=== PATIENT | female | born 1950 | race Caucasian/White ===

== ENCOUNTER → 2017-09-10 | Outpatient (CLI) | payer MEDICARE, BC, SELFPAY | PROVIDERS: Visit Provider Family Medicine | DX: Z12.31 Encounter for screening mammogram for malignant neoplasm of breast (principal) | CPT/HCPCS: 77067; G0202 ==

== ENCOUNTER → 2018-01-29 15:52 | Outpatient (CLI) | payer MEDICARE, BC, SELFPAY ==
--- NOTE | 2018-01-29 15:59 | XR_ITS ---
XR chest 2V HISTORY: ITS.REASON: COUGH ORDERING PHYSICIAN: Williams Falcon MD PATIENT AGE: 67 years COMPARISON: 10/03/2015 FINDINGS: Unremarkable cardiovascular structures. There are chronic changes in the right middle lobe with chronic increased density along the right heart border. This is somewhat more prominent on today's exam. The patient has a right pericardial fat pad as seen on the previous CT scan. No lobar consolidation or collapse. No acute bony anomalies IMPRESSION: 1. Chronic changes with prominent right pericardial fat pad 2. No acute finding
== END ==
PROVIDERS: PCP Family Medicine; Visit Provider Family Medicine
DX: R05 Cough (principal)
CPT/HCPCS: 71046

== ENCOUNTER → 2018-09-14 12:35 | Outpatient (CLI) | payer MEDICARE, BC, SELFPAY ==
--- NOTE | 2018-09-14 12:48 | MM_ITS ---
MM Dig screening mamm BI w/CAD ORDERING PHYSICIAN : Williams Falcon MD PATIENT AGE: 68 years GENDER: Female COMPARISON: Prior mammogram study August 2017, 2015, 2014. INDICATION: ITS.REASON: SCREENING no hormones no new complaints. Family history. Maternal cousins with breast cancer. (Previous mammogram noted mother with breast cancer but this is not included on today's history) TECHNIQUE: Standard CC and MLO images were obtained. R2 CAD reviewed. FINDINGS: Low-density breast bilaterally. Generalized fatty replacement. No significant new findings. No dominant mass nor suspicious calcifications either breast. Bilateral follow-up one year recommended. IMPRESSION: Negative, Stable bilateral mammogram. No areas of concern. BI-RADS Category: 1 Negative RECOMMENDED FOLLOW-UP: 1YR 1 YEAR FOLLOW-UP (A letter has been sent to the patient regarding results of the study.)
== END ==
PROVIDERS: PCP Family Medicine; Visit Provider Family Medicine
DX: Z12.31 Encounter for screening mammogram for malignant neoplasm of breast (principal)
CPT/HCPCS: 77067

== ENCOUNTER 2018-11-01 11:10 | Emergency (ER) | payer MEDICARE, BC, SELFPAY ==
[2018-11-01 11:25] VITALS: BP 136/67; PULSE 90; RESP 20; TEMP 38; O2SAT 96; BMI 33.9
--- NOTE | 2018-11-01 11:29 | PC.NURSE ---
PT SWABBED FOR FLU AND STREP
[2018-11-01 11:39] LABS: UTC Influenza A Antigen Negative (Negative); UTC Influenza B Antigen Negative (Negative); UTC Strep Screen (Rapid) Negative (Negative)
--- NOTE | 2018-11-01 11:40 | HMH.EDUTC ---
[facility] [place] Disposition Clinical Impression: Sinusitis Qualifiers: Sinusitis location: frontal Chronicity: acute Recurrence: recurrent Qualified Code(s): J01.11 - Acute recurrent frontal sinusitis Disposition: Home, Self-Care Condition on Discharge: Good Instructions: Sinusitis, Cough Additional Instructions: Drink plenty of fluids. Take tylenol or ibuprofen for pain. Take all the medications as prescribed. Go to your regular doctor if you are not getting better in 48 hours or so. GO TO THE ER FOR ANY WORSENING OR LIFE THREATENING SYMPTOMS Prescriptions: Ondansetron [Zofran 4mg ODT] 4 mg PO Q8HP PRN #30 tab.rapdis PRN Reason: Nausea Cefdinir [Omnicef 300mg Capsule] 300 mg PO BID #20 cap methylPREDNISolone [Medrol] 4 mg PO DIRECTED 6 Days #21 tab.ds.pk Referrals: Williams Falcon MD [Primary Care Provider] - Time of Disposition: 12:00 Medical Decision Making - Medical Records Medical records reviewed: No: I reviewed the patient's medical records. - Ambrose Inquiry Pt receiving controlled substance: No Ambrose was queried for this patient: No Vital Signs: 11/01/18 11:25 11/01/18 12:10 Temperature 100.4 F H 100.2 F H Temperature Source Oral Oral Pulse Rate 86 Pulse Rate [Left Brachial] 90 Respiratory Rate 20 20 Blood Pressure 130/62 Blood Pressure [Left Arm] 136/67 Blood Pressure Mean [Left Arm] 90 Blood Pressure Source [Left Arm] Automatic Cuff Blood Pressure Position [Left Arm] Sitting 02 Sat by Pulse Oximetry 96 Oxygen Delivery Method Room Air Room Air - Lab Data Lab results reviewed: Yes: I reviewed the patient's lab results. Lab Results 11/01/18 11:29: Influenza Type A Ag Negative, Influenza Type B Ag Negative, Strep Scn Rapid Clinic Negative Orders (Tests/Meds): ORDERS Category Date Time Status Strep Screen Confirmation Stat Micro 11/01/18 11:[address] [facility] [place] HPI - General Stated complaint: sore throat, soa, fever, cough Time Seen by Provider: 11/01/18 11:40 Mode of Arrival: Family Vehicle Source of Information: Patient Limitations: No Limitations Description of Symptoms (Recalled from Triage Doc. by RN): PT C/O HEADACHE, SORE THROAT, FEVER, BODY ACHES, CHILLS, CHEST CONGESTION, NAUSEA, COUGH WITH YELLOW PHLEM X 3 DAYS. HEENT Symptoms (Recalled from RN notes): Yes (FEVER, SORE THROAT, HEADACHE) Resp Symptoms (Recalled from RN notes): Yes (COUGH, CHEST CONGESTION) Skin Symptoms (Recalled from RN notes): No MS Symptoms (Recalled from RN notes): No Functional Status (Recalled from RN notes): N/A - History of Present Illness Provider Complaint: She c/o 3 days of low grade fever (up to 100.5), cough with yellowish sputum, sinus pressure, sinus pain, and poor appetite. She was treated approx 3 weeks with azithromycin for similar symptoms. She states she got better then, but it has returned now. - Related Data Home Medications Medication Instructions Recorded Confirmed Calcium Crb,Cit/D3/Min34/Andrés 1 each PO DAILY 10/15/18 11/01/18 [Citracal + Bone Density Tablet] Levothyroxine Sodium 175 mcg PO DAILY 10/15/18 11/01/18 [Levothyroxine 175mcg (0.175mg) Tab] Naproxen 500 mg PO DAILY 10/15/18 11/01/18 Omeprazole [Omeprazole 40mg 40 mg PO DAILY 10/15/18 11/01/18 Capsule] Previous Rx's Medication Instructions Recorded Promethazine/Dextromethorphan 5 ml PO Q6HP PRN #240 syrup 10/15/18 [Promethazine-Dm Syrup] Cefdinir [Omnicef 300mg Capsule] 300 mg PO BID #20 cap 11/01/18 Ondansetron [Zofran 4mg ODT] 4 mg PO Q8HP PRN #30 tab.rapdis 11/01/18 methylPREDNISolone [Medrol] 4 mg PO DIRECTED 6 Days #21 11/01/18 tab.ds.pk Allergies Allergy/AdvReac Type Severity Reaction Status Date / Time codeine [CODEINE] Allergy Mild NA-NAUSEA/V Verified 11/01/18 11:36 OMITING - Worker's Comp Is this a Worker's Comp case?: No [facility] History - Hepatitis A Screen Drug use history?: No High risk sexual behaviors?: No History
--- NOTE | 2018-11-01 11:44 | PC.NURSE ---
BOLIVAR BARCENAS AT BEDSIDE
--- NOTE | 2018-11-01 11:49 | ED_ITS ---
[facility] [place] Impression: Sinusitis Qualifiers: Sinusitis location: frontal Chronicity: acute Recurrence: recurrent Qualified Code(s): J01.11 - Acute recurrent frontal sinusitis Disposition: Home, Self-Care Condition on Discharge: Good Instructions: Sinusitis, Cough Additional Instructions: Drink plenty of fluids. Take tylenol or ibuprofen for pain. Take all the medications as prescribed. Go to your regular doctor if you are not getting better in 48 hours or so. GO TO THE ER FOR ANY WORSENING OR LIFE THREATENING SYMPTOMS Prescriptions: Ondansetron [Zofran 4mg ODT] 4 mg PO Q8HP PRN #30 tab.rapdis PRN Reason: Nausea Cefdinir [Omnicef 300mg Capsule] 300 mg PO BID #20 cap methylPREDNISolone [Medrol] 4 mg PO DIRECTED 6 Days #21 tab.ds.pk Referrals: Williams Falcon MD [Primary Care Provider] - Time of Disposition: 12:00 Medical Decision Making - Medical Records Medical records reviewed: No: I reviewed the patient's medical records. - Ambrose Inquiry Pt receiving controlled substance: No Ambrose was queried for this patient: No Vital Signs: 11/01/18 11:25 11/01/18 12:10 Temperature 100.4 F H 100.2 F H Temperature Source Oral Oral Pulse Rate 86 Pulse Rate [Left Brachial] 90 Respiratory Rate 20 20 Blood Pressure 130/62 Blood Pressure [Left Arm] 136/67 Blood Pressure Mean [Left Arm] 90 Blood Pressure Source [Left Arm] Automatic Cuff Blood Pressure Position [Left Arm] Sitting 02 Sat by Pulse Oximetry 96 Oxygen Delivery Method Room Air Room Air - Lab Data Lab results reviewed: Yes: I reviewed the patient's lab results. Lab Results 11/01/18 11:29: Influenza Type A Ag Negative, Influenza Type B Ag Negative, Strep Scn Rapid Clinic Negative Orders (Tests/Meds): ORDERS Category Date Time Status Strep Screen Confirmation Stat Micro 11/01/18 11:29 [place] [facility] [place] - General Stated complaint: sore throat, soa, fever, cough Time Seen by Provider: 11/01/18 11:40 Mode of Arrival: Family Vehicle Source of Information: Patient Limitations: No Limitations Description of Symptoms (Recalled from Triage Doc. by RN): PT C/O HEADACHE, SORE THROAT, FEVER, BODY ACHES, CHILLS, CHEST CONGESTION, NAUSEA, COUGH WITH YELLOW PHLEM X 3 DAYS. HEENT Symptoms (Recalled from RN notes): Yes (FEVER, SORE THROAT, HEADACHE) Resp Symptoms (Recalled from RN notes): Yes (COUGH, CHEST CONGESTION) Skin Symptoms (Recalled from RN notes): No MS Symptoms (Recalled from RN notes): No Functional Status (Recalled from RN notes): N/A - History of Present Illness Provider Complaint: She c/o 3 days of low grade fever (up to 100.5), cough with yellowish sputum, sinus pressure, sinus pain, and poor appetite. She was treated approx 3 weeks with azithromycin for similar symptoms. She states she got better then, but it has returned now. - Related Data Home Medications Medication Instructions Recorded Confirmed Calcium Crb,Cit/D3/Min34/Andrés 1 each PO DAILY 10/15/18 11/01/18 [Citracal + Bone Density Tablet] Levothyroxine Sodium 175 mcg PO DAILY 10/15/18 11/01/18 [Levothyroxine 175mcg (0.175mg) Tab] Naproxen 500 mg PO DAILY 10/15/18 11/01/18 Omeprazole
[2018-11-01 12:10] VITALS: BP 130/62; PULSE 86; RESP 20; TEMP 37.9; O2SAT 100
== END 2018-11-01 12:10 | disposition home or self-care (01) ==
PROVIDERS: Emergency Provider Nurse Practitioner Family; PCP Family Medicine
DX: J01.11 Acute recurrent frontal sinusitis (principal); Z88.5 Allergy status to narcotic agent
CPT/HCPCS: G0463; 87804; 87880; 99202

== ENCOUNTER → 2018-12-03 14:58 | Outpatient (CLI) | payer MEDICARE, BC, SELFPAY ==
--- NOTE | 2018-12-03 15:05 | XR_ITS ---
XR shoulder RT min 2V HISTORY: Posttraumatic pain ITS.REASON: S/P FALL RT ANTERIOR SHOULDER PAIN ORDERING PHYSICIAN: SUZANNE Russo PATIENT AGE: 68 years Comparison: None FINDINGS: No fracture or dislocation. No lytic or blastic change. There is normal mineralization. The joint spaces are well-preserved. No significant degenerative/arthritic changes. No erosive changes evident. There is an old fracture of the right second rib laterally IMPRESSION: Negative, no acute finding
== END ==
PROVIDERS: PCP Family Medicine; Visit Provider Physician Assistant
DX: M25.511 Pain in right shoulder (principal)
CPT/HCPCS: 73030

== ENCOUNTER → 2019-07-09 08:34 | Outpatient (CLI) | payer MEDICARE, BC, SELFPAY ==
[2019-07-09 10:14] LABS: Alanine Aminotransferase 12 U/L (12-78); Albumin Level 3.8 gm/dL (3.4-5.0); Albumin/Globulin Ratio 1.3 (1.1-1.8); Alkaline Phosphatase 75 U/L (46-116); Anion Gap 12.2 mEq/L (5-15); Aspartate Amino Transferase 9 U/L (15-37); Bilirubin,Total 0.4 mg/dL (0.2-1.0); Blood Urea Nitrogen 23 mg/dL (7-18); Calcium 8.9 mg/dL (8.5-10.1); Carbon Dioxide 27 mmol/L (21.0-32.0); Chloride 107 mmol/L (98-107); Cholesterol 246 mg/dL (140-200); Creatinine,Serum 0.79 mg/dL (0.55-1.02); Estimated Glomerular Filt Rate 73 ml/min (>60); Free T4 (Free Thyroxine) 1.27 ng/dl (0.76-1.46); GFR (African American) 88 ML/MIN (>60); Globulin 2.9 gm/dl (1.3-3.2); Glucose 92 mg/dL (74-106); HDL Cholesterol 83 mg/dL (29-89); LDL Cholesterol 150 mg/dL (0-130); Potassium 4.2 mmoL/L (3.5-5.1); Sodium 142 mmol/L (136-145); Thyroid Stimulating Hormone 2.84 uIU/ml (0.358-3.740); Total Protein,Serum 6.7 gm/dL (6.4-8.2); Triglycerides 67 mg/dL (30-200); VLDL Cholesterol 13 mg/dL (0-40)
[2019-07-10 18:53] LABS: Vitamin B12 524 pg/mL (232-1245)
== END ==
PROVIDERS: Visit Provider Physician Assistant
DX: I10 Essential (primary) hypertension (principal); E03.9 Hypothyroidism, unspecified; R20.2 Paresthesia of skin; Z13.220 Encounter for screening for lipoid disorders
CPT/HCPCS: 36415; 80053; 80061; 82607; 84439; 84443

== ENCOUNTER → 2019-09-16 09:59 | Outpatient (CLI) | payer MEDICARE, BC, SELFPAY ==
--- NOTE | 2019-09-16 10:07 | MM_ITS ---
PROCEDURE: MM DIG SCREENING MAMM BI W/CAD Patient Age:69Y CLINICAL INDICATION: SCREENING no hormones but no new complaints.. Family history: Mother and cousin with breast cancer COMPARISON: [facility] DIG MAMM-SCREEN YESY from 07/09/2013 [facility] DIG MAMM-SCREEN YESY from 09/05/2014 [facility] DIG MAMM-SCREEN YESY from 09/06/2015 [facility] DIG MAMM-SCREEN YESY from 09/10/2016 [facility] DIG MAMM-SCREEN YESY W/CAD from 09/10/2017 [facility] MM Dig screening mamm BI w/CAD from 09/14/2018 TECHNIQUE: Standard CC and MLO images were obtained. R2 CAD reviewed. FINDINGS: Only minimal residual fibroglandular elements retroareolar region low-density breast with generalized fatty replacement. No new dominant or suspicious mass, no suspicious calcifications. A no change since multiple prior studies. Subtle scattered small areas of nodularity bilaterally unimpressive and stable not of concern . Right breast mildly prominent ductal retroareolar region unchanged since multiple previous studies . Left breast: Unremarkable and stable No significant new findings on CAD computer review either.. Bilateral follow-up 1 year recommended. IMPRESSION: Stable bilateral mammogram. Low-density breast with generalized fatty replacement Bilateral mammogram 1 year recommend BI-RAD Category: 1 Negative FOLLOW-UP: 1YR 1 Year Follow-up (A letter has been sent to the patient regarding results of the study.) Dictated by: Karlos Paula MD 09/16/2019 23:56 Electronically signed by Karlos Paula MD in [place] 09/16/2019 23:56
== END ==
PROVIDERS: PCP Family Medicine; Visit Provider Family Medicine
DX: Z12.31 Encounter for screening mammogram for malignant neoplasm of breast (principal)
CPT/HCPCS: 77067

== ENCOUNTER → 2020-09-20 09:28 | Outpatient (CLI) | payer MEDICARE, BC, SELFPAY ==
--- NOTE | 2020-09-20 09:38 | MM_ITS ---
PROCEDURE: MM DIG SCREENING MAMM BI W/CAD Digital Breast Tomosynthesis Included CLINICAL INDICATION: SCREENING There is a history of breast cancer in the patient's mother and maternal cousin. COMPARISON: MG [facility] DIG MAMM-SCREEN YESY W/CAD from 09/10/2017 MG [facility] MM Dig screening mamm BI w/CAD from 09/14/2018 MG MM DIG SCREENING MAMM BI W/CAD from 09/16/2019 TECHNIQUE: Standard CC and MLO images and 3D Tomosynthesis was obtained. R2 CAD reviewed. FINDINGS: The breasts are composed primarily of fat with minimal scattered fibroglandular densities in each breast. There is a stable tiny benign-appearing nodular density near the axillary tail right breast. There is stable benign-appearing nodularity subareolar region right breast. There is no suspicious lesion and no suspicious microcalcifications. IMPRESSION: Fatty type breast parenchyma with no suspicious lesions seen BI-RAD Category: 2 Benign Finding(s) FOLLOW-UP: 1YR 1 Year Follow-up (A letter has been sent to the patient regarding results of the study.) Dictated by: Dr. Donald Peña MD 09/23/2020 10:12 Dr. Donald Peña MD in [place] 09/23/2020 10:12
== END ==
PROVIDERS: PCP Family Medicine; Visit Provider Family Medicine
DX: Z12.31 Encounter for screening mammogram for malignant neoplasm of breast (principal)
CPT/HCPCS: 77063; 77067

== ENCOUNTER 2021-01-24 09:07 | Emergency (ER) | payer MEDICARE, BC, SELFPAY ==
[2021-01-24 09:39] VITALS: BP 133/79; PULSE 86; RESP 19; TEMP 37; O2SAT 98; BMI 33.9
[2021-01-24 09:45] VITALS: BP 133/79; PULSE 86; RESP 19; TEMP 37; O2SAT 98
[2021-01-24 10:05] LABS: UTC Influenza A Antigen Negative (Negative); UTC Strep Screen (Rapid) Negative (Negative)
[2021-01-24 10:06] LABS: UTC Influenza B Antigen Negative (Negative)
--- NOTE | 2021-01-24 10:13 | HMH.EDUTC ---
[facility] [place] Clinical Impression: Viral syndrome Pharyngitis Qualifiers: Pharyngitis/tonsillitis etiology: unspecified etiology Qualified Code(s): J02.9 - Acute pharyngitis, unspecified Disposition: Home, Self-Care Condition on Discharge: Good Instructions: DI for Pharyngitis/Tonsillopharyngitis -- Adult, DI for Viral Syndrome, Preventing the Spread of Coronavirus Discharge Instructions Additional Instructions: Drink plenty of fluids. Take tylenol for pain or fever. Return if you begin to have difficulty breathing. Follow up with your regular doctor. GO TO THE ER FOR ANY WORSENING SYMPTOMS Prescriptions: Ondansetron [Zofran 4mg ODT] 4 mg PO Q8HP PRN #12 tab.rapdis PRN Reason: Nausea Transmission Status[id number] Azithromycin [Z-Ehsan 250mg Tab*] 250 mg PO UD DOSE PK #6 tab Transmission Status: [id number] Referrals: Williams Falcon MD [Primary Care Provider] - Time of Disposition: 10:26 Medical Decision Making - Medical Records Medical records reviewed: No: I reviewed the patient's medical records. - Ambrose Inquiry Pt receiving controlled substance: No Vital Signs: 01/24/21 09:39 01/24/21 09:45 Temperature 98.6 F 98.6 F Temperature Source Oral Pulse Rate 86 Pulse Rate [Left] 86 Respiratory Rate 19 19 Blood Pressure 133/79 Blood Pressure [Right Arm] 133/79 Blood Pressure Mean [Right Arm] 97 02 Sat by Pulse Oximetry 98 - Lab Data Lab results reviewed: Yes: I reviewed the patient's lab results. Lab Results 01/24/21 09:33: Influenza Type A Ag Negative, Influenza Type B Ag Negative 01/24/21 09:33: Strep Scn Rapid Clinic Negative Orders (Tests/Meds): ORDERS Category Date Time Status Strep Screen Confirmation Stat Micro 01/24/21 09:33 Received [facility] [place]PI - General Stated complaint: sore throat, cough Time Seen by Provider: 01/24/21 09:30 Mode of Arrival: Ambulatory Source of Information: Patient Limitations: No Limitations Description of Symptoms (Recalled from Triage Doc. by RN): Sore throat, cough and achy x 3 days HEENT Symptoms (Recalled from RN notes): Yes Resp Symptoms (Recalled from RN notes): Yes Skin Symptoms (Recalled from RN notes): No MS Symptoms (Recalled from RN notes): No Functional Status (Recalled from RN notes): wnl - History of Present Illness Provider Complaint: She states that she has had sore throat and cough for the past 3 days. She also has had gi upset at times. She denies documented fever, but she has had chilling and body aches. She was exposed to covid-19 about 2 weeks ago. - Related Data Home Medications Medication Instructions Recorded Confirmed Calcium Crb,Cit/D3/Min34/Andrés 1 each PO DAILY 10/15/18 11/01/18 [Citracal + Bone Density Tablet] Levothyroxine Sodium 175 mcg PO DAILY 10/15/18 11/01/18 [Levothyroxine 175mcg (0.175mg) Tab] Naproxen 500 mg PO DAILY 10/15/18 11/01/18 Omeprazole [Omeprazole 40mg 40 mg PO DAILY 10/15/18 11/01/18 Capsule] Previous Rx's Medication Instructions Recorded Sulfamethoxazole/Trimethoprim 1 each PO BID 10 Days #20 tab 03/26/19 [Bactrim DS tablet] Azithromycin [Z-Ehsan 250mg Tab*] 250 mg PO UD DOSE PK #6 tab 08/14/19 methylPREDNISolone [Medrol 4mg 4 mg PO DIRECTED #21 tab 08/14/19 tab] Azithromycin [Z-Ehsan 250mg Tab*] 250 mg PO UD DOSE PK #6 tab 01/24/21 Ondansetron [Zofran 4mg ODT] 4 mg PO Q8HP PRN #12 tab.rapdis 01/24/21 Allergies Allergy/AdvReac Type Severity Reaction Status Date / Time codeine [CODEINE] Allergy Mild NA-NAUSEA/V Verified 01/24/21 09:44 OMITING - Worker's Comp Is this a Worker's Comp case?: No [facility] History - Hepatitis A Screen Drug use history?: No High risk sexual behaviors?: No History of sexually transmitted infection?: No Currently employed?: No Childcare worker?: No Do you have indoor plumbing?: Yes Do you have electricity?: Yes Attestation statement
== END 2021-01-24 10:29 | disposition home or self-care (01) ==
PROVIDERS: Emergency Provider Nurse Practitioner Family; PCP Family Medicine
DX: B34.9 Viral infection, unspecified (principal); J02.9 Acute pharyngitis, unspecified; Z20.822 Contact with and (suspected) exposure to COVID-19
CPT/HCPCS: G0463; 87804; 87880; 99202; U0003

== ENCOUNTER → 2021-03-06 08:55 | Outpatient (CLI) | payer MEDICARE, BC, SELFPAY ==
--- NOTE | 2021-03-06 08:58 | XR_ITS ---
PROCEDURE: XR DEXA AXIAL SKELETON CLINICAL HISTORY: AGE RELATED OSTEOPOROSIS W/O CURRENT FRACTURE COMPARISON: CR,DX BONE3 BONE DENSITOMETRY(HIP:LT SPINE from 12/28/2014 FINDINGS: The right hip BMD is 0.770 with a T-score of -1.4. The left hip BMD is 0.665 with a T-score of -2.3. The lumbar spine BMD is 0.897 with a T-score of -1.4. Previously the lowest density was in the spine with a T-score -3.4 IMPRESSION: This patient is considered osteopenic according to the World Health Organization criteria. Bone density is between 10 and 25 percent below young normal. Fracture risk is moderate. Treatment is advised. Based on these results a follow-up exam is recommended in 2 year. Dictated by: Daryl Noble MD 03/08/2021 09:21 Daryl Noble MD in [place] 03/08/2021 09:21
== END ==
PROVIDERS: PCP Family Medicine; Visit Provider Physician Assistant
DX: M81.0 Age-related osteoporosis without current pathological fracture (principal)
CPT/HCPCS: 77080

== ENCOUNTER 2021-05-20 16:33 | Emergency (ER) | payer MEDICARE, BC, SELFPAY ==
[2021-05-20 16:34] VITALS: BP 173/72; PULSE 59; RESP 22; TEMP 37; O2SAT 98; BMI 33.0
--- NOTE | 2021-05-20 16:49 | CT_ITS ---
PROCEDURE INFORMATION: Exam: CT Abdomen And Pelvis Without Contrast Exam date and time: 05/20/2021 4:49 PM Age: 70 years old Clinical indication: Abdominal pain; Patient HX: Right flank pain, R/O kidney stone. ; Additional info: R/O stone TECHNIQUE: Imaging protocol: Computed tomography of the abdomen and pelvis without contrast. Radiation optimization: All CT scans at this facility use at least one of these dose optimization techniques: automated exposure control; mA and/or kV adjustment per patient size (includes targeted exams where dose is matched to clinical indication); or iterative reconstruction. COMPARISON: ABDPELW/O CT ABD PELVIS W/O CONTRAST 03/15/2017 4:11 AM FINDINGS: Lungs: Scarring/atelectasis at the lung bases without acute findings. Mediastinal space: A small hiatal hernia is present. Liver: There is enlargement of the liver, measuring 20 cm. There is a diffuse decrease in hepatic parenchymal density, consistent with fatty infiltration. The liver is otherwise unremarkable. Gallbladder and bile ducts: Normal. No calcified stones. No ductal dilation. Pancreas: Normal. No ductal dilation. Spleen: 9 mm hypodense lesion in the spleen is nonspecific, however stable since the reference examination and most probably benign. Consider ultrasound correlation if clinically warranted. Stable punctate calcification in the upper pole of the spleen which is of no clinical concern. The spleen is otherwise unremarkable. Adrenal glands: Normal. No mass. Kidneys and ureters: 4 mm x 4 mm stone impacted in the left mid ureter. There is mild left hydronephrosis. There is left hydroureter. There is inflammatory left perinephric stranding. Bilateral parapelvic renal cysts. 8 mm hypodense lesion in the right kidney is too small to characterize. Consider correlation with nonemergent ultrasound. The kidneys are otherwise unremarkable. Stomach and bowel: No bowel obstruction or significant bowel wall thickening. There is mildly excessive colonic stool content. Appendix: A normal appendix is identified. Intraperitoneal space: Unremarkable. No free air. No significant fluid collection. Vasculature: Unremarkable. No abdominal aortic aneurysm. Lymph nodes: Unremarkable. No enlarged lymph nodes. Urinary bladder: The bladder is decompressed. Reproductive: Unremarkable as visualized. Bones/joints: No acute skeletal pathology. Moderate multilevel degenerative changes of the spine, as manifested by multilevel anterior osteophytes and multilevel decrease in intervertebral disc space. Soft tissues: Unremarkable. IMPRESSION: Mild left obstructive uropathy caused by a 4 mm stone impacted in the mid left ureter. COMMENTS: Consistent with the [employer]'s Incidental Findings Committee white paper (J Am [place] Radiol 2018): Any incidental renal lesion less than 1 cm or classified as too small to characterize, or any incidental cystic renal lesion characterized as simple-appearing, is likely benign. No follow-up imaging is recommended for these lesions per consensus recommendations based on imaging criteria.
[2021-05-20 17:05] LABS: Microscopic, Urine URINE MICROSCOPIC (MICROSCOPIC)
[2021-05-20 17:08] LABS: Appearance,Urine CLOUDY (Clear); Basophils % 0.6 % (0.1-2.0); Bilirubin,Urine Negative (Negative); Blood, Urine 3+ (Negative); Color,Urine YELLOW (Yellow); Eosinophils % 0.5 % (0.1-12.0); Glucose,Urine (UA) Negative (Negative); Hematocrit 39.3 % (37.0-47.0); Hemoglobin 12.8 g/dL (12.2-16.2); Ketones,Urine Negative (Negative); Leukocyte Esterase,Urine Negative (Negative); Lymphocytes # 2.1 K/mm3 (0.7-4.5); Lymphocytes % 30.3 % (10-50); Mean Corpuscular HGB Conc 32.7 g/dL (31.8-35.4); Mean Corpuscular Hemoglobin 31.4 pg (27.0-31.2); Mean Corpuscular Volume 96.1 fl (81-99); Mean Platelet Volume 9.1 fl (7.4-10.4); Monocytes # 0.3 K/mm3 (0.1-1.0); Neutrophils # 4.5 K/mm3 (1.8-7.8); Neutrophils % 64.6 % (37.0-80.0); Nitrate,Urine Negative (Negative); PH,Urine 5.5 (5.0-8.5); Platelet Count 230 K/mm3 (142-424); Protein,Urine 1+ (Negative); Red Blood Count 4.09 M/mm3 (4.20-5.40); Red Cell Distribution Width 14.7 % (11.5-17.5); Specific Gravity, Urine >= 1.030 (1.005-1.030); White Blood Count 6.9 K/mm3 (4.8-10.8)
[2021-05-20 17:17] LABS: Alanine Aminotransferase 11 U/L (12-78); Albumin Level 4.2 g/dl (3.5-5.0); Albumin/Globulin Ratio 1.5 (1.1-1.8); Alkaline Phosphatase 87 U/L (38-126); Anion Gap 11.3 mEq/L (5-15); Aspartate Amino Transferase 20 U/L (14-36); Bilirubin,Total 0.4 mg/dl (0.2-1.3); Blood Urea Nitrogen 15 mg/dl (7-17); Calcium 8.9 mg/dl (8.4-10.2); Carbon Dioxide 24 mmol/L (22.0-30.0); Chloride 109 mmol/L (98-107); Creatinine Clearance Estimated 79 mL/min (50-200); Estimated Glomerular Filt Rate 71 ml/min (>60); GFR (African American) 86 ML/MIN (>60); Globulin 2.8 g/dL (1.3-3.2); Glucose 138 mg/dl (74-100); Potassium 3.3 mmoL/L (3.5-5.1); Sodium 141 mmol/L (136-145)
[2021-05-20 17:18] LABS: WBC,Urine Occasional #/hpf (0-3)
[2021-05-20 17:19] LABS: Bacteria,Urine 3+ /lpf; Calcium Oxalate Crystals,Urine 2+ /lpf; Mucus,Urine 1+ /lpf; RBC,Urine TNTC #/hpf (0-3)
--- NOTE | 2021-05-20 17:50 | HMH.EDGENADL ---
ED Disposition Clinical Impression: Nephrolithiasis Disposition: Home, Self-Care Condition on Discharge: Good Additional Instructions: If you are unable to bear the pain at home, taking Zofran prior to taking your pain medications he can keep them down. It is very common for people to have intense pain causing the nausea. Drink plenty of fluids as this can help you pass the stone. You have any signs of a urinary tract infection, burning when you pee, pain when you pee frequent bowel movements, feeling the urge to urinate without being able to. If you see any air in your urine or if you have any other new or concerning symptoms please return to the emergency department. Prescriptions: Ketorolac Tromethamine [Toradol 10mg tablet] 10 mg PO Q4HP PRN #20 tab MDD 40mg/day PRN Reason: Moderate To Severe Pain Transmission Status[facility] Ondansetron [Zofran 4mg ODT] 4 mg PO BIDP PRN #10 tab PRN Reason: Nausea Transmission Status: [facility] Referrals: Williams Falcon MD [Primary Care Provider] - - Critical Care Critical Care Time: No Attestation: On 05/20/21, the high probability of a clinically significant, sudden or life threatening deterioration of the following system(s) required my full and direct attention, intervention and personal management. The time I documented below is in addition to time spent performing reported procedures but includes the following listed in this critical care notation. Medical Decision Making - Ambrose Inquiry Pt receiving controlled substance: No Vital Signs: 05/20/21 16:34 Temperature 98.6 F Temperature Source Oral Pulse Rate [Radial] 59 L Respiratory Rate 22 Blood Pressure [Right Arm] 173/72 H Blood Pressure Mean [Right Arm] 105 Blood Pressure Position [Right Arm] Sitting 02 Sat by Pulse Oximetry 98 Oxygen Delivery Method Room Air - Lab Data Lab Results 05/20/21 16:55: Urine Color Yellow, Urine Appearance Cloudy, Urine pH 5.5, Ur Specific [place] >= 1.030, Urine Protein 1+, Urine Glucose (UA) Negative, Urine Ketones Negative, Urine Blood 3+, Urine Nitrate Negative, Urine Bilirubin Negative, Urine Urobilinogen 1.0, Ur Leukocyte Esterase Negative, Urine RBC Tntc, Urine WBC Occasional, Ur Squamous Epith Cells 5-10, Calcium Oxalate Crystal 2+, Urine Bacteria 3+, Urine Mucus 1+ 05/20/21 16:55: WBC 6.9, RBC 4.09 L, Hgb 12.8, Hct 39.3, MCV 96.1, MCH 31.4 H, MCHC 32.7, RDW 14.7, Plt Count 230, MPV 9.1, Neut % (Auto) 64.6, Lymph % (Auto) 30.3, [place] % (Auto) 4.0, Eos % (Auto) 0.5, Baso % (Auto) 0.6, Neut # (Auto) 4.5, Lymph # (Auto) 2.1, [place] # (Auto) 0.3, Eos # (Auto) 0.0, Baso # (Auto) 0.0 05/20/21 16:55: Sodium 141, Potassium 3.3 L, Chloride 109 H, Carbon Dioxide 24, Anion Gap 11.3, BUN 15, Creatinine 0.80, Estimated Creat Clear 79, Estimated GFR 71, Est GFR ( Amer) 86, Glucose 138 H, Calcium 8.9, Total Bilirubin 0.4, AST 20, ALT 11 L, Alkaline Phosphatase 87, Total Protein 7.0, Albumin 4.2, Globulin 2.8, Albumin/Globulin Ratio 1.5 Result diagrams: 05/20/21 16:55 05/20/21 16:55 Orders (Tests/Meds): ED MEDICATIONS Generic Name Dose Route Start Last Admin Trade Name Freq PRN Reason Stop Dose Admin Sodium Chloride 1,000 mls @ 999 mls/hr 05/20/21 17:00 05/20/21 17:01 Sod Chlor 0.9% 1000ml Bag IV 05/20/21 18:00 999 mls/hr .Q1H1M SAYRA Administration Discontinued Medications Generic Name Dose Route Start Last Admin Trade Name Freq PRN Reason Stop Dose Admin Hydromorphone HCl 0.5 mg 05/20/21 18:02 05/20/21 18:03 Hydromorphone 2mg/Ml Syringe IV 05/20/21 18:03 0.5 mg ONCE ONE Administration Ketorolac Tromethamine 15 mg 05/20/21 16:50 05/20/21 17:01 Ketorolac 30mg/Ml Vial IV 09/05/21 16:51 15 mg ONCE ONE Administration Ondansetron HCl 4 mg 05/20/21 16:50 05/20/21 17:01 Ondansetron 4mg/2ml Vial IV 05/20/21 16:51 4 mg ONCE ONE Administration Ondansetron HCl 4 mg 05/20
[2021-05-20 19:25] VITALS: BP 167/75; PULSE 64; RESP 20; TEMP 37; O2SAT 98
== END 2021-05-20 19:27 | disposition home or self-care (01) ==
PROVIDERS: Emergency Provider Emergency Medicine; PCP Family Medicine
DX: N20.0 Calculus of kidney (principal); N13.39 Other hydronephrosis; Z88.5 Allergy status to narcotic agent
CPT/HCPCS: 74176; 80053; 81001; 85025; 87086; 96365; 96375; 96376; 99283; J2405

== ENCOUNTER 2021-05-24 22:51 | Emergency (ER) | payer MEDICARE, BC, SELFPAY ==
[2021-05-24 22:52] VITALS: BP 152/91; PULSE 87; RESP 18; TEMP 37.1; O2SAT 96; BMI 32.5
[2021-05-24 23:30] VITALS: BP 143/89; PULSE 78; O2SAT 96
--- NOTE | 2021-05-24 23:34 | CT_ITS ---
PROCEDURE INFORMATION: Exam: CT Abdomen And Pelvis Without Contrast Exam date and time: 05/24/2021 11:34 PM Age: 70 years old Clinical indication: Abdominal pain; Left; Patient HX: Lt flank pain started back again today, known stone; Additional info: Left flank pain, known 4mm ureteral stone TECHNIQUE: Imaging protocol: Computed tomography of the abdomen and pelvis without contrast. Radiation optimization: All CT scans at this facility use at least one of these dose optimization techniques: automated exposure control; mA and/or kV adjustment per patient size (includes targeted exams where dose is matched to clinical indication); or iterative reconstruction. COMPARISON: CT ABDOMEN PELVIS WO CON 05/20/2021 5:15 PM FINDINGS: Lungs: Mild scarring and atelectasis in the lower lungs. Liver: Normal. No mass. Gallbladder and bile ducts: Normal. No calcified stones. No ductal dilation. Pancreas: Normal. No ductal dilation. Spleen: Normal. No splenomegaly. Adrenal glands: Normal. No mass. Kidneys and ureters: Left hydronephrosis secondary to a 2 mm calculus in the distal ureter approximately 4 cm proximal to the urinary bladder. Stomach and bowel: Unremarkable. No obstruction. No mucosal thickening. Appendix: Unremarkable appendix. Intraperitoneal space: Unremarkable. No free air. No significant fluid collection. Vasculature: Unremarkable. No abdominal aortic aneurysm. Lymph nodes: Unremarkable. No enlarged lymph nodes. Urinary bladder: Unremarkable as visualized. Reproductive: Unremarkable as visualized. Bones/joints: The lumbar spine demonstrates mild degenerative changes at multiple levels. Soft tissues: There is a healed anterior abdominal wall incision. Other findings: Stigmata of old granulomatous disease. IMPRESSION: Left hydronephrosis secondary to a 2 mm calculus in the distal ureter approximately 4 cm proximal to the urinary bladder. This is progressed compared to prior study.
[2021-05-24 23:43] LABS: Microscopic, Urine URINE MICROSCOPIC (MICROSCOPIC)
[2021-05-24 23:45] VITALS: BP 152/83; PULSE 75; O2SAT 96
[2021-05-24 23:50] LABS: Appearance,Urine CLEAR (Clear); Bilirubin,Urine 1+ (Negative); Blood, Urine 3+ (Negative); Color,Urine YELLOW (Yellow); Glucose,Urine (UA) Negative (Negative); Ketones,Urine TRACE (Negative); Leukocyte Esterase,Urine Negative (Negative); Nitrate,Urine Negative (Negative); Protein,Urine TRACE (Negative); Specific Gravity, Urine >= 1.030 (1.005-1.030)
[2021-05-24 23:54] LABS: Bacteria,Urine Trace /lpf
[2021-05-25 00:03] LABS: Basophils # 0.1 K/mm3 (0-0.2); Basophils % 0.9 % (0.1-2.0); Eosinophils % 0.4 % (0.1-12.0); Hematocrit 39.4 % (37.0-47.0); Hemoglobin 12.9 g/dL (12.2-16.2); Lymphocytes # 1.8 K/mm3 (0.7-4.5); Lymphocytes % 21.8 % (10-50); Mean Corpuscular HGB Conc 32.8 g/dL (31.8-35.4); Mean Corpuscular Hemoglobin 31.8 pg (27.0-31.2); Mean Corpuscular Volume 97.1 fl (81-99); Mean Platelet Volume 8.7 fl (7.4-10.4); Monocytes # 0.6 K/mm3 (0.1-1.0); Monocytes % 6.7 % (1.7-9.3); Neutrophils # 5.9 K/mm3 (1.8-7.8); Neutrophils % 70.2 % (37.0-80.0); Platelet Count 243 K/mm3 (142-424); Red Blood Count 4.06 M/mm3 (4.20-5.40); Red Cell Distribution Width 14.7 % (11.5-17.5); White Blood Count 8.4 K/mm3 (4.8-10.8)
[2021-05-25 00:05] LABS: Chloride 106 mmol/L (98-107)
[2021-05-25 00:06] LABS: Potassium 3.4 mmoL/L (3.5-5.1); Sodium 141 mmol/L (136-145)
[2021-05-25 00:08] LABS: Amylase 47 U/L (30-110); Blood Urea Nitrogen 18 mg/dl (7-17)
[2021-05-25 00:09] LABS: Alanine Aminotransferase 11 U/L (12-78); Albumin Level 4.1 g/dl (3.5-5.0); Albumin/Globulin Ratio 1.4 (1.1-1.8); Alkaline Phosphatase 91 U/L (38-126); Anion Gap 14.4 mEq/L (5-15); Aspartate Amino Transferase 24 U/L (14-36); Bilirubin,Total 0.7 mg/dl (0.2-1.3); Calcium 9.1 mg/dl (8.4-10.2); Carbon Dioxide 24 mmol/L (22.0-30.0); Creatinine Clearance Estimated 71 mL/min (50-200); Estimated Glomerular Filt Rate 49 ml/min (>60); GFR (African American) 60 ML/MIN (>60); Globulin 2.9 g/dL (1.3-3.2); Glucose 108 mg/dl (74-100); Lipase 51 U/L (23-300)
[2021-05-25 00:15] LABS: C-Reactive Protein 13.8 mg/L (0-4)
--- NOTE | 2021-05-25 00:16 | HMH.EDGENADL ---
ED Disposition Clinical Impression: Renal colic on left side Disposition: Home, Self-Care Condition on Discharge: Good Instructions: DI for Kidney Stones Additional Instructions: see pcp and dr song for follow up Referrals: Williams Falcon MD [Primary Care Provider] - Rodrick Song MD [Staff Physician] - - Critical Care Critical Care Time: No Attestation: On 05/24/21, the high probability of a clinically significant, sudden or life threatening deterioration of the following system(s) required my full and direct attention, intervention and personal management. The time I documented below is in addition to time spent performing reported procedures but includes the following listed in this critical care notation. Medical Decision Making - Medical Records Medical records reviewed: Yes: I reviewed the patient's medical records. - Ambrose Inquiry Pt receiving controlled substance: No Vital Signs: 05/24/21 22:52 05/24/21 23:30 05/24/21 23:45 Temperature 98.8 F Temperature Source Oral Pulse Rate 78 75 Pulse Rate [Right] 87 Respiratory Rate 18 Blood Pressure 143/89 H 152/83 H Blood Pressure [Right Arm] 152/91 H Blood Pressure Mean [Right Arm] 111 02 Sat by Pulse Oximetry 96 96 96 Oxygen Delivery Method Room Air - Lab Data Lab results reviewed: Yes: I reviewed the patient's lab results. Lab Results 05/24/21 23:38: Urine Color Yellow, Urine Appearance Clear, Urine pH 6.0, Ur Specific [place] >= 1.030, Urine Protein Trace, Urine Glucose (UA) Negative, Urine Ketones Trace, Urine Blood 3+, Urine Nitrate Negative, Urine Bilirubin 1+ A, Urine Urobilinogen 1.0, Ur Leukocyte Esterase Negative, Urine RBC 10-20, Urine WBC 5-10, Ur Squamous Epith Cells 3-5, Urine Bacteria Trace 05/24/21 23:50: WBC 8.4, RBC 4.06 L, Hgb 12.9, Hct 39.4, MCV 97.1, MCH 31.8 H, MCHC 32.8, RDW 14.7, Plt Count 243, MPV 8.7, Neut % (Auto) 70.2, Lymph % (Auto) 21.8, Dixon % (Auto) 6.7, Eos % (Auto) 0.4, Baso % (Auto) 0.9, Neut # (Auto) 5.9, Lymph # (Auto) 1.8, Dixon # (Auto) 0.6, Eos # (Auto) 0.0, Baso # (Auto) 0.1 05/24/21 23:50: Sodium 141, Potassium 3.4 L, Chloride 106, Carbon Dioxide 24, Anion Gap 14.4, BUN 18 H, Creatinine 1.10 H, Estimated Creat Clear 71, Estimated GFR 49 L, Est GFR ( Amer) 60, Glucose 108 H, Calcium 9.1, Total Bilirubin 0.7, AST 24, ALT 11 L, Alkaline Phosphatase 91, C-Reactive Protein 13.8 H, Total Protein 7.0, Albumin 4.1, Globulin 2.9, Albumin/Globulin Ratio 1.4, Amylase 47, Lipase 51 05/24/21 23:50: ESR 20 05/24/21 23:50: Procalcitonin 0.064 Result diagrams: 05/24/21 23:50 05/24/21 23:50 Orders (Tests/Meds): ED MEDICATIONS Generic Name Dose Route Start Last Admin Trade Name Freq PRN Reason Stop Dose Admin Sodium Chloride 1,000 mls @ 999 mls/hr 05/24/21 23:30 05/24/21 23:38 Sod Chlor 0.9% 1000ml Bag IV 05/25/21 00:30 999 mls/hr .Q1H1M SAYRA Administration Tamsulosin HCl 0.4 mg 05/25/21 23:31 Tamsulosin 0.4mg Capsule PO 05/25/21 23:32 ONCE ONE Discontinued Medications Generic Name Dose Route Start Last Admin Trade Name Freq PRN Reason Stop Dose Admin Ketorolac Tromethamine 30 mg 05/24/21 23:54 05/25/21 00:00 Ketorolac 30mg/Ml Vial IV 05/24/21 23:55 30 mg ONCE ONE Administration Ondansetron HCl 4 mg 05/24/21 23:20 05/25/21 00:00 Ondansetron 4mg/2ml Vial IV 05/24/21 23:21 4 mg ONCE ONE Administration - CT Data CT Scan: Abdomen, Pelvis Time Received: 01:[address] Reviewed: Yes: I have viewed the radiologist's interpretation Preliminary Findings: Abnormal Medical Decision Narrative: has lt renal colic with stable exam and labs General Adult HPI - General Chief complaint: PAIN Stated complaint: kidney stones Time Seen by Provider: 05/25/21 00:16 Mode of Arrival: Family Vehicle Source of Information: Patient, Medical Record Limitations: No Limitations Description of Symptoms (Recalled from ER Triage Doc. by RN): Pt c/o left f
[2021-05-25 00:25] LABS: Procalcitonin 0.064 ng/mL (0.0-2.0)
[2021-05-25 00:40] LABS: Erythrocyte Sedimentation Rate 20 mm/hr (0-30)
[2021-05-25 01:18] VITALS: BP 148/85; PULSE 78; RESP 16; TEMP 36.7; O2SAT 97
== END 2021-05-25 01:21 | disposition home or self-care (01) ==
PROVIDERS: Emergency Provider Emergency Medicine; PCP Family Medicine
DX: N20.0 Calculus of kidney (principal); Z88.5 Allergy status to narcotic agent
CPT/HCPCS: 74176; 80053; 81001; 82150; 83690; 84145; 85025; 85651; 86140; 96365; 96375; 99283; J2405

== ENCOUNTER → 2021-05-25 13:54 | Outpatient (CLI) | payer MEDICARE, BC, SELFPAY | PROVIDERS: Visit Provider Urology | DX: N20.1 Calculus of ureter (principal); Z01.812 Encounter for preprocedural laboratory examination; Z11.52 Encounter for screening for COVID-19 | CPT/HCPCS: C9803; U0003; U0005 ==

== ENCOUNTER 2021-05-28 08:22 | Day surgery (SDC) | payer MEDICARE, BC, SELFPAY ==
[2021-05-28] VITALS (12 sets, daily range): BP systolic 119–164; BP diastolic 66–95; PULSE 60–80; RESP 12–18; TEMP 36.2–43; O2SAT 92–97; BMI 32.4
--- NOTE | 2021-05-28 11:18 | P.PN_ITS ---
[facility] Anesthesia Checklist - Structural Data Admitted From: Home Planned Operative Procedure/s: ureteroscopy Consent for Planned Operative Procedure(s) Verified: Yes - Additional verifications Anesthesia Reactions: Yes (nausea/ vomiting) Hx Blood Transfusions: No Blood Transfusion Reaction: No - Airway Assessment C-Spine Mobility Assessed: Yes TMJ Mobility Assessed: Yes Dentition: Good Dentition - Neurological Assessment Level of Consciousness: Awake, Alert, Appropriate - Anesthesia Plan Anesthesia Risk discussed: Yes Anesthesia Plan: Verified ASA Class: II Anesthesia Type: General [facility] History I have reviewed the patient's past medical history: Yes 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: Reports:: Hyperlipidemia, Hypertension, Kidney Stones Denies:: Cancer, Diabetes Mellitus Type 1, Diabetes Mellitus Type 2, Internal Pacemaker, MRSA, Seizures *Have you ever received a pneumonia vaccine?: Yes *Have you received a flu vaccine this season?: No Other 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: Reports: Arthritis, Cataracts, Thyroid Disease. Denies: Blood Transfusion Reaction Anesthesia experience/problems:: none Laterality Cases: Left: ACL Repair Other Surgeries: Yes: No Previous Surgery, Tubal Ligation. No: Pacemaker Amputation: No Fractures: No - *Social History Last grade of school completed: Some college Smoking Status: Current every day smoker Tobacco Type: cigarettes # Packs/Day (cigarettes): 1 Alcohol Intake: current Alcohol Intake Frequency:: holidays/special occasions only Substance Use Type: denies use *Occupational Status:: retired Housing: house Household Members: spouse *Travel in the last 8 weeks: None Family Hx:: No significant family history
--- NOTE | 2021-05-28 11:59 | XR_ITS ---
PROCEDURE: XR KUB CLINICAL INDICATION: CYSTO IN OR WITH STENT PLACEMENT LEFT KIDNEY COMPARISON: CT CT ABDOMEN PELVIS WO CON from 05/25/2021 FINDINGS: Fluoroscopy time: 1 minutes 32 seconds. Single view submitted with the C-arm shows a left ureteral stent in place. The proximal aspect appears curled in the region of the urinary bladder. IMPRESSION: Status post left ureteral stent placement with fluoroscopic assistance Dictated by: Daryl Noble MD 05/28/2021 14:12 Daryl Noble MD in OV 05/28/2021 14:12
--- NOTE | 2021-05-28 12:01 | HMH.ANESI ---
[facility] Anesthesia Record Part I Intake, IV Amount: 1,200 Estimated blood loss (mL): 0 Urine output (mL): 0 Blood Pressure: 140/90 SaO2: 94 Pulse Rate: 80 Respiratory Rate: 12 Temperature: 97.5 F Patient is:: Awake, Stable Stable to PACU at:: 12:00
--- NOTE | 2021-05-28 13:10 | HMH.OPNOTE ---
Date of procedure: 05/28/21 Pre-op Diagnosis:: Left ureteral stone Post-op Diagnosis:: Impacted left ureteral stone with ureteral stenosis Procedure performed:: Left ureteroscopy with dilation of ureteral stricture, laser lithotripsy and stone extraction with left stent placement Surgeon:: Rodrick Juarez MD PHARMACY GENERAL MANAGER:: Cristiano Chris Anesthesia: LMA Estimated blood loss (mL): 0 Clinical Note:: 70-year-old white female with history of a left ureteral stone. She presents today for urologic management. She denies any pain over the weekend but would like to proceed with the procedure to make sure that the stone is gone. Operative findings:: There was a 4 mm stone at the upper part of the distal ureter. There was a ureteral stricture below the stone and stone did appear to be impacted at the sidewall. Stone was removed without complication and the stent was placed for dilation of the ureteral stricture and edema. Operative note:: Patient was taken to the operating room after informed consent was obtained. She was placed on the operating table in the supine position and general anesthesia administered. Preoperative antibiotics administered and patient placed into the dorsal lithotomy position. She was prepped and draped in the standard surgical fashion. A 22 Slovenian cystoscope passed into the urethra and into the bladder without difficulty. The bladder was examined in a systematic fashion and there is no evidence of bladder abnormalities. The ureteral orifices in their normal anatomic position. A 0.035 sensor guidewire was passed into the left ureteral orifice and there was resistance met couple of centimeters in. We were able to manipulate the wire by the obstruction into the left renal pelvis. We then removed the cystoscope and our semirigid ureteroscope was passed into the bladder and into the distal left ureter but there was a stricture noted couple of centimeters higher and the scope removed and our 4 x 15 mm UroMax balloon dilator was passed over the guidewire and the ureter dilated to 12 tracy for 3 minutes. The balloon then deflated and removed and the ureteroscope was replaced but there was still a narrow area higher than previously noted so the ureteroscope was removed and our balloon dilator was replaced and the ureter dilated once again. The balloon then deflated after 2 minutes and the ureteroscope was replaced and now the stone was noted embedded against the lateral wall. A 200 nm laser fiber was passed through the scope and the stone broke up very easily in the very small pieces. R1.9 Slovenian stone basket then passed through the scope and all the stone fragments were removed into the bladder. Fragments were too small to catch in the basket. The ureteroscope was removed and our 22 Slovenian cystoscope was replaced and the guidewire backloaded over the scope and a 4.8 x 24 Slovenian stent passed over the guidewire. Under fluoroscopy the guidewire was removed and a good curl was noted proximally and distally. The string was left on for later removal. Patient tolerated the procedure well no complications. She was transported to the recovery in stable condition. Condition: stable Disposition: PACU Specimens:: Stone fragments were not retrieved from the bladder as they were very tiny Complications:: None
--- NOTE | 2021-05-28 14:08 | HMH.ANESII ---
[facility] Anesthesia Record Part II Discharge Time: 12:30 Destination: Surgical Day Care (OP Surgery) PACU nurse assessment reviewed?: Yes Patient Condition:: Good Anesthesia Complications:: None Swallowing reflex intact?: Yes Cyanosis?: No Blood Pressure: 158/77 Pulse Rate: 71 Temperature: 97.8 F Mental Status: Alert & Oriented Pain level:: 0 Nausea and/or vomitting:: None Intake, IV Amount: 0
== END 2021-05-28 13:19 | disposition home or self-care (01) ==
LOC: OR 08:24
PROVIDERS: PCP Family Medicine; Visit Provider Urology
PROC: (CPT 52352; principal; 2021-05-28 10:00)
DX: N20.1 Calculus of ureter (principal); N35.92 Unspecified urethral stricture, female
CPT/HCPCS: 50961; 52281; 74018; 76000; 96374; C2617; J2405

== ENCOUNTER 2021-08-02 17:32 | Emergency (ER) | payer MEDICARE, BC, SELFPAY ==
[2021-08-02 18:20] VITALS: BP 126/86; PULSE 89; RESP 18; TEMP 36.9; O2SAT 98; BMI 30.8
--- NOTE | 2021-08-02 19:05 | HMH.EDUTC ---
[facility] [place] Clinical Impression: URI (upper respiratory infection) Qualifiers: URI type: unspecified URI Qualified Code(s): J06.9 - Acute upper respiratory infection, unspecified Disposition: Home, Self-Care Condition on Discharge: Good Instructions: Sore Throat, DI for Sinusitis, DI for Cough -- Adult Additional Instructions: *Monitor Temp, Over the counter Motrin or Tylenol as directed/as needed Tylenol every 4 hours and Motrin every 6 hours (as long as your family doctor has told you that you can take it) for fever or pain. and straight to ER if unable to lower temp less than 101.0 after medication given *Warm salt water gargles may help to soothe the throat *Throat Lozenges *Warm fluids like tea with honey may help to soothe the throat *Sleep elevated *Humidifier/Vaporizer Follow up IMMEDIATELY for new or worsening symptoms or no Noticeable improvement over the next 48-72 hours. 911 for difficulty breathing or swallowing You were tested for today for COVID19 your test result should be back in the next 24-48 hours, you check your results on line at the [facility] You was given a handout with instructions for Self Quarantine and Self isolation for while you wait on test results and what to do if they are positive If you are positive the Health Dept will be contacting you also Make sure to take your Vitamins Vit. C Vit D and Zinc if you can take them Prescriptions: methylPREDNISolone [Medrol 4mg tab] 4 mg PO DIRECTED #21 tab [id number] Azithromycin [Z-Ehsan 250mg Tab] 250 mg PO DIRECTED #6 tab Transmission Status: [id number] Referrals: Williams Falcon MD [Primary Care Provider] - As needed Forms: Work/School Release Time of Disposition: 19:21 Medical Decision Making - Ambrose Inquiry Pt receiving controlled substance: No Ambrose was queried for this patient: No Vital Signs: 08/02/21 18:20 Temperature 98.4 F Temperature Source Oral Pulse Rate [Right Brachial] 89 Respiratory Rate 18 Blood Pressure [Right Arm] 126/86 Blood Pressure Mean [Right Arm] 99 Blood Pressure Source [Right Arm] Automatic Cuff Blood Pressure Position [Right Arm] Sitting 02 Sat by Pulse Oximetry 98 Oxygen Delivery Method Room Air Orders (Tests/Meds): ORDERS Category Date Time Status Covid-19 Nasal PCR ([facility]) Routine Lab 08/02/21 18:26 Received [facility] [place] - General Stated complaint: PERLA,Weakness,congestion Time Seen by Provider: 08/02/21 19:05 Mode of Arrival: Ambulatory Source of Information: Patient Limitations: No Limitations Description of Symptoms (Recalled from Triage Doc. by RN): PATIENT C/O HEADACHE, DECREASED APPETITE, NAUSEA, NASAL CONGESTION, AND LOSS OF TASTE/SMELL SINCE FRIDAY HEENT Symptoms (Recalled from RN notes): Yes Resp Symptoms (Recalled from RN notes): No Skin Symptoms (Recalled from RN notes): No MS Symptoms (Recalled from RN notes): No Functional Status (Recalled from RN notes): WNL - History of Present Illness Provider Complaint: Patient state that she has been having sinus congestion, cough, scratchy throat pressure behind her eyes, and just lost her taste and smell on Friday States that she feels like she does when she has a sinus infection so she came in to get checked - Related Data Home Medications Medication Instructions Recorded Confirmed Naproxen 500 mg PO BID 10/15/18 08/02/21 Levothyroxine Sodium 175 mcg PO DAILY 05/28/21 08/02/21 [Levothyroxine 175mcg (0.175mg) Tab] Previous Rx's Medication Instructions Recorded Azithromycin [Z-Ehsan 250mg Tab] 250 mg PO DIRECTED #6 tab 08/02/21 methylPREDNISolone [Medrol 4mg 4 mg PO DIRECTED #21 tab 08/02/21 tab] Allergies Allergy/AdvReac Type Severity Reaction Status Date / Time codeine [CODEINE] Allergy Mild NA-NAUSEA/V Verified 06/04/21 13:15 OMITING - Worker's Comp Is this a Worker's Comp case?: No [facility] Hist
[2021-08-02 19:26] VITALS: BP 126/86; PULSE 89; RESP 18; TEMP 36.9; O2SAT 98
--- NOTE | 2021-08-03 08:52 | PC.NURSE ---
informed patient that she was positive
== END 2021-08-02 19:34 | disposition home or self-care (01) ==
PROVIDERS: Emergency Provider Nurse Practitioner; PCP Family Medicine
DX: J06.9 Acute upper respiratory infection, unspecified (principal); U07.1 COVID-19; I10 Essential (primary) hypertension; E78.5 Hyperlipidemia, unspecified; Z79.899 Other long term (current) drug therapy
CPT/HCPCS: G0463; 99202; C9803; U0003; U0005

== ENCOUNTER → 2021-08-29 11:40 | Outpatient (CLI) | payer MEDICARE, BC, SELFPAY ==
[2021-08-29 12:22] LABS: Adenovirus,PCR Not Detected (NotDetected); Bordetella Pertussis Not Detected (NotDetected); Chlamydophila Pneumoniae, PCR Not Detected (NotDetected); Coronavirus 19, PCR Not Detected (NotDetected); Coronavirus 229E Not Detected (NotDetected); Coronavirus NL63 Not Detected (NotDetected); Coronavirus OC43 Not Detected (NotDetected); Coronovirus HKU1,PCR Not Detected (NotDetected); Human Metapneumovirus Not Detected (NotDetected); Influenza A, PCR Not Detected (NotDetected); Influenza AH1, 2009 Not Detected (NotDetected); Influenza AH1, PCR Not Detected (NotDetected); Influenza AH3,PCR Not Detected (NotDetected); Influenza B, PCR Not Detected (NotDetected); Mycoplasma Pneumoniae, PCR Not Detected (NotDetected); Parainfluenza 1, PCR Not Detected (NotDetected); Parainfluenza 2, PCR Not Detected (NotDetected); Parainfluenza 3, PCR Not Detected (NotDetected); Parainfluenza 4, PCR Not Detected (NotDetected); Respiratory Syncytial Virus Not Detected (NotDetected); Rhinovirus/Enterovirus Not Detected (NotDetected)
[2021-08-29 12:34] LABS: Basophils % 0.4 % (0.1-2.0); Eosinophils % 0.7 % (0.1-12.0); Hematocrit 37.5 % (37.0-47.0); Hemoglobin 12.8 g/dL (12.2-16.2); Lymphocytes # 1.2 K/mm3 (0.7-4.5); Lymphocytes % 40.4 % (10-50); Mean Corpuscular HGB Conc 34.1 g/dL (31.8-35.4); Mean Corpuscular Hemoglobin 31.7 pg (27.0-31.2); Mean Corpuscular Volume 92.9 fl (81-99); Mean Platelet Volume 8.9 fl (7.4-10.4); Monocytes # 0.2 K/mm3 (0.1-1.0); Monocytes % 7.5 % (1.7-9.3); Neutrophils # 1.5 K/mm3 (1.8-7.8); Neutrophils % 50.9 % (37.0-80.0); Platelet Count 219 K/mm3 (142-424); Red Blood Count 4.03 M/mm3 (4.20-5.40); Red Cell Distribution Width 15.2 % (11.5-17.5)
[2021-08-29 19:38] LABS: Strep Scrn Group A (Rapid) Negative (Negative)
== END ==
PROVIDERS: PCP Family Medicine; Visit Provider Nurse Practitioner Family
DX: Z20.822 Contact with and (suspected) exposure to COVID-19 (principal); J02.9 Acute pharyngitis, unspecified
CPT/HCPCS: 36415; 85025; 87430; 87581; 87632; 87798; C9803; U0003; U0005

== ENCOUNTER → 2021-09-19 13:23 | Outpatient (CLI) | payer MEDICARE, BC, SELFPAY | PROVIDERS: PCP Family Medicine; Visit Provider Nurse Practitioner | DX: Z20.822 Contact with and (suspected) exposure to COVID-19 (principal) | CPT/HCPCS: C9803; U0003; U0005 ==

== ENCOUNTER → 2021-11-13 10:02 | Outpatient (CLI) | payer MEDICARE, BC, SELFPAY ==
--- NOTE | 2021-11-13 10:09 | MM_ITS ---
PROCEDURE INFORMATION: Exam: MG Bilateral Screening 3D Mammography Exam date and time: 11/13/2021 10:09 AM Age: 71 years old Clinical indication: Screening mammogram TECHNIQUE: Imaging protocol: Bilateral Screening tomosynthesis and 2D mammography including computer-aided detection (CAD) when performed. COMPARISON: MG MM DIG SCREENING MAMM BI W/CAD 09/20/2020 9:39 AM FINDINGS: MAMMOGRAPHY: Breast composition: There are scattered areas of fibroglandular density. Mass: None. Architectural distortion: No new or suspicious architectural distortion. Calcifications: No new or suspicious calcifications are present Asymmetric density: No new or suspicious asymmetric density is present Skin thickening: None. Axillary adenopathy: None. IMPRESSION: No mammographic evidence of malignancy. Recommend annual screening mammography unless otherwise clinically indicated. ASSESSMENT: BI-RADS category 1: Negative
== END ==
PROVIDERS: PCP Family Medicine; Visit Provider Family Medicine
DX: Z12.31 Encounter for screening mammogram for malignant neoplasm of breast (principal)
CPT/HCPCS: 77063; 77067

== ENCOUNTER → 2022-03-14 11:34 | Outpatient (CLI) | payer MEDICARE, BC, SELFPAY | PROVIDERS: PCP Family Medicine; Visit Provider Physician Assistant | DX: U07.1 COVID-19 (principal) | CPT/HCPCS: C9803; U0003; U0005 ==

== ENCOUNTER 2022-06-05 19:02 | Emergency (ER) | payer MEDICARE, BC, SELFPAY ==
[2022-06-05 19:20] VITALS: BP 115/72; PULSE 84; RESP 20; TEMP 37.1; O2SAT 98; BMI 30.7
[2022-06-05 19:33] LABS: Adenovirus,PCR Not Detected (NotDetected); Bordetella Pertussis Not Detected (NotDetected); Chlamydophila Pneumoniae, PCR Not Detected (NotDetected); Coronavirus 19, PCR Not Detected (NotDetected); Coronavirus 229E Not Detected (NotDetected); Coronavirus NL63 Not Detected (NotDetected); Coronavirus OC43 Not Detected (NotDetected); Coronovirus HKU1,PCR Not Detected (NotDetected); Human Metapneumovirus Not Detected (NotDetected); Influenza A, PCR Not Detected (NotDetected); Influenza AH1, 2009 Not Detected (NotDetected); Influenza AH1, PCR Not Detected (NotDetected); Influenza AH3,PCR Not Detected (NotDetected); Influenza B, PCR Not Detected (NotDetected); Mycoplasma Pneumoniae, PCR Not Detected (NotDetected); Parainfluenza 1, PCR Not Detected (NotDetected); Parainfluenza 2, PCR Not Detected (NotDetected); Parainfluenza 3, PCR Not Detected (NotDetected); Respiratory Syncytial Virus Not Detected (NotDetected); Rhinovirus/Enterovirus Not Detected (NotDetected)
--- NOTE | 2022-06-05 19:41 | EXP.UTC ---
Discharge Plan Disposition Patient Disposition: Home, Self-Care Condition: Good Prescriptions Prescriptions: No Action naproxen 500 MG tablet 500 mg PO BID azithromycin 250 MG tablet 250 mg PO DIRECTED Qty: 6 0RF Rx Instructions: Take two (2) tablets on day #1, then one (1) tablet day #2 thru #5 methylprednisolone 4 MG tablet 4 mg PO DIRECTED Qty: 21 0RF Rx Instructions: Take as directed on package instructions levothyroxine 175 MCG tablet 175 mcg PO DAILY Referrals Follow up/Referrals: Williams Falcon MD [Primary Care Provider] - See instructions Activity Restrictions/Add. Instructions Additional Instructions/Restrictions: *Monitor Temp, Over the counter Motrin or Tylenol as directed/as needed Tylenol every 4 hours and Motrin every 6 hours (as long as your family doctor has told you that you can take it) for fever or pain. and straight to ER if unable to lower temp less than 101.0 after medication given *Warm salt water gargles may help to soothe the throat *Throat Lozenges? *Warm fluids like tea with honey may help to soothe the throat? *Sleep elevated *Humidifier/Vaporizer Follow up IMMEDIATELY for new or worsening symptoms or no Noticeable improvement over the next 48-72 hours. 911 for difficulty breathing or swallowing You were tested for today for COVID19 your test result should be back in the next 24-48 hours, you may check your results on the [facility] My Health Portal Make sure to take your Vitamins Vit. C Vit D and Zinc if you can take them Clinical Impressions Clinical Impression: Viral syndrome Instructions Patient Instructions: DI for Viral Upper Respiratory Infection -- Adult, DI for Nasal Congestion Discharge ED Provider: Lauren Ruiz [facility] [place] HPI General Stated complaint: coughing,sore throat Mode of Arrival: Ambulatory Source of Information: Patient Limitations: No Limitations Time Seen by Provider: 06/05/22 19:46 Description of Symptoms (Recalled from Triage Doc. by RN): PATIENT C/O COUGH, HEADACHE, MALAISE, WEAKNESS, AND FEELING FLUSHED X 2 DAYS HEENT Symptoms (Recalled from RN notes): Yes Resp Symptoms (Recalled from RN notes): Yes Skin Symptoms (Recalled from RN notes): No MS Symptoms (Recalled from RN notes): No Functional Status (Recalled from RN notes): WNL History of Present Illness Provider Complaint: Patient states that she hasnt felt well for the last couple of days States that she has been feeling tired, achy, headache, nasal congestion and a little cough States that she thinks it may be her allergies but she wanted to get an upper respiratory panel because she was around her grandchild that was sick and she started having symptoms after she kept her Related Data Home Medications Medication Instructions Recorded Confirmed naproxen 500 mg tablet 500 mg PO BID Arthritis 10/15/18 08/02/21 levothyroxine 175 mcg tablet 175 mcg PO DAILY thyroid 05/28/21 08/02/21 Previous Rx's Medication Instructions Recorded azithromycin 250 mg tablet 250 mg PO DIRECTED #6 tabs 08/02/21 methylprednisolone 4 mg tablet 4 mg PO DIRECTED #21 tabs 08/02/21 Allergies Allergy/AdvReac Type Severity Reaction Status Date / Time codeine [CODEINE] Allergy Mild NA-NAUSEA/V Verified 06/04/21 13:15 OMITING Worker's Comp Is this a Worker's Comp case?: No PFSH PFSH 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 (Updated 06/05/22 @ 19:51 by Lauren Ruiz APRN) History of anemia History of gastroesophageal reflux (GERD) Kidney stone Thyroid disease Urinary tract infection Surgical History (Updated 06/05/22 @ 19:33 by Millie Heard RN) History of repair of ACL History of tubal ligation Social History (Updated 06/05/22 @ 19:33 by Millie Heard RN) Smoking Status: Current some day smoker tobacco type: cigarettes packs per day: 1 second hand exposure: No alcohol intake: current substance use type: denies use current occupational
[2022-06-05 19:52] VITALS: BP 115/72; PULSE 84; RESP 20; TEMP 37.1; O2SAT 98
[2022-06-06 01:52] LABS: Parainfluenza 4, PCR Detected (NotDetected)
== END 2022-06-05 19:55 | disposition home or self-care (01) ==
PROVIDERS: Emergency Provider Nurse Practitioner; PCP Family Medicine
DX: J10.1 Influenza due to other identified influenza virus with other respiratory manifestations (principal); Z20.822 Contact with and (suspected) exposure to COVID-19
CPT/HCPCS: 87581; 87632; 87798; 99212; C9803; G0463; U0003; U0005

== ENCOUNTER 2022-10-14 11:54 | Emergency (ER) | payer MEDICARE, BC, SELFPAY ==
[2022-10-14 12:20] VITALS: BP 146/89; PULSE 91; RESP 17; TEMP 36.6; O2SAT 99; BMI 28.7
--- NOTE | 2022-10-14 12:34 | EXP.UTC ---
Discharge Plan Disposition Patient Disposition: Home, Self-Care Condition: Good Prescriptions Prescriptions: New sulfamethoxazole-trimethoprim [Bactrim DS] 800-160 mg tablet 1 tab PO BID Qty: 20 0RF mupirocin 2 % ointment 1 applic topical TID 10 Days Qty: 22 0RF No Action levothyroxine 175 MCG tablet 175 mcg PO DAILY Referrals Follow up/Referrals: Williams Falcon MD [Primary Care Provider] - See instructions Activity Restrictions/Add. Instructions Additional Instructions/Restrictions: *Start antibiotic(s) immediately and be sure to take as ordered for the FULL length of time although you may be feeling better or start to see improvement in the next 24-48 hours *Monitor closely. Outlined redness so that you can monitor easier. Follow up immediately for new or worsening symptoms including but not limited to redness, swelling, streaking from site fever or chills. *Warm compress 15 minutes 3-4 times day *Never squeeze or pop these on your own. Seek immediate medical attention next time this occurs *Monitor Temp. Tylenol every 4 hours as needed and ibuprofen every 6 hours as needed (as long as your primary care doctor has told you that it is ok to take both. For fever, aches, pain. ER if no less that 101 despite Tylenol and ibuprofen ?Follow up with your family doctor/primary care physician in the next 48-72 hours if no improvement Apply topical antibiotic directly on lesion Clinical Impressions Clinical Impression: Abscess of groin, left Instructions Patient Instructions: Boil, DI for Skin Abscess, Trimethoprim/Sulfamethoxazole (Alternative Therapy) Discharge ED Provider: Lauren Ruiz [facility] General Stated complaint: sore in groin area Mode of Arrival: Ambulatory Source of Information: Patient Limitations: No Limitations Time Seen by Provider: 10/14/22 12:34 Description of Symptoms (Recalled from Triage Doc. by RN): PATIENT C/O BOIL TO PANTYLINE/GROIN AREA X 1 WEEK HEENT Symptoms (Recalled from RN notes): No Resp Symptoms (Recalled from RN notes): No Skin Symptoms (Recalled from RN notes): Yes MS Symptoms (Recalled from RN notes): No Functional Status (Recalled from RN notes): WNL History of Present Illness Provider Complaint: Patient states that she had a small boil like area on her pantyline that was red and sore and she busted it last night and she got some blood and pus out of it States that it feels a little better today but still sore so she came in to get it checked States that she had one like this before and had to get antibiotics Related Data Home Medications Medication Instructions Recorded Confirmed levothyroxine 175 mcg tablet 175 mcg PO DAILY thyroid 05/28/21 10/14/22 Previous Rx's Medication Instructions Recorded mupirocin 2 % topical ointment 1 applic topical TID 10 days #22 10/14/22 grams sulfamethoxazole 800 1 tab PO BID #20 tabs 10/14/22 mg-trimethoprim 160 mg tablet (Bactrim DS) Allergies Allergy/AdvReac Type Severity Reaction Status Date / Time codeine [CODEINE] Allergy Mild NA-NAUSEA/V Verified 06/04/21 13:15 OMITING Worker's Comp Is this a Worker's Comp case?: No [facility] Disclaimer: The information contained in this section may have been updated after the patient was seen, as this information can be updated by other users. 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 (Updated 10/14/22 @ 12:47 by Lauren Ruiz APRN) History of anemia History of gastroesophageal reflux (GERD) Kidney stone Thyroid disease Urinary tract infection Surgical History History of repair of ACL History of tubal ligation Social History (Updated 10/14/22 @ 12:31 by Millie Heard RN) Smoking Status: Current some day smoker tobacco type: cigarettes packs per day: 1 second hand exposure: No alcohol intake: current substance use type: denies use current occupational status: retired Travel in the last 8 weeks: Non
[2022-10-14 12:44] VITALS: BP 146/89; PULSE 91; RESP 17; TEMP 36.6; O2SAT 99
== END 2022-10-14 12:52 | disposition home or self-care (01) ==
PROVIDERS: Emergency Provider Nurse Practitioner; PCP Family Medicine
DX: L02.214 Cutaneous abscess of groin
CPT/HCPCS: 99212; 99213; G0463

== ENCOUNTER 2022-10-19 08:42 | Emergency (ER) | payer MEDICARE, BC, SELFPAY ==
[2022-10-19 08:43] VITALS: BP 132/79; PULSE 84; RESP 18; TEMP 37; O2SAT 96; BMI 28.8
--- NOTE | 2022-10-19 08:50 | ECG_ITS ---
APPROVED REPORT Exam: Resting ECG HR:76 bpm ECG Measurements Heart Rate 76 AXES ME 183 P 56 QRSd 104 QRS -75 QT 393 T 39 QTc 424 Conclusion SINUS RHYTHM LEFT ANTERIOR FASCICULAR BLOCK [QRS AXIS <= -45, QR IN I, RS IN II] POSSIBLE ANTERIOR MYOCARDIAL INFARCTION , PROBABLY OLD [30 ms Q WAVE IN V3/V4, OR R < 0.2 mV IN V4] ABNORMAL ECG UNCONFIRMED REPORT Electronically signed by : Alfredo Fairchild MD 10/19/2022 20:43:35
--- NOTE | 2022-10-19 08:55 | PC.NURSE ---
pt ambulatory to ED room 5 from [facility]; hooked to monitor, EKG obtained and pt triaged. December, RN at BS to start IV with student. Call light within reach
[2022-10-19 09:00] VITALS: BP 120/84; PULSE 81; O2SAT 98
--- NOTE | 2022-10-19 09:10 | XR_ITS ---
PROCEDURE INFORMATION: Exam: XR Chest Exam date and time: 10/19/2022 9:18 AM Age: 72 years old Clinical indication: Shortness of breath; Additional info: SOA TECHNIQUE: Imaging protocol: Radiologic exam of the chest. Views: 2 views. COMPARISON: DX CXR2V XR chest 2V 01/29/2018 4:02 PM FINDINGS: Lungs: Interstitial prominence. Pleural spaces: No pleural effusion. Heart/Mediastinum: Prominent epicardial fat. No cardiomegaly. Vasculature: Calcification and ectasia of the thoracic aorta. Bones/joints: Osteopenia, compression deformities in the thoracic spine, and degenerative change. When correlating with the previous study, no significant interval changes are present. IMPRESSION: Stable appearance of the chest, not significantly changed from 01/29/18.
--- NOTE | 2022-10-19 09:20 | CT_ITS ---
PROCEDURE INFORMATION: Exam: CTA Chest With Contrast Exam date and time: 10/19/2022 9:57 AM Age: 72 years old Clinical indication: Shortness of breath; Additional info: SOA, pleuritic pain left post chest, L calf pain TECHNIQUE: Imaging protocol: Computed tomographic angiography of the chest with contrast. 3D rendering (Not supervised by radiologist): MIP and/or 3D reconstructed images were created by the technologist. Radiation optimization: All CT scans at this facility use at least one of these dose optimization techniques: automated exposure control; mA and/or kV adjustment per patient size (includes targeted exams where dose is matched to clinical indication); or iterative reconstruction. Contrast material: ISOVUE; Contrast volume: 70 ml; Contrast route: INTRAVENOUS (IV); Other protocol: This patient has received 0 known CTs and 0 known cardiac nuclear medicine studies in the 12 months prior to the current study. COMPARISON: CR XR CHEST 2V 10/19/2022 9:18 AM FINDINGS: Pulmonary arteries: No pulmonary embolus in the opacified pulmonary arteries. Aorta: Calcification and ectasia of the thoracic aorta. Veins: Azygos vein dilatation, measuring 15 mm in diameter. Lungs: Interstitial prominence and mild airspace disease. Pleural spaces: No pleural effusion. Heart: Subtle coronary artery calcification. Lymph nodes: Subcentimeter lymph nodes. Upper abdomen: Fatty infiltration of the liver. 9 mm nodular hypodensity in the spleen which does not fulfill CT criteria for a simple cyst. Bilateral adrenal nodularity. 7 mm right renal cyst. Bones/joints: Chronic thoracic spine compression fractures and degenerative change. Soft tissues: Unremarkable. IMPRESSION: 1. No pulmonary embolus in the opacified pulmonary arteries. 2. Interstitial prominence and mild airspace disease. 3. Additional findings as described above. COMMENTS: Consistent with the [employer]'s Incidental Findings Committee white paper ([employer] Am [place] [employer]iol 2018): Any incidental renal lesion less than 1 cm or classified as too small to characterize, or any incidental cystic renal lesion characterized as simple-appearing, is likely benign. No follow-up imaging is recommended for these lesions per consensus recommendations based on imaging criteria.
--- NOTE | 2022-10-19 09:20 | CA_ITS ---
FINAL REPORT TECHNIQUE: Ultrasound images of the deep venous system were obtained from the left groin to the calf veins. CLINICAL HISTORY: L calf pain, swelling, swollen veins FINDINGS: The deep venous system is normally compressible. Normal flow is identified. IMPRESSION: No evidence of left lower extremity DVT. Reviewed, Interpreted and Dictated by Ravi Mcelroy MD Transcribed by Amrik Friedman Authenticated and [facility]
--- NOTE | 2022-10-19 09:20 | PC.NURSE ---
Resp. therapist has been called; calling in food and nutrition professor personnel for Doppler
--- NOTE | 2022-10-19 09:21 | HMH.EDGENADL ---
Discharge Plan Disposition Patient Disposition: Home, Self-Care Condition: Good Chief Complaint: Shortness of Breath/Dyspnea Prescriptions Prescriptions: No Action sulfamethoxazole-trimethoprim [Bactrim DS] 800-160 mg tablet 1 tab PO BID Qty: 20 0RF mupirocin 2 % ointment 1 applic topical TID 10 Days Qty: 22 0RF levothyroxine 175 MCG tablet 175 mcg PO DAILY Referrals Follow up/Referrals: iWlliams Falcon MD [Primary Care Provider] - See instructions Activity Restrictions/Add. Instructions Additional Instructions/Restrictions: [id number] ibuprofen 600 mg every 6 hours. Elevate your leg. Apply warm compress 30 minutes 4 times a day. Follow-up with primary care provider, call Friday to make appointment. Return emergency department if worsening symptoms, severe pain, fever. Clinical Impressions Clinical Impression: Superficial thrombophlebitis Instructions Patient Instructions: DI for Superficial Thrombophlebitis Discharge ED Provider: Ez Han General Adult HPI General Chief complaint: Shortness of Breath/Dyspnea Stated complaint: LT Sore leg w/tightness SOA lung pain Time Seen by Provider: 10/19/22 09:16 Mode of Arrival: Ambulatory Source of Information: Patient Limitations: No Limitations Description of Symptoms (Recalled from ER Triage Doc. by RN): c/o swelling, warm and redness in left leg with protruding veins with soa. PT states her soa is more when she takes a deep breath. STates she strained her muscles the other day and feels this could be more of the cause and when she takes a deep breath it hurts in her back. History of Present Illness HPI narrative: Patient states that she has had baseline prominent for varicose veins in her leg. The patient states for the past few days she has had some swelling, pain, tenderness, redness, distended veins in her left posterior calf. Concerned about a blood clot. Also notes for the past few days that when she takes a deep breath she has a pain or a shortness of breath in her left periscapular area. No hemoptysis. No cough or fever. No prior history of thromboembolic disease. No recent hospitalizations, surgery, travel. She is not on any anticoagulants. Related Data Home Medications Medication Instructions Recorded Confirmed levothyroxine 175 mcg tablet 175 mcg PO DAILY thyroid 05/28/21 10/14/22 Previous Rx's Medication Instructions Recorded mupirocin 2 % topical ointment 1 applic topical TID 10 days #22 10/14/22 grams sulfamethoxazole 800 1 tab PO BID #20 tabs 10/14/22 mg-trimethoprim 160 mg tablet (Bactrim DS) Allergies Allergy/AdvReac Type Severity Reaction Status Date / Time codeine [CODEINE] Allergy Mild NA-NAUSEA/V Verified 06/04/21 13:15 OMITING PFSH PFSH Disclaimer: The information contained in this section may have been updated after the patient was seen, as this information can be updated by other users. 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 (Updated 10/19/22 @ 12:14 by Ez Han MD) History of anemia History of gastroesophageal reflux (GERD) Kidney stone Thyroid disease Urinary tract infection Surgical History History of repair of ACL History of tubal ligation Social History (Updated 10/14/22 @ 12:31 by Millie Heard RN) Smoking Status: Current every day smoker tobacco type: cigarettes packs per day: 1 second hand exposure: No alcohol intake: current substance use type: denies use current occupational status: retired Travel in the last 8 weeks: None household members: spouse housing: house current occupational exposures/hazards: No caffeine: Yes ROS Obtained: Yes Systems reviewed as appropriate & no additional complaints except as documented Constitutional Constitutional: Denies fever(s), Denies headache(s) and Denies weakness ENT Ears, Nose, Mouth, and Throat: Denies headache(s), Denies nasal disch
--- NOTE | 2022-10-19 09:23 | PC.NURSE ---
Patient going to X-ray via wheelchair
--- NOTE | 2022-10-19 09:24 | PC.NURSE ---
Resp called back and said personnel for Doppler stated she will not be here until noon.
[2022-10-19 09:28] LABS: Basophils % 1.3 % (0.1-2.0); Chloride 112 mmol/L (98-107); Eosinophils # 0.1 K/mm3 (0.0-0.4); Eosinophils % 3.1 % (0.1-12.0); Hematocrit 38.6 % (37.0-47.0); Hemoglobin 12.6 g/dL (12.2-16.2); Lymphocytes # 1.4 K/mm3 (0.7-4.5); Mean Corpuscular HGB Conc 32.7 g/dL (31.8-35.4); Mean Corpuscular Hemoglobin 31.1 pg (27.0-31.2); Mean Corpuscular Volume 95.2 fl (81-99); Mean Platelet Volume 9.1 fl (7.4-10.4); Monocytes # 0.2 K/mm3 (0.1-1.0); Neutrophils # 1.2 K/mm3 (1.8-7.8); Neutrophils % 40.6 % (37.0-80.0); Platelet Count 215 K/mm3 (142-424); Red Blood Count 4.05 M/mm3 (4.20-5.40); Red Cell Distribution Width 17.2 % (11.5-17.5); Sodium 141 mmol/L (136-145); White Blood Count 2.9 K/mm3 (4.8-10.8)
[2022-10-19 09:30] LABS: Blood Urea Nitrogen 15 mg/dl (7-17); Creatinine Clearance Estimated 67 mL/min (50-200); Estimated Glomerular Filt Rate 55 ml/min (>60); GFR (African American) 66 ML/MIN (>60)
[2022-10-19 09:31] LABS: Alanine Aminotransferase 13 U/L (12-78); Albumin Level 4.4 g/dl (3.5-5.0); Albumin/Globulin Ratio 1.7 (1.1-1.8); Alkaline Phosphatase 85 U/L (38-126); Aspartate Amino Transferase 23 U/L (14-36); Bilirubin,Total 0.6 mg/dl (0.2-1.3); Calcium 9.1 mg/dl (8.4-10.2); Carbon Dioxide 25 mmol/L (22.0-30.0); Globulin 2.6 g/dL (1.3-3.2); Glucose 104 mg/dl (74-100)
[2022-10-19 09:34] VITALS: BP 117/72; PULSE 74; RESP 16; O2SAT 97
--- NOTE | 2022-10-19 09:51 | PC.NURSE ---
pt to radiology
[2022-10-19 10:00] LABS: Troponin I < 0.01 ng/ml (0.00-0.034)
[2022-10-19 10:30] VITALS: BP 114/63; PULSE 67; O2SAT 94
--- NOTE | 2022-10-19 10:53 | PC.NURSE ---
Rounded on patient and notified her of when they would be here to do her doppler. Call light within reach patient does not need anything at this time.
--- NOTE | 2022-10-19 11:12 | PC.NURSE ---
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
[2022-10-19 11:30] VITALS: BP 101/64; PULSE 68; RESP 16; O2SAT 95
[2022-10-19 12:25] VITALS: BP 101/64; PULSE 68; RESP 16; TEMP 37; O2SAT 95
== END 2022-10-19 12:28 | disposition home or self-care (01) ==
PROVIDERS: Emergency Provider Emergency Medicine; PCP Family Medicine
DX: I80.02 Phlebitis and thrombophlebitis of superficial vessels of left lower extremity (principal); D64.9 Anemia, unspecified; K21.9 Gastro-esophageal reflux disease without esophagitis; Z87.440 Personal history of urinary (tract) infections; Z87.442 Personal history of urinary calculi; E07.9 Disorder of thyroid, unspecified; F17.210 Nicotine dependence, cigarettes, uncomplicated; Z98.51 Tubal ligation status
CPT/HCPCS: 71046; 71275; 80053; 84484; 85025; 93005; 93971; 99285; Q9967

== ENCOUNTER → 2022-11-06 13:08 | Outpatient (CLI) | payer MEDICARE, BC, SELFPAY ==
--- NOTE | 2022-11-06 13:15 | XR_ITS ---
FINAL REPORT CLINICAL HISTORY: COMPRESSION FRACTURE FINDINGS: THORACIC SPINE 2 views were obtained. There is a moderate upper thoracic compression fracture of uncertain age. There is no malalignment. There are mild and moderate degenerative changes. There is no soft tissue abnormality. IMPRESSION: Moderate upper thoracic spine compression fracture of uncertain age. If indicated, CT or MRI could further evaluate. Reviewed, Interpreted and Dictated by Juan Rawls III, MD Transcribed by Litzy Freeman Authenticated and [facility]
== END ==
PROVIDERS: PCP Physician Assistant; Visit Provider Physician Assistant
DX: S22.000A Wedge compression fracture of unspecified thoracic vertebra, initial encounter for closed fracture (principal)
CPT/HCPCS: 72072

== ENCOUNTER → 2022-11-29 08:20 | Outpatient (CLI) | payer MEDICARE, BC, SELFPAY ==
--- NOTE | 2022-11-29 08:25 | MM_ITS ---
PROCEDURE INFORMATION: Exam: MG Bilateral Screening 3D Mammography Exam date and time: 11/29/2022 8:42 AM Age: 72 years old Clinical indication: Screening mammogram TECHNIQUE: Imaging protocol: Bilateral Screening tomosynthesis and 2D mammography including computer-aided detection (CAD) when performed. COMPARISON: 1. MG MM DIG SCREENING MAMM BI W/CAD 11/13/2021 10:16 AM 2. MG MM DIG SCREENING MAMM BI W/CAD 09/20/2020 9:39 AM 3. MG MM DIG SCREENING MAMM BI W/CAD 09/16/2019 10:15 AM 4. MG SCBI MM Dig screening mamm BI w/CAD 09/14/2018 12:52 PM FINDINGS: MAMMOGRAPHY: Breast composition: There are scattered areas of fibroglandular density. Mass: None. Architectural distortion: No new or suspicious architectural distortion. Calcifications: No new or suspicious calcifications are present Asymmetric density: No new or suspicious asymmetric density is present Skin thickening: None. Axillary adenopathy: None. IMPRESSION: No mammographic evidence of malignancy. Recommend annual screening mammography unless otherwise clinically indicated. ASSESSMENT: BI-RADS category 1: Negative
== END ==
PROVIDERS: PCP Physician Assistant; Visit Provider Physician Assistant
DX: Z12.31 Encounter for screening mammogram for malignant neoplasm of breast (principal)
CPT/HCPCS: 77063; 77067

== ENCOUNTER 2023-01-17 11:17 | Emergency (ER) | payer MEDICARE, BC, SELFPAY ==
[2023-01-17 11:30] VITALS: BP 106/70; PULSE 84; RESP 18; TEMP 37.1; O2SAT 96; BMI 27.7
--- NOTE | 2023-01-17 11:42 | EXP.UTC ---
Discharge Plan Disposition Patient Disposition: Home, Self-Care Condition: Good Prescriptions Prescriptions: New prednisone 10 mg tablet 10 mg PO BID 3 Days Qty: 6 0RF amoxicillin [amoxicillin] 500 mg tablet 500 mg PO TID 10 Days Qty: 30 0RF No Action levothyroxine 200 mcg tablet 200 mcg PO DAILY Label Comments: TAKE 1 TABLET BY MOUTH ONCE DAILY Eliquis 5 mg tablet 5 mg PO DAILY Label Comments: TAKE 1 TABLET BY MOUTH TWICE DAILY Referrals Follow up/Referrals: Williams Falcon MD [Primary Care Provider] - See instructions Activity Restrictions/Add. Instructions Additional Instructions/Restrictions: Drink plenty of fluids. Take tylenol or ibuprofen for pain or fever. Take the medications as directed. Follow up with your regular doctor. GO TO THE ER FOR ANY WORSENING SYMPTOMS Clinical Impressions Clinical Impression: Pharyngitis Instructions Patient Instructions: Sore Throat, DI for Pharyngitis/Tonsillopharyngitis -- Adult Discharge ED Provider: Donn Reza [facility] [place] HPI General Stated complaint: Sore throat Time Seen by Provider: 01/17/23 11:40 History of Present Illness Provider Complaint: She states that for the past 2 days she has had sore throat, chills, body aches and low grade fever. Related Data Home Medications Medication Instructions Recorded Confirmed apixaban 5 mg tablet (Eliquis) 5 mg PO DAILY SUPERFICIAL VEIN 01/17/23 01/17/23 THROMBOSIS levothyroxine 200 mcg tablet 200 mcg PO DAILY HYPOTHYROID 01/17/23 01/17/23 Previous Rx's Medication Instructions Recorded amoxicillin 500 mg tablet 500 mg PO TID 10 days #30 tabs 01/17/23 prednisone 10 mg tablet 10 mg PO BID 3 days #6 tabs 01/17/23 Allergies Allergy/AdvReac Type Severity Reaction Status Date / Time codeine [CODEINE] Allergy Mild NA-NAUSEA/V Verified 06/04/21 13:15 OMITING [facility] Disclaimer: The information contained in this section may have been updated after the patient was seen, as this information can be updated by other users. 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 History of anemia History of gastroesophageal reflux (GERD) Kidney stone Thyroid disease Urinary tract infection Surgical History History of repair of ACL History of tubal ligation Social History Smoking Status: Current every day smoker tobacco type: cigarettes packs per day: 1 second hand exposure: No alcohol intake: current substance use type: denies use current occupational status: retired Travel in the last 8 weeks: None household members: spouse housing: house current occupational exposures/hazards: No caffeine: Yes ROS Obtained: Yes All systems reviewed & no additional complaints except as documented Constitutional Constitutional: Reports chills and Reports fever(s) Eyes Eyes: Denies eye discharge ENT Ears, Nose, Mouth, and Throat: Reports as per HPI Cardiovascular Cardiovascular: Denies chest pain Respiratory Respiratory: Denies chest congestion and Reports cough Gastrointestinal Gastrointestingal: Reports nausea; Denies abdominal pain, constipation, cramping, diarrhea or vomiting Musculoskeletal Musculoskeletal: Denies arthralgias Integumentary/Breasts Skin/Breast: Denies rash Neurologic Neurologic: Denies paresthesias Physical Exam General General appearance: alert and in no apparent distress Head Head exam: atraumatic, normocephalic and normal inspection Eye Eye exam: Present normal appearance, PERRL and EOMI ENT ENT exam: Present mucous membranes moist and normal external ear exam Expanded ENT Exam TM/Canal exam: Bilateral TM: erythema and bulging Nose exam: Absent sinus tenderness Mouth exam: Present normal external inspection; Absent drooling Teeth exam: Present normal inspection Throat exam: Present tonsi
[2023-01-17 11:45] VITALS: BP 106/70; PULSE 84; RESP 18; TEMP 37.1; O2SAT 96
[2023-01-17 11:45] LABS: UTC Strep Screen (Rapid) Negative (Negative)
== END 2023-01-17 12:32 | disposition home or self-care (01) ==
PROVIDERS: Emergency Provider Nurse Practitioner Family; PCP Family Medicine
DX: J02.9 Acute pharyngitis, unspecified (principal); R50.9 Fever, unspecified; F17.210 Nicotine dependence, cigarettes, uncomplicated; E03.9 Hypothyroidism, unspecified
CPT/HCPCS: 87880; 99212; 99214; G0463

== ENCOUNTER 2023-01-19 14:48 | Emergency (ER) | payer MEDICARE, BC, SELFPAY ==
[2023-01-19 15:05] VITALS: BP 129/73; PULSE 87; RESP 16; TEMP 36.8; O2SAT 97; BMI 27.7
--- NOTE | 2023-01-19 16:15 | EXP.UTC ---
Discharge Plan Disposition Patient Disposition: Home, Self-Care Condition: Good Prescriptions Prescriptions: New erythromycin 5 mg/gram (0.5 %) ointment 0.5 inch ophthalmic (eye) BID 5 Days Qty: 3.5 0RF No Action levothyroxine 200 mcg tablet 200 mcg PO DAILY Label Comments: TAKE 1 TABLET BY MOUTH ONCE DAILY Eliquis 5 mg tablet 5 mg PO DAILY Label Comments: TAKE 1 TABLET BY MOUTH TWICE DAILY prednisone 10 mg tablet 10 mg PO BID 3 Days Qty: 6 0RF amoxicillin [amoxicillin] 500 mg tablet 500 mg PO TID 10 Days Qty: 30 0RF Referrals Follow up/Referrals: Williams Falcon MD [Primary Care Provider] - See instructions Clinical Impressions Clinical Impression: Acute bacterial conjunctivitis of both eyes Instructions Patient Instructions: DI for Conjunctivitis Discharge ED Provider: Matti ([facility] [place] HPI General Stated complaint: red swollen eyes, congestion,sore throat,weakness Mode of Arrival: Ambulatory Source of Information: Patient Limitations: No Limitations Time Seen by Provider: 01/19/23 16:16 Description of Symptoms (Recalled from Triage Doc. by RN): pt is c/o green drainage from her L eye since this am. HEENT Symptoms (Recalled from RN notes): Yes Resp Symptoms (Recalled from RN notes): No Skin Symptoms (Recalled from RN notes): No MS Symptoms (Recalled from RN notes): No Functional Status (Recalled from RN notes): wnl History of Present Illness Provider Complaint: 72 yr old female presents for redness and drainage to both eyes Related Data Home Medications Medication Instructions Recorded Confirmed apixaban 5 mg tablet (Eliquis) 5 mg PO DAILY SUPERFICIAL VEIN 01/17/23 01/17/23 THROMBOSIS levothyroxine 200 mcg tablet 200 mcg PO DAILY HYPOTHYROID 01/17/23 01/17/23 Previous Rx's Medication Instructions Recorded amoxicillin 500 mg tablet 500 mg PO TID 10 days #30 tabs 01/17/23 prednisone 10 mg tablet 10 mg PO BID 3 days #6 tabs 01/17/23 erythromycin 5 mg/gram (0.5 %) eye 0.5 inch ophthalmic (eye) BID 5 01/19/23 ointment days #3.5 grams Allergies Allergy/AdvReac Type Severity Reaction Status Date / Time codeine [CODEINE] Allergy Mild NA-NAUSEA/V Verified 01/19/23 15:12 OMITING Worker's Comp Is this a Worker's Comp case?: No [facility] Disclaimer: The information contained in this section may have been updated after the patient was seen, as this information can be updated by other users. 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 , PRESSER FIRST) History of anemia History of gastroesophageal reflux (GERD) Kidney stone Thyroid disease Urinary tract infection Surgical History , PRESSER FIRST) History of repair of ACL History of tubal ligation Social History , PRESSER FIRST) Smoking Status: Current every day smoker tobacco type: cigarettes packs per day: 1 second hand exposure: No alcohol intake: current substance use type: denies use current occupational status: retired Travel in the last 8 weeks: None household members: spouse housing: house current occupational exposures/hazards: No caffeine: Yes ROS Obtained: Yes All systems reviewed & no additional complaints except as documented Constitutional Constitutional: Reports system reviewed and no additional complaints, except as documented Eyes Eyes: Reports system reviewed and no additional complaints, except as documented, Reports as per HPI, Reports eye discharge and Reports irritation ENT Ears, Nose, Mouth, and Throat: Reports system reviewed and no additional complaints, except as documented Cardiovascular Cardiovascular: Reports system reviewed and no additional complaints, except as documented Respiratory Respiratory: Reports system reviewed and no additional complaints, except as documented Gastrointestinal Gastrointestingal: Reports sys
[2023-01-19 16:28] VITALS: BP 129/73; PULSE 87; RESP 16; TEMP 36.8
[2023-01-19 16:38] LABS: Adenovirus,PCR Not Detected (NotDetected); Bordetella Pertussis Not Detected (NotDetected); Chlamydophila Pneumoniae, PCR Not Detected (NotDetected); Coronavirus 19, PCR Not Detected (NotDetected); Coronavirus 229E Not Detected (NotDetected); Coronavirus NL63 Not Detected (NotDetected); Coronavirus OC43 Not Detected (NotDetected); Coronovirus HKU1,PCR Not Detected (NotDetected); Human Metapneumovirus Not Detected (NotDetected); Influenza A, PCR Not Detected (NotDetected); Influenza AH1, 2009 Not Detected (NotDetected); Influenza AH1, PCR Not Detected (NotDetected); Influenza AH3,PCR Not Detected (NotDetected); Influenza B, PCR Not Detected (NotDetected); Mycoplasma Pneumoniae, PCR Not Detected (NotDetected); Parainfluenza 1, PCR Not Detected (NotDetected); Parainfluenza 2, PCR Not Detected (NotDetected); Parainfluenza 3, PCR Not Detected (NotDetected); Parainfluenza 4, PCR Not Detected (NotDetected); Respiratory Syncytial Virus Not Detected (NotDetected); Rhinovirus/Enterovirus Not Detected (NotDetected)
== END 2023-01-19 16:34 | disposition home or self-care (01) ==
PROVIDERS: Emergency Provider Nurse Practitioner Family; PCP Family Medicine
DX: H10.33 Unspecified acute conjunctivitis, bilateral (principal); R53.1 Weakness; F17.210 Nicotine dependence, cigarettes, uncomplicated; E03.9 Hypothyroidism, unspecified
CPT/HCPCS: 87581; 87632; 87798; 99212; 99214; C9803; G0463; U0003; U0005

== ENCOUNTER → 2023-01-23 14:50 | Outpatient (CLI) | payer MEDICARE, BC, SELFPAY ==
[2023-01-23 15:14] LABS: Coronavirus 19, PCR Not Detected (NotDetected); Influenza A, PCR Not Detected (NotDetected); Influenza B, PCR Not Detected (NotDetected)
== END ==
PROVIDERS: PCP Family Medicine; Visit Provider Physician Assistant
DX: Z20.822 Contact with and (suspected) exposure to COVID-19 (principal)
CPT/HCPCS: C9803; U0003; U0005

== ENCOUNTER → 2023-01-24 14:49 | Outpatient (CLI) | payer MEDICARE, BC, SELFPAY ==
--- NOTE | 2023-01-24 15:00 | XR_ITS ---
FINAL REPORT CLINICAL HISTORY: BRONCHITIS - cough and fever - r/o pneumonia COMPARISON: 10/19/2022 FINDINGS: TWO-VIEW CHEST The heart size is normal. There is right basilar scarring. Note is made of emphysema. The thoracic aorta is tortuous causing mediastinal widening. There is no pneumothorax. IMPRESSION: No acute cardiopulmonary process. Reviewed, Interpreted and Dictated by Fernando Nettles MD Transcribed by Luisa Foss Authenticated and [facility]
== END ==
PROVIDERS: PCP Physician Assistant; Visit Provider Physician Assistant
DX: J40 Bronchitis, not specified as acute or chronic (principal)
CPT/HCPCS: 71046

== ENCOUNTER → 2023-02-13 14:03 | Outpatient (CLI) | payer MEDICARE, BC, SELFPAY | PROVIDERS: PCP Physician Assistant; Visit Provider Physician Assistant | DX: Q25.46 Tortuous aortic arch (principal) | CPT/HCPCS: 93306 ==

== ENCOUNTER 2023-06-30 16:39 | Emergency (ER) | payer MEDICARE, BC, SELFPAY ==
[2023-06-30 16:55] VITALS: BP 157/80; PULSE 78; RESP 20; TEMP 36.9; O2SAT 98; BMI 27.4
--- NOTE | 2023-06-30 16:57 | EXP.UTC ---
Discharge Plan Disposition Patient Disposition: Home, Self-Care Condition: Good Prescriptions Prescriptions: New prednisone 10 mg tablet 10 mg PO BID 5 Days Qty: 10 0RF amoxicillin [amoxicillin] 500 mg tablet 500 mg PO TID 10 Days Qty: 30 0RF benzonatate [benzonatate] 100 mg capsule 100 mg PO TIDP PRN (Reason: Cough) Qty: 30 0RF No Action levothyroxine 200 mcg tablet 200 mcg PO DAILY Patient Comments: TAKE 1 TABLET BY MOUTH ONCE DAILY Referrals Follow up/Referrals: Mallorie Kruse PA [Primary Care Provider] - See instructions Activity Restrictions/Add. Instructions Additional Instructions/Restrictions: Drink plenty of fluids. Take tylenol or ibuprofen for pain or fever. Take the medications as directed. Follow up with your regular doctor. GO TO THE ER FOR ANY WORSENING SYMPTOMS Clinical Impressions Clinical Impression: Pharyngitis Instructions Patient Instructions: Sore Throat, DI for Pharyngitis/Tonsillopharyngitis -- Adult Discharge ED Provider: Donn Reza [facility] [place] General Stated complaint: sore throat Time Seen by Provider: 06/30/23 16:57 History of Present Illness Provider Complaint: She states that for the past 3 days she has had worsening sinus congestion and sore throat. Related Data Home Medications Medication Instructions Recorded Confirmed levothyroxine 200 mcg tablet 200 mcg PO DAILY HYPOTHYROID 01/17/23 06/30/23 Previous Rx's Medication Instructions Recorded amoxicillin 500 mg tablet 500 mg PO TID 10 days #30 tabs 06/30/23 benzonatate 100 mg capsule 100 mg PO TIDP PRN Cough #30 caps 06/30/23 prednisone 10 mg tablet 10 mg PO BID 5 days #10 tabs 06/30/23 Allergies Allergy/AdvReac Type Severity Reaction Status Date / Time codeine [CODEINE] Allergy Mild NA-NAUSEA/V Verified 01/19/23 15:12 OM[facility]ING [facility] Disclaimer: The information contained in this section may have been updated after the patient was seen, as this information can be updated by other users. 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) Smoking Status: Current every day smoker tobacco type: cigarettes packs per day: 1 second hand exposure: No alcohol intake: current substance use type: denies use current occupational status: retired Travel in the last 8 weeks: None household members: spouse housing: house current occupational exposures/hazards: No caffeine: Yes ROS Obtained: Yes All systems reviewed & no additional complaints except as documented Constitutional Constitutional: Reports chills and Reports fever(s) Eyes Eyes: Denies eye discharge ENT Ears, Nose, Mouth, and Throat: Reports as per HPI Cardiovascular Cardiovascular: Denies chest pain Respiratory Respiratory: Denies chest congestion and Reports cough Gastrointestinal Gastrointestingal: Reports nausea; Denies abdominal pain, constipation, cramping, diarrhea or vomiting Musculoskeletal Musculoskeletal: Denies arthralgias Integumentary/Breasts Skin/Breast: Denies rash Neurologic Neurologic: Denies paresthesias Physical Exam General General appearance: alert and in no apparent distress Head Head exam: atraumatic, normocephalic and normal inspection Eye Eye exam: Present normal appearance, PERRL and EOMI ENT ENT exam: Present mucous membranes moist and normal external ear exam Expanded ENT Exam TM/Canal exam: Bilateral TM: erythema and bulging Nose exam: Absent sinus tenderness Mouth exam: Present normal external inspection; Absent drooling Teeth exam: Present normal inspection Throat exam: Present tonsillar eryt
[2023-06-30 17:17] LABS: UTC Strep Screen (Rapid) Negative (Negative)
[2023-06-30 17:30] VITALS: BP 157/80; PULSE 78; RESP 20; TEMP 36.9; O2SAT 98
== END 2023-06-30 17:36 | disposition home or self-care (01) ==
PROVIDERS: Emergency Provider Nurse Practitioner Family; PCP Physician Assistant
DX: J02.9 Acute pharyngitis, unspecified (principal); F17.210 Nicotine dependence, cigarettes, uncomplicated; E03.9 Hypothyroidism, unspecified
CPT/HCPCS: 87880; 99212; 99214; G0463

== ENCOUNTER → 2023-07-04 10:51 | Outpatient (CLI) | payer MEDICARE, BC, SELFPAY ==
[2023-07-04 10:58] LABS: Coronavirus 19, PCR Not Detected (NotDetected); Influenza A, PCR Not Detected (NotDetected); Influenza B, PCR Not Detected (NotDetected)
== END ==
PROVIDERS: PCP Physician Assistant; Visit Provider Physician Assistant
DX: Z20.822 Contact with and (suspected) exposure to COVID-19 (principal)
CPT/HCPCS: 87636

== ENCOUNTER → 2023-07-18 10:13 | Outpatient (CLI) | payer MEDICARE, BC, SELFPAY ==
[2023-07-18 10:23] LABS: Adenovirus,PCR Not Detected (NotDetected); Coronavirus 19, PCR Not Detected (NotDetected); Coronavirus 229E Not Detected (NotDetected); Coronavirus NL63 Not Detected (NotDetected); Coronavirus OC43 Not Detected (NotDetected); Coronovirus HKU1,PCR Not Detected (NotDetected); Human Metapneumovirus Not Detected (NotDetected); Influenza A, PCR Not Detected (NotDetected); Influenza AH1, 2009 Not Detected (NotDetected); Influenza AH1, PCR Not Detected (NotDetected); Influenza AH3,PCR Not Detected (NotDetected); Influenza B, PCR Not Detected (NotDetected); Parainfluenza 1, PCR Not Detected (NotDetected); Parainfluenza 2, PCR Not Detected (NotDetected); Parainfluenza 3, PCR Not Detected (NotDetected); Parainfluenza 4, PCR Not Detected (NotDetected); Respiratory Syncytial Virus Not Detected (NotDetected); Rhinovirus/Enterovirus Not Detected (NotDetected)
== END ==
PROVIDERS: PCP Family Medicine; Visit Provider Physician Assistant
DX: Z20.822 Contact with and (suspected) exposure to COVID-19; R06.02 Shortness of breath; J02.9 Acute pharyngitis, unspecified
CPT/HCPCS: 87632; 87635

== ENCOUNTER 2023-10-23 09:16 | Outpatient (CLI) | payer MEDICARE, BC, SELFPAY ==
[2023-10-23 10:10] LABS: Potassium 3.7 mmoL/L (3.5-5.1)
[2023-10-23 10:30] LABS: Free T4 (Free Thyroxine) 1.99 ng/dl (0.78-2.19)
[2023-10-23 10:45] LABS: Thyroid Stimulating Hormone < 0.02 uIU/mL (0.465-4.68)
== END 2023-10-23 23:59 ==
LOC: LAB 09:18
PROVIDERS: PCP Family Medicine; Visit Provider Family Medicine
DX: E03.9 Hypothyroidism, unspecified (principal); E87.6 Hypokalemia
CPT/HCPCS: 36415; 84132; 84439; 84443

== ENCOUNTER 2023-12-01 09:50 | Outpatient (CLI) | payer MEDICARE, BC, SELFPAY ==
--- NOTE | 2023-12-01 09:53 | MM_ITS ---
PROCEDURE INFORMATION: Exam: MG Bilateral Screening 3D Mammography Exam date and time: 12/01/2023 9:43 AM Age: 73 years old Clinical indication: Screening examination TECHNIQUE: Imaging protocol: Bilateral Screening tomosynthesis and 2D mammography including computer-aided detection (CAD) when performed. COMPARISON: 1. MG MM DIG SCREENING MAMM BI W/CAD 11/29/2022 8:42 AM 2. MG MM DIG SCREENING MAMM BI W/CAD 11/13/2021 10:16 AM FINDINGS: MAMMOGRAPHY: Breast composition: There are scattered areas of fibroglandular density. Mass: None. Architectural distortion: None. Calcifications: No suspicious calcifications. Asymmetric density: None. Skin thickening: None. Axillary adenopathy: None. IMPRESSION: No mammographic evidence of malignancy. Annual screening is recommended unless otherwise clinically indicated. ASSESSMENT: BI-RADS Category 1: Negative
== END 2023-12-01 23:59 ==
PROVIDERS: PCP Family Medicine; Visit Provider Family Medicine
DX: Z12.31 Encounter for screening mammogram for malignant neoplasm of breast (principal)
CPT/HCPCS: 77063; 77067

== ENCOUNTER 2024-02-24 10:59 | Outpatient (CLI) | payer MEDICARE, BC, SELFPAY ==
[2024-02-24 11:24] LABS: Basophils % 0.7 % (0.1-2.0); Eosinophils % 0.3 % (0.1-12.0); Hematocrit 37.2 % (37.0-47.0); Hemoglobin 12.3 g/dL (12.2-16.2); Lymphocytes # 1.3 K/mm3 (0.7-4.5); Lymphocytes % 45.3 % (10-50); Mean Corpuscular Hemoglobin 30.9 pg (27.0-31.2); Mean Corpuscular Volume 93.8 fl (81-99); Mean Platelet Volume 8.5 fl (7.4-10.4); Monocytes # 0.2 K/mm3 (0.1-1.0); Monocytes % 6.3 % (1.7-9.3); Neutrophils # 1.3 K/mm3 (1.8-7.8); Neutrophils % 47.4 % (37.0-80.0); Platelet Count 212 K/mm3 (142-424); Red Blood Count 3.97 M/mm3 (4.20-5.40); Red Cell Distribution Width 19.7 % (11.5-17.5); White Blood Count 2.8 K/mm3 (4.8-10.8)
[2024-02-24 11:59] LABS: Alanine Aminotransferase 12 U/L (12-78); Albumin Level 4.5 g/dl (3.5-5.0); Albumin/Globulin Ratio 1.7 (1.1-1.8); Alkaline Phosphatase 85 U/L (38-126); Anion Gap 12.8 mEq/L (5-15); Aspartate Amino Transferase 23 U/L (14-36); Bilirubin,Total 0.9 mg/dl (0.2-1.3); Blood Urea Nitrogen 18 mg/dl (7-17); Calcium 9.6 mg/dl (8.4-10.2); Carbon Dioxide 24 mmol/L (22.0-30.0); Chloride 107 mmol/L (98-107); Estimated Glomerular Filt Rate 71 ml/min (>60); GFR (African American) 86 ML/MIN (>60); Globulin 2.7 g/dL (1.3-3.2); Glucose 103 mg/dl (74-100); Potassium 3.8 mmoL/L (3.5-5.1); Sodium 140 mmol/L (136-145); Total Protein,Serum 7.2 g/dl (6.3-8.2)
[2024-02-24 13:03] LABS: Vitamin B12 653 pg/mL (239-931)
[2024-02-25 10:06] LABS: HIV (1&2) Antibody Rapid NON REACTIVE
[2024-02-28 11:16] LABS: Hepatitis C Antibody NON REACTIVE
== END 2024-02-24 23:59 | disposition home or self-care (01) ==
LOC: LAB 11:01
PROVIDERS: PCP Family Medicine; Visit Provider Internal Medicine Medical Oncology
DX: D72.819 Decreased white blood cell count, unspecified (principal)
CPT/HCPCS: 36415; 80053; 82607; 82746; 85025; 87380

== ENCOUNTER 2024-04-28 11:37 | Emergency (ER) | payer MEDICARE, BC, SELFPAY ==
[2024-04-28 11:37] VITALS: BP 123/70; PULSE 90; RESP 16; TEMP 36.8; O2SAT 97; BMI 27.7
[2024-04-28 12:00] VITALS: BP 115/85; PULSE 91; RESP 18; O2SAT 95
--- NOTE | 2024-04-28 12:03 | PC.NURSE ---
DR CARPENTER AT BEDSIDE
--- NOTE | 2024-04-28 12:10 | CA_ITS ---
FINAL REPORT TECHNIQUE: Color Doppler, duplex Doppler and compression sonography of the left lower extremity deep venous systems was performed. CLINICAL HISTORY: REDNESS DISTAL LLE X 2-3 WKS,NKI,EDEMA,PAIN DISTAL LLE,HX SUPERFICIAL THROMBUS FINDINGS: There is no evidence of deep venous thrombosis from the level of the groin to the calf. The veins are patent and compressible. IMPRESSION: No evidence of deep venous thrombosis left lower extremity. Reviewed, Interpreted and Dictated by Juan Rawls III, MD Transcribed by Luisa Foss Authenticated and [facility]
--- NOTE | 2024-04-28 12:10 | PC.NURSE ---
VASCULAR NOTIFIED OF DOPPLER
--- NOTE | 2024-04-28 12:11 | ED_ITS ---
Discharge Plan Disposition Patient Disposition: Home, Self-Care Condition: Good Prescriptions Prescriptions: New linezolid 600 mg tablet 600 mg PO BID 7 Days Qty: 14 0RF No Action levothyroxine 175 mcg tablet 175 mcg PO DAILY Patient Comments: TAKE 1 TABLET BY MOUTH ONCE DAILY IN THE MORNING ON AN EMPTY STOMACH FOR 30 DAYS Referrals Follow up/Referrals: Williams Falcon MD [Primary Care Provider] - See instructions Activity Restrictions/Add. Instructions Additional Instructions/Restrictions: You were evaluated in the ER and are appropriate for discharge at this time. Please make an appointment with your primary care physician for reevaluation in 3 days. Take the prescribed antibiotics as directed, do not skip doses, do not stop taking it early. Drink plenty of water. Return to the ER with new, worsening, or otherwise concerning symptoms. Clinical Impressions Clinical Impression: Cellulitis Instructions Patient Instructions: DI for Skin Abscess Print Language Print Language: Divehi Discharge ED Provider: Mark Bender General Adult HPI General Chief complaint: Skin/Abscess/Foreign Body Stated complaint: infection on L leg Time Seen by Provider: 04/28/24 12:01 Mode of Arrival: Ambulatory Source of Information: Patient Limitations: No Limitations Description of Symptoms (Recalled from ER Triage Doc. by RN): Patient reports poss cellulitis to left lower leg. States it has been red for 2-3 weeks and has done 2 rounds of antibiotics and it hasn't gotten any better. History of Present Illness HPI narrative: 73-year-old female presents to the ER for concerns of distal left lower extremity redness and pain. Patient states she has had this area of redness for multiple weeks and has tried previous antibiotics with worsening. Patient states that started off as a small red bumpy area and has progressively worsened. She states she had a stress test at [facility] 48 hours ago and walking on the treadmill caused increasing pain and progressive redness. She states that his gotten worse, she feels like she has had fever but has never had a documented one at home. Patient reports she has known superficial vein thrombus and wears compressive stockings for them. She is followed with vascular surgery for these previously and they only recommend compression. Patient states these do not bother her. Her left leg is more swollen than her right, she does not take anything for fluid overload, no previous diagnosis of diabetes. No known injury to the left lower extremity. Related Data Home Medications ?Medication ?Instructions ?Recorded ?Confirmed levothyroxine 175 mcg tablet 175 mcg PO DAILY 02/24/24 02/24/24 Previous Rx's ?Medication ?Instructions ?Recorded linezolid 600 mg tablet 600 mg PO BID 7 days #14 tabs 04/28/24 Allergies Allergy/AdvReac Type Severity Reaction Status Date / Time codeine [CODEINE] Allergy Mild NA-NAUSEA/V Verified 02/24/24 10:08 OMITING PFSH PFSH Disclaimer: The information contained in this section may have been updated after the patient was seen, as this information can be updated by other users. 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 Thyroid disease History of anemia Urinary tract infection Kidney stone History of gastroesophageal reflux (GERD) Surgical History History of repair of ACL History of tubal ligation Social History Smoking Status: Unknown if ever smoked second hand exposure: No alcohol intake: current alcohol intake frequency: holidays/special occasions only substance use type: denies use current occupational status: retired Travel in the last 8 weeks: None household members: spouse housing: house current occupational exposures/hazards: No caffeine: Yes ROS Obtained: Yes All systems reviewed & no additional complaints except as documented Positive ROS per HPI Physical Exam General General appearance: alert and in no apparent distress Head Head exam: atraumatic and normocephalic Eye Eye exam: Present PERRL and EOMI ENT ENT exam: Present mucous membranes moist Neck Neck exam: Present normal inspection and full ROM Chest Chest inspection: Present symmetric chest wall rise Respiratory Respiratory exam: Absent respiratory distress or stridor Cardiovascular Cardiovascular exam: Present regular rate and normal rhythm Extremities Exam Extremities exam: Present full ROM, tenderness (Medial aspect of distal left lower extremity superior to the medial malleolus), edema (1+ pitting edema, left greater than right) and other (multiple varicose veins in the bilateral lower extremities, left worse than right, patient has obvious superficial venous thrombus in the left calf, she states the events have been present for years); Absent joint swelling or calf tenderness Neurological Exam Neurological exam: Present alert and oriented X3; Absent motor sensory deficit Psychiatric Psychiatric exam: Present normal affect and normal mood Skin Skin exam: Present warm, dry and erythema (Tender, indurated, erythematous patch on the distal left lower extremity medial aspect slightly proximal to the medial malleolus, approximately 8 cm diameter) Medical Decision Making Ambrose Inquiry Pt receiving controlled substance: No Vital Signs: 04/28/24 11:37 04/28/24 12:00 Temperature 98.2 F Temperature Source Oral Pulse Rate 91 H Pulse Rate [Radial] 90 Respiratory Rate 16 18 Blood Pressure 115/85 Blood Pressure [Right Arm] 123/70 Blood Pressure Mean 95 Blood Pressure Mean [Right Arm] 87 Blood Pressure Source [Right Arm] Automatic Cuff Blood Pressure Position [Right Arm] Sitting 02 Sat by Pulse Oximetry 97 95 Oxygen Delivery Method Room Air Orders (Tests/Meds): ORDERS Category Date Time Status POCUS Point of Care (ER Only) Stat Exams 04/28/24 12:10 Ordered CA venous doppler LE LT Stat Y 04/28/24 12:10 Completed Medical Decision Narrative: In summary, this 73-year-old female presents to the emergency department today with area of erythema, heat, pain in the distal left lower extremity. On initial evaluation patient is hemodynamically stable, afebrile, patient has approximately 8 cm diameter area of erythema, heat, induration on the distal left lower extremity as documented in physical exam with 1+ pitting edema on the left only, neurovascularly intact, no findings of injury, no open wound. Differential diagnosis includes but is not limited to cellulitis, abscess, DVT, venous stasis changes. Based on these concerns, I ordered Doppler ultrasound and performed [id number] ultrasound of the erythematous area myself. Doppler ultrasound was negative for DVT. Pknco-an-nsbe ultrasound personally interpreted demonstrates findings consistent with cellulitis, no abscess. See procedure note for details. Patient has failed cephalexin 5-day course and Bactrim 5-day course with persistent findings consistent with cellulitis. I discussed this case with pharmacy since patient does not have any systemic signs of illness and is otherwise well-appearing I believe she is appropriate for outpatient management. After discussing this at length with the pharmacist, the recommendation is for linezolid 600 mg twice daily for 7 days. This was prescribed to the patient. Patient was given instructions on symptomatic management, follow up instructions, and return precautions for the emergency department. Patient indicated understanding and was discharged in stable condition. Procedures Miscellaneous Procedure Procedure Performed: Indication: Soft tissue redness, pain Identified structures: Distal left lower extremity Location: Distal left lower extremity Findings: Cobblestoning consistent with cellulitis, no abscess Impression: Cellulitis Images were saved to the permanent archive. The study was technically adequate. Soft tissue CPT codes Lower extremity: 67506-31 This study was performed by me, and I personally interpreted all images/videos. Based on my clinical judgment, these images were adequate and did not necessitate further imaging. Critical Care Critical Care Time Critical Care Time: No
--- NOTE | 2024-04-28 12:16 | PC.NURSE ---
PT REMOVED PANTS AND GIVEN WARM BLANKET FOR DOPPLER TO BE COMPLETED
[2024-04-28 13:50] VITALS: BP 115/85; PULSE 91; RESP 18; TEMP 36.8; O2SAT 95
== END 2024-04-28 13:51 | disposition home or self-care (01) ==
PROVIDERS: Emergency Provider Emergency Medicine; PCP Family Medicine
DX: L03.116 Cellulitis of left lower limb (principal)
CPT/HCPCS: 93971; 99284

== ENCOUNTER 2024-11-26 09:51 | Outpatient (CLI) | payer MEDICARE, BC, SELFPAY ==
[2024-11-26 11:08] LABS: Alanine Aminotransferase 13 U/L (12-78); Albumin Level 4.5 g/dl (3.5-5.0); Albumin/Globulin Ratio 1.7 (1.1-1.8); Alkaline Phosphatase 81 U/L (38-126); Anion Gap 9.3 mEq/L (5-15); Aspartate Amino Transferase 25 U/L (14-36); Bilirubin,Total 0.8 mg/dl (0.2-1.3); Blood Urea Nitrogen 19 mg/dl (7-17); Calcium 9.4 mg/dl (8.4-10.2); Carbon Dioxide 26 mmol/L (22.0-30.0); Chloride 109 mmol/L (98-107); Chol/HDL Ratio 2.5 (1-3.5); Cholesterol 228 mg/dl (140-200); Estimated Glomerular Filt Rate 98 ml/min (>60); GFR (African American) 119 ML/MIN (>60); Globulin 2.6 g/dL (1.3-3.2); Glucose 95 mg/dl (74-100); HDL Cholesterol 92 mg/dl (40-60); Potassium 4.3 mmoL/L (3.5-5.1); Sodium 140 mmol/L (136-145); Total Protein,Serum 7.1 g/dl (6.3-8.2); Triglycerides 62 mg/dl (30-150); VLDL Cholesterol 12 mg/dL (0-40)
[2024-11-26 11:38] LABS: Thyroid Stimulating Hormone 1.14 uIU/mL (0.465-4.68)
== END 2024-11-26 23:59 | disposition home or self-care (01) ==
LOC: LAB 09:53
PROVIDERS: PCP Family Medicine; Visit Provider Family Medicine
DX: E78.5 Hyperlipidemia, unspecified (principal); E05.90 Thyrotoxicosis, unspecified without thyrotoxic crisis or storm
CPT/HCPCS: 36415; 80053; 80061; 84439; 84443

== ENCOUNTER 2024-12-01 12:56 | Outpatient (CLI) | payer MEDICARE, BC, SELFPAY ==
--- NOTE | 2024-12-01 13:00 | MM_ITS ---
PROCEDURE INFORMATION: Exam: MG Bilateral Screening 3D Mammography Exam date and time: 12/01/2024 1:02 PM Age: 74 years old Clinical indication: Screening examination TECHNIQUE: Imaging protocol: Bilateral Screening tomosynthesis and 2D mammography including computer-aided detection (CAD) when performed. COMPARISON: 1. MG MM DIG SCREENING MAMM BI W/CAD 12/01/2023 9:43 AM 2. MG MM DIG SCREENING MAMM BI W/CAD 11/29/2022 8:42 AM FINDINGS: MAMMOGRAPHY: Breast composition: There are scattered areas of fibroglandular density. Mass: No suspicious masses. Architectural distortion: None. Calcifications: No suspicious calcifications. Asymmetric density: None. Skin thickening: None. Axillary adenopathy: None. IMPRESSION: No mammographic evidence of malignancy. Annual screening is recommended unless otherwise clinically indicated. ASSESSMENT: BI-RADS Category 1: Negative.
== END 2024-12-01 23:59 | disposition home or self-care (01) ==
LOC: RAD 12:57
PROVIDERS: PCP Family Medicine; Visit Provider Family Medicine
DX: Z12.31 Encounter for screening mammogram for malignant neoplasm of breast (principal)
CPT/HCPCS: 77063; 77067

== ENCOUNTER 2025-03-30 17:06 | Emergency (ER) | payer MEDICARE, BC, SELFPAY ==
--- OUTSIDE RECORDS SUMMARY | 2024-04-02 11:45 | XMS_ITS ---
Author Organization [facility] Address [address] [facility] [address] [place] [phone] Care Team Providers Care Ditch Digger Name Role Phone Williams Falcon Primary Care Provider Allergies Allergen (clinical drug ingredient) Drug/Non Drug [...] Duration: 90 days 07/22/2023 Active Vital Signs Blood pressure systolic 108 mm Hg 04/02/20 24 Blood pressure diastolic 70 mm Hg 024 Heart Rate 70 /min 04/02/2024 Height 65.50 in 04/02/2024 Weight 170 lbs 04/02/2024 BMI 27.86 kg/m2 04/02/2024 Encounters Encounter Location Date Provider Diagnosis [facility] [address] [facility] [address] [place] [id number] 04/02/2024 Williams Falcon Pain in left lower [...] via phone to repo rt progress, Reason: Progress Notes * Sierra BROWNOB:1950 ( 74 yo F)Acc No.[id number]:04/02/2024 Progress Notes Patient: Marcia GERARD Provider: Odin Falcon M.D. :1950 A ge:73 Y S ex:Female Date:04/02/2024 Address:[address] [place] [address] , [place], [id number] Subjective: * Chief Complaints: * 1 . Left lower leg sore and warm. * HPI: D ermatology: 73 year old female presents with c/o redness P t complains of Lt lower leg swelling and redness that is warm to the touch. States she has seen Dr. 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 * Surgical History: T ubal Ligation 1979, Rectal Hernia Repair 2005, Transvaginal Taping 2005, RT Eye Cataract 11/26/2011, LT Knee Surgery 08/2012, Mole Removal - Dr. Warren x2 03/2016. * Hospitalization/Major Diagno stic Procedure: L ymph removed from groin , Knee Pain- [facility] 06/26/2012, Pneumonia- [facility] 03/26-, Bronchitis- [facility] 09/08/2015, Bronchitis, Dehydration- [facility] 09/10/2015, URI- [facility] [place] 01/25/2018. * Family History: F ather: [...] * Images: Billing Information: * Visit Code: 01042 Office Visit, Est Pt., Level 3. * Procedure Codes: G2211 Complex e/m visit add on. * Electronic signature of Maria A Falcon MD on 03/30/2025 at 05:24 PM EDT Sign off status: Pending * Provider: Odin Falcon M.D. Date: 04/02/2024 Generated for Beatriz espinosa/Shola/Sunniitting on: 03/30/2025 05:24 PM EDT History and Physical Notes * HPI (History of Present Illness) Category Sub-Category Detail Notes Category Not es Dermatology redness Pt complains of Lt lower leg swelling and redness that is warm to the touch. States she has seen Dr. Venu Carlson in [place] at [facility]ascular center several times over the [...]
--- OUTSIDE RECORDS SUMMARY | 2024-10-15 07:30 | XMS_ITS ---
Author Organization [facility] Address [address] [facility] [address] [place] [phone] Care Team Providers Care Cr[employer]er Maker Machine Name Role Phone Williams Falcon Primary Care [address] [place] [id number] 10/15/2024 Williams Falcon Acquired hypothyroid ism E03.9 [...] * Sierra BROWNOB:1950 ( 74 yo F)Acc No.[id number]:10/15/2024 Progress Notes Patient: Marcia GERARD Provider: Odin Falcon M.D. :1950 A ge:74 Y S ex:Female Date:10/15/2024 Address:[address] [place] [address] , [place], [id number] Subjective: * Chief Complaints: * 1 . 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 * Surgical History: T ubal Ligation 1979, Rectal Hernia Repair 2005, Transvaginal Taping 2005, RT Eye Cataract 11/26/2011, LT Knee Surgery 08/2012, Mole Removal - Dr. Warren x2 03/2016. * Hospitalization/Major Diagno stic Procedure: L ymph removed from groin , Knee Pain- [facility] ER 06/26/2012, Pneumonia- [facility] ER 03/26-, Bronchitis- [facility] 09/08/2015, Bronchitis, Dehydration- [facility] 09/10/2015, [facility]. * Family History: F ather: [...] * Images: Billing Information: * Visit Code: 07879 Office Visit, Est Pt., Level 3. * Procedure Codes: G2211 Complex e/m visit add on. 3074F SYST BP LT 130 MM HG. 3078F DIAST BP < 80 MM HG. * Electronic signature of Maria A Falcon MD on 03/30/2025 at 05:24 PM EDT Sign off status: Pending * Provider: Odin Falcon M.D. Date: 0 10/15/2024 Generated for Beatriz espinosa/Shola/Jorgesmitting on: 0 03/30/2025 05:24 PM EDT History and Physical [...]
[2025-03-30] VITALS (7 sets, daily range): BP systolic 127–185; BP diastolic 68–108; PULSE 64–85; RESP 14–15; TEMP 37–37.1; O2SAT 96–100; BMI 32.5
--- OUTSIDE RECORDS SUMMARY | 2025-03-30 17:25 | XMS_ITS | Clinical Summary ---
Author Organization [facility] Address [address] [place] [address] Care Team Providers Care Membership Sales Representative Name Role Phone Unavailable Primary Care Provider Unavailabl e Social History Tobacco Use Types Packs/Day Years Used Date Smoking Tobacco: Never Assessed Comments Unknown Sex and Gender Information Value Date Recorded Sex Assigned at Not on file Legal Sex Female 3:19 PM EDT Gender Identity Not on file Sexual Orientation Not on file Last Filed Vital Signs Vital Sign Reading Time Taken Comments Blood Pressure 117/75 02/13/2023 3:39 PM EDT Pulse 96 02/13/2023 3:39 PM EDT Temperature - - Respiratory Rate - - Oxygen Saturation - - Inhaled Oxygen Concentration - - Weight 89.8 kg (198 lb) 02/13/2023 3:39 PM EDT Height 167.6 cm (5' 6 ) 02/13/2023 3:39 PM EDT Body Mass Index 31.96 02/13/2023 3:39 PM EDT Plan of Treatment Health Maintenance Due Date Last Done Comments [facility]-Bone Density Scan 1950 [facility]-Depression Screening 1950 [facility]-/Child/Adol SDOH Screenings 1950 [facility]- SDOH Screenings 1970 [facility]-Adult SDOH Screenings 1970 [facility]-DTaP,Tdap,and Td Vaccine s (1 - Tdap) 11/20/1996 11/19/1996 CT Colonography 1997 Colonoscopy 1997 FIT-DNA 1997 FIT 1997 FOBT 1997 Sigmoidoscopy 1997 [facility]-Colorectal Cancer Screening 1997 [facility]-Zoster Vaccines (1 of 2) 2002 [id number] Vaccine ( - season) 2024 [facility]-Influenza Vaccine (#1) 2025 [facility]-RSV Vaccine: 60+ Years o r (1 - 1-dose 75+ series) 2027 [facility]-Pneumococcal Vaccine: 50 + Years Completed 03/01/2021, 07/17/2018 HPV Vaccines Aged Out No longer eligi ble based on patient's age to complete this topic [facility]-HIB Vaccines Aged Out No longer e ligible based on patient's age to complete this topic [facility]-Hepatitis A Vaccines Aged Out No longer eligible based on patient's age to complete this topic [facility]-IPV Vaccines Aged Out No longer e ligible based on patient's age to complete this topic [facility]-Rotavirus Vaccines Aged Out No lo nger eligible based on patient's age to complete this topic
--- OUTSIDE RECORDS SUMMARY | 2025-03-30 17:25 | XMS_ITS | Patient Health Record ---
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 Y TRIG 62 30-150 mg/dl CHOL 228 140-200 mg/dl DLDL 98.30 100-129 mg/dL VLDL 12 0-40 mg/dL HDL 92 40-60 mg/dl CHLHDL 2.5 1-3.5 H-CMP Reviewed date:11/30/2024 10:12:40 AM Interpretation:cl 109, bun 19 Performing Lab: Notes/Report: NA 140 136-145 mmol/L K 4.3 3.5-5.1 mmoL/L CL 109 98-107 mmol/L CO2 26 22.0-30.0 mmol/L GAP 9.3 5-15 mEq/L BUN 19 7-17 mg/dl CREATT 0.60 0.52-1.04 mg/dl GFRAA 119 >60 ML/MIN EGFR 98 >60 ml/min GLU 95 74-100 mg/dl CA 9.4 8.4-10.2 mg/dl BILIT 0.8 0.2-1.3 mg/dl AST 25 14-36 U/L ALT 13 12-78 U/L TP 7.1 6.3-8.2 g/dl ALB 4.5 3.5-5.0 g/dl GLOB 2.6 1.3-3.2 g/dL AGRATIO 1.7 1.1-1.8 ALP 81 38-126 U/L H-T4 free Reviewed date:11/30/2024 10:12:40 AM Interpretation:Normal Performing Lab: Notes/Report: T4F 1.30 0.78-2.19 ng/dl Reason For Referral No Information Medications Medication SIG (Take, Route, Frequency, Duration) Notes Start Date End Date Status Levothyroxine Sodium 175 MCG TAKE 1 TABL ET BY MOUTH ONCE DAILY ON AN EMPTY STOMACH FOR 90 DAYS Active Calcium Citrate 250 MG 1 tab(s) orally 2 times a day 07/22/2011 Active Centrum Silver - 1 tab(s) orally once a day Active Immunizations Vaccine Route Administration Date Status Comme nts Tetanus Tdap-Adacel (over 7yrs) IM Intramuscular 11/25/2015 Administered Prevnar (PCV13) IM Intramuscular 07/17/2018 Administered PNEUMOVAX 23 VACCINE IM Intramuscular 07/01/2016 Administe red PNEUMOVAX 23 VACCINE IM Intramuscular 03/01/2021 Administe red Fluzone Intradermal Quad private(18-64yrs) ID Intradermal 05/31/2016 Administered Fluzone High Dose (65yr and older) IM Intramuscular 09/25/2017 Administered Fluzone High Dose (65yr and older) IM Intramuscular 07/17/2018 Administered Fluzone High Dose (65yr and older) IM Intramuscular 07/08/2019 Administered DT, 7 YEARS OR OLDER Unknown 11/19/1996 Administered Problems Problem Type SNOMED Code ICD Code Onset Dates Problem Status W/U Status Risk Notes Problem Gastro-esophageal reflux disease without esophagitis (566647518) Gastro-esophageal reflux disease without esophagitis (K21.9) Active confirmed Problem Essential hypertension (36664707) Essential hypertension (I10) Active confirmed Problem Pancytopenia (753457164) Pancytopenia (D61.818) Active confirmed Problem Decrease in appetite (finding) (69429447) Decreased appetite (R63.0) Active confirmed Problem Paresthesia (14668516) Paresthesia (R20.2) Active confirmed Problem Mixed hyperlipidemia (170311818) Mixed hyperlipidemia (E78.2) Active confirmed Problem Age-related osteoporosis (515932713) Age-related osteoporosis without current pathological fracture (M81.0) Active confirmed Problem Acquired hypothyroidism (185718841) Acquired hypothyroidism (E03.9) Active confirmed Problem Osteoarthritis of knee (500432115) Primary osteoarthritis of both knees (M17.0) Active confirmed Problem Body mass index 30.00 to 34.99 (994310160327754) BMI 34.0-34.9,adult (Z68.34) Active confirmed Problem Leukopenia (00871203) Leukopenia, unspecified type (D72.819) Active confirmed Problem 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 Problem Carpal tunnel syndrome (80103869) Carpal tunnel syndrome on both sides (G56.03) Active confirmed Problem Obesity (468529724) Non morbid obesity (E66.9) Active confirmed Vital Signs Heart Rate 78 /min 10/15/2024 Blood pressure diastolic 70 mm Hg 10/15/2024 Height 65.50 in 10/15/2024 Blood pressure systolic 110 mm Hg 10/15/2024 Weight 180.2 lbs 10/15/2024 BMI 29.53 kg/m2 10/15/2024 Encounters Encounter Location Date Provider Diagnosis [facility] [address] [place] [id number] 04/02/2024 [place] Pain in left lower l eg M79.662 [facility] [address] [place] [id number] 10/15/2024 Williams [place] Acquired hypothyroid ism E03.9 and Mixed hyperlipidemia E78.2 [facility] [address] [place] [id number] 11/30/2024 Williamstoya Falcon Assessments Encounter Date Diagnosis (ICD Code) Assessment Notes Treatment Notes Treatment Clinical Notes Section Notes 04/02/2024 Pain in left lower leg (ICD-10 - M79.662) Patient seems to have a superficial thrombophlebiti s. Plan symptomatic treatment 10/15/2024 Mixed hyperlipidemia (ICD-10 - E78.2) 10/15/2024 Acquired hypothyroidism (ICD-10 - E03.9) Plan Of Treatment No Information Insurance Providers Payer Name Payer Address Payer Phone Subscriber Number Group Number Insured Name Patient Relationship to Insured Coverage Start Date Coverage End Date MEDICARE PART B [address] [address] [place] [id number] Marcia Carl Self - patient is the insured [facility] [address] [place] [address] [id number] Marcia Carl Self - patient is the insured Medications Administered Medication Instructions Date of Administration Dosage Notes Depo- Medrol 40 mg/ml 08/03/2014 1 mL Depo- Medrol 40 mg/ml 08/30/2014 1.5 mL Dexamethasone 09/14/2016 1 mL Medical (General) History 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 History ICD Code Graves Disease Allergic Rhinitis 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 Warren x2 03/2016 Hospitalization History Reason Date(Month/Year) Lymph removed from groin Knee Pain- [facility] 06/26/2012 Pneumonia- [facility] 03/26- Bronchitis- [facility] 09/08/2015 Bronchitis, Dehydration- [facility] 09/10/20 15 URI- [facility] [place] 01/25/2018
--- NOTE | 2025-03-30 17:46 | CT_ITS ---
PROCEDURE INFORMATION: Exam: CT Abdomen And Pelvis With Contrast Exam date and time: 03/30/2025 7:40 PM Age: 74 years old Clinical indication: Nausea and vomiting and other: Urgency; Abdominal pain; Flank; Left; Additional info: Left flank pain, urgency, n/v TECHNIQUE: Imaging protocol: Computed tomography of the abdomen and pelvis with contrast. Radiation optimization: All CT scans at this facility use at least one of these dose optimization techniques: automated exposure control; mA and/or kV adjustment per patient size (includes targeted exams where dose is matched to clinical indication); or iterative reconstruction. Contrast material: ISOVUE; Contrast volume: 75 ml; Contrast route: IV; COMPARISON: CT ABDOMEN PELVIS WO CON 05/25/2021 12:13 AM FINDINGS: Liver: Unremarkable. No mass. Gallbladder and biliary ducts: Unremarkable. No calcified stones. No ductal dilation. Pancreas: Unremarkable. No ductal dilation. Spleen: 1.1 cm splenic cyst. No mass. Adrenal glands: Normal. No mass. Kidneys and ureters: 0.4 cm left distal ureterovesicular junction calculus with proximal hydroureter. No right nephroureterolithiasis or hydroureter. Stomach and bowel: Nonobstructive pattern. Appendix: No evidence of appendicitis. Intraperitoneal space: Unremarkable. No free air. No significant fluid collection. Vasculature: Unremarkable. No abdominal aortic aneurysm. Lymph nodes: Unremarkable. No enlarged lymph nodes. Urinary bladder: Unremarkable as visualized. Reproductive: Unremarkable as visualized. Bones/joints: Unremarkable. No acute fracture. Soft tissues: Unremarkable. IMPRESSION: Left ureterovesicular junction calculus with proximal hydroureter.
--- NOTE | 2025-03-30 17:56 | ED_ITS ---
Discharge Plan Disposition Patient Disposition: Home, Self-Care Condition: Good Prescriptions Prescriptions: New hydrocodone-acetaminophen 5-325 mg tablet 1 tab PO Q8H PRN (Reason: pain) Qty: 12 0RF ondansetron 4 mg tablet,disintegrating 4 mg PO Q8H PRN (Reason: nausea and vomiting) 4 Days Qty: 12 0RF tamsulosin [Flomax] 0.4 mg capsule 0.4 mg PO HS Qty: 14 0RF No Action levothyroxine 175 mcg tablet 175 mcg PO DAILY Patient Comments: TAKE 1 TABLET BY MOUTH ONCE DAILY IN THE MORNING ON AN EMPTY STOMACH FOR 30 DAYS Referrals Follow up/Referrals: Williams Falcon MD [Primary Care Provider, Medical] - See instructions Activity Restrictions/Add. Instructions Additional Instructions/Restrictions: You were evaluated in the emergency department today. You were diagnosed with a kidney stone. Follow-up closely with urology. We do not have an interventional urologist at our healthcare facility, but one close option is Dr. Rodrick Juarez with [facility] who has office hours in [place] ([address] [place] [address] [address], [place] [address] - [phone]). You will need to call a urologist to schedule an appointment. Please make sure you drink plenty of fluids and stay orally hydrated. Try getting by with Ibuprofen and Tylenol, but you may choose to take the narcotic pain medication provided to you in the event of severe pain not controlled by these medications. Do not drive or operate heavy machinery while taking narcotic pain medication, as it can be sedating. Narcotic pain medication can be addicting and can cause constipation. Follow-up closely with your primary care provider as well. Return to the emergency department for new or worsening symptoms such as significant worsening in pain, fever greater than 100.4 ?F, intractable nausea and vomiting. Clinical Impressions Clinical Impression: Ureterolithiasis Instructions Patient Instructions: Kidney Stones -- Adult, Hydronephrosis -- Adult Print Language Print Language: Malagasy Discharge ED Provider: Valerie Barraza General Adult HPI <SUZANNE Martines - Last Filed: 03/30/25 19:06> General Chief complaint: Urogenital-Female Stated complaint: lower back and lt side pain Time Seen by Provider: 03/30/25 17:20 Mode of Arrival: Ambulatory Source of Information: Patient Description of Symptoms (Recalled from ER Triage Doc. by RN): patient states she has had frequent urination 3-4days and feels like her bladder is spasming does have history of kidney stones also have left flank pain 3/10 History of Present Illness HPI narrative: 74-year-old female presents to the emergency department with 3 to 4-day history of urinary urgency, left-sided flank pain that she rates a 3 out of 10, that comes in spasms , as well as bladder spasms . Patient denies any fever chills chest pain shortness of breath, does medicine lower abdominal pain at times, as well as nausea no vomiting no diarrhea no constipation, no dysuria, no vaginal bleeding vaginal discharge no hematuria melena hematochezia hematemesis, no hemoptysis, patient is a non-smoker, denies any alcohol or drug use, other past medical history is consistent with previous nephrolithiasis, hypothyroidism. Initial triage vitals are unremarkable. Onset (ago): day(s) Related Data Home Medications ?Medication ?Instructions ?Recorded ?Confirmed levothyroxine 175 mcg tablet 175 mcg PO DAILY 02/24/24 11/26/24 Previous Rx's ?Medication ?Instructions ?Recorded hydrocodone 5 mg-acetaminophen 325 1 tab PO Q8H PRN pa in #12 tabs 03/30/25 mg tablet ondansetron 4 mg disintegrating 4 mg PO Q8H PRN nausea and 03/30/25 tablet vomiting 4 days #12 tabs tamsulosin 0.4 mg capsule (Flomax) 0.4 mg PO HS #14 ca ps 03/30/25 Allergies Allergy/AdvReac Type Severity Reaction Status Date / Time codeine (CODEINE) Allergy Mild NA-NAUSEA/V Verified 11/26/24 10:35 OMITING PFSH <SUZANNE Martines - Last Filed: 03/30/25 19:06> PFSH Disclaimer: The information contained in this section may have been updated after the patient was seen, as this information can be updated by other users. 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 Thyroid disease History of anemia Urinary tract infection Kidney stone History of gastroesophageal reflux (GERD) Surgical History History of repair of ACL History of tubal ligation Social History Smoking Status: Former smoker tobacco type: cigarettes packs per day: 1 second hand exposure: No alcohol intake: current alcohol intake frequency: holidays/special occasions only substance use type: denies use current occupational status: retired Travel in the last 8 weeks?: None household members: spouse housing: house current occupational exposures/hazards: No caffeine: Yes Have you lived/traveled outside [place] in past 30 days?: No Contact w/someone who lives/traveled outside US past 30 days?: No Exposure to someone with infectious disease in past 14 days?: No Do you have a fever (greater than 100.4 F or 38 C)?: No Have you tested positive for COVID-19?: No Exposed to someone with COVID-19 in past 14 days?: No Do you have a sore throat?: No Do you have a cough?: No Do you have any weakness?: No Do you have any diarrhea?: No Are you experiencing any unusual bleeding?: No Do you have any muscle aches/pain?: Yes Do you have any abdominal pain?: Yes Are you experiencing loss of taste or smell?: No Other 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 Have you received the Flu Vaccine for this season: No Have you received the Pneumonia Vaccine: No <SUZANNE Martines - Last Filed: 03/30/25 19:06> ROS Obtained: Yes All systems reviewed & no additional complaints except as documented Physical Exam <SUZANNE Martines - Last Filed: 03/30/25 19:06> General General appearance: alert and in no apparent distress Head Head exam: atraumatic and normocephalic Eye Eye exam: Present PERRL and EOMI ENT ENT exam: Present mucous membranes moist Neck Neck exam: Present normal inspection Chest Chest inspection: Present normal inspection and symmetric chest wall rise Respiratory Respiratory exam: Present normal lung sounds bilaterally; Absent respiratory distress Cardiovascular Cardiovascular exam: Present regular rate and normal rhythm Abdominal Exam Abdominal exam: Present soft and tenderness; Absent guarding, rebound or rigidity Abdominal tenderness: Present suprapubic and mild Extremities Exam Extremities exam: Present normal inspection Back Exam Back exam: Present CVA tenderness (L); Absent CVA tenderness (R) Neurological Exam Neurological exam: Present alert and oriented X3 Psychiatric Psychiatric exam: Present normal affect Skin Skin exam: Present warm and dry Medical Decision Making <SUZANNE Martines - Last Filed: 03/30/25 19:06> Medical Records Medical records reviewed: Yes I reviewed the patient's medical records. Screening: Per USPSTF and CDC recommendations, given the prevalence of disease in our region, it is our hospital?s policy to screen for HIV and viral Hepatitis for all patients aged 18 and over and those with ongoing risk factors. Ambrose Inquiry Pt receiving controlled substance: No Ambrose was queried for this patient: No Vital Signs: 03/30/25 17:18 03/30/25 19:01 03/30/25 20:00 Temperature 98.6 F Temperature Source Oral Pulse Rate 69 85 Pulse Rate [Right Radial] 84 Respiratory Rate 15 Blood Pressure 130/79 158/86 H Blood Pressure [Right Arm] 185/108 H Blood Pressure Mean [Right Arm] 133 Blood Pressure Source [Right Arm] Automatic Cuff Blood Pressure Position [Right Arm] Supine 02 Sat by Pulse Oximetry 97 97 97 Oxygen Delivery Method Room Air 03/30/25 20:30 Temperature Temperature Source Pulse Rate 80 Pulse Rate [Right Radial] Respiratory Rate Blood Pressure 149/99 H Blood Pressure [Right Arm] Blood Pressure Mean [Right Arm] Blood Pressure Source [Right Arm] Blood Pressure Position [Right Arm] 02 Sat by Pulse Oximetry 99 Oxygen Delivery Method Lab Data Lab results reviewed: Yes I reviewed the patient's lab results. Lab Results 03/30/25 17:12: Urine Color Yellow, Urine Appearance Clear, Urine pH 7.0, Ur Specific [place] <= 1.005, Urine Protein Negative, Urine Glucose (UA) Negative, Urine Ketones Negative, Urine Blood 2+ A, Urine Nitrate Negative, Urine Bilirubin Negative, Urine Urobilinogen 0.2, Ur Leukocyte Esterase Negative, Urine RBC 5-10, Urine WBC Occasional, Ur Squamous Epith Cells 5-10, Urine Bacteria Trace, Urine Mucus 1+ 03/30/25 18:00: WBC 2.7 L, RBC 4.06 L, Hgb 11.7 L, Hct 36.4 L, MCV 89.7, MCH 28.8, MCHC 32.1, RDW 18.9 H, Plt Count 166, MPV 9.7, Neut % (Auto) 36.9 L, Lymph % (Auto) 48.7, [place] % (Auto) 12.2 H, Eos % (Auto) 0.0 L, Baso % (Auto) 0.4, Neut # (Auto) 1.0 L, Lymph # (Auto) 1.3, [place] # (Auto) 0.3, Eos # (Auto) 0.0, Baso # (Auto) 0.0, Sodium 138, Potassium 3.6, Chloride 106, Carbon Dioxide 23, Anion Gap 12.6, BUN 14, Creatinine 0.60, Estimated Creat Clear 69, Estimated GFR 98, Est GFR ( Amer) 119, Glucose 110 H, Lactate 0.9, Calcium 9.5, Total Bilirubin 0.5, AST 21, ALT 10 L, Alkaline Phosphatase 77, Total Protein 6.9, Albumin 4.3, Globulin 2.6, Albumin/Globulin Ratio 1.7, Lipase 109, HCV Ab AROLDO w/Rflx PCR Qn Negative, HIV Ag/Ab Combo Qual Negative 03/30/25 18:00 03/30/25 18:00 Orders (Tests/Meds): ED MEDICATIONS Generic Name Dose Route Start Last Admin Trade Name Freq PRN Reason Stop Dose Admin Sodium Chloride 10 ml 03/30/25 19:58 03/30/25 19:59 Sodium Chloride 0.9% 10ml Syr (Rad Only) IV 04/29/25 19:57 10 ml NEEDED PRN Administration Maintain IV Site Discontinued Medications Generic Name Dose Route Start Last Admin Trade Name Freq PRN Reason Stop Dose Admin Acetaminophen 1,000 mg 03/30/25 20:29 03/30/25 20:38 Acetaminophen 500mg Tab PO 03/30/25 20:30 1,000 mg ONCE ONE Administration Lactated Ringer's 1,000 mls @ 999 mls/hr 03/30/25 20:29 03/30/25 20:38 Lactated Ringer's 1000 Ml Bag IV 03/30/25 21:29 999 mls/hr .Q1H1M ONE Administration Iopamidol 75 ml 03/30/25 19:58 03/30/25 19:59 Iopamidol-370 (76%);100ml Bottle IV 03/30/25 19:59 75 ml ONCE ONE Administration Ketorolac Tromethamine 15 mg 03/30/25 20:29 03/30/25 20:38 Ketorolac 30mg/Ml Vial IV 03/30/25 20:30 15 mg ONCE ONE Administration Ondansetron HCl 4 mg 03/30/25 17:55 03/30/25 18:24 Ondansetron 4mg/2ml Vial IV 03/30/25 17:56 4 mg ONCE ONE Administration Tamsulosin HCl 0.4 mg 03/30/25 20:29 03/30/25 20:38 Tamsulosin 0.4mg Capsule PO 03/30/25 20:30 0.4 mg ONCE ONE Administration ORDERS Category Date Time Status CT abdomen pelvis w con Stat Cat Scan 03/30/25 17:46 Completed Complete Blood Count Auto Diff Stat Lab 03/30/25 18:00 Completed Comprehensive Metabolic Panel Stat Lab 03/30/25 18:00 Completed HIV Combo Stat Lab 03/30/25 18:00 Completed Hepatitis C Ab Qual. W/ RFX Stat Lab 03/30/25 18:00 Completed Lactic Acid Stat Lab 03/30/25 18:00 Completed Lipase Stat Lab 03/30/25 18:00 Completed Urinalysis and Microscopic Stat Lab 03/30/25 17:12 Completed Urine Culture Stat Micro 03/30/25 17:12 Received Medical Decision Narrative: 74-year-old female presents to the emergency department with left-sided flank pain, urinary urgency, differential diagnosis include but not limited to nephrolithiasis, ureterolithiasis, acute UTI/acute cystitis, acute pyelonephritis, uterine prolapse, diverticulitis, colitis, ileitis, pancreatitis among others. Will obtain basic laboratory studies, lactic acid level, lipase level, UA, will give IV Zofran 4 mg, for nausea, will give CT ab pelvis with contrast. UA is notable for hematuria 2+, negative nitrites, negative leukocyte esterase. CBC is notable for mild leukopenia 2.7, globin hematocrit are 11.7/36.4 I discussed this patient's case with the attending physician at shift change, she will be assuming the patient's care/workup, disposition is pending chemistry and CT abdomen pelvis. <Valerie Barraza, DO - Last Filed: 03/30/25 21:34> Vital Signs: 03/30/25 17:18 03/30/25 19:01 03/30/25 20:00 Temperature 98.6 F Temperature Source Oral Pulse Rate 69 85 Pulse Rate [Right Radial] 84 Respiratory Rate 15 Blood Pressure 130/79 158/86 H Blood Pressure [Right Arm] 185/108 H Blood Pressure Mean [Right Arm] 133 Blood Pressure Source [Right Arm] Automatic Cuff Blood Pressure Position [Right Arm] Supine 02 Sat by Pulse Oximetry 97 97 97 Oxygen Delivery Method Room Air 03/30/25 20:30 Temperature Temperature Source Pulse Rate 80 Pulse Rate [Right Radial] Respiratory Rate Blood Pressure 149/99 H Blood Pressure [Right Arm] Blood Pressure Mean [Right Arm] Blood Pressure Source [Right Arm] Blood Pressure Position [Right Arm] 02 Sat by Pulse Oximetry 99 Oxygen Delivery Method Lab Data Lab Results 03/30/25 17:12: Urine Color Yellow, Urine Appearance Clear, Urine pH 7.0, Ur Specific [place] <= 1.005, Urine Protein Negative, Urine Glucose (UA) Negative, Urine Ketones Negative, Urine Blood 2+ A, Urine Nitrate Negative, Urine Bilirubin Negative, Urine Urobilinogen 0.2, Ur Leukocyte Esterase Negative, Urine RBC 5-10, Urine WBC Occasional, Ur Squamous Epith Cells 5-10, Urine Bacteria Trace, Urine Mucus 1+ 03/30/25 18:00: WBC 2.7 L, RBC 4.06 L, Hgb 11.7 L, Hct 36.4 L, MCV 89.7, MCH 28.8, MCHC 32.1, RDW 18.9 H, Plt Count 166, MPV 9.7, Neut % (Auto) 36.9 L, Lymph % (Auto) 48.7, [place] % (Auto) 12.2 H, Eos % (Auto) 0.0 L, Baso % (Auto) 0.4, Neut # (Auto) 1.0 L, Lymph # (Auto) 1.3, [place] # (Auto) 0.3, Eos # (Auto) 0.0, Baso # (Auto) 0.0, Sodium 138, Potassium 3.6, Chloride 106, Carbon Dioxide 23, Anion Gap 12.6, BUN 14, Creatinine 0.60, Estimated Creat Clear 69, Estimated GFR 98, Est GFR ( Amer) 119, Glucose 110 H, Lactate 0.9, Calcium 9.5, Total Bilirubin 0.5, AST 21, ALT 10 L, Alkaline Phosphatase 77, Total Protein 6.9, Albumin 4.3, Globulin 2.6, Albumin/Globulin Ratio 1.7, Lipase 109, HCV Ab AROLDO w/Rflx PCR Qn Negative, HIV Ag/Ab Combo Qual Negative Orders (Tests/Meds): ED MEDICATIONS Generic Name Dose Route Start Last Admin Trade Name Enmanuel PRN Reason Stop Dose Admin Sodium Chloride 10 ml 03/30/25 19:58 03/30/25 19:59 Sodium Chloride 0.9% 10ml Syr (Rad Only) IV 04/29/25 19:57 10 ml NEEDED PRN Administration Maintain IV Site Discontinued Medications Generic Name Dose Route Start Last Admin Trade Name Enmanuel PRN Reason Stop Dose Admin Acetaminophen 1,000 mg 03/30/25 20:29 03/30/25 20:38 Acetaminophen 500mg Tab PO 03/30/25 20:30 1,000 mg ONCE ONE Administration Lactated Ringer's 1,000 mls @ 999 mls/hr 03/30/25 20:29 03/30/25 20:38 Lactated Ringer's 1000 Ml Bag IV 03/30/25 21:29 999 mls/hr .Q1H1M ONE Administration Iopamidol 75 ml 03/30/25 19:58 03/30/25 19:59 Iopamidol-370 (76%);100ml Bottle IV 03/30/25 19:59 75 ml ONCE ONE Administration Ketorolac Tromethamine 15 mg 03/30/25 20:29 03/30/25 20:38 Ketorolac 30mg/Ml Vial IV 03/30/25 20:30 15 mg ONCE ONE Administration Ondansetron HCl 4 mg 03/30/25 17:55 03/30/25 18:24 Ondansetron 4mg/2ml Vial IV 03/30/25 17:56 4 mg ONCE ONE Administration Tamsulosin HCl 0.4 mg 03/30/25 20:29 03/30/25 20:38 Tamsulosin 0.4mg Capsule PO 03/30/25 20:30 0.4 mg ONCE ONE Administration ORDERS Category Date Time Status CT abdomen pelvis w con Stat Cat Scan 03/30/25 17:46 Completed Complete Blood Count Auto Diff Stat Lab 03/30/25 18:00 Completed Comprehensive Metabolic Panel Stat Lab 03/30/25 18:00 Completed HIV Combo Stat Lab 03/30/25 18:00 Completed Hepatitis C Ab Qual. W/ RFX Stat Lab 03/30/25 18:00 Completed Lactic Acid Stat Lab 03/30/25 18:00 Completed Lipase Stat Lab 03/30/25 18:00 Completed Urinalysis and Microscopic Stat Lab 03/30/25 17:12 Completed Urine Culture Stat Micro 03/30/25 17:12 Received Medical Decision Narrative: 74-year-old female presents to the emergency department with left-sided flank pain, urinary urgency, differential diagnosis include but not limited to nephrolithiasis, ureterolithiasis, acute UTI/acute cystitis, acute pyelonephritis, uterine prolapse, diverticulitis, colitis, ileitis, pancreatitis among others. Will obtain basic laboratory studies, lactic acid level, lipase level, UA, will give IV Zofran 4 mg, for nausea, will give CT ab pelvis with contrast. UA is notable for hematuria 2+, negative nitrites, negative leukocyte esterase. CBC is notable for mild leukopenia 2.7, globin hematocrit are 11.7/36.4 I discussed this patient's case with the attending physician at shift change, she will be assuming the patient's care/workup, disposition is pending chemistry and CT abdomen pelvis. Madi DO: I was consulted by the CAROLE, and we discussed the complexity of the problems being addressed. I approved the treatment and management plan for this patient's care in the emergency department, thus performing a substantive portion of the medical decision making. On my assessment of the patient, she is resting comfortably in bed in no acute distress. On lab evaluation, she has chronic leukopenia that is unchanged as well as mild chronic anemia. No indication for transfusion. Chemistry is reassuring with normal kidney function. Her urinalysis demonstrates 2+ blood with negative nitrates, negative leukocyte esterase, only occasional white blood cells with contamination with skin cells. I am not concerned for urinary tract infection based off of this. Patient denies any fevers or infectious symptoms. I independently interpreted CT prior to radiology read and noted obstructive ureterolithiasis with mild hydronephrosis, stone is 4 mm. Please see radiology read for final interpretation. Ultimately, pain is controlled, kidney function is normal, she is afebrile with no concerns for infection. I feel she is appropriate for discharge home with close follow-up with urology. She states she is already established with Dr. Juarez. I did prescribe her Ovando and give instructions for safe use as well as Zofran and Flomax. She was given doses of Toradol, Flomax, and a bolus of IV fluids here prior to discharge. She was discharged with very strict return precautions and plan for close urology follow-up Valerie Barraza, DO Critical Care <SUZANNE Martines - Last Filed: 03/30/25 19:06> Critical Care Time Critical Care Time: No
[2025-03-30] MEDS: ONDANSETRON 4MG/2ML VIAL 4 MG IV (18:24)
[2025-03-30 18:26] LABS: Microscopic, Urine URINE MICROSCOPIC (MICROSCOPIC)
[2025-03-30 18:30] LABS: Bilirubin,Urine Negative (Negative); Color,Urine YELLOW (Yellow); Glucose,Urine (UA) Negative (Negative); Ketones,Urine Negative (Negative); Leukocyte Esterase,Urine Negative (Negative); PH,Urine 7.0 (5.0-8.5); Protein,Urine Negative (Negative); Specific Gravity, Urine <= 1.005 (1.005-1.030); Urobilinogen,Urine 0.2 EU/dl (0.2)
[2025-03-30 18:48] LABS: Hematocrit 36.4 % (37.0-47.0); Hemoglobin 11.7 g/dL (12.2-16.2); Immature Granulocytes % 1.8 %; Mean Corpuscular HGB Conc 32.1 g/dL (31.8-35.4); Mean Corpuscular Hemoglobin 28.8 pg (27.0-31.2); Mean Corpuscular Volume 89.7 fl (81-99); Nucleated Red Blood Cells % 0 %; Platelet Count 166 K/mm3 (142-424); Red Blood Count 4.06 M/mm3 (4.20-5.40); Red Cell Distribution Width-SD 62.1 fL; White Blood Count 2.7 K/mm3 (4.8-10.8)
[2025-03-30 19:05] LABS: Bacteria,Urine Trace /lpf; Mucus,Urine 1+ /lpf; WBC,Urine Occasional #/hpf (0-3)
[2025-03-30 19:26] LABS: Chloride 106 mmol/L (98-107)
[2025-03-30 19:27] LABS: Albumin Level 4.3 g/dl (3.5-5.0); Potassium 3.6 mmoL/L (3.5-5.1); Sodium 138 mmol/L (136-145)
[2025-03-30 19:29] LABS: Blood Urea Nitrogen 14 mg/dl (7-17); Creatinine Clearance Estimated 69 mL/min (50-200); Creatinine,Serum 0.60 mg/dl (0.52-1.04); Estimated Glomerular Filt Rate 98 ml/min (>60); GFR (African American) 119 ML/MIN (>60)
[2025-03-30 19:30] LABS: Alanine Aminotransferase 10 U/L (12-78); Albumin/Globulin Ratio 1.7 (1.1-1.8); Alkaline Phosphatase 77 U/L (38-126); Anion Gap 12.6 mEq/L (5-15); Aspartate Amino Transferase 21 U/L (14-36); Bilirubin,Total 0.5 mg/dl (0.2-1.3); Calcium 9.5 mg/dl (8.4-10.2); Carbon Dioxide 23 mmol/L (22.0-30.0); Globulin 2.6 g/dL (1.3-3.2); Glucose 110 mg/dl (74-100); Total Protein,Serum 6.9 g/dl (6.3-8.2)
[2025-03-30 19:31] LABS: Hepatitis C Ab Qual. W/ RFX NEGATIVE (Negative); Lipase 109 U/L (23-300)
[2025-03-30] MEDS: IOPAMIDOL-370 (76%);100ML BOTTLE 75 ML IV (19:59)
[2025-03-30] MEDS: SODIUM CHLORIDE 0.9% 10ML SYR (RAD ONLY) 10 ML IV (19:59)
[2025-03-30] MEDS: KETOROLAC 30MG/ML VIAL 15 MG IV (20:38)
[2025-03-30] MEDS: TAMSULOSIN 0.4MG CAPSULE 0.4 MG PO (20:38)
[2025-03-30] MEDS: ACETAMINOPHEN 500MG TAB 1000 MG PO (20:38)
[2025-03-30] MEDS: LACTATED RINGERS 1000ML 1,000 ML 999 ML IV (20:38)
== END 2025-03-30 22:58 | disposition home or self-care (01) ==
PROVIDERS: Physician Assistant; Emergency Provider Emergency Medicine; PCP Family Medicine
DX: N13.0 Hydronephrosis with ureteropelvic junction obstruction (principal); N13.4 Hydroureter; R10.32 Left lower quadrant pain
CPT/HCPCS: 74177; 80053; 81001; 83605; 83690; 85025; 86803; 87086; 87389; 96361; 96374; 96375; 99285; J1885; J2405; J7120; Q9967

== ENCOUNTER 2025-04-07 13:08 | Observation (INO) | payer MEDICARE, BC, SELFPAY ==
[2025-04-07] VITALS (17 sets, daily range): BP systolic 98–151; BP diastolic 61–86; PULSE 61–78; RESP 14–18; TEMP 37.1–37.2; O2SAT 94–100; BMI 28.2
--- NOTE | 2025-04-07 13:05 | ECG_ITS ---
APPROVED REPORT Exam: Resting ECG HR:61 bpm ECG Measurements Heart Rate 61 AXES VA 215 P 41 QRSd 90 QRS -56 QT 422 T 55 QTc 426 Conclusion SINUS RHYTHM WITH FIRST DEGREE AV BLOCK LEFT ANTERIOR FASCICULAR BLOCK [QRS AXIS <= -45, QR IN I, RS IN II] ABNORMAL ECG UNCONFIRMED REPORT Electronically signed by : Rodrick Fatima, 04/07/2025 15:50:12
--- NOTE | 2025-04-07 13:06 | XR_ITS ---
FINAL REPORT CLINICAL HISTORY: Mechanical fall back pain COMPARISON: 01/24/2023 FINDINGS: A single frontal view of the chest was obtained. There is mild right basilar atelectasis. The left lung is clear. There is no evidence of effusion or pneumothorax. Mediastinum is unremarkable. No obvious rib fracture identified. Heart size is normal. IMPRESSION: Mild atelectasis. Reviewed, Interpreted and Dictated by Fernando Nettles MD Transcribed by Dolores Pemberton Authenticated and [facility]
--- NOTE | 2025-04-07 13:06 | ED_ITS ---
<Statement entered by Rodrick Fatima MD - 04/07/25 15:44> Independently interpreted by myself demonstrate normal sinus rhythm with no acute ischemic ST changes, borderline LVH, not acutely actionable. I was consulted by the CAROLE, and we discussed the complexity of problems being addressed. I approved the treatment and management plan for this patient's care in the emergency department, thus performing a substantial portion of the medical decision making. Rodrick Fatima MD Discharge Plan Disposition Patient Disposition: Home, Self-Care Condition: Fair Prescriptions Prescriptions: No Action levothyroxine 175 mcg tablet 175 mcg PO DAILY Patient Comments: TAKE 1 TABLET BY MOUTH ONCE DAILY IN THE MORNING ON AN EMPTY STOMACH FOR 30 DAYS hydrocodone-acetaminophen 5-325 mg tablet 1 tab PO Q8H PRN (Reason: pain) Qty: 12 0RF ondansetron 4 mg tablet,disintegrating 4 mg PO Q8H PRN (Reason: nausea and vomiting) 4 Days Qty: 12 0RF tamsulosin [Flomax] 0.4 mg capsule 0.4 mg PO HS Qty: 14 0RF Referrals Follow up/Referrals: Provider,Referral, [Primary Care Provider, Medical] - See instructions Clinical Impressions Clinical Impression: Closed compression fracture of L1 vertebra Qualifiers: Encounter type: initial encounter Qualified Code(s): S32.010A - Wedge compression fracture of first lumbar vertebra, initial encounter for closed fracture Closed compression fracture of L5 vertebra Qualifiers: Encounter type: initial encounter Qualified Code(s): S32.050A - Wedge compression fracture of fifth lumbar vertebra, initial encounter for closed fracture Compression fracture of T4 vertebra Qualifiers: Encounter type: initial encounter Qualified Code(s): S22.040A - Wedge compression fracture of fourth thoracic vertebra, initial encounter for closed fracture Print Language Print Language: Kiswahili Discharge ED Provider: Rodrick Fatima General Adult HPI General Chief complaint: Fall Stated complaint: Fall Time Seen by Provider: 04/07/25 13:11 History of Present Illness HPI narrative: Patient presents for evaluation of mechanical fall. Patient was in her yard and slipped on the grass stumbling and ultimately falling onto concrete on her back. Patient felt acute back pain but was able to get herself back into the house with great difficulty. Her went and got EMS and she was ultimately transferred here. She does not report loss of consciousness neck pain loss of motor or sensory but reports that her pain is in her midline low back. Related Data Home Medications ?Medication ?Instructions ?Recorded ?Confirmed levothyroxine 175 mcg tablet 175 mcg PO DAILY 02/24/24 11/26/24 Previous Rx's ?Medication ?Instructions ?Recorded hydrocodone 5 mg-acetaminophen 325 1 tab PO Q8H PRN pa in #12 tabs 03/30/25 mg tablet ondansetron 4 mg disintegrating 4 mg PO Q8H PRN nausea and 03/30/25 tablet vomiting 4 days #12 tabs tamsulosin 0.4 mg capsule (Flomax) 0.4 mg PO HS #14 ca ps 03/30/25 Allergies Allergy/AdvReac Type Severity Reaction Status Date / Time codeine (CODEINE) Allergy Mild NA-NAUSEA/V Verified 11/26/24 10:35 OMITING PFSH PFSH Disclaimer: The information contained in this section may have been updated after the patient was seen, as this information can be updated by other users. 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 Thyroid disease History of anemia Urinary tract infection Kidney stone History of gastroesophageal reflux (GERD) Surgical History History of repair of ACL History of tubal ligation Family History (Updated 04/07/25 @ 13:14 by Juanita Grewal RN) Other No significant family history Social History Smoking Status: Never smoker second hand exposure: No alcohol intake: current alcohol intake frequency: holidays/special occasions only substance use type: denies use current occupational status: retired Travel in the last 8 weeks?: None household members: spouse housing: house current occupational exposures/hazards: No caffeine: Yes Have you lived/traveled outside US in past 30 days?: No Contact w/someone who lives/traveled outside US past 30 days?: No Exposure to someone with infectious disease in past 14 days?: No Do you have a fever (greater than 100.4 F or 38 C)?: No Have you tested positive for COVID-19?: No Exposed to someone with COVID-19 in past 14 days?: No Do you have a sore throat?: No Do you have a cough?: No Do you have any weakness?: No Do you have any diarrhea?: No Are you experiencing any unusual bleeding?: No Do you have any muscle aches/pain?: No Do you have any abdominal pain?: No Are you experiencing loss of taste or smell?: No Other 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 Have you received the Flu Vaccine for this season: No Have you received the Pneumonia Vaccine: No ROS Obtained: Yes Systems reviewed as appropriate & no additional complaints except as documented Physical Exam General General appearance: alert and in no apparent distress Respiratory Respiratory exam: Present normal lung sounds bilaterally Cardiovascular Cardiovascular exam: Present regular rate Neurological Exam Neurological exam: Present alert and oriented X3 Medical Decision Making Medical Records Medical records reviewed: Yes I reviewed the patient's medical records. Screening: Per USPSTF and CDC recommendations, given the prevalence of disease in our region, it is our hospital?s policy to screen for HIV and viral Hepatitis for all patients aged 18 and over and those with ongoing risk factors. Ambrose Inquiry Pt receiving controlled substance: No Vital Signs: 04/07/25 13:12 04/07/25 13:12 04/07/25 13:15 Temperature 98.7 F 98.7 F Temperature Source Oral Pulse Rate 62 64 Pulse Rate [Right] 62 Respiratory Rate 18 18 Blood Pressure 106/64 L 104/63 L Blood Pressure [Right Arm] 106/64 L Blood Pressure Mean [Right Arm] 78 02 Sat by Pulse Oximetry 96 96 94 L Oxygen Delivery Method Room Air 04/07/25 13:20 04/07/25 13:45 04/07/25 14:00 Temperature Temperature Source Pulse Rate 61 68 Pulse Rate [Right] Respiratory Rate Blood Pressure 118/62 115/65 Blood Pressure [Right Arm] Blood Pressure Mean [Right Arm] 02 Sat by Pulse Oximetry 96 98 97 Oxygen Delivery Method Room Air 04/07/25 14:15 04/07/25 14:30 04/07/25 14:46 Temperature Temperature Source Pulse Rate 64 72 71 Pulse Rate [Right] Respiratory Rate Blood Pressure 107/61 L 120/80 140/73 Blood Pressure [Right Arm] Blood Pressure Mean [Right Arm] 02 Sat by Pulse Oximetry 99 99 98 Oxygen Delivery Method 04/07/25 15:00 Temperature Temperature Source Pulse Rate 67 Pulse Rate [Right] Respiratory Rate Blood Pressure 144/71 H Blood Pressure [Right Arm] Blood Pressure Mean [Right Arm] 02 Sat by Pulse Oximetry 99 Oxygen Delivery Method Lab Data Lab results reviewed: Yes I reviewed the patient's lab results. Lab Results 04/07/25 13:12: WBC 3.3 L, RBC 4.08 L, Hgb 11.5 L, Hct 36.7 L, MCV 90.0, MCH 28.2, MCHC 31.3 L, RDW 18.6 H, Plt Count 164, MPV 9.4, Neut % (Auto) 48.2, Lymph % (Auto) 42.4, [place] % (Auto) 6.4, Eos % (Auto) 0.3, Baso % (Auto) 0.3, Neut # (Auto) 1.6 L, Lymph # (Auto) 1.4, [place] # (Auto) 0.2, Eos # (Auto) 0.0, Baso # (Auto) 0.0, Sodium 136, Potassium 3.9, Chloride 108 H, Carbon Dioxide 21 L, Anion Gap 10.9, BUN 17, Creatinine 0.90, Estimated Creat Clear 64, Estimated GFR 62, Est GFR ( Amer) 74, Glucose 132 H, Calcium 9.4, Total Bilirubin 0.8, AST 35, ALT 13, Alkaline Phosphatase 78, Total Protein 7.0, Albumin 4.2, Globulin 2.8, Albumin/Globulin Ratio 1.5 04/07/25 13:12 04/07/25 13:12 Orders (Tests/Meds): ED MEDICATIONS Discontinued Medications Generic Name Dose Route Start Last Admin Trade Name Freq PRN Reason Stop Dose Admin Acetaminophen 1,000 mg 04/07/25 13:06 04/07/25 13:55 Acetaminophen 500mg Tab PO 04/07/25 13:07 1,000 mg ONCE ONE Administration Sodium Chloride 1,000 mls @ 999 mls/hr 04/07/25 13:06 04/07/25 14:07 Sod Chlor 0.9% 1000ml Bag IV 04/07/25 14:06 999 mls/hr .Q1H1M ONE Administration Ondansetron HCl 4 mg 04/07/25 13:06 04/07/25 13:57 Ondansetron 4mg/2ml Vial IV 04/07/25 13:07 4 mg ONCE ONE Administration ORDERS Category Date Time Status CT bony pelvis Stat Cat Scan 04/07/25 13:[address] cervical spine wo con Stat Cat Scan 04/07/25 13:[address] head/brain wo con Stat Cat Scan 04/07/25 13:[address] lumbar spine wo con Stat Cat Scan 04/07/25 13:[address] thoracic spine wo con Stat Cat Scan 04/07/25 13:07 Completed XR chest portable Stat Exams 04/07/25 13:06 Completed CBC w/Auto Diff [Complete Blood Count Auto Diff] Stat Lab 04/07/25 13:12 Completed CMP [Comprehensive Metabolic Panel] Stat Lab 04/07/25 13:12 Completed Medical Decision Narrative: In summary patient is a 74-year-old female who presents to the emergency department for evaluation of mechanical fall and back pain. Patient is hemodynamically stable upon arrival, afebrile. Physical exam is remarkable for midline lumbar spine tenderness however there is no evidence of contusions abrasions palpable bony deformity. She moves all 4 extremities and is neurovascularly intact in all 4 extremities.. Differential diagnosis includes muscle strain versus fracture. Initial workup will be conducted with hematologic labs and noncontrast trauma scans of the spine pelvis and head. Initial interventions include crystalloid bolus and Tylenol for now. Initial workup reviewed by me and my informal interpretation of her imaging shows an acute L1 fracture prior to radiology read. Radiology also sees chronic appearing T4 and L5 compression fractures. Please see final read for formal interpretation. Her hematologic labs are nonactionable. Given her acute and chronic lumbar fractures I had interactive discussion with hospital medicine regarding patient presentation KAUR and management and that the patient likely needs a TLSO brace patient will be admitted for further evaluation and care pain control and TLSO brace fitting. Critical Care Critical Care Time Critical Care Time: No
--- NOTE | 2025-04-07 13:07 | CT_ITS ---
FINAL REPORT CLINICAL HISTORY: Mechanical fall, back pain COMPARISON: None FINDINGS: CT LUMBAR SPINE TECHNIQUE: Thin section axial CT with sagittal and coronal reconstructions This study was performed with techniques to keep radiation doses as low as reasonably achievable, (ALARA). Individualized dose reduction techniques using automated exposure control or adjustment of mA and/or kV according to the patient''s size were employed. FINDINGS: Moderate compression fracture of L1 superior endplate favored to be acute. Mild superior endplate compression fracture of L3 is favored to be chronic. Minimal superior endplate compression fracture of L5 is also favored to be chronic. There is osteopenia. Normal alignment. Moderate diffuse degenerative disc changes are noted. IMPRESSION: 3 levels of compression fracture with the L1 level favored to be acute. This study was performed using automated techniques to achieve radiation exposure as low as reasonably achievable Reviewed, Interpreted and Dictated by Fernando Nettles MD Transcribed by Dolores Pemberton Authenticated and [facility]
--- NOTE | 2025-04-07 13:07 | CT_ITS ---
FINAL REPORT TECHNIQUE: Noncontrast exam This study was performed with techniques to keep radiation doses as low as reasonably achievable, (ALARA). Individualized dose reduction techniques using automated exposure control or adjustment of mA and/or kV according to the patient''s size were employed. CLINICAL HISTORY: Mechanical fall, back pain COMPARISON: None FINDINGS: Mild atrophy and chronic microvascular changes are noted. There is no hemorrhage. No mass effect is seen. Bone windows show no evidence of fracture. IMPRESSION: No acute findings Reviewed, Interpreted and Dictated by Fernando Nettles MD Transcribed by Dolores Pemberton Authenticated and [facility]
--- NOTE | 2025-04-07 13:07 | CT_ITS ---
FINAL REPORT TECHNIQUE: Thin section axial CT with sagittal reconstruction without contrast This study was performed with techniques to keep radiation doses as low as reasonably achievable, (ALARA). Individualized dose reduction techniques using automated exposure control or adjustment of mA and/or kV according to the patient''s size were employed. CLINICAL HISTORY: Mechanical fall, back pain COMPARISON: None FINDINGS: No fracture is seen. There is mild degenerative subluxation of C4 on C5 and C7 on T1. Moderate diffuse degenerative disc changes noted. There is multilevel bony neural foraminal narrowing. IMPRESSION: No fracture or posttraumatic malalignment. Reviewed, Interpreted and Dictated by Fernando Nettles MD Transcribed by Dolores Pemberton Authenticated and [facility]
--- NOTE | 2025-04-07 13:07 | CT_ITS ---
FINAL REPORT CLINICAL HISTORY: Mechanical fall, back pain COMPARISON: None FINDINGS: CT THORACIC SPINE TECHNIQUE: Thin section axial CT with sagittal and coronal reconstructions This study was performed with techniques to keep radiation doses as low as reasonably achievable, (ALARA). Individualized dose reduction techniques using automated exposure control or adjustment of mA and/or kV according to the patient''s size were employed. FINDINGS: Moderate compression fracture of T4 is favored to be chronic. Remaining vertebral heights are normal. The alignment is normal. No bony canal stenosis. IMPRESSION: Chronic appearing T4 compression fracture. Reviewed, Interpreted and Dictated by Fernando Nettles MD Transcribed by Dolores Pemberton Authenticated and [facility]
--- NOTE | 2025-04-07 13:07 | CT_ITS ---
FINAL REPORT TECHNIQUE: Axial images through the pelvis were performed by computed tomography. Sagittal and coronal reconstruction images were performed. This study was performed with techniques to keep radiation doses as low as reasonably achievable (ALARA). Individualized dose reduction techniques using automated exposure control or adjustment of mA and/or kV according to the patient's size were employed. CLINICAL HISTORY: Mechanical fall, back pain COMPARISON: 03/30/2025 CT abdomen and pelvis FINDINGS: Mild degenerative changes of the bilateral hip joints and pubic symphysis. There is no acute fracture identified. No evidence of subluxation or dislocation. IMPRESSION: No acute bony abnormality. Reviewed, Interpreted and Dictated by Fernando Nettles MD Transcribed by Dolores Pemberton Authenticated and [facility]
[2025-04-07 13:21] LABS: Hematocrit 36.7 % (37.0-47.0); Hemoglobin 11.5 g/dL (12.2-16.2); Immature Granulocytes % 2.4 %; Mean Corpuscular HGB Conc 31.3 g/dL (31.8-35.4); Mean Corpuscular Hemoglobin 28.2 pg (27.0-31.2); Mean Corpuscular Volume 90.0 fl (81-99); Nucleated Red Blood Cells % 0 %; Platelet Count 164 K/mm3 (142-424); Red Blood Count 4.08 M/mm3 (4.20-5.40); Red Cell Distribution Width-SD 61.1 fL; White Blood Count 3.3 K/mm3 (4.8-10.8)
--- OUTSIDE RECORDS SUMMARY | 2025-04-07 13:34 | XMS_ITS | Continuity of Care Document ---
Author Organization [facility] [place] Address [address] [place] [address] Assessment No assessment recorded. Plan of Treatment Reminders Order Date Submit Date Provider Last Modified By Organization Details Last Modified Time Details Appointments OV EST 15 025 02:00PM Rodrick Juarez Jr, MD Not available Not available Not available Lab None record ed. Referral None record ed. Procedures None record ed. Surgeries None record ed. Imaging XR, abdome n, 1 view 025 04/06/20 25 [email or web address] [facility] (Central Scheduling), [address] [place] [address] [place], [address], 04/06/2025 12:02:36 Medication Orders None record ed. Patient TargetsNo targets recorded. Patient InstructionsNo instructions recorded. Reason for Referral None Reported. Procedures Surgical History Date Name Laterality Status Provider Name and Address Organization Details Recorded Time ligation of fallopian tube completed [facility] & [place] 04/06/2025 10:36:51 repair of anterior cruciate ligament of knee joint completed [facility] & [place] 04/06/2025 10:36:58 extraction of cataract completed [facility] & [place] 04/06/2025 10:37:09 Imaging Results None recorded. Procedure Notes None recorded. Medical Equipment None Reported. Allergies No known drug allergies Medications Name Sig Start Date Stop Date Status Note LastModified by Organization Details LastModified Time levothyroxi ne 175 mcg tablet TAKE 1 TABLET BY MOUTH ONCE DAILY ON AN EMPTY STOMACH active Not Available Not Available No t Available sulfamethox azole 800 mg-trimetho prim 160 mg tablet TAKE 1 TABLET BY MOUTH TWICE DAILY 04/06 completed Not Available Not Available Not Available linezolid 600 mg tablet TAKE 1 TABLET BY MOUTH TWICE DAILY FOR 7 DAYS 04/06 completed Not Available Not Available Not Available cephalexin 500 mg capsule TAKE 1 CAPSULE BY MOUTH TWICE DAILY 04/06 completed Not Available Not Available Not Available furosemide 20 mg tablet TAKE 1 TABLET BY MOUTH ONCE DAILY active Not Available Not Available No t Available ondansetron 4 mg disintegrat ing tablet Place 2 tablets twice a day by transling ual route. active Not Available Not Available No t Available hydrocodone 5 mg-acetamin ophen 300 mg tablet Take 1 tablet every 4 hours by oral route. active Not Available Not Available No t Available Vitals Date Recorded Body height Body mass index (BMI) Body weight Provider Name and Address Organization Details Last Updated DateTime 04/06/2025 167.64 cm 28.6 kg/m2 [address] [facility] 04/06/2025 10:35:20 Social History None recorded. Functional Status Question Answer Note LastModified by Organization D etails LastModified Time What is your level of alcohol consumption? None [email or web address] Information not available 04/06/2025 Mental Status None recorded. Family History Relationship Description Onset Age of this Age Resolved Age Notes LastModified by Organization Details LastModified Time Mother Alzheimer's disease Deceas ed Not available 04/06/2025 10:36:15 Father Heart disease Deceas ed [email or web address] Not available 04/06/2025 10:36:30 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 Condition Response Kidney Stones Y Gynecological HistoryNo gynecological history recorded. Obstetrics History GPAL:G 0 P 0 0 0 0 Past Encounters Encounter ID Performer Location Encounter Start Date Encounter Closed Date Diagnosis/Indication Diagnosis SNOMED-CT Code Diagnosis ICD10 Code Diagnosis Note [id number] Rodrick Juarez Jr, MD [facility] [address] [address] 04/06/2025 10:10:32 04/06/2025 10:39:16 Ureteric stone 56201127 N20.1 74-year-ol d white female with recent left-sided flank pain. CT scan revealed a 4 mm stone at the distal portion of the ureter. She is doing well since her emergency room visit some mild discomfort at times. We discussed options of stone extraction versus trial of passage. We will observe a trial of passage and a urine strainer was given today. She is to push fluids and continue the Flomax. We will see her back in 1 week with a KUB. Health Concerns Section Related Observation LastModified by Organization Detai ls LastModified Time None Recorded Concern Status LastModified by Organization Details LastModified Time None Recorded Payers Encounter Date Sequence Insurance Name Policy Number Policy Vargas Covered Member ID Vargas Member ID Guarantor Name 04/06/2025 1 [place] Marcia Sotoin [id number] Marcia Siddhartha 04/06/2025 2 [place] [id number] Marcia Sotoin [id number] Marcia Carl Notes Date Note Type Note Provider Name and Address Organization Details Recorded Time 04/06/2025 text/html ROS as noted in the HPI Patient is a 74-year-old white female with history of nephrolithiasis. She was having some recent left-sided flank pain and bladder pain and lower urinary tract symptoms and presented to her local emergency room on 03/30/2025. CT scan showed a 4 mm left distal ureteral stone with proximal hydro ureter. White count was 2.7 in her creatinine was 0.6. Urinalysis showed 2+ blood. She was discharged home with Flomax. Her emergency room visit was reviewed from 03/30/2025. Her CT scan was report was reviewed today. States she has been doing fine with some occasional colicky symptoms and lower urinary tract symptoms. She has not passed a stone to her knowledge but he has not been straining her urine. Rodrick Juarez Jr, MD [address] [place] [address], [address], [place], [address], [facility] - [place] & [place] 04/06/2025 11:43:51 OBGyn Episode No OBEpisode recorded.
--- OUTSIDE RECORDS SUMMARY | 2025-04-07 13:34 | XMS_ITS | Data Portability ---
Author Organization [facility] & [place], [facility] [place] Address [address] [place] [address] Assessment No assessment recorded. Plan of Treatment [...] n, 1 view 025 04/06/20 25 [email or web address] [facility] (Central Scheduling), [address] [place] [address] [place], [address], 04/06/2025 12:02:36 Medication Orders None record ed. Patient TargetsNo targets recorded. Patient InstructionsNo instructions recorded. Reason for Referral None Reported. Procedures Surgical History Date Name Laterality Status Provider Name and Address Organization Details Recorded Time ligation of fallopian tube completed [facility] & [place] 04/06/2025 10:36:51 repair of anterior cruciate ligament of knee joint completed [facility] & [place] 04/06/2025 10:36:58 extraction of cataract completed [facility] & [place] 04/06/2025 10:37:09 Imaging Results None recorded. Procedure [...] Updated DateTime 04/06/2025 167.64 cm 28.6 kg/m2 11023.85 g [facility] 04/06/2025 10:35:20 Social History None recorded. Functional Status Question Answer Note LastModified by Organization D etails LastModified Time What is your level of alcohol consumption? None [email or web address] Information not available 04/06/2025 Mental Status None recorded. Family History Relationship Description Onset Age of this Age Resolved Age Notes LastModified by Organization Details LastModified Time Mother Alzheimer's disease Deceas ed [email or web address] Not available 04/06/2025 10:36:15 Father Heart disease Deceas ed [email or web address] Not available 04/06/2025 10:36:30 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 Condition Response Kidney Stones Y Gynecological HistoryNo gynecological history recorded. Obstetrics History GPAL:G 0 P 0 0 0 0 Past Encounters Encounter ID Performer Location Encounter Start Date Encounter Closed Date Diagnosis/Indication Diagnosis SNOMED-CT Code Diagnosis ICD10 Code Diagnosis Note [id number] Rodrick Juarez Jr, MD [facility] [address] [address] 04/06/2025 10:10:32 04/06/2025 10:39:16 Ureteric stone 30733190 N20.1 74-year-ol d white female with recent [...] by Organization Details LastModified Time None Recorded Advance Directives Directive None Recorded Payers Insurance Date Sequence Insurance Name Policy Number Policy Vargas Covered Member ID Vargas Member ID Guarantor Name 04/06/2025 2 [place] [id number] Marcia Carl [id number] Marcia Carl 04/06/2025 1 [place] Marcia Carl [id number] Marcia Carl Notes Date Note Type Note [...] straining her urine. Rodrick Juarez Jr, MD [address] [place] [address], [address], [place], [address], [facility] [place] & [place] 04/06/2025 11:43:51 OBGyn Episode No OBEpisode recorded.
--- OUTSIDE RECORDS SUMMARY | 2025-04-07 13:34 | XMS_ITS | Clinical Summary ---
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
--- OUTSIDE RECORDS SUMMARY | 2025-04-07 13:34 | XMS_ITS | Patient Health Record ---
[facility] [address] [facility] [address] [place] [id number] Care Team Providers Care Butter Printer Name Role Phone Williams Falcon Primary Care Provider [phone] Allergies Allergen (clinical drug ingredient) Drug/Non Drug Allergy documented on EMR Reaction Allergy Type Onset Date Status codeine Codeine vomiting Drug Allergy Active Results Component Value Reference Range Notes Mammogram Reviewed date:12/07/2024 12:21:18 PM Interpretation:Negative Performing Lab: Notes/Report: Negative result Negative H-TSH Reviewed date:11/26/2024 01:32:39 PM Interpretation: Performing Lab: Notes/Report: H-Lipid Panel Reviewed date:11/26/2024 01:33:29 PM Interpretation: Performing Lab: Notes/Report: H-CMP Reviewed date:11/26/2024 01:33:44 PM Interpretation: Performing Lab: Notes/Report: H-T4 free Reviewed date:11/29/2024 02:21:39 PM Interpretation:see 11/26/24 Performing Lab: Notes/Report: see 11/26/24 H-TSH Reviewed date:11/30/2024 10:12:40 AM Interpretation:Normal Performing [...] Vaccine Route Administration Date Status Comme nts DT, 7 YEARS OR OLDER Unknown 11/19/1996 Administered Fluzone High Dose (65yr and older) IM Intramuscular 09/25/2017 Administered Fluzone High Dose (65yr and older) IM Intramuscular 07/17/2018 Administered Fluzone High Dose (65yr and older) IM Intramuscular 07/08/2019 Administered Fluzone Intradermal Quad private(18-64yrs) ID Intradermal 05/31/2016 Administered PNEUMOVAX 23 VACCINE IM Intramuscular 07/01/2016 Administe red PNEUMOVAX 23 VACCINE IM Intramuscular 03/01/2021 Administe red Prevnar (PCV13) IM Intramuscular 07/17/2018 Administered Tetanus Tdap-Adacel (over 7yrs) IM Intramuscular 11/25/2015 Administered Problems Problem Type SNOMED Code ICD Code Onset Dates Problem Status W/U Status Risk Notes Problem Gastro-esophageal reflux disease without esophagitis (907792276) Gastro-esophageal reflux disease without esophagitis (K21.9) Active confirmed Problem Essential hypertension (43710861) Essential hypertension (I10) Active confirmed Problem Pancytopenia (346554237) Pancytopenia (D61.818) Active confirmed Problem Decrease in appetite (finding) (38807160) Decreased appetite (R63.0) Active confirmed Problem Paresthesia (91208776) Paresthesia (R20.2) Active confirmed Problem Mixed hyperlipidemia (810430479) Mixed hyperlipidemia (E78.2) Active confirmed Problem Age-related osteoporosis (701248358) Age-related osteoporosis without current pathological fracture (M81.0) Active confirmed Problem Acquired hypothyroidism (063745022) Acquired hypothyroidism (E03.9) Active confirmed Problem Osteoarthritis of knee (529238240) Primary osteoarthritis of both knees (M17.0) Active confirmed Problem Body mass index 30.00 to 34.99 (732152432691931) BMI 34.0-34.9,adult (Z68.34) Active confirmed Problem Leukopenia (15894099) Leukopenia, unspecified type (D72.819) Active confirmed Problem 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 Problem Carpal tunnel syndrome (45883050) Carpal tunnel syndrome on both sides (G56.03) Active confirmed Problem Obesity (208504086) Non morbid obesity (E66.9) Active confirmed Vital Signs Heart Rate 78 /min 10/15/2024 Blood pressure diastolic 70 mm Hg 10/15/2024 Height 65.50 in 10/15/2024 Blood pressure systolic 110 mm Hg 10/15/2024 Weight 180.2 lbs 10/15/2024 BMI 29.53 kg/m2 10/15/2024 Encounters Encounter Location Date Provider Diagnosis [facility] [address] [place] [id number] 10/15/2024 Williams Falcon Acquired hypothyroid ism E03.9 and Mixed hyperlipidemia E78.2 [facility] [address] [place] [id number] 11/30/2024 [place] Assessments Encounter Date Diagnosis (ICD Code) Assessment Notes Treatment Notes Treatment Clinical Notes Section Notes 10/15/2024 Mixed hyperlipidemia (ICD-10 - E78.2) 10/15/2024 Acquired hypothyroidism (ICD-10 - E03.9) Plan Of Treatment No Information Insurance Providers Payer Name Payer Address Payer Phone Subscriber Number Group Number Insured Name Patient Relationship to Insured Coverage Start Date Coverage End Date MEDICARE PART B [address] [address] [place] [id number] Marcia Carl Self - patient is the insured [employer] [address] [place] [address] [id number] Marcia Carl Self - patient is the insured Medications Administered Medication Instructions Date of Administration Dosage Notes Depo- Medrol 40 mg/ml 08/03/2014 1 mL Depo- Medrol 40 mg/ml 08/30/2014 1.5 mL Dexamethasone 09/14/2016 1 mL Medical (General) History 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 History ICD Code Graves Disease Allergic Rhinitis 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 Warren x2 03/2016 Hospitalization History Reason Date(Month/Year) Lymph removed from groin Knee Pain- [facility] ER 06/26/2012 Pneumonia- [facility] ER 03/26- Bronchitis- [facility] ER 09/08/2015 Bronchitis, Dehydration- [facility] ER 09/10/20 15 URI- [facility] 01/25/2018
--- OUTSIDE RECORDS SUMMARY | 2025-04-07 13:34 | XMS_ITS | Clinical Summary ---
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 02/21/2024 Active Active Problems Problem Noted Date Diagnosed Date Swelling of lower extremity 07/06/2024 Assessment & Plan (01/04/2025 10:33 AM EDT): Related to venous insufficiency, currently stable. Assessment & Plan (07/06/2024 10:46 AM EDT): She continues to experience left lower extremity pain and swelling. She was recently treated for left lower extremity cellulitis. She completed a bilateral lower extremity duplex on 04/23/24 that was negative for DVTs. She has been evaluated by vascular in the past and would like a referral for a consult to discuss further treatment options. Venous insufficiency 07/06/2024 Assessment & Plan (01/04/2025 10:33 AM EDT): History of of varicose veins, superficial thrombophlebitis and DVT. She is currently following with vascular (Dr. Araujo) and is planning a vascular procedure in the near future. - Continue follow-up with vascular surgery. Assessment & Plan (07/06/2024 10:46 AM EDT): History of of varicose veins, superficial thrombophlebitis and DVT Cellulitis of left lower extremity 04/23/2024 Assessment & Plan (07/06/2024 10:45 AM EDT): Resolved with Keflex Assessment & Plan (04/23/2024 2:30 PM EDT): She was recently prescribed cephalexin for cellulitis and scheduled for lower extremity duplex to rule out DVT. She feels like the redness and pain is worsening. She has 1 dose left of current antibiotic. Preliminary lower extremity duplex report shows no evidence of DVT. - Bactrim DS twice daily -Keep follow-up visit with Dr. Silva next week Family History 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 Relation Name Comments Edema Brother 1 Breast cancer Mother Relation Name Status Comments Brother 1 Alive Brother 2 Father (Age 79) Mother (Age 74) Sister 1 Alive Sister 2 Alive Social History Tobacco Use Types Packs/Day Years Used Date Smoking Tobacco: Former Cigarettes Passive Smoke Exposure: Past Smokeless Tobacco: Never Tobacco Cessation:Counseling Given: Not Answered Alcohol Use Standard Drinks/Week Comments Not Currently 0 (1 standard drink = 0.6 oz pur e alcohol) Comments Unknown Sex and Gender Information Value Date Recorded Sex Assigned at Not on file Legal Sex Female 11:08 AM EDT Gender Identity Not on file Sexual Orientation Not on file Last Filed Vital Signs Vital Sign Reading Time Taken Comments Blood Pressure 116/68 01/04/2025 9:32 AM EDT Pulse 81 01/04/2025 9:32 AM EDT Temperature - - Respiratory Rate - - Oxygen Saturation 98% 01/04/2025 9:32 AM EDT Inhaled Oxygen Concentration - - Weight 83.5 kg (184 lb) 01/04/2025 9:32 AM EDT Height 167.6 cm (5' 6 ) 01/04/2025 9:32 AM EDT Body Mass Index 29.7 01/04/2025 9:32 AM EDT Plan of Treatment Upcoming Encounters Date Type Department Care Team (Late st Contact Info) Description 07/04/2025 10:00 AM EDT Office Visit [facility] [address] [place] [phone] yGpsy Silva MD [address] [place] [place] [address] Health Maintenance Due Date Last Done Comments DXA SCAN 1952 MAMMOGRAM 1992 COLOGUARD 1997 COLON CANCER SCREENING 5 YEA R SIGMOIDOSCOPY 1997 COLONOSCOPY 1997 COL[address]AL CANCER SCREENING 1997 CT COLONOGRAPHY 1997 FECAL OCCULT BLOOD TEST 1997 FIT Testing (1 year) 1997 ZOSTER VACCINE (1 of 2) 2002 TDAP/TD VACCINES (2 - Tdap) 11/19/2006 11/19/1996 ANNUAL WELLNESS VISIT 04/09/2024 HEPATITIS C SCREENING 04/09/2024 COVID-19 Vaccine ( season) 2024 INFLUENZA VACCINE 06/15/2025 07/08/2019, , 09/25/2017 Pneumococcal Vaccine 50+ Completed 03/01/2021, 10/[address] [place] [address] MEDICARE A & B [facility] Care Teams Grain Oilseed Or Pasture Farm Manager Relationship Specialty Start Date End Date Williams Falcon [facility] [address] [facility] [address] [facility] [address] [place] [address] PCP - General Family Medicine 03/26/24
[2025-04-07 13:39] LABS: Albumin Level 4.2 g/dl (3.5-5.0); Chloride 108 mmol/L (98-107); Sodium 136 mmol/L (136-145)
[2025-04-07 13:40] LABS: Potassium 3.9 mmoL/L (3.5-5.1)
[2025-04-07 13:42] LABS: Alanine Aminotransferase 13 U/L (12-78); Anion Gap 10.9 mEq/L (5-15); Aspartate Amino Transferase 35 U/L (14-36); Blood Urea Nitrogen 17 mg/dl (7-17); Carbon Dioxide 21 mmol/L (22.0-30.0); Creatinine Clearance Estimated 64 mL/min (50-200); Creatinine,Serum 0.90 mg/dl (0.52-1.04); Estimated Glomerular Filt Rate 62 ml/min (>60); GFR (African American) 74 ML/MIN (>60)
[2025-04-07 13:43] LABS: Albumin/Globulin Ratio 1.5 (1.1-1.8); Alkaline Phosphatase 78 U/L (38-126); Bilirubin,Total 0.8 mg/dl (0.2-1.3); Calcium 9.4 mg/dl (8.4-10.2); Globulin 2.8 g/dL (1.3-3.2); Glucose 132 mg/dl (74-100); Total Protein,Serum 7.0 g/dl (6.3-8.2)
[2025-04-07] MEDS: ACETAMINOPHEN 500MG TAB 1000 MG PO (13:55)
[2025-04-07] MEDS: ONDANSETRON 4MG/2ML VIAL 4 MG IV (13:57)
[2025-04-07] MEDS: 0.9 % SODIUM CHLORIDE 1000ML 1,000 ML 999 ML IV (14:07)
--- NOTE | 2025-04-07 14:26 | PC.NURSE ---
I spoke with Nithya in radiology and requested she power share the pts images to [facility]
--- NOTE | 2025-04-07 14:58 | PC.NURSE ---
I paged for Carmen PALACIOS
--- NOTE | 2025-04-07 15:11 | PC.NURSE ---
Carmen PALACIOS spoke to PT and they state he pt can be fitted for the brace she needs here.
--- NOTE | 2025-04-07 16:05 | PC.NURSE ---
I NOTIFIED HS OF THE NEED FOR A BED TO ADMIT THE PT TO THE HOSPITALIST
--- NOTE | 2025-04-07 16:37 | P.HP_ITS ---
History of Present Illness *Admission Date: 04/07/25 *Reason for visit:: fall *History of present illness: Patient is a 74-year-old female with past medical history of hypothyroidism, GERD who presented to hospital after a fall On the concrete block. Patient has been having back pain since then. She denied any episode of loss of consciousness during or after the event, denies any new weakness in arms or legs or numbness tingling. Patient denied chest pain nausea vomiting diarrhea co nstipation dysuria fevers and chills. On further evaluation patient was found to have compression fracture at the level of T4, L1. [facility] Disclaimer: The information contained in this section may have been updated after the patient was seen, as this information can be updated by other users. 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 Thyroid disease History of anemia Urinary tract infection Kidney stone History of gastroesophageal reflux (GERD) Surgical History History of repair of ACL History of tubal ligation Family History Other No significant family history Social History Smoking Status: Never smoker second hand exposure: No alcohol intake: current alcohol intake frequency: holidays/special occasions only substance use type: denies use current occupational status: retired Travel in the last 8 weeks?: None household members: spouse housing: house current occupational exposures/hazards: No caffeine: Yes Have you lived/traveled outside US in past 30 days?: No Contact w/someone who lives/traveled outside US past 30 days?: No Exposure to someone with infectious disease in past 14 days?: No Do you have a fever (greater than 100.4 F or 38 C)?: No Have you tested positive for COVID-19?: No Exposed to someone with COVID-19 in past 14 days?: No Do you have a sore throat?: No Do you have a cough?: No Do you have any weakness?: No Do you have any diarrhea?: No Are you experiencing any unusual bleeding?: No Do you have any muscle aches/pain?: No Do you have any abdominal pain?: No Are you experiencing loss of taste or smell?: No Other 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 Have you received the Flu Vaccine for this season: No Have you received the Pneumonia Vaccine: No Review of Systems Review of Systems Review of systems:: pertinent systems reviewed and negative unless documented below Meds Home Medications and Allergies Home Medications ?Medication ?Instructions ?Recorded ?Confirmed ?Type levothyroxine 175 mcg tablet 175 mcg PO DAILY 02/24/24 04/07/25 History hydrocodone 5 mg-acetaminophen 325 1 tab PO Q8H PRN pa in #12 tabs 03/30/25 04/07/25 Rx mg tablet ondansetron 4 mg disintegrating 4 mg PO Q8H PRN nausea and 03/30/25 04/07/25 Rx tablet vomiting 4 days #12 tabs tamsulosin 0.4 mg capsule (Flomax) 0.4 mg PO HS #14 ca ps 03/30/25 04/07/25 Rx New Prescriptions to Start Prescriptions: Allergies Allergy/AdvReac Type Severity Reaction Status Date / Time codeine (CODEINE) Allergy Mild NA-NAUSEA/V Verified 11/26/24 10:35 OMITING Exam Data for Last 24 hours Vital signs and Labs for Last 24 Hours: Temp Pulse Resp BP Pulse Ox O2 Del Method 98.7 F 69 18 151/86 H 99 Room Air 04/07/25 13:12 04/07/25 16:30 04/07/25 13:12 04/07/25 16:30 04/07/25 16:30 04/07/25 13:20 Laboratory Results - last 24 hr 04/07/25 13:12: WBC 3.3 L, RBC 4.08 L, Hgb 11.5 L, Hct 36.7 L, MCV 90.0, MCH 28.2, MCHC 31.3 L, RDW 18.6 H, Plt Count 164, MPV 9.4, Neut % (Auto) 48.2, Lymph % (Auto) 42.4, [place] % (Auto) 6.4, Eos % (Auto) 0.3, Baso % (Auto) 0.3, Neut # (Auto) 1.6 L, Lymph # (Auto) 1.4, Lim[place] # (Auto) 0.2, Eos # (Auto) 0.0, Baso # (Auto) 0.0, Sodium 136, Potassium 3.9, Chloride 108 H, Carbon Dioxide 21 L, Anion Gap 10.9, BUN 17, Creatinine 0.90, Estimated Creat Clear 64, Estimated GFR 62, Est GFR ( Amer) 74, Glucose 132 H, Calcium 9.4, Total Bilirubin 0.8, AST 35, ALT 13, Alkaline Phosphatase 78, Total Protein 7.0, Albumin 4.2, Globulin 2.8, Albumin/Globulin Ratio 1.5 I & O for Last 24 hours: Intake & Output 04/04/25 04/05/25 04/06/25 04/07/25 23:59 23:59 23:59 23:59 Weight 79.379 kg Constitutional Constitutional: no acute distress *Routine HEENT Exam Head: Present normocephalic Eye: Present EOMI and PERRL ENT: Present mucous membranes moist *Routine Neck Exam Neck: Present supple; Absent lymphadenopathy *Routine Respiratory Exam Respiratory: Present CTA bilaterally *Routine Cardiovascular Exam Cardiovascular: Present RRR *Routine Abdominal Exam Abdominal: Present soft and normoactive bowel sounds; Absent tenderness *Routine Rectal Exam Rectal:: deferred *Routine Genitalia Exam Genitalia:: deferred *Routine Extremities Exam Extremities: Absent cyanosis, clubbing or edema *Routine Skin Exam Skin: Present warm; Absent rash *Routine Neurological Exam Neurological: Present alert and oriented X3 Assessment and Plan *Assessment and plan (1) Compression fracture of T4 vertebra: Status: Acute Qualifiers: Encounter type: initial encounter Qualified Code(s): S22.040A - Wedge compression fracture of fourth thoracic vertebra, initial encounter for closed fracture Category: Medical Code(s): S22.040A - Wedge compression fracture of fourth thoracic vertebra, initial encounter for closed fracture (2) Closed compression fracture of L5 vertebra: Status: Acute Qualifiers: Encounter type: initial encounter Qualified Code(s): S32.050A - Wedge compression fracture of fifth lumbar vertebra, initial encounter for closed fracture Category: Medical Code(s): S32.050A - Wedge compression fracture of fifth lumbar vertebra, initial encounter for closed fracture (3) Closed compression fracture of L1 vertebra: Status: Acute Qualifiers: Encounter type: initial encounter Qualified Code(s): S32.010A - Wedge compression fracture of first lumbar vertebra, initial encounter for closed fracture Category: Medical Code(s): S32.010A - Wedge compression fracture of first lumbar vertebra, initial encounter for closed fracture Plan Patient is a 74-year-old female with past medical history of hypothyroidism, GERD who presented to hospital after a fall On the concrete block. Patient has been having back pain since then. She denied any episode of loss of consciousness during or after the event, denies any new weakness in arms or legs or numbness tingling. Patient denied chest pain nausea vomiting diarrhea constipation dysuria fevers and chills. On further evaluation patient was found to have compression fracture at the level of T4, L1. Assessment and plan Mechanical fall Thoracic compression fractures acute L1 compression fracture Pain control Consult PT/OT Fall precautions Patient may need back brace Chronic medical conditions Hypothyroidism - Resume home levothyroxine DVT prophylaxis-subcutaneous heparin
--- NOTE | 2025-04-07 16:41 | PC.NURSE ---
REPORT CALLED TO IGLMA MERRITT
--- NOTE | 2025-04-07 17:38 | PC.NURSE ---
new admit. L1 fracture. per ER, brace to be placed by PT tomorrow. pain control overnight. no complaints of pain at this time. purewick in place. no needs at this time. call light within reach
[2025-04-07] MEDS: MORPHINE 2MG/ML SYRINGE 2 MG IV ×2 (20:30→22:59)
[2025-04-07] MEDS: HEPARIN SODIUM 5,000 UNIT/ML VIAL 5000 UNIT SUBCUT (20:30)
[2025-04-08 04:00] VITALS: BP 144/70; PULSE 68; RESP 13; TEMP 36.8; O2SAT 97; BMI 30.1
--- NOTE | 2025-04-08 04:15 | PC.NURSE ---
Pt is A&Ox4. Pt is on RA. Pt has been medicated twice so far this shift for back pain rt fracture. Pt othewise has not had any acute changes. Pt's plan is to see PT this morning and receive a TLSO brace. Pt not voicing any concerns. Pt resting w/ call light in reach. POC ongoing.
--- NOTE | 2025-04-08 04:18 | PC.NURSE ---
Blue linen bags were taken out, ice was filled, and bedside table was reorganized and wiped at this time. [id number]
[2025-04-08 06:29] LABS: Hematocrit 32.2 % (37.0-47.0); Nucleated Red Blood Cells % 0 %
--- NOTE | 2025-04-08 06:36 | PC.NURSE ---
Trash taken out at [id number]
[2025-04-08 06:42] LABS: Anion Gap 7.7 mEq/L (5-15); Blood Urea Nitrogen 13 mg/dl (7-17); Calcium 8.7 mg/dl (8.4-10.2); Carbon Dioxide 25 mmol/L (22.0-30.0); Chloride 110 mmol/L (98-107); Creatinine Clearance Estimated 68 mL/min (50-200); Creatinine,Serum 0.80 mg/dl (0.52-1.04); Estimated Glomerular Filt Rate 71 ml/min (>60); GFR (African American) 85 ML/MIN (>60); Glucose 106 mg/dl (74-100); Potassium 3.7 mmoL/L (3.5-5.1); Sodium 139 mmol/L (136-145)
[2025-04-08 07:14] LABS: Immature Granulocytes % 2.2 %; Mean Corpuscular HGB Conc 31.1 g/dL (31.8-35.4); Mean Corpuscular Hemoglobin 28.5 pg (27.0-31.2); Mean Corpuscular Volume 91.7 fl (81-99); Platelet Count 139 K/mm3 (142-424); Red Blood Count 3.51 M/mm3 (4.20-5.40); Red Cell Distribution Width-SD 63.3 fL; White Blood Count 2.3 K/mm3 (4.8-10.8)
[2025-04-08 07:19] LABS: Hemoglobin 10.0 g/dL (12.2-16.2)
[2025-04-08 08:00] VITALS: BP 147/74; PULSE 72; RESP 18; TEMP 36.8; O2SAT 95
[2025-04-08 08:19] LABS: Total Cells Counted 100
[2025-04-08 08:20] LABS: RBC Morphology Normal
--- NOTE | 2025-04-08 09:23 | HMH.OTEV ---
OT Inpatient Evaluation Rehab OT IP Evaluation Start: 04/07/25 19:05 Freq: ONCE Status: Active Protocol: Document 04/08/25 09:19 [facility] (Rec: 04/08/25 09:23 [facility] [id number]) Rehab OT IP Assessment Subjective History Pt oriented x 3 on arrival. Pt agreeable to engage in therapy evaluation. Pt admitted on 04/07/25 due to fall at home with L1 and T4 fx. History and physical: Patient is a 74-year-old female with past medical history of hypothyroidism, GERD who presented to hospital after a fall On the concrete block. Patient has been having back pain since then. She denied any episode of loss of consciousness during or after the event, denies any new weakness in arms or legs or numbness tingling. Patient denied chest pain nausea vomiting diarrhea constipation dysuria fevers and chills. On further evaluation patient was found to have compression fracture at the level of T4, L1. Subjective Prior to being in the hospital, pt lived at home with her . Pt claims she is normally independent with all ADLs and IADLs. She did not require any type of AE during functional transfers. Pt still drove. Objective Patient Orientation Person,Place,Birthday Right Upper WFL Extremity Gross ROM Left Upper Extremity WFL Gross ROM Bed Mobility bed mobility-scooting,bed mobility - supine/sit Assist Level Contact Guard/Hand Hold Transfer Training Sit/Stand Transfer Assist Level Contact Guard/Hand Hold Chair Transfer Contact Guard/Hand Hold Ability Chair Transfer Sit to/from Ambulatory Technique Chair Transfer Rolling Walker Assistive Devices Rehab OT IP prob,goals,plan Problems Date of Evaluation: 04/08/25 OT IP Problems Bed Mobility,Transfers,Balance,Self care,Safety Rehab Potential Rehab Potential Good Equipment Needs Assistive Devices Rolling / Wheeled Walker Plan OT intervention Plan Bed Mobility,Transfers,Balance,Self care,Safety, Therapeutic Exercise OT Plan Frequency Daily Duration LOS Discharge Goals Bed Mobility Ability Standby Assistance Sit to Stand Chair Supervision/Stand by Transfer Ability Chair Transfer Sit to/from Ambulatory Technique Chair Transfer Rolling Walker Assistive Devices Lower Body Dressing Minimal Assistance Ability Upper Body Dressing Standby Assistance Ability Performing Toilet Standby Assistance Hygiene Ability Overall Commode/ Standby Assistance Toilet Transfer Ability Discharge Plan OT Discharge Plan Pt will continue to be seen for OT services while at [facility]. Pt can return home with husbands assistance once she is medically stable per physician. Upon returning home, therapist recommends HH OT evaluation for continued skilled therapy services. Therapist also recommends a rolling walker and bedside commode to take home with her in order to increase her independence with toileting and functional transfers. Continued skilled therapy is important in order for patient to improve strength, safety, endurance, ADL independence, and functional transfer to reach PLOF. Eval Complexity Eval Charge Codes 66208 - Moderate Complexity PHYSICIAN CERTIFICATION: I certify the specified therapy services for Marcia Carl are required, authorized, and reviewed every 30 days.
--- NOTE | 2025-04-08 10:45 | HMH.PTEV ---
Physical Therapy Evaluation Rehab PT IP Evaluation Start: 04/07/25 19:05 Freq: ONCE Status: Active Protocol: Document 04/08/25 10:37 [facility] (Rec: 04/08/25 10:45 [facility] [id number]) Subjective/History History History 74-year-old female with past medical history of hypothyroidism, GERD who presented to hospital after a fall On the concrete block. Patient has been having back pain since then. She denied any episode of loss of consciousness during or after the event, denies any new weakness in arms or legs or numbness tingling. Patient denied chest pain nausea vomiting diarrhea constipation dysuria fevers and chills. On further evaluation patient was found to have compression fracture at the level of T4, L1. Pt reports she lives with , 1 small CARINA the home, and she is generally independent with all mobility, but has a RW at home if necessary. Subjective Subjective Pt reports pain in her low back with any activity, but agrees to get OOB this am. Pt instructed in log roll technique for SUP/SIT transfer to reduce pain. [facility] How much help from another person do you currently need... Turning from your None back to your side while in a flat bed without using bedrails? Moving from lying on None back to sitting on the side of a flat bed without using bedrails? Moving to and from a None bed to a chair ( including a wheelchair)? Standing up from a None chair using your arms? (e.g., wheelchair, bedside chair) Walking in hospital None room? Climbing 3-5 steps A little with a railing? Mobility Score 23 Mobility Level [facility] Mobility 7 Walk 25 feet or more Mobility Calculator Rehab PT IP Eval Objective Appearance Patient Behavior Appropriate Patient Orientation Person,Place,Time Difficulty following none instructions Speech Pattern Clear Ambulation Patient Able to Yes Ambulate Ambulation Observation IP General Gait Decrease Stride Lngth (R),Decrease Stride Lngth (L) Pattern Observation Ambulation Distance 30 (feet) Ambulation Assistive Rolling Walker Device Ambulation Ability Supervision/Stand by Balance Ability to Arise Able, uses arms to help Sitting Balance Steady, safe Standing Balance Steady, wide stance Dynamic Sitting Good Balance Ability Dynamic Standing Good Balance Ability Transfers Bed Transfer Ability Supervision/Stand by Chair Transfer Supervision/Stand by Ability Sit to Stand Bed Supervision/Stand by Transfer Ability Sit to Stand Chair Supervision/Stand by Transfer Ability ROM All Extremities PT ROM Status WFL MMT All Extremities PT MMT WFL Rehab PT IP prob,goals,plan Problems Date of Evaluation: 04/08/25 Discharge Plan PT Discharge Plan Pt is appropriate to return home once medically stable for d/c. No current skilled acute therapy needs at this time. Eval Complexity Eval Charge Codes 38485 - High Complexity PHYSICIAN CERTIFICATION: I certify the specified therapy services for Marcia Carl are required, authorized, and reviewed every 30 days.
--- NOTE | 2025-04-08 11:58 | SW/DCPLANNER ---
Patient requests BSC and walker at discharge and requests they come from [place].
[2025-04-08] MEDS: MORPHINE 2MG/ML SYRINGE 2 MG IV (12:14)
--- NOTE | 2025-04-08 12:20 | CARE MANAGER ---
Addendum entered by Destiny Welsh RN 04/08/25 12:21: Patient also requires a walker for ambulation due to a mobility impairment that cannot be corrected with a cane. Original Note: Patient will require a bedside commode due to the fractures in her back she is unable to make it to the bathroom.
--- NOTE | 2025-04-08 19:32 | P.DS_ITS ---
General Admission date:: 04/07/25 Discharge date: 04/08/25 HPI HPI HPI: Patient is a 74-year-old female with past medical history of hypothyroidism, GERD who presented to hospital after a fall On the concrete block. Patient has been having back pain since then. She denied any episode of loss of consciousness during or after the event, denies any new weakness in arms or legs or numbness tingling. Patient denied chest pain nausea vomiting diarrhea constipation dysuria fevers and chills. On further evaluation patient was found to have compression fracture at the level of T4, L1. Hospital Course Hospital Course Hospital Course: Patient is a 74-year-old female with past medical history of hypothyroidism, GERD who presented to hospital after a fall On the concrete block. Patient has been having back pain since then. She denied any episode of loss of consciousness during or after the event, denies any new weakness in arms or legs or numbness tingling. Patient denied chest pain nausea vomiting diarrhea constipation dysuria fevers and chills. On further evaluation patient was found to have compression fracture at the level of T4, L1. Assessment and plan Mechanical fall Thoracic compression fractures acute L1 compression fracture Pain control Consult PT/OT Fall precautions Patient given back brace, patient to follow up with PCP as OP Exam Data for Last 24 hours Vital signs and Labs for Last 24 Hours: Temp Pulse Resp BP Pulse Ox O2 Del Method 98.2 F 72 18 147/74 H 95 Room Air 04/08/25 08:00 04/08/25 08:00 04/08/25 08:00 04/08/25 08:00 04/08/25 08:00 04/08/25 13:00 Laboratory Results - last 24 hr 04/08/25 05:21: WBC 2.3 L D, RBC 3.51 L, Hgb 10.0 L D, Hct 32.2 L, MCV 91.7, MCH 28.5, MCHC 31.1 L, RDW 19.2 H, Plt Count 139 L, MPV 10.1, Neut % (Auto) 38.8, Lymph % (Auto) 38.8, Boundary % (Auto) 19.4 H, Eos % (Auto) 0.4, Baso % (Auto) 0.4, Neut # (Auto) 0.9 L*, Lymph # (Auto) 0.9, Boundary # (Auto) 0.5, Eos # (Auto) 0.0, Baso # (Auto) 0.0, Total Counted 100, Neutrophils % (Manual) 49, Lymphocytes % (Manual) 44, Monocytes % (Manual) 7, Platelet Estimate Normal, RBC Morphology Normal, Sodium 139, Potassium 3.7, Chloride 110 H, Carbon Dioxide 25, Anion Gap 7.7, BUN 13, Creatinine 0.80, Estimated Creat Clear 68, Estimated GFR 71, Est GFR ( Amer) 85, Glucose 106 H, Calcium 8.7 I & O for Last 24 hours: Intake & Output 04/05/25 04/06/25 04/07/25 04/08/25 23:59 23:59 23:59 23:59 Intake Total 222 / 222 540 / 540 Output Total 250 / 500 500 / 500 Balance -28 / -278 40 / 40 Weight 79.379 kg 85.094 kg Results Data Completed and Pending Labs on day of discharge: Labs from last 24 hours 04/08/25 05:21 WBC 2.3 L D RBC 3.51 L Hgb 10.0 L D Hct 32.2 L MCV 91.7 MCH 28.5 MCHC 31.1 L RDW 19.2 H Plt Count 139 L MPV 10.1 Neut % (Auto) 38.8 Lymph % (Auto) 38.8 Boundary % (Auto) 19.4 H Eos % (Auto) 0.4 Baso % (Auto) 0.4 Neut # (Auto) 0.9 L* Lymph # (Auto) 0.9 Boundary # (Auto) 0.5 Eos # (Auto) 0.0 Baso # (Auto) 0.0 Total Counted 100 Neutrophils % (Manual) 49 Lymphocytes % (Manual) 44 Monocytes % (Manual) 7 Platelet Estimate Normal RBC Morphology Normal Sodium 139 Potassium 3.7 Chloride 110 H Carbon Dioxide 25 Anion Gap 7.7 BUN 13 Creatinine 0.80 Estimated Creat Clear 68 Estimated GFR 71 Est GFR ( Amer) 85 Glucose 106 H Calcium 8.7 DS: Diagnosis Discharge Diagnosis (1) Compression fracture of T4 vertebra: Status: Acute Code(s): S22.040A - Wedge compression fracture of fourth thoracic vertebra, initial encounter for closed fracture Qualifiers: Encounter type: initial encounter Qualified Code(s): S22.040A - Wedge compression fracture of fourth thoracic vertebra, initial encounter for closed fracture (2) Closed compression fracture of L5 vertebra: Status: Acute Code(s): S32.050A - Wedge compression fracture of fifth lumbar vertebra, initial encounter for closed fracture Qualifiers: Encounter type: initial encounter Qualified Code(s): S32.050A - Wedge c ompression fracture of fifth lumbar vertebra, initial encounter for closed fracture (3) Closed compression fracture of L1 vertebra: Status: Acute Code(s): S32.010A - Wedge compression fracture of first lumbar vertebra, initial encounter for closed fracture Qualifiers: Encounter type: initial encounter Qualified Code(s): S32.010A - Wedge compression fracture of first lumbar vertebra, initial encounter for closed fracture Meds Home Medications and Allergies Home Medications ?Medication ?Instructions ?Recorded ?Confirmed ?Type levothyroxine 175 mcg tablet 175 mcg PO DAILY 02/24/24 04/07/25 History hydrocodone 5 mg-acetaminophen 325 1 tab PO Q8H PRN pa in #12 tabs 03/30/25 04/07/25 Rx mg tablet ondansetron 4 mg disintegrating 4 mg PO Q8H PRN nausea and 03/30/25 04/07/25 Rx tablet vomiting 4 days #12 tabs tamsulosin 0.4 mg capsule (Flomax) 0.4 mg PO HS #14 ca ps 03/30/25 04/07/25 Rx New Prescriptions to Start Prescriptions: Allergies Allergy/AdvReac Type Severity Reaction Status Date / Time codeine (CODEINE) Allergy Mild NA-NAUSEA/V Verified 11/26/24 10:35 OMITING Discharge Plan Disposition Patient Disposition: Home, Self-Care Condition: Fair Follow up Plan Follow up with: Williams Falcon MD [Staff Physician, Medical] - 04/15/25 10:00 am Prescriptions/Medication Reconciliation: Continued levothyroxine 175 mcg tablet 175 mcg PO DAILY Patient Comments: TAKE 1 TABLET BY MOUTH ONCE DAILY IN THE MORNING ON AN EMPTY STOMACH FOR 30 D AYS hydrocodone-acetaminophen 5-325 mg tablet 1 tab PO Q8H PRN (Reason: pain) Qty: 12 0RF ondansetron 4 mg tablet,disintegrating 4 mg PO Q8H PRN (Reason: nausea and vomiting) 4 Days Qty: 12 0RF tamsulosin [Flomax] 0.4 mg capsule 0.4 mg PO HS Qty: 14 0RF Other Ambulatory Orders: Home Medical Equipment (Routine) Location: None Selected Ordered By: Ana Owen Home Medical Equipment (Routine) Location: None Selected Ordered By: Ana Owen Problem Reconciliation Problems Reviewed?: Yes Patient Discharge Instructions ACTIVITY: Continue current activity DIET: continue same diet Patient Instructions: Exercises to Help Prevent Falls, How to Prevent Falls Print Language: Hungarian Providers Primary Care Provider: Provider,Referral Admit Provider: Ana Owen Attending Provider: Ana Owen
--- NOTE | 2025-04-11 14:42 | SW/DCPLANNER ---
Spoke with patient on the phone. Patient stated that she is still in alot of pain. Patient stated that she is aware of her upcoming appointment. Patient stated that she was not prescribed any new medicine. Patient stated that she is running low on her pain pills and has called her PCP to get more. Patient stated that she has no concerns or questions at this time. Raya Wilson
== END 2025-04-08 13:08 | disposition home or self-care (01) ==
LOC: ER 15:10 → 2ND 16:35
PROVIDERS: Physician Assistant; Admitting Provider Internal Medicine; Emergency Provider Emergency Medicine; Visit Provider Internal Medicine
DX: S22.040A Wedge compression fracture of fourth thoracic vertebra, initial encounter for closed fracture (principal); S32.050A Wedge compression fracture of fifth lumbar vertebra, initial encounter for closed fracture; S32.010A Wedge compression fracture of first lumbar vertebra, initial encounter for closed fracture; E03.9 Hypothyroidism, unspecified; K21.9 Gastro-esophageal reflux disease without esophagitis; Z79.890 Hormone replacement therapy; Z88.5 Allergy status to narcotic agent; W01.0XXA Fall on same level from slipping, tripping and stumbling without subsequent striking against object, initial encounter; Y92.007 Garden or yard of unspecified non-institutional (private) residence as the place of occurrence of the external cause
CPT/HCPCS: 36415; 70450; 71045; 72125; 72128; 72131; 72192; 80048; 80053; 85007; 85025; 85027; 93005; 96374; 96375; 96376; 97163; 97166; 97763; 99285; G0378; J1644; J2270; J2405; J7030

== ENCOUNTER 2025-05-11 08:30 | Outpatient (CLI) | payer MEDICARE, BC, SELFPAY ==
--- OUTSIDE RECORDS SUMMARY | 2024-10-15 07:30 | XMS_ITS ---
Author Organization [facility] Address [address] [facility] [address] [place] [phone] Care Team Providers Care Biomass Power Plant Superintendent Name Role Phone Williams Falcon Primary Care [address] [place] [id number] 10/15/2024 Williams Falcon Acquired hypothyroid ism E03.9 [...] * Sierra BROWNOB:1950 ( 74 yo F)Acc No.[id number]:10/15/2024 Progress Notes Patient: Marcia GERARD Provider: Odin Falcon M.D. :1950 A ge:74 Y S ex:Female Date:10/15/2024 Address:[address] [place] [address] , [place], [id number] Subjective: * Chief Complaints: * 1 . 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 * Surgical History: T ubal Ligation 1979, Rectal Hernia Repair 2005, Transvaginal Taping 2005, RT Eye Cataract 11/26/2011, LT Knee Surgery 08/2012, Mole Removal - Dr. Warren x2 03/2016. * Hospitalization/Major Diagno stic Procedure: L ymph removed from groin , Knee Pain- [facility] ER 06/26/2012, Pneumonia- [facility] ER 03/26-, Bronchitis- [facility] 09/08/2015, Bronchitis, Dehydration- [facility] 09/10/2015, [facility]. * Family History: F ather: [...] * Images: Billing Information: * Visit Code: 34062 Office Visit, Est Pt., Level 3. * Procedure Codes: G2211 Complex e/m visit add on. 3074F SYST BP LT 130 MM HG. 3078F DIAST BP < 80 MM HG. * Electronic signature of Maria A Falcon MD on 05/11/2025 at 08:34 AM EDT Sign off status: Pending * Provider: Odin Falcon M.D. Date: 0 10/15/2024 Generated for Beatriz espinosa/Shola/Jorgesmitting on: 0 05/11/2025 08:34 AM EDT History and Physical Notes * HPI [...]
--- OUTSIDE RECORDS SUMMARY | 2025-04-20 07:15 | XMS_ITS ---
Author Organization [facility] Address [address] [facility] [address] [place] [phone] Care Team Providers Care Career Agent Name Role Phone Williams Falcon Primary Care Provider [phone] Allergies Allergen (clinical drug ingredient) Drug/Non Drug [...] Interpretation:Normal Performing Lab: Notes/Report: Test performed by [employer], [facility] [address] [place] [address] , [address], [place] [address] Yadiel Elliott MD, Senior Ios Software Engineer CLIA: [id number] Sodium 139 135-145 mmol/L Potassium 3.8 3.5-5.3 [...] Problem Status W/U Status Risk Notes Problem Anemia, unspecified type (D64.9) Active confirmed Vital Signs Blood pressure systolic 114 mm Hg 04/20/20 25 Blood pressure diastolic 70 mm Hg 025 Heart Rate 83 /min 04/20/2025 Height 65.50 in 04/20/2025 Encounters Encounter Location Date [facility] [address] [phone] 04/20/2025 Williams Falcon Closed fracture of f [...] * Sierra BROWNOB:1950 ( 74 yo F)Acc No.[id number]:04/20/2025 Patient: Marcia GERARD Provider: Odin Falcon M.D. :1950 A ge:74 Y S ex:Female Date:04/20/2025 Address:[facility] [address], [place], [id number] Subjective: * Chief Complaints: * 1 . f/u for L1 fracture. * HPI: H PI: 74 year old female presents with c/o Here for follow up on:?04/07/2025 [facility] hospitalization. 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 ER 06/26/2012, Pneumonia- [facility] ER 03/26-, Bronchitis- [facility] ER 09/08/2015, Bronchitis, Dehydration- [facility] ER 09/10/2015, URI- [facility] UTC 01/25/2018. * Family History: F ather: [...] >Lab results are satisfactory, sent to to inform.Devika Janis 05/02/2025 01:44:29 PM EDT > pt informed. [...] G 2211 Complex e/[place] [address] CBC WITH AUTO DIFF, 00488 Urinalysis, no micro, 1036F TOBACCO NON-USER, G8783 [...] report test results * Images: Drawing:[address] [facility] 2024 Billing Information: * Visit Code: 01713 Office Visit, Est Pt., Level 4. * Procedure Codes: G2211 Complex e/[place]. [address] CBC WITH AUTO DIFF. 80163 Urinalysis, no micro. 1036F TOBACCO NON-USER. G8783 [...] 0 04/20/2025 Generated for Beatriz espinosa/Shola/eTransmitting on: 0 05/11/2025 08:34 AM EDT History and Physical Notes * HPI (History of Present Illness) Category Sub-Category Detail Notes Category Not es HPI Here for follow up on: 5 [facility] hospitalization. Pt was taken to er [...]
--- OUTSIDE RECORDS SUMMARY | 2025-04-22 07:00 | XMS_ITS ---
Author [facility] [address] [place] [phone] Care Team Providers Care Property Assessment Monitor Name Role Phone Williams Falcon Primary Care Provider REASON FOR VISIT f/u for L1 fracture Encounters Encounter Location Date Provider Diagnosis [facility] [address] [place] [phone] 04/22/2025 Williams Falcon Plan Of Treatment No Information Progress Notes * Sierra BROWNOB:1950 ( 74 yo F)Acc No.[id number]:04/22/2025 Progress Notes Patient: Marcia GERARD Provider: Odin Falcon M.D. :1950 A ge:74 Y S ex:Female Date:04/22/2025 Address:[facility] [id number] Subjective: * Chief Complaints: * 1 . f/u for L1 fracture. * 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: Objective: * Vitals: Assessment: Plan: * Treatment: * Images: Billing Information: * Visit Code: * Procedure Codes: * Electronic signature of Maria A Falcon MD on 05/11/2025 at 08:34 AM EDT Sign off status: Pending * Provider: Odin Falcon M.D. Date: 04/22/2025 Generated for Printi ng/Faxing/eTransmitting on: 05/11/2025 08:34 AM EDT
--- NOTE | 2025-05-11 08:34 | XR_ITS ---
FINAL REPORT TECHNIQUE: Bone densitometry calculations of the lumbar spine and left hip were obtained. CLINICAL HISTORY: SCREENING FINDINGS: Using L1-4, the bone mineral density of the spine is 0.931 g/cm2, corresponding to T-score of -1.1 and a Z score of 1.2. This is within the range of osteopenia. Using the left hip, the bone mineral density of the total hip is 0.654 g/cm2, corresponding to a T-score of -2.4 and a Z-score of -0.7 point. This is within the range of borderline osteoporosis. FRAX 10 year fracture risk is 2.5% for a hip fracture and present for a major osteoporotic fracture. NOTE: T-score: Standard deviation compared with peak bone mass of young adult mean. *Following the recommendations of the International Society of Bone densitometry, classification of hip BMD is based on the lower of two T-scores; total hip or femoral neck. IMPRESSION: 1. Bone mineral density of the lumbar spine within the range of osteopenia. 2. Bone mineral density of the left femoral neck within the range of borderline osteoporosis. Reviewed, Interpreted and Dictated by Marva Mancuso MD Transcribed by Dolores Pemberton Authenticated and . [facility]
--- OUTSIDE RECORDS SUMMARY | 2025-05-11 08:35 | XMS_ITS | Encounter Summary ---
Author Organization Healthcare Address [address] [place] [address] Care Team Providers Care Roofing Layer Name Role Phone Unavailable Primary Care Provider Unavailabl e Encounter Details Date Type Department Care Team (Late st Contact Info) Description 04/07/2025 Orders Only External Location [address] [phone] Provider, External Social History Tobacco Use Types Packs/Day Years Used Date Smoking Tobacco: Never Assessed Comments Unknown Sex and Gender Information Value Date Recorded Sex Assigned at Not on file Legal Sex Female 3:19 PM EDT Gender Identity Not on file Sexual Orientation Not on file documented as of this encounter Plan of Treatment Not on file documented as of this encounter Procedures Procedure Name Priority Date/Time Associated Diagnosis Comments CT NEURO OUTSIDE IMAGES 04/07/2025 1:27 PM EDT documented in this encounter Results * CT NEURO OUTSIDE IMAGES (04/07/2025 1:27 PM EDT) Anatomical Region Laterality Modality Computed Tomogra phy 04/07/2025 1:27 PM EDT us External Provider IMG CT PROCEDURES Final Result documented in this encounter Visit Diagnoses Not on filedocumented in this encounter
--- OUTSIDE RECORDS SUMMARY | 2025-05-11 08:35 | XMS_ITS | Encounter Summary ---
Author Organization [facility] Address [address] [place] [address] Care Team Providers Care Button Reclaimer Name Role Phone Unavailable Primary Care Provider Unavailabl e Encounter Details Date Type Department Care Team (Late st Contact Info) Description 04/07/2025 Orders Only External Location [address] [phone] Provider, External Social History Tobacco Use Types [...] Procedure Name Priority Date/Time Associated Diagnosis Comments XR OUTSIDE IMAGES 04/07/2025 1:34 PM EDT documented in this encounter Results * XR OUTSIDE IMAGES (04/07/2025 1:34 PM EDT) Anatomical Region Laterality Modality Radiographic Mari ging 04/07/2025 1:34 PM EDT us External Provider IMG XR PROCEDURES Final Result documented in this encounter Visit Diagnoses Not on filedocumented in this encounter
--- OUTSIDE RECORDS SUMMARY | 2025-05-11 08:35 | XMS_ITS | Encounter Summary ---
Author Organization Healthcare Address [address] [place] [address] Care Team Providers Care Supervisor Mill Name Role Phone Unavailable Primary Care Provider Unavailabl e Encounter Details Date Type Department Care Team (Late st Contact Info) Description 04/07/2025 Orders Only External Location [address] [phone] Provider, External Social History Tobacco Use Types [...] Diagnosis Comments CT NEURO OUTSIDE IMAGES 04/07/2025 1:25 PM EDT documented in this encounter Results * CT NEURO OUTSIDE IMAGES (04/07/2025 1:25 PM EDT) Anatomical Region Laterality Modality Computed Tomogra phy 04/07/2025 1:25 PM EDT us External Provider IMG CT PROCEDURES Final Result documented in this encounter Visit Diagnoses Not on filedocumented in this encounter
--- OUTSIDE RECORDS SUMMARY | 2025-05-11 08:35 | XMS_ITS | Clinical Summary ---
Author Organization [facility] Address [address] [place] [address] Care Team Providers Care Rotary Operator Name Role Phone Williams Falcon MD Primary Care Provider + [phone] Allergies No known active allergies Medications levothyroxine [...] Description 07/04/2025 10:00 AM EDT Office Visit [facility] [address] [phone] Gypsy Silva MD [address] [place] [address] Health Maintenance Due Date Last Done Comments [...] Completed 03/01/2021, 10/[address] [place] [address] MEDICARE A & B [facility] [place] Care Teams Rotary Operator Relationship Specialty Start Date End Date Williams Falcon MD [address] [facility] [address] [facility] [address] [place] [address] PCP - General Family Medicine 03/26/24
--- OUTSIDE RECORDS SUMMARY | 2025-05-11 08:35 | XMS_ITS | Encounter Summary ---
Author Organization Healthcare Address [address] [place] [address] Care Team Providers Care Electrician Constructor Supervisor Name Role Phone Unavailable Primary Care Provider Unavailabl e Encounter Details Date Type Department Care Team (Late st Contact Info) Description 04/07/2025 Orders Only External Location [address] [phone] Provider, External Social History Tobacco Use Types [...] Diagnosis Comments CT NEURO OUTSIDE IMAGES 04/07/2025 1:21 PM EDT documented in this encounter Results * CT NEURO OUTSIDE IMAGES (04/07/2025 1:21 PM EDT) Anatomical Region Laterality Modality Computed Tomogra phy 04/07/2025 1:21 PM EDT us External Provider IMG CT PROCEDURES Final Result documented in this encounter Visit Diagnoses Not on filedocumented in this encounter
--- OUTSIDE RECORDS SUMMARY | 2025-05-11 08:35 | XMS_ITS | Patient Health Record ---
[facility] Address [address] [facility] [address] [place] [id number] Care Team Providers Care Bundling Machine Operator Name Role Phone TerrieSerinaWilliams Primary Care Provider Richard Concepcion [phone] Allergies Allergen (clinical drug ingredient) Drug/Non Drug [...] Interpretation:see 11/26/24 Performing Lab: Notes/Report: see 11/26/24 Urinalysis - Inhouse Reviewed date:04/20/2025 12:08:36 PM [...] Interpretation:Normal Performing Lab: Notes/Report: Test performed by [employer] [facility] , [address], [place] [address] Yadiel Elliott MD, [employer] CLIA: [id number] Sodium 139 135-145 mmol/L Potassium 3.8 3.5-5.3 mmol/L Chloride 102 97-108 mmol/L CO2 22 20-32 mmol/L Glucose 103 65-99 mg/dL BUN 16 8-23 mg/dL Creatinine 0.56 0.50-1.00 mg/dL Calcium 9.3 8.6-10.4 mg/dL eGFR by Creatinine 96 >59 mL/min/1.73m2 Mammogram Reviewed date:12/07/2024 12:21:18 PM Interpretation:Negative Performing [...] AN EMPTY STOMACH FOR 90 DAYS Active Immunizations Vaccine Route Administration Date Status [...] Notes Problem Gastro-esophageal reflux disease without esophagitis (512687289) Gastro-esophageal reflux disease without esophagitis (K21.9) Active confirmed Problem Essential hypertension (41522181) Essential hypertension (I10) Active confirmed Problem Pancytopenia (512219895) Pancytopenia (D61.818) Active confirmed Problem Decrease in appetite (finding) (19996514) Decreased appetite (R63.0) Active confirmed Problem Paresthesia (33857322) Paresthesia (R20.2) Active confirmed Problem Mixed hyperlipidemia (610549797) Mixed hyperlipidemia (E78.2) Active confirmed Problem Age-related osteoporosis (106744743) Age-related osteoporosis without current pathological fracture (M81.0) Active confirmed Problem Acquired hypothyroidism (940702487) Acquired hypothyroidism (E03.9) Active confirmed Problem Anemia (181336671) Anemia, unspecified type (D64.9) Active confirmed Problem Osteoarthritis of knee (008584845) Primary osteoarthritis of both knees (M17.0) Active confirmed Problem Body mass index 30.00 to 34.99 (834247887065455) BMI 34.0-34.9,adult (Z68.34) Active confirmed Problem Leukopenia (53575244) Leukopenia, unspecified type (D72.819) Active confirmed Problem 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 Problem Carpal tunnel syndrome (34266162) Carpal tunnel syndrome on both sides (G56.03) Active confirmed Problem Obesity (744512098) Non morbid obesity (E66.9) Active confirmed Vital Signs Heart Rate 83 /min 04/20/2025 Blood pressure diastolic 70 mm Hg 04/20/2025 Height 65.50 in 04/20/2025 Blood pressure systolic 114 mm Hg 04/20/2025 Weight 180.2 lbs 10/15/2024 BMI 29.53 kg/m2 10/15/2024 Encounters Encounter Location Date Provider Diagnosis [facility] [address] [facility] [address] [place], [place] [id number] 10/15/2024 [place] Acquired hypothyroid ism E03.9 and Mixed hyperlipidemia E78.2 [facility] [address] [facility] [address] [place], [place] [id number] 04/20/2025 [facility] [place] Closed fracture of f irst lumbar vertebra, unspecified fracture morphology, initial encounter S32.019A ; Osteoporosis screening Z13.820 ; Dark urine R82.998 ; Anemia, unspecified type D64.9 and Pancytopenia D61.818 [facility] [address] [place], [place] [id number] 04/25/2025 [place] [facility] [address] [place], [place] [id number] 11/30/2024 [place] [facility] [address] [place], [place] [id number] 04/11/2025 [place] [facility] [address] [place], [place] [id number] 04/12/2025 Richard Concepcion Assessments Encounter Date Diagnosis (ICD Code) Assessment Notes Treatment Notes Treatment Clinical Notes Section Notes 10/15/2024 Mixed hyperlipidemia (ICD-10 - E78.2) 10/15/2024 Acquired hypothyroidism (ICD-10 - E03.9) 04/20/2025 Osteoporosis screening (ICD-10 - Z13.820) 04/20/2025 Closed fracture of first lumbar vertebra, unspecified fracture morphology, initial encounter (ICD-10 - S32.019A) 04/20/2025 Dark urine (ICD-10 - R82.998) 04/20/2025 Anemia, unspecified type (ICD-10 - D64.9) 04/20/2025 Pancytopenia (ICD-10 - D61.818) Plan Of Treatment Pending Test Test Name Order Date DEXA Hip and Spine 04/20/2025 Hemoccult- IFOBT (in house) 04/20/2025 Insurance Providers Payer Name Payer Address Payer Phone Subscriber Number Group Number Insured Name Patient Relationship to Insured Coverage Start Date Coverage End Date MEDICARE PART B [address] [address] [place] [id number] Marcia Carl Self - patient is the insured [facility] [address] [place] [address] [id number] Marcia Carl Self - patient is the insured Medications Administered Medication Instructions Date of Administration Dosage Notes Depo- Medrol 40 mg/ml 08/03/2014 1 mL Depo- Medrol 40 mg/ml 08/30/2014 1.5 mL Dexamethasone 09/14/2016 1 mL Medical (General) History 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 History ICD Code Graves Disease Allergic Rhinitis 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 Warren x2 03/2016 Hospitalization History Reason Date(Month/Year) [facility] Bronchitis, De[facility]- [facility] 09/10/20 15 Bronchitis- [facility] 09/08/2015 Pneumonia- [facility] 03/26- Knee Pain- [facility] 06/26/2012 Lymph removed from groin
--- OUTSIDE RECORDS SUMMARY | 2025-05-11 08:35 | XMS_ITS | Encounter Summary ---
Author Organization Healthcare Address [address] [place] [address] Care Team Providers Care Manager Food Name Role Phone Unavailable Primary Care Provider Unavailabl e Encounter Details Date Type Department Care Team (Late st Contact Info) Description 04/07/2025 Orders Only External Location [address] [phone] Provider, External Social History Tobacco Use Types [...] Name Priority Date/Time Associated Diagnosis Comments CT MSK OUTSIDE IMAGES 04/07/2025 1:32 PM EDT documented in this encounter Results * CT MSK OUTSIDE IMAGES (04/07/2025 1:32 PM EDT) Anatomical Region Laterality Modality Computed Tomogra phy 04/07/2025 1:32 PM EDT us External Provider IMG CT PROCEDURES Final Result documented in this encounter Visit Diagnoses Not on filedocumented in this encounter
--- OUTSIDE RECORDS SUMMARY | 2025-05-11 08:35 | XMS_ITS | Clinical Summary ---
Author Organization [facility] Address [address] [place] [address] Care Team Providers Care Technical Associate Name Role Phone Unavailable Primary Care Provider Unavailabl e Encounters Date Type Department Care Team Description 04/07/2025 Orders Only External Location [address] [place] [phone] Provider, External 04/07/2025 Orders Only External Location [address] [place] [phone] Provider, External 04/07/2025 Orders Only External Location [address] [place] [address] Provider, External 04/07/2025 Orders Only External Location [address] [place] [address] Provider, External 04/07/2025 Orders Only External Location [address] [phone] Provider, External 04/07/2025 Orders Only External Location [address] [place] [address] Provider, External from Last 3 Months Social History Tobacco Use Types Packs/Day Years [...] [facility]-Bone Density Scan 1950 [facility]-Depression Screening 1950 [facility]-Infant/Child/Adol SDOH Screenings 1950 [facility]- SDOH Screenings 1970 [facility]-Adult SDOH Screenings 1970 [facility]-DTaP,Tdap,and Td Vaccine s (1 - Tdap) 11/20/1996 11/19/1996 CT Colonography 1997 Colonoscopy 1997 FIT-DNA 1997 FIT 1997 FOBT 1997 Sigmoidoscopy 1997 [facility]-Colorectal Cancer Screening 1997 [facility]-Zoster Vaccines (1 of 2) 2002 [id number] Vaccine (1 - 2023- season) 2024 [facility]-Influenza Vaccine (#1) 2025 [facility]-RSV [...] on patient's age to complete this topic Procedures Procedure Name Priority Date/Time Associated Diagnosis Comments XR OUTSIDE IMAGES 04/07/2025 1:[address] MSK OUTSIDE IMAGES 04/07/2025 1:[address] NEURO OUTSIDE IMAGES 04/07/2025 1:[address] NEURO OUTSIDE IMAGES 04/07/2025 1:[address] NEURO OUTSIDE IMAGES 04/07/2025 1:[address] NEURO OUTSIDE IMAGES 04/07/2025 1:21 PM EDT from Last 3 Months Results * XR OUTSIDE IMAGES (04/07/2025 1:34 PM EDT) Anatomical Region Laterality Modality Radiographic Mari ging 04/07/2025 1:34 PM EDT us External Provider IMG XR PROCEDURES Final Result * CT MSK OUTSIDE IMAGES (04/07/2025 1:32 PM EDT) Anatomical Region Laterality Modality Computed Tomogra phy 04/07/2025 1:32 PM EDT us External Provider IMG CT PROCEDURES Final Result * CT NEURO OUTSIDE IMAGES (04/07/2025 1:30 PM EDT) Only the most recent of4 resultswithin the time period is included. Anatomical Region Laterality Modality Computed Tomogra phy 04/07/2025 1:30 PM EDT us External Provider IMG CT PROCEDURES Final Result from Last 3 Months
--- OUTSIDE RECORDS SUMMARY | 2025-05-11 08:36 | XMS_ITS | Encounter Summary ---
Author Organization Healthcare Address [address] [place] [address] Care Team Providers Care Sampler First Name Role Phone Unavailable Primary Care Provider Unavailabl e Encounter Details Date Type Department Care Team (Late st Contact Info) Description 04/07/2025 Orders Only External Location [address] [phone] Provider, External Social History Tobacco Use Types [...] Diagnosis Comments CT NEURO OUTSIDE IMAGES 04/07/2025 1:30 PM EDT documented in this encounter Results * CT NEURO OUTSIDE IMAGES (04/07/2025 1:30 PM EDT) Anatomical Region Laterality Modality Computed Tomogra phy 04/07/2025 1:30 PM EDT us External Provider IMG CT PROCEDURES Final Result documented in this encounter Visit Diagnoses Not on filedocumented in this encounter
== END 2025-05-11 23:59 | disposition home or self-care (01) ==
LOC: RAD 08:32
PROVIDERS: PCP Family Medicine; Visit Provider Family Medicine
DX: M81.0 Age-related osteoporosis without current pathological fracture (principal); M85.88 Other specified disorders of bone density and structure, other site; Z78.0 Asymptomatic menopausal state
CPT/HCPCS: 77080

== ENCOUNTER 2025-05-26 14:18 | Outpatient (CLI) | payer MEDICARE, BC, SELFPAY ==
--- OUTSIDE RECORDS SUMMARY | 2024-04-02 11:45 | XMS_ITS ---
Author Organization [facility] Address [address] [facility] [address] [place] [id number] Care Team Providers Care Buzzsaw Operator Helper Name Role Phone Williams Falcon Primary Care Provider [phone] Allergies Allergen (clinical drug ingredient) Drug/Non Drug Allergy documented on EMR Reaction Allergy Type Onset Date Status codeine Codeine vomiting Drug Allergy Active REASON FOR VISIT left lower leg sore and warm Medications Medication SIG (Take, Route, Fr equency, Duration) Notes Start Date End Date Status Calcium Citrate 250 MG 1 tab(s) orally 2 times a day 07/22/2011 Active Centrum Silver - 1 tab(s) orally once a day Active Euthyrox 175 MCG 1 tablet in the morn ing on an empty stomach Orally Once a day; Duration: 90 days 07/22/2023 Active Vital Signs Weight 170 lbs 04/02/2024 Blood pressure systolic 108 mm Hg 04/02/20 24 Blood pressure diastolic 70 mm Hg 024 Heart Rate 70 /min 04/02/2024 Height 65.50 in 04/02/2024 BMI 27.86 kg/m2 04/02/2024 Encounters Encounter Location Date Provider Diagnosis [facility] [address] [facility] [address] [place] [id number] 04/02/2024 Williams Falcon Pain in left lower l eg M79.662 Assessments Encounter Date Diagnosis (ICD Code) Assessment Notes Treatment Notes Treatment Clinical Notes Section Notes 04/02/2024 Pain in left lower leg (ICD-10 - M79.662) Patient seems to have a superficial thrombophlebitis . Plan symptomatic treatment Plan Of Treatment Treatment Notes Assessment Notes Pain in left lower leg Patient seems to have a superficial thrombophlebitis. Plan symptomatic treatment Next Appt Details Follow Up: via phone to repo rt progress, Reason: Provider Name:Mallorie cano, 05/26/2025 02:08:00 PM, [address], [address], [place], [phone], Progress Notes * Sierra BROWNOB:1950 ( 74 yo F)Acc No.[id number]:04/02/2024 Progress Notes Patient: Marcia GERARD Provider: Odin Falcon M.D. :1950 A ge:73 Y S ex:Female Date:04/02/2024 Address:[facility] [address], [place], [id number] Subjective: * Chief Complaints: * 1 . Left lower leg sore and warm. * HPI: D ermatology: 73 year old female presents with c/o redness P t complains of Lt lower leg swelling and redness that is warm to the touch. States she has seen Dr. Venu Carlson in [place] at [facility] several times over the last 18 months. Pt states he did not help her with this issue and she is really concerned. She was told she has superficial vein thrombosis.? * ROS: C ARDIOLOGY: no D izziness. n o C hest pain. G ASTROENTEROLOGY: no N ausea. n o V omiting. U ROLOGY: no D ifficulty urinating. n o B lood in urine. 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 * Surgical History: T ubal Ligation 1979, Rectal Hernia Repair 2005, Transvaginal Taping 2005, RT Eye Cataract 11/26/2011, LT Knee Surgery 08/2012, Mole Removal - Dr. Warren x2 03/2016. * Hospitalization/Major Diagno stic Procedure: L ymph removed from groin , Knee Pain- [facility] 06/26/2012, Pneumonia- [facility] 03/26-, Bronchitis- [facility] 09/08/2015, Bronchitis, Dehydration- [facility] 09/10/2015, [place] [facility] [place]. * Family History: F ather: . M other: , breast cancer, diabetes, hypertension. S iblings: brother, hypertension, diabeties. 2 brother(s) , 2 sister(s) . 1 son(s) , 1 daughter(s) - healthy. . * Social History: C URRENT TOBACCO USE S moking Status: Patient does NOT smoke. C affeine: yes, frequency:2-4 a day. Marital Status: . Past smoking status: no, Smoking status: Does not smoke. Alcohol: Yes, Type: , Frequency: ,Years: , Determination:, rare. * Medications: T aking Calcium Citrate 250 MG Tablet 1 tab(s) orally 2 times a day , Taking Centrum Silver - Tablet 1 tab(s) orally once a day , Taking Euthyrox 175 MCG Tablet 1 tablet in the morning on an empty stomach Orally Once a day , Medication List reviewed and reconciled with the patient * Allergies: C odeine: vomiting. Objective: * Vitals: W t:170, Temp:98.0, BP:108/70, HR:70, Nurse:diane, Ht: 65.50, BMI:27.86. * Examination: G eneral Examination: General Appearance: N AD. H eart: R SR. L ungs:?clear to auscultation. E xtremities: m edial portion of left distal leg with a small area of dull skin redness and warmth. Assessment: * Assessment: 1. P ain in left lower leg - M79.662 (Primary) Plan: * Treatment: * Procedure Codes: G 2211 Complex e/m visit add on * Follow Up: v ia phone to report progress * Images: Billing Information: * Visit Code: 58287 Office Visit, Est Pt., Level 3. * Procedure Codes: G2211 Complex e/m visit add on. * Electronic signature of Maria A Falcon MD on 05/26/2025 at 02:45 PM EDT Sign off status: Pending * Provider: Odin Falcon M.D. Date: 0 04/02/2024 Generated for Beatriz espinosa/Shola/Jorgesmitting on: 0 05/26/2025 02:45 PM EDT History and Physical Notes * HPI (History of Present Illness) Category Sub-Category Detail Notes Category Not es Dermatology redness Pt complains of Lt lower leg swelling and redness that is warm to the touch. States she has seen Dr. Venu Carlson in [place] at [facility] center several times over the last 18 months. Pt states he did not help her with this issue and she is really concerned. She was told she has superficial vein thrombosis Examination Category Sub-Category Detail Notes Category Not es General Examination Heart: RSR Lungs: clear to auscultatio n Extremities: medial portion of le ft distal leg with a small area of dull skin redness and warmth General Appearance: NAD
--- OUTSIDE RECORDS SUMMARY | 2024-10-15 07:30 | XMS_ITS ---
Author Organization [facility] Address [address] [facility] [address] [place] [id number] Care Team Providers Care Vp Foundation Name Role Phone Williams Falcon Primary Care Provider [phone] Allergies Allergen (clinical drug ingredient) Drug/Non Drug [...] [address] [place] [phone] 10/15/2024 Williams Falcon Acquired hypothyroid ism E03.9 [...] phone to repo rt test results, Reason: Provider Name:Mallorie Alexander jerome, 05/26/2025 02:08:00 PM, [address], [address], [place], [phone], Progress Notes * Darling BROWNDadaOB:1950 ( 74 yo F)Acc No.[id number]:10/15/2024 Progress Notes Patient: Marcia GERARD Provider: Odin Falcon M.D. :1950 A ge:74 Y S ex:Female Date:10/15/2024 Address:[address] [place] [address] , [place], [id number] Subjective: * Chief Complaints: * 1 . 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 * Surgical History: T ubal Ligation 1979, Rectal Hernia Repair 2005, Transvaginal Taping 2005, RT Eye Cataract 11/26/2011, LT Knee Surgery 08/2012, Mole Removal - Dr. Warren x2 03/2016. * Hospitalization/Major Diagno stic Procedure: L ymph removed from groin , Knee Pain- [facility] 06/26/2012, Pneumonia- [facility] 03/26-, Bronchitis- [facility] 09/08/2015, Bronchitis, Dehydration- [facility] 09/10/2015, URI- [facility] 01/25/2018. * Family History: F ather: . [...] * Images: Billing Information: * Visit Code: 76943 Office Visit, Est Pt., Level 3. * Procedure Codes: G2211 Complex e/m visit add on. 3074F SYST BP LT 130 MM HG. 3078F DIAST BP < 80 MM HG. * Electronic signature of Maria A Falcon MD on 05/26/2025 at 02:44 PM EDT Sign off status: Pending * Provider: Odin Falcon M.D. Date: 0 10/15/2024 Generated for Beatriz espinosa/Shola/Jorgesmitting on: 0 05/26/2025 02:44 PM EDT History and Physical Notes * [...]
--- OUTSIDE RECORDS SUMMARY | 2025-04-20 07:15 | XMS_ITS ---
Author Organization [facility] Address [address] [facility] [address] [place] [id number] Care Team Providers Care Field Installation Technician Name Role Phone Williams Falcon Primary Care Provider Allergies Allergen (clinical drug ingredient) Drug/Non Drug Allergy documented on EMR Reaction Allergy Type Onset Date Status codeine Codeine vomiting Drug Allergy Active Results Component Value Reference Range Notes Urinalysis - Inhouse Reviewed date:04/20/2025 12:08:36 PM Interpretation: Performing Lab: Notes/Report: Color/Clarity Straw/Clear Leuk Neg Nitrite Neg Urobili >=131 Protein Neg pH 6.5 Blood Neg Sp. Gr. 1.020 Ketone Neg Bili Neg Gluc Neg CBC Venipuncture (in house) Reviewed date:04/20/2025 12:08:47 PM Interpretation: Performing Lab: Notes/Report: wbc 2.3 3.5 - 10 lymph 36.2% 15 - 50 mid 7.2% 2 - 15 gran 56.6% 35 - 80 rbc 3.64 3.5 - 5.5 hgb 10.5 11.5 - 16.5 hct 32.2 35 - 55 mcv 88.8 75 - 100 mch 29.0 25 - 35 mchc 32.6 31 - 38 platlet 260 100 - 400 P-Basic Metabolic Panel (BMP ) Reviewed date:05/02/2025 01:45:21 PM Interpretation:Normal Performing Lab: Notes/Report: Test performed by [employer], [email or web address] [address] [place] [address] , [address], [place] [address] Yadiel Elliott MD, Hand Blocker CLIA: [id number] Sodium 139 135-145 mmol/L Potassium 3.8 3.5-5.3 mmol/L Chloride 102 97-108 mmol/L CO2 22 20-32 mmol/L Glucose 103 65-99 mg/dL BUN 16 8-23 mg/dL Creatinine 0.56 0.50-1.00 mg/dL Calcium 9.3 8.6-10.4 mg/dL eGFR by Creatinine 96 >59 mL/min/1.73m2 REASON FOR VISIT f/u for L1 fracture Medications Medication SIG (Take, Route, Frequency, Duration) Notes Start Date End Date Status Centrum Silver - 1 tab(s) orally once a day Active Calcium Citrate 250 MG 1 tab(s) orally 2 times a day 07/22/2011 Active Levothyroxine Sodium 175 MCG TAKE 1 TABL ET BY MOUTH ONCE DAILY ON AN EMPTY STOMACH FOR 90 DAYS Active Problems Problem Type SNOMED Code ICD Code Onset Dates Problem Status W/U Status Risk Notes Problem Anemia (899540478) Anemia, unspecified type (D64.9) Active confirmed Vital Signs Blood pressure systolic 114 mm Hg 04/20/20 25 Blood pressure diastolic 70 mm Hg 025 Heart Rate 83 /min 04/20/2025 Height 65.50 in 04/20/2025 Encounters Encounter Location Date Provider Diagnosis [facility] 12[address] [facility] [address] [phone] 04/20/2025 Williams Falcon Closed fracture of f irst lumbar vertebra, unspecified fracture morphology, initial encounter S32.019A ; Osteoporosis screening Z13.820 ; Dark urine R82.998 ; Anemia, unspecified type D64.9 and Pancytopenia D61.818 Assessments Encounter Date Diagnosis (ICD Code) Assessment Notes Treatment Notes Treatment Clinical Notes Section Notes 04/20/2025 Closed fracture of first lumbar vertebra, unspecified fracture morphology, initial encounter (ICD-10 - S32.019A) 04/20/2025 Osteoporosis screening (ICD-10 - Z13.820) 04/20/2025 Dark urine (ICD-10 - R82.998) 04/20/2025 Anemia, unspecified type (ICD-10 - D64.9) 04/20/2025 Pancytopenia (ICD-10 - D61.818) Plan Of Treatment Pending Test Test Name Order Date Hemoccult- IFOBT (in house) 04/20/2025 Next Appt Details Follow Up: via phone to repo rt test results, Reason: Provider Name:Mallorie cano, 05/26/2025 02:08:00 PM, [address], [address], [place], [phone], Progress Notes * Sierra BROWNOB:1950 ( 74 yo F)Acc No.[id number]:04/20/2025 Patient: Marcia GERARD Provider: Odin Falcon M.D. :1950 A ge:74 Y S ex:Female Date:04/20/2025 Address:[address] [place] [address] , [place], [id number] Subjective: * Chief Complaints: * 1 . f/u for L1 fracture. * HPI: H PI: 74 year old female presents with c/o Here for follow up on:?04/07/2025 [facility] hospitalization. Pt was taken to er for a fall. Pt dx with closed compression fracture of L1 vertebra. Pt states she is still having a lot of pain but has stopped taking Hydrocodone due to it causing constipation . * ROS: D ERMATOLOGY: no R dylan. n o H cuca. G ASTROENTEROLOGY: no N ausea. n o V omiting. U ROLOGY: no D ifficulty urinating. n o B lood in urine. 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 * Surgical History: T ubal Ligation 1979, Rectal Hernia Repair 2005, Transvaginal Taping 2005, RT Eye Cataract 11/26/2011, LT Knee Surgery 08/2012, Mole Removal - Dr. Warren x2 03/2016. * Hospitalization/Major Diagno stic Procedure: L ymph removed from groin , Knee Pain- [facility] ER 06/26/2012, Pneumonia- [facility] ER 03/26-, Bronchitis- [facility] ER 09/08/2015, Bronchitis, Dehydration- [facility] ER 09/10/2015, URI- [facility] 01/25/2018. * Family History: F ather: . M other: , breast cancer, diabetes, hypertension. S iblings: brother, hypertension, diabeties. 2 brother(s) , 2 sister(s) . 1 son(s) , 1 daughter(s) - healthy. . * Social History: C URRENT TOBACCO USE: No . C affeine: yes, frequency:2-4 a day. Marital [...] AN EMPTY STOMACH FOR 90 DAYS , Discontinued HYDROcodone-Acetaminophen 5-325 MG Tablet 1 tablet as needed Orally every 8 hrs , Medication List reviewed and reconciled with the patient * Allergies: C odeine: vomiting. Objective: * Vitals: W t: Not Taken - Declined by Patient, Temp: 98.1, BP: 114/70, HR: 83, Nurse: diane, Ht: 65.50. * Examination: G eneral Examination: General Appearance: N AD, sitting in a wheelchair. H eart: R SR. L ungs: c lear to auscultation. P eripheral pulses: n ormal (2+) bilaterally. E xtremities: n o leg edema. Assessment: * Assessment: 1. C losed fracture of first lumbar vertebra, unspecified fracture morphology, initial encounter - S32.019A (Primary) 2 . O steoporosis screening - Z13.820 3 .?Dark urine - R82.998 4 . A nemia, unspecified type - D64.9 5. P ancytopenia - D61.818 Plan: * Treatment: Value Reference Range B UN 16 8-23 - mg/dL * C alcium 9.3 8.6-10.4 - mg/dL * C hloride 102 97-108 - mmol/L * C O2 22 20-32 - mmol/L * C reatinine 0.56 0.50-1.00 - mg/dL * G lucose 103 H 65-99 - mg/dL * P otassium 3.8 3.5-5.3 - mmol/L * S odium 139 135-145 - mmol/L * e GFR by Creatinine 96 >59 - mL/min/1.73m2 * Williams Falcon 04/21/2025 1 2:38:48 PM EDT >Lab results are satisfactory, sent to to inform.Janis Fortune 05/02/2025 01:44:29 PM EDT > pt informed. ?LAB: Urinalysis - Inhouse (Collection Date & Time - 04/20/2025)* Value Reference Range C olor/Clarity Straw/Clear * L euk Neg * N itrite Neg * U robili >=131 * P rotein Neg * p H 6.5 * B lood Neg * S p. Gr. 1.020 * K etone Neg * B johny Neg * G jm Neg * Sharona Dan 04/20/2025 12:01:5 5 PM EDT > Provider reviewed results while patient in office. ?LAB: CBC Venipuncture (in house) (Collection Date & Time - 04/20/2025)* Value Reference Range w bc 2.3 3.5 - 10 * l ymph 36.2% 15 - 50 * m id 7.2% 2 - 15 * g ran 56.6% 35 - 80 * r bc 3.64 3.5 - 5.5 * h gb 10.5 11.5 - 16.5 * h ct 32.2 35 - 55 * m cv 88.8 75 - 100 * m ch 29.0 25 - 35 * m chc 32.6 31 - 38 * p latlet 260 100 - 400 * Sharona Dan 04/20/2025 12:00:1 0 PM EDT > Provider reviewed results while patient in office. 2.?Anemia, unspecified type?LAB: Hemoccult- IFOBT (in house) * Procedure Codes: G 2211 Complex e/[place], [address] CBC WITH AUTO DIFF, 26333 Urinalysis, no micro, 1036F TOBACCO NON-USER, G8783 BP SCR PRFRM RCMDD DEFIND SCR INTVL, G8752 MOST RECENT SYSTOLIC BP < 140MM HG, G8754 MOST RECENT DIASTOLIC BP < 90MM HG, G9899 Scrn clifford perf rslts doc * Preventive Medicine: Screening / Special Tests: M ammogram , negative. B one mineral Density o rdered today. * Follow Up: v ia phone to report test results * Images: Drawing:[address] [facility] 2024 Billing Information: * Visit Code: 83835 Office Visit, Est Pt., Level 4. * Procedure Codes: G2211 Complex e/[place]. [address] CBC WITH AUTO DIFF. 67165 Urinalysis, no micro. 1036F TOBACCO NON-USER. G8783 BP SCR PRFRM RCMDD DEFIND SCR INTVL. G8752 MOST RECENT SYSTOLIC BP < 140MM HG. G8754 MOST RECENT DIASTOLIC BP < 90MM HG. G9899 Scrn clifford perf rslts doc. * Electronic signature of Maria A Falcon MD on 05/26/2025 at 02:44 PM EDT Sign off status: Pending * Provider: Odin Falcon M.D. Date: 0 04/20/2025 Generated for Beatriz espinosa/Shola/Sunniitting on: 0 05/26/2025 02:44 PM EDT History and Physical Notes * HPI (History of Present Illness) Category Sub-Category Detail Notes Category Not es HPI Here for follow up on: 5 [facility] hospitalization. Pt was taken to er for a fall. Pt dx with closed compression fracture of L1 vertebra. Pt states she is still having a lot of pain but has stopped taking Hydrocodone due to it causing constipation Examination Category Sub-Category Detail Notes Category Not es General Examination Heart: RSR Lungs: clear to auscultatio n Extremities: no leg edema General Appearance: NAD, sitting in a wh eelchair Peripheral pulses: normal (2+) bilatera lly
--- OUTSIDE RECORDS SUMMARY | 2025-04-22 07:00 | XMS_ITS ---
Author Organization [facility] Address [facility] [facility] [address] [place] [phone] Care Team Providers Care [employer] Name Role Phone Williams Falcon Primary Care Provider REASON FOR VISIT f/u for L1 fracture Encounters Encounter Location Date Provider Diagnosis [facility] [address] [place] [phone] 04/22/2025 Williams Falcon Plan Of Treatment Next Appt Details Provider Name:Mallorie cano, 05/26/2025 02:08:00 PM, [address], [address], [place], [phone], Progress Notes * Sierra BROWNOB:1950 ( 74 yo F)Acc No.[id number]:04/22/2025 Progress Notes Patient: Marcia GERARD Provider: Odin Falcon M.D. :1950 A ge:74 Y S ex:Female Date:04/22/2025 Address:[place] [address] [place], [id number] Subjective: * Chief Complaints: * 1 . f/u for L1 fracture. * 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: Objective: * Vitals: Assessment: Plan: * Treatment: * Images: Billing Information: * Visit Code: * Procedure Codes: * Electronic signature of Maria A Falcon MD on 05/26/2025 at 02:44 PM EDT Sign off status: Pending * Provider: Odin Falcon M.D. Date: 0 04/22/2025 Generated for Beatriz espinosa/Shola/Latonya on: 0 05/26/2025 02:44 PM EDT
--- NOTE | 2025-05-26 14:26 | XR_ITS ---
FINAL REPORT CLINICAL HISTORY: CLOSED FRACTURE COMPARISON: 05/25/2021 FINDINGS: AP, lateral, and oblique views of the lumbar spine were obtained. There is a stable compression deformity involving the superior endplate of L3. There is a new compression fracture of L1 with 75% loss of anterior height. Multilevel degenerative disc disease is identified. No acute paraspinal abnormality is identified. IMPRESSION: Stable compression deformity of L3. Age-indeterminate compression fracture of L1. Consider MRI. Reviewed, Interpreted and Dictated by Marva Mancuso MD Transcribed by Luisa Foss Authenticated and [facility]
--- OUTSIDE RECORDS SUMMARY | 2025-05-26 14:44 | XMS_ITS | Clinical Summary ---
Author Organization [facility] Address [address] [place] [address] Care Team Providers Care Hoop Driving Machine Operator Name Role Phone Williams Falcon MD Primary Care Provider + [phone] Allergies No known active allergies Medications levothyroxine [...] Description 07/04/2025 10:00 AM EDT Office Visit [facility] C[facility]IOLOGY [address] [place] [phone] Gypsy Silva MD [address] [place] [address] Health Maintenance Due Date Last Done Comments [...] C SCREENING 04/09/2024 COVID-19 Vaccine ( season) 2025 INFLUENZA VACCINE 06/15/2025 07/08/2019, , 09/25/2017 Pneumococcal Vaccine 50+ Completed 03/01/2021, 10/[address] [place] [address] MEDICARE A & B [facility] Care Teams Hoop Driving Machine Operator Relationship Specialty Start Date End Date Wililams Falcon MD [address] [facility] [address] [facility] [address] [place] [address] PCP - General Family Medicine 03/26/24
--- OUTSIDE RECORDS SUMMARY | 2025-05-26 14:44 | XMS_ITS ---
Author Organization Unknown [facility] Start Date Provider Encounter for Check-up [id number] [facility]
--- OUTSIDE RECORDS SUMMARY | 2025-05-26 14:44 | XMS_ITS | Clinical Summary ---
Author Organization [facility] Address [address] [place] [address] Care Team Providers Care Iron Caster Name Role Phone Unavailable Primary Care Provider Unavailabl e Encounters Date Type Department Care Team Description 04/07/2025 Orders Only External Location [address] [place] [phone] Provider, External 04/07/2025 Orders Only External Location [address] [place] [phone] Provider, External 04/07/2025 Orders Only External Location [address] [place] [address] Provider, External 04/07/2025 Orders Only External Location [address] [place] [address] Provider, External 04/07/2025 Orders Only External Location [address] [place] [phone] Provider, External 04/07/2025 Orders Only External Location [address] [place] [address] Provider, External from Last 3 [...] 1997 UKY-Zoster Vaccines (1 of 2) 2002 [id number] Vaccine (1 - 2023- season) 2024 UKY-Influenza [...]
--- OUTSIDE RECORDS SUMMARY | 2025-05-26 14:45 | XMS_ITS | Encounter Summary ---
Author Organization [facility] Address [address] [place] [address] Care Team Providers Care Computer Systems Hardware Analyst Name Role Phone Unavailable Primary Care Provider Unavailabl e Encounter Details Date Type Department Care Team (Late st Contact Info) Description 04/07/2025 Orders Only External Location [address] [place] [phone] Provider, External Social History Tobacco Use Types [...]
--- OUTSIDE RECORDS SUMMARY | 2025-05-26 14:45 | XMS_ITS | Patient Health Record ---
[facility] Address [address] [facility] [address] [place] [id number] Care Team Providers Care Fire Ranger Name Role Phone Serina Falconian Primary Care Provider Richard Concepcion Unavailable [phone] Mallorie Kruse Unavailable [phone] Allergies Allergen (clinical drug ingredient) Drug/Non Drug [...] Interpretation:Normal Performing Lab: Notes/Report: Test performed by [facility], [address] , [address], [place] [address] Yadiel Elliott MD, Gas Engine Operator CLIA: [id number] Sodium 139 135-145 mmol/L Potassium 3.8 3.5-5.3 mmol/L Chloride 102 97-108 mmol/L CO2 22 20-32 mmol/L Glucose 103 65-99 mg/dL BUN 16 8-23 mg/dL Creatinine 0.56 0.50-1.00 mg/dL Calcium 9.3 8.6-10.4 mg/dL eGFR by Creatinine 96 >59 mL/min/1.73m2 DEXA Hip and Spine Reviewed date:05/12/2025 08:57:32 AM Interpretation:osteopenia and osteoporosis Performing Lab: Notes/Report: osteopenia and osteoporosis Dexa results osteopenia and osteoporosis Mammogram Reviewed date:12/07/2024 12:21:18 PM Interpretation:Negative Performing [...] orally 2 times a day 07/22/2011 Not-Taking Methocarbamol 500 MG 1 tablet at night a s needed Orally daily; Duration: 30 days 05/26/2025 Active Levothyroxine Sodium 175 MCG 1 [...] Notes Problem Gastro-esophageal reflux disease without esophagitis (874412727) Gastro-esophageal reflux disease without esophagitis (K21.9) Active confirmed Problem Essential hypertension (82827556) Essential hypertension (I10) Active confirmed Problem Pancytopenia (160528634) Pancytopenia (D61.818) Active confirmed Problem Decrease in appetite (finding) (77271437) Decreased appetite (R63.0) Active confirmed Problem Paresthesia (21619904) Paresthesia (R20.2) Active confirmed Problem Mixed hyperlipidemia (658403785) Mixed hyperlipidemia (E78.2) Active confirmed Problem Age-related osteoporosis (585380520) Age-related osteoporosis without current pathological fracture (M81.0) Active confirmed Problem Acquired hypothyroidism (876929474) Acquired hypothyroidism (E03.9) Active confirmed Problem Anemia (798534591) Anemia, unspecified type (D64.9) Active confirmed Problem Osteoarthritis of knee (388932878) Primary osteoarthritis of both knees (M17.0) Active confirmed Problem Body mass index 30.00 to 34.99 (905913208524090) BMI 34.0-34.9,adult (Z68.34) Active confirmed Problem Leukopenia (20849943) Leukopenia, unspecified type (D72.819) Active confirmed Problem 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 Problem Carpal tunnel syndrome (19029007) Carpal tunnel syndrome on both sides (G56.03) Active confirmed Problem Obesity (238600272) Non morbid obesity (E66.9) Active confirmed Vital Signs Heart Rate 99 /min 05/26/2025 Blood pressure diastolic 86 mm Hg 05/26/2025 Height 65.50 in 05/26/2025 Blood pressure systolic 120 mm Hg 05/26/2025 Weight 165.2 lbs 05/26/2025 BMI 27.07 kg/m2 05/26/2025 Encounters Encounter Location Date Provider Diagnosis [facility] [address] [place], [place] [id number] 10/15/2024 Williams Granger Acquired hypothyroid ism E03.9 and Mixed hyperlipidemia E78.2 [facility] [address] [place], [place] [id number] 04/20/2025 Williams Granger Closed fracture of f irst lumbar vertebra, unspecified fracture morphology, initial encounter S32.019A ; Osteoporosis screening Z13.820 ; Dark urine R82.998 ; Anemia, unspecified type D64.9 and Pancytopenia D61.818 [facility] [address] [place], [place] [id number] 05/26/2025 Mallorie Crowdy Closed fracture of f irst lumbar vertebra, unspecified fracture morphology, initial encounter S32.019A and Muscle spasm of back M62.830 [facility] [address] [place], [place] [id number] 04/25/2025 Williams Granger [facility] [address] [place], [place] [id number] 11/30/2024 Williams Granger [facility] [address] [place], [place] [id number] 04/11/2025 Williams Granger [facility] [address] [place], [place] [id number] 04/12/2025 R Kushal Concepcion [facility] [address] [place], [place] [id number] 05/12/2025 Williams Granger [facility] [address] [facility] [address] [place], [place] [id number] 05/26/2025 Mallorie Crowdy Muscle spasm of back M62.830 Assessments Encounter Date Diagnosis (ICD Code) Assessment Notes Treatment Notes Treatment Clinical Notes Section Notes 10/15/2024 Mixed hyperlipidemia (ICD-10 - E78.2) 10/15/2024 Acquired hypothyroidism (ICD-10 - E03.9) 04/20/2025 Osteoporosis screening (ICD-10 - Z13.820) 04/20/2025 Closed fracture of first lumbar vertebra, unspecified fracture morphology, initial encounter (ICD-10 - S32.019A) 05/26/2025 Muscle spasm of back (ICD-10 - M62.830) 05/26/2025 Closed fracture of first lumbar vertebra, unspecified fracture morphology, initial encounter (ICD-10 - S32.019A) 05/26/2025 Muscle spasm of back (ICD-10 - M62.830) 04/20/2025 Dark urine (ICD-10 - R82.998) 04/20/2025 Anemia, unspecified type (ICD-10 - D64.9) 04/20/2025 Pancytopenia (ICD-10 - D61.818) Plan Of Treatment Pending Test Test Name Order Date X ray : Spine, lumbosacral 05/26/2025 Hemoccult- IFOBT (in house) 04/20/2025 Next Appt Details Provider Name:Mallorie cano, 05/26/2025 02:08:00 PM, [address], [place], [place], [id number], Insurance Providers Payer Name Payer Address Payer Phone Subscriber Number Group Number Insured Name Patient Relationship to Insured Coverage Start Date Coverage End Date MEDICARE PART B [address] [address] [place] [id number] [phone] [id number] Marcia Carl Self - patient is the insured [facility] [address] [place] [address] [id number] Marcia Carl Self - patient is the insured Medications Administered Medication Instructions Date of Administration Dosage Notes Depo- Medrol 40 mg/ml 08/03/2014 1 mL Depo- Medrol 40 mg/ml 08/30/2014 1.5 mL Dexamethasone 09/14/2016 1 mL Medical (General) History 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 History ICD Code Graves Disease Allergic Rhinitis [facility] - Dr. Oliverio Tatum Hiatal Hernia LT ACL tear 2011 Osteoporosis Esophageal reflux kidney stones March 15, 2017 varicose veins Compression fracture, Lumbar 2024 Surgical History Surgery Date(Month/Year) Tubal Ligation 1980 Rectal Hernia Repair 2005 Transvaginal Taping 2005 RT Eye Cataract 11/26/2011 LT Knee Surgery 08/2012 Mole Removal - Dr. Warren x2 03/2016 Hospitalization History Reason Date(Month/Year) URI- [facility] UTC 01/25/2018 Bronchitis, Dehydration- [facility] ER 09/10/20 15 Bronchitis- [facility] ER 09/08/2015 Pneumonia- [facility] ER 03/26- Knee Pain- [facility] ER 06/26/2012 Lymph removed from groin
--- OUTSIDE RECORDS SUMMARY | 2025-05-26 14:45 | XMS_ITS | Encounter Summary ---
Author Organization [facility] Address [address] [place] [address] Care Team Providers Care Supervisor Pumping Name Role Phone Unavailable Primary Care Provider Unavailabl e Encounter Details Date Type Department Care Team (Late st Contact Info) Description 04/07/2025 Orders Only External Location [address] [place] [phone] Provider, External Social History Tobacco Use Types [...]
--- OUTSIDE RECORDS SUMMARY | 2025-05-26 14:45 | XMS_ITS | Encounter Summary ---
Author Organization [facility] Address [address] [place] [address] Care Team Providers Care Hoisting Pile Driving Engineer Name Role Phone Unavailable Primary Care Provider Unavailabl e Encounter Details Date Type Department Care Team (Late st Contact Info) Description 04/07/2025 Orders Only External Location [address] [place] [phone] Provider, External Social History Tobacco Use Types [...]
--- OUTSIDE RECORDS SUMMARY | 2025-05-26 14:45 | XMS_ITS | Encounter Summary ---
Author Organization [facility] Address [address] [place] [address] Care Team Providers Care Cna Pct Name Role Phone Unavailable Primary Care Provider Unavailabl e Encounter Details Date Type Department Care Team (Late st Contact Info) Description 04/07/2025 Orders Only External Location [address] [place] [phone] Provider, External Social History Tobacco Use Types [...]
--- OUTSIDE RECORDS SUMMARY | 2025-05-26 14:45 | XMS_ITS | Encounter Summary ---
Author Organization [facility] Address [address] [place] [address] Care Team Providers Care Body Finisher Name Role Phone Unavailable Primary Care Provider Unavailabl e Encounter Details Date Type Department Care Team (Late st Contact Info) Description 04/07/2025 Orders Only External Location [address] [place] [phone] Provider, External Social History Tobacco Use Types [...]
--- OUTSIDE RECORDS SUMMARY | 2025-05-26 14:46 | XMS_ITS | Encounter Summary ---
Author Organization [facility] Address [address] [place] [address] Care Team Providers Care Chairman & Chief Executive Officer Name Role Phone Unavailable Primary Care Provider Unavailabl e Encounter Details Date Type Department Care Team (Late st Contact Info) Description 04/07/2025 Orders Only External Location [address] [place] [phone] Provider, External Social History Tobacco Use Types [...]
== END 2025-05-26 23:59 | disposition home or self-care (01) ==
LOC: RAD 14:19
PROVIDERS: PCP Family Medicine; Visit Provider Physician Assistant
DX: S32.030A Wedge compression fracture of third lumbar vertebra, initial encounter for closed fracture (principal); S32.010A Wedge compression fracture of first lumbar vertebra, initial encounter for closed fracture
CPT/HCPCS: 72110

== ENCOUNTER 2025-05-27 11:26 | Outpatient (CLI) | payer MEDICARE, BC, SELFPAY ==
--- OUTSIDE RECORDS SUMMARY | 2025-05-27 11:30 | XMS_ITS | Clinical Summary ---
Author Organization [facility] Address [address] [place] [address] Care Team Providers Care Methods Analyst Name Role Phone Unavailable Primary Care Provider Unavailabl e Encounters Date Type Department Care Team Description 04/07/2025 Orders Only External Location [address] [place] [phone] Provider, External 04/07/2025 Orders Only External Location [address] [place] [phone] Provider, External 04/07/2025 Orders Only External Location [address] [place] [address] Provider, External 04/07/2025 Orders Only External Location [address] [place] [address] Provider, External 04/07/2025 Orders Only External Location [address] [place] [phone] Provider, External 04/07/2025 Orders Only External Location [address] [place] [address] Provider, External from Last 3 [...] 1997 UKY-Zoster Vaccines (1 of 2) 2002 ZMV-[id number]-75 Vaccine (1 - 2023- season) 2024 UKY-Influenza [...]
--- OUTSIDE RECORDS SUMMARY | 2025-05-27 11:30 | XMS_ITS | Encounter Summary ---
Author Organization Healthcare Address [address] [place] [address] Care Team Providers Care Insurance Follow Up Specialist Name Role Phone Unavailable Primary Care Provider Unavailabl e Encounter Details Date Type Department Care Team (Late st Contact Info) Description 04/07/2025 Orders Only External Location [address] [place] [phone] Provider, External Social History Tobacco Use Types [...]
--- OUTSIDE RECORDS SUMMARY | 2025-05-27 11:30 | XMS_ITS | Encounter Summary ---
Author Organization Healthcare Address [address] [place] [address] Care Team Providers Care Human Resources Coordinator Name Role Phone Unavailable Primary Care Provider Unavailabl e Encounter Details Date Type Department Care Team (Late st Contact Info) Description 04/07/2025 Orders Only External Location [address] [place] [phone] Provider, External Social History Tobacco Use Types [...]
--- OUTSIDE RECORDS SUMMARY | 2025-05-27 11:30 | XMS_ITS | Encounter Summary ---
Author Organization Healthcare Address [address] [place] [address] Care Team Providers Care Ophthalmologist Retina Specialist Name Role Phone Unavailable Primary Care Provider Unavailabl e Encounter Details Date Type Department Care Team (Late st Contact Info) Description 04/07/2025 Orders Only External Location [address] [place] [address] Provider, External Social History Tobacco Use Types [...]
--- OUTSIDE RECORDS SUMMARY | 2025-05-27 11:30 | XMS_ITS | Clinical Summary ---
Author Organization [facility] Address [address] [place] [address] Care Team Providers Care Operations Technician Name Role Phone Williams Falcon MD Primary Care Provider + [phone] Allergies No known active allergies Medications levothyroxine [...] Description 07/04/2025 10:00 AM EDT Office Visit [facility] CARDIOLOGY [address] [phone] Gypsy Silva MD [address] [place] [address] Health Maintenance Due Date Last Done Comments [...] Completed 03/01/2021, 10/[address] [place] [address] MEDICARE A & B [facility] Care Teams Operations Technician Relationship Specialty Start Date End Date Williams Falcon MD [address] [facility] [address] [facility] [address] [place] [address] PCP - General Family Medicine 03/26/24
--- OUTSIDE RECORDS SUMMARY | 2025-05-27 11:30 | XMS_ITS | Encounter Summary ---
Author Organization Healthcare Address [address] [place] [address] Care Team Providers Care V Belt Curer Name Role Phone Unavailable Primary Care Provider Unavailabl e Encounter Details Date Type Department Care Team (Late st Contact Info) Description 04/07/2025 Orders Only External Location [address] [place] [phone] Provider, External Social History Tobacco Use Types [...]
--- OUTSIDE RECORDS SUMMARY | 2025-05-27 11:30 | XMS_ITS | Encounter Summary ---
Author Organization Healthcare Address [address] [place] [address] Care Team Providers Care Child Care Sitter Name Role Phone Unavailable Primary Care Provider Unavailabl e Encounter Details Date Type Department Care Team (Late st Contact Info) Description 04/07/2025 Orders Only External Location [address] [place] [phone] Provider, External Social History Tobacco Use Types [...]
--- OUTSIDE RECORDS SUMMARY | 2025-05-27 11:30 | XMS_ITS | Encounter Summary ---
Author Organization Healthcare Address [address] [place] [address] Care Team Providers Care Outdoor Advertising Leasing Agent Name Role Phone Unavailable Primary Care Provider Unavailabl e Encounter Details Date Type Department Care Team (Late st Contact Info) Description 04/07/2025 Orders Only External Location [address] [place] [phone] Provider, External Social History Tobacco Use Types [...]
[2025-05-27 12:22] LABS: Hematocrit 34.0 % (37.0-47.0); Hemoglobin 10.8 g/dL (12.2-16.2); Immature Granulocytes % 1.6 %; Mean Corpuscular HGB Conc 31.8 g/dL (31.8-35.4); Mean Corpuscular Hemoglobin 28.6 pg (27.0-31.2); Mean Corpuscular Volume 90.2 fl (81-99); Nucleated Red Blood Cells % 0 %; Platelet Count 152 K/mm3 (142-424); Red Blood Count 3.77 M/mm3 (4.20-5.40); Red Cell Distribution Width-SD 62.4 fL; Reticulocyte % (Auto) 2.2 % (0.9-3.2)
[2025-05-27 12:33] LABS: White Blood Count 1.8 K/mm3 (4.8-10.8)
[2025-05-27 12:40] LABS: Albumin Level 4.2 g/dl (3.5-5.0); Chloride 107 mmol/L (98-107); Potassium 3.5 mmoL/L (3.5-5.1); Sodium 141 mmol/L (136-145)
[2025-05-27 12:42] LABS: Alanine Aminotransferase 9 U/L (12-78); Anion Gap 13.5 mEq/L (5-15); Aspartate Amino Transferase 24 U/L (14-36); Blood Urea Nitrogen 15 mg/dl (7-17); Carbon Dioxide 24 mmol/L (22.0-30.0); Creatinine,Serum 0.70 mg/dl (0.52-1.04); Estimated Glomerular Filt Rate 82 ml/min (>60); GFR (African American) 100 ML/MIN (>60)
[2025-05-27 12:43] LABS: Albumin/Globulin Ratio 1.6 (1.1-1.8); Alkaline Phosphatase 82 U/L (38-126); Bilirubin,Total 0.8 mg/dl (0.2-1.3); Calcium 9.4 mg/dl (8.4-10.2); Globulin 2.6 g/dL (1.3-3.2); Glucose 98 mg/dl (74-100); Iron 114 ug/dL (37-170); Total Protein,Serum 6.8 g/dl (6.3-8.2)
[2025-05-27 12:52] LABS: Total Iron Binding Capacity 210 ug/dL (265-497)
[2025-05-27 13:04] LABS: Total Cells Counted 100
[2025-05-27 13:05] LABS: RBC Morphology Normal
[2025-05-27 13:14] LABS: Thyroid Stimulating Hormone < 0.02 uIU/mL (0.465-4.68)
[2025-05-27 13:18] LABS: Ferritin 179 ng/ml (11.1-264)
[2025-05-27 13:50] LABS: Folate 9.47 ng/mL
[2025-05-27 16:06] LABS: Vitamin B12 344 pg/mL (239-931)
[2025-05-30 15:02] LABS: Albumin 3.7 g/dL (2.9-4.4); Alpha-1-Globulin 0.3 g/dL (0.0-0.4); Alpha-2-Globulin 0.7 g/dL (0.4-1.0); Gamma Globulin 1.0 g/dL (0.4-1.8)
== END 2025-05-27 23:59 | disposition home or self-care (01) ==
LOC: LAB 15:20
PROVIDERS: PCP Family Medicine; Visit Provider Internal Medicine Medical Oncology
DX: D64.9 Anemia, unspecified (principal); D72.819 Decreased white blood cell count, unspecified
CPT/HCPCS: 36415; 80053; 81596; 82607; 82728; 82746; 82784; 83521; 83540; 83550; 83615; 84155; 84165; 84443; 85007; 85025; 85044; 86880

== ENCOUNTER 2025-05-30 12:40 | Outpatient (CLI) | payer MEDICARE, BC, SELFPAY ==
--- OUTSIDE RECORDS SUMMARY | 2024-04-02 11:45 | XMS_ITS ---
Author Organization [facility] Address [address] [facility] [address] [place] [id number] Care Team Providers Care Network Operations Specialist Name Role Phone Williams Falcon Primary Care [...] Provider Diagnosis [facility] [address] [facility] [address] [place] [phone] 04/02/2024 Williams Falcon Pain in left lower [...] * Sierra BROWNOB:1950 ( 74 yo F)Acc No.[id number]:04/02/2024 Progress Notes Patient: Marcia GERARD Provider: Odin Falcon M.D. :1950 A ge:73 Y S ex:Female Date:04/02/2024 Address:[address] [place] [address] , [place], [id number] Subjective: * Chief Complaints: * 1 . Left lower leg sore and warm. * HPI: D ermatology: 73 year old female presents with c/o redness P t complains of Lt lower leg swelling and redness that is warm to the touch. States she has seen Dr. 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 * Surgical History: T ubal Ligation 1979, Rectal Hernia Repair 2005, Transvaginal Taping 2005, RT Eye Cataract 11/26/2011, LT Knee Surgery 08/2012, Mole Removal - Dr. Warren x2 03/2016. * Hospitalization/Major Diagno stic Procedure: L ymph removed from groin , Knee Pain- [facility] 06/26/2012, Pneumonia- [facility] 03/26-, Bronchitis- [facility] 09/08/2015, Bronchitis, Dehydration- [facility] 09/10/2015, URI- [facility] [place] 01/25/2018. * Family History: F ather: [...] * Images: Billing Information: * Visit Code: 84923 Office Visit, Est Pt., Level 3. * Procedure Codes: G2211 Complex e/m visit add on. * Electronic signature of Maria A Falcon MD on 05/30/2025 at 12:44 PM EDT Sign off status: Pending * Provider: Odin Falcon M.D. Date: 0 04/02/2024 Generated for Beatriz espinosa/Shola/Sunniitting on: 05/30/2025 12:44 PM EDT History and Physical Notes * HPI (History of Present Illness) Category Sub-Category Detail Notes Category Not es Dermatology redness Pt complains of Lt lower leg swelling and redness that is warm to the touch. States she has seen Dr. Venu Carlson in [place] at [facility]ascular center several times over the [...]
--- OUTSIDE RECORDS SUMMARY | 2024-10-15 07:30 | XMS_ITS ---
Author Organization [facility] Address [address] [facility] [address] [place] [id number] Care Team Providers Care [employer] Name Role Phone Williams Falcon Primary Care Provider Allergies Allergen (clinical drug ingredient) Drug/Non Drug Allergy documented on EMR Reaction Allergy Type Onset Date Status codeine Codeine vomiting Drug Allergy Active Results Component Value Reference Range Notes H-TSH Reviewed date:11/26/2024 01:32:39 PM Interpretation: Performing Lab: Notes/Report: H-Lipid Panel Reviewed date:11/26/2024 01:33:29 PM Interpretation: Performing Lab: Notes/Report: H-CMP Reviewed date:11/26/2024 01:33:44 PM Interpretation: Performing Lab: Notes/Report: H-T4 free Reviewed date:11/29/2024 02:21:39 PM Interpretation:see 11/26/24 Performing Lab: Notes/Report: see 11/26/24 REASON FOR VISIT med checkup Medications Medication SIG (Take, Route, Frequency, Duration) Notes Start Date End Date Status Levothyroxine Sodium 175 MCG TAKE 1 TABL ET BY MOUTH ONCE DAILY ON AN EMPTY STOMACH FOR 90 DAYS Active Calcium Citrate 250 MG 1 tab(s) orally 2 times a day 07/22/2011 Active Centrum Silver - 1 tab(s) orally once a day Active Vital Signs Weight 180.2 lbs 10/15/2024 Blood pressure systolic 110 mm Hg 10/15/19 25 Blood pressure diastolic 70 mm Hg 025 Heart Rate 78 /min 10/15/2024 Height 65.50 in 10/15/2024 BMI 29.53 kg/m2 10/15/2024 Encounters Encounter Location Date Provider Diagnosis [facility] [address] [place] [id number] 10/15/2024 Williams Falcon Acquired hypothyroid ism E03.9 and Mixed hyperlipidemia E78.2 Assessments Encounter Date Diagnosis (ICD Code) Assessment Notes Treatment Notes Treatment Clinical Notes Section Notes 10/15/2024 Acquired hypothyroidism (ICD-10 - E03.9) 10/15/2024 Mixed hyperlipidemia (ICD-10 - E78.2) Plan Of Treatment Medication Medication Name Sig Start Date Stop Date Notes Levothyroxine Sodium 175 MCG TAKE 1 TABL ET BY MOUTH ONCE DAILY ON AN EMPTY STOMACH FOR 90 DAYS Next Appt Details Follow Up: via phone to repo rt test results, Reason: Progress Notes * Sierra BROWNOB:1950 ( 74 yo F)Acc No.[id number]:10/15/2024 Progress Notes Patient: Marcia GERARD Provider: Odin Falcon M.D. :1950 A ge:74 Y S ex:Female Date:10/15/2024 Address:[address] [place] [address] , [place], [id number] Subjective: * Chief Complaints: * 1 . Med checkup. * HPI: C ardiology: 74 year old female presents with c/o Blood Pressure Elevated?Pt here to f/u on hypertension, states she is doing well and does not have any concerns. c/o Hyperlipidemia P t is fasting today. E ndocrinology: c/o Hypothyroidism P t here to f/u. * ROS: D ERMATOLOGY: no R dylan. n o H cuca. G ASTROENTEROLOGY: no N ausea. n o V omiting. U ROLOGY: no D ifficulty urinating. n o B lood in urine. 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 * Surgical History: T ubal Ligation 1979, Rectal Hernia Repair 2005, Transvaginal Taping 2005, RT Eye Cataract 11/26/2011, LT Knee Surgery 08/2012, Mole Removal - Dr. Warren x2 03/2016. * Hospitalization/Major Diagno stic Procedure: L ymph removed from groin , Knee Pain- [facility] 06/26/2012, Pneumonia- [facility] ER 03/26-, Bronchitis- [facility] ER 09/08/2015, Bronchitis, Dehydration- [facility] 09/10/2015, [facility]. * Family History: F ather: . [...] tab(s) orally once a day , Taking Levothyroxine Sodium 175 MCG Tablet TAKE 1 TABLET BY MOUTH ONCE DAILY ON AN EMPTY STOMACH FOR 90 DAYS , Medication List reviewed and reconciled with the patient * Allergies: C odeine: vomiting. Objective: * Vitals: W t:180.2, Temp:98.1, BP:110/70, HR:78, Nurse:diane, Ht: 65.50, BMI:29.53. * Examination: G eneral Examination: General Appearance: N AD. H eart: R SR. L ungs:?clear to auscultation. Assessment: * Assessment: 1. A cquired hypothyroidism - E03.9 (Primary) 2 . M ixed hyperlipidemia - E78.2 Plan: * Treatment: ?LAB: H-T4 free (Collection Date & Time - 11/26/2024)?see 11/26/24* see duplicate order 2.?Mixed hyperlipidemia?LAB: H-Lipid Panel (Collection Date & Time - 11/26/2024)* see duplicate order ?LAB: H-CMP (Collection Date & Time - 11/26/2024)* see duplicate order * Procedure Codes: G 2211 Complex e/m visit add on, 3074F SYST BP LT 130 MM HG, 3078F DIAST BP < 80 MM HG * Follow Up: v ia phone to report test results * Images: Billing Information: * Visit Code: 30746 Office Visit, Est Pt., Level 3. * Procedure Codes: G2211 Complex e/m visit add on. 3074F SYST BP LT 130 MM HG. 3078F DIAST BP < 80 MM HG. * Electronic signature of Maria A Falcon MD on 05/30/2025 at 12:43 PM EDT Sign off status: Pending * Provider: Odin Falcon M.D. Date: 0 10/15/2024 Generated for Beatriz espinosa/Shola/eTransmitting on: 0 05/30/2025 12:43 PM EDT History and Physical Notes * HPI (History of Present Illness) Category Sub-Category Detail Notes Category Not es Endocrinology Hypothyroidism Pt here to f/u Cardiology Blood Pressure Elevated Pt here to f/u on hypertension, states she is doing well and does not have any concerns Hyperlipidemia Pt is fasting today Examination Category Sub-Category Detail Notes Category Not es General Examination Heart: RSR Lungs: clear to auscultatio n General Appearance: NAD
--- OUTSIDE RECORDS SUMMARY | 2025-04-20 07:15 | XMS_ITS ---
Author Organization [facility] Address [address] [facility] [address] [place] [phone] Care Team Providers Care Arc Air Operator Name Role Phone Williams Falcon Primary Care Provider [phone] Allergies Allergen (clinical drug ingredient) Drug/Non Drug [...] Interpretation:Normal Performing Lab: Notes/Report: Test performed by [employer], [employer] [address] [place] [address] , [address], [place] [address] Yadiel Elliott MD, Faro Dealer CLIA: [id number] Sodium 139 135-145 mmol/L Potassium 3.8 3.5-5.3 [...] Status W/U Status Risk Notes Problem Anemia (925291072) Anemia, unspecified type (D64.9) Active confirmed Vital Signs Blood pressure systolic 114 mm Hg 04/20/20 25 Blood pressure diastolic 70 mm Hg 025 Heart Rate 83 /min 04/20/2025 Height 65.50 in 04/20/2025 Encounters Encounter Location Date Provider Diagnosis [facility] 1210 [facility] [address] [phone] 04/20/2025 Williams Falcon Closed fracture of f [...] * Sierra BROWNOB:1950 ( 74 yo F)Acc No.[id number]:04/20/2025 Patient: Marcia GERARD Provider: Odin Falcon M.D. :1950 A ge:74 Y S ex:Female Date:04/20/2025 Address:[facility] [address], [place], [id number] Subjective: * Chief Complaints: * 1 . f/u for L1 fracture. * HPI: H PI: 74 year old female presents with c/o Here for follow up on:?04/07/2025 [facility] hospitalization. 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 * Family History: F [...] >Lab results are satisfactory, sent to to inform.eDvikaJanis 05/02/2025 01:44:29 PM EDT > pt informed. [...] G 2211 Complex e/[place], [address] CBC WITH AUTO DIFF, 63719 Urinalysis, no micro, 1036F TOBACCO NON-USER, G8783 [...] report test results * Images: Drawing:[address] [facility] 2024 Billing Information: * Visit Code: 02217 Office Visit, Est Pt., Level 4. * Procedure Codes: G2211 Complex e/[place]. [address] CBC WITH AUTO DIFF. 48795 Urinalysis, no micro. 1036F TOBACCO NON-USER. G8783 [...] 04/20/2025 Generated for Beatriz espinosa/Shola/eTransmitting on: 0 05/30/2025 12:44 PM EDT History and Physical Notes * HPI (History of Present Illness) Category Sub-Category Detail Notes Category Not es HPI Here for follow up on: 5 [facility] hospitalization. Pt was taken to er [...]
--- OUTSIDE RECORDS SUMMARY | 2025-04-22 07:00 | XMS_ITS ---
Author Organization [facility] Address [address] [place] [phone] Care Team Providers Care Case Reviewer Name Role Phone Williams Falcon Primary Care Provider REASON FOR VISIT f/u for L1 fracture Encounters Encounter Location Date Provider Diagnosis [facility] [address] [place] [phone] 04/22/2025 Williams Falcon Plan Of Treatment No Information Progress Notes * Sierra BROWNOB:1950 ( 74 yo F)Acc No.[id number]:04/22/2025 Progress Notes Patient: Marcia GERARD Provider: Odin Falcon M.D. :1950 A ge:74 Y S ex:Female Date:04/22/2025 Address:[facility] [id number] Subjective: * Chief Complaints: * 1 . f/u for L1 fracture. * 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: Objective: * Vitals: Assessment: Plan: * Treatment: * Images: Billing Information: * Visit Code: * Procedure Codes: * Electronic signature of Maria A Falcon MD on 05/30/2025 at 12:44 PM EDT Sign off status: Pending * Provider: Odin Falcon M.D. Date: 0 04/22/2025 Generated for Printi ng/Faxing/eTransmitting on: 0 05/30/2025 12:44 PM EDT
--- OUTSIDE RECORDS SUMMARY | 2025-05-26 09:30 | XMS_ITS ---
Author Organization [facility] Address [address] [facility] [address] [facility] [address] [place] [id number] Care Team Providers Care Junior Recruiter Name Role Phone Williams Falcon Primary Care Provider Mallorie Kruse [phone] Allergies Allergen (clinical drug ingredient) Drug/Non Drug Allergy documented on EMR Reaction Allergy Type Onset Date Status codeine Codeine vomiting Drug Allergy Active Results Component Value Reference Range Notes X ray : Spine, lumbosacral ( Not yet reviewed by provider) Interpretation: Performing Lab: Notes/Report: REASON FOR VISIT fell, hurt back Medications [...] 05/26/2025 Encounters Encounter Location Date Provider Diagnosis [facility] [address] [facility] [address] [place] [phone] 05/26/2025 Mallorie Kruse Closed fracture of f irst lumbar vertebra, unspecified fracture morphology, initial encounter S32.019A and Muscle spasm of back M62.830 Assessments Encounter Date Diagnosis (ICD Code) Assessment Notes Treatment Notes Treatment Clinical Notes Section Notes 05/26/2025 Closed fracture of first lumbar vertebra, unspecified fracture morphology, initial encounter (ICD-10 - S32.019A) 05/26/2025 Muscle spasm of back (ICD-10 - M62.830) Plan Of Treatment Medication Medication Name Sig Start Date Stop Date Notes Metaxalone 800 MG 1 tablet Orally at night, prn 05/26/2025 Pending Test Test Name Order Date X ray : Spine, lumbosacral 05/26/2025 Next Appt Details Follow Up: via phone to repo rt test results, Reason: Progress Notes * Sirera BROWNOB:1950 ( 74 yo F)Acc No.[id number]:05/26/2025 Progress Notes Patient: Marcia GERARD Provider: SUZANNE Roy :1950 A ge:74 Y S ex:Female Date:05/26/2025 Address:[facility] [address], [place], [id number] Pcp:Williams Falcon Subjective: * Chief Complaints: * [...] and sts she then got admitted to [facility] for a kidney stone and sts she [...] 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: G raves Disease, Allergic Rhinitis, 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 * Surgical History: T ubal Ligation 1979, Rectal Hernia Repair 2005, Transvaginal Taping 2005, RT Eye Cataract 11/26/2011, LT Knee Surgery 08/2012, Mole Removal - Dr. Warren x2 03/2016. * Hospitalization/Major Diagno stic Procedure: L ymph removed from groin , Knee Pain- [facility] 06/26/2012, Pneumonia- [facility] 03/26-, Bronchitis- [facility] 09/08/2015, Bronchitis, Dehydration- [facility] 09/10/2015, URI- [facility] 01/25/2018. * Family History: F ather: . [...] M uscle spasm of back - M62.830 Plan: * Treatment: 2. M uscle spasm of back Start Metaxalone Tablet, 800 MG, 1 tablet, Orally, at night, prn, 30, Refills 0. * Follow Up: v ia phone to report test results * Images: Billing Information: * Visit Code: 10929 Office Visit, Est Pt., Level 3. * Procedure Codes: * Electronic signature of SUZANNE Sumner on 05/30/2025 at 12:44 PM EDT Sign off status: Pending * Provider: SUZANNE Roy Date: 05/26/2025 Generated for Beatriz espinosa/Shola/Sunniitting on: 05/30/2025 12:44 [...] and sts she then got admitted to [facility] for a kidney stone and sts she [...]
--- OUTSIDE RECORDS SUMMARY | 2025-05-30 12:44 | XMS_ITS | Clinical Summary ---
Author Organization [facility] Address [address] [place] [address] Care Team Providers Care Mechanics Handyman Name Role Phone Unavailable Primary Care Provider Unavailabl e Encounters Date Type Department Care Team Description 04/07/2025 Orders Only External Location [address] [place] [phone] Provider, External 04/07/2025 Orders Only External Location [address] [place] [phone] Provider, External 04/07/2025 Orders Only External Location [address] [place] [address] Provider, External 04/07/2025 Orders Only External Location [address] [place] [address] Provider, External 04/07/2025 Orders Only External Location [address] [place] [phone] Provider, External 04/07/2025 Orders Only External Location [address] [place] [address] Provider, External from Last 3 [...] 1997 UKY-Zoster Vaccines (1 of 2) 2002 WVP-[id number]-72 Vaccine (1 - season) 2025 UKY-Influenza Vaccine (#1) 2025 UKY-RSV Vaccine: 60+ [...]
--- OUTSIDE RECORDS SUMMARY | 2025-05-30 12:44 | XMS_ITS | Encounter Summary ---
Author Organization Healthcare Address [address] [place] [address] Care Team Providers Care Cook [employer] Cafeteria Name Role Phone Unavailable Primary Care Provider Unavailabl e Encounter Details Date Type Department Care Team (Late st Contact Info) Description 04/07/2025 Orders Only External Location [address] [place] [phone] Provider, External Social History Tobacco Use Types [...]
--- OUTSIDE RECORDS SUMMARY | 2025-05-30 12:44 | XMS_ITS | Encounter Summary ---
Author Organization Healthcare Address [address] [place] [address] Care Team Providers Care Energy Broker Name Role Phone Unavailable Primary Care Provider Unavailabl e Encounter Details Date Type Department Care Team (Late st Contact Info) Description 04/07/2025 Orders Only External Location [address] [place] [phone] Provider, External Social History Tobacco Use Types [...]
--- OUTSIDE RECORDS SUMMARY | 2025-05-30 12:44 | XMS_ITS | Encounter Summary ---
Author Organization Healthcare Address [address] [place] [address] Care Team Providers Care Ball Fringe Machine Operator Name Role Phone Unavailable Primary Care Provider Unavailabl e Encounter Details Date Type Department Care Team (Late st Contact Info) Description 04/07/2025 Orders Only External Location [address] [place] [phone] Provider, External Social History Tobacco Use Types [...]
--- OUTSIDE RECORDS SUMMARY | 2025-05-30 12:44 | XMS_ITS | Clinical Summary ---
Author Organization [facility] Address [address] [place] [address] Care Team Providers Care Release Coordinator Name Role Phone Williams Falcon MD Primary Care Provider + [phone] Allergies No known active allergies Medications levothyroxine [...] Description 07/04/2025 10:00 AM EDT Office Visit [facility] CARDIOLOGY [address] [phone] Gypsy Silva MD [address] [place] [address] Health Maintenance Due Date Last Done Comments [...] Completed 03/01/2021, 10/[address] [place] [address] MEDICARE A & B [facility] [place] Care Teams Release Coordinator Relationship Specialty Start Date End Date Williams Falcon MD [address] [facility] [address] [place] [address] PCP - General Family Medicine 03/26/24
--- OUTSIDE RECORDS SUMMARY | 2025-05-30 12:44 | XMS_ITS | Patient Health Record ---
Author Organization [facility] Address [address] [facility] [address] [place] [id number] Care Team Providers Care Bottle Washing Machine Operator Name Role Phone Terrie Williams Primary Care Provider Richard Concepcion Unavailable [phone] Mallorie Kruse Unavailable [phone] Allergies Allergen (clinical drug ingredient) Drug/Non Drug [...] Interpretation:Normal Performing Lab: Notes/Report: Test performed by [facility], [facility] [address] [place] [address] , [address], [place] [address] Yadiel Elliott MD, Community Relations Director CLIA: [id number] Sodium 139 135-145 mmol/L Potassium 3.8 3.5-5.3 mmol/L Chloride 102 97-108 mmol/L CO2 22 20-32 mmol/L Glucose 103 65-99 mg/dL BUN 16 8-23 mg/dL Creatinine 0.56 0.50-1.00 mg/dL Calcium 9.3 8.6-10.4 mg/dL eGFR by Creatinine 96 >59 mL/min/1.73m2 H-CMP Reviewed date:11/30/2024 10:12:40 AM Interpretation:cl 109, [...] Performing Lab: Notes/Report: T4F 1.30 0.78-2.19 ng/dl DEXA Hip and Spine Reviewed date:05/12/2025 08:57:32 AM Interpretation:osteopenia and osteoporosis Performing Lab: Notes/Report: osteopenia and osteoporosis Dexa results osteopenia and osteoporosis X ray : Spine, lumbosacral ( Not yet reviewed by provider) Interpretation: Performing Lab: Notes/Report: Mammogram Reviewed date:12/07/2024 12:21:18 PM Interpretation:Negative Performing [...] HDL 92 40-60 mg/dl CHLHDL 2.5 1-3.5 H-TSH Reviewed date:11/26/2024 01:32:39 PM Interpretation: Performing Lab: Notes/Report: H-Lipid Panel Reviewed date:11/26/2024 01:33:29 PM Interpretation: Performing Lab: Notes/Report: H-CMP Reviewed date:11/26/2024 01:33:44 PM Interpretation: Performing Lab: Notes/Report: H-T4 free Reviewed date:11/29/2024 02:21:39 PM Interpretation:see 11/26/24 Performing Lab: Notes/Report: see 11/26/24 Reason For Referral No Information Medications Medication [...] Notes Problem Gastro-esophageal reflux disease without esophagitis (719518492) Gastro-esophageal reflux disease without esophagitis (K21.9) Active confirmed Problem Essential hypertension (95888860) Essential hypertension (I10) Active confirmed Problem Pancytopenia (520981932) Pancytopenia (D61.818) Active confirmed Problem Decrease in appetite (finding) (42549326) Decreased appetite (R63.0) Active confirmed Problem Paresthesia (57263616) Paresthesia (R20.2) Active confirmed Problem Mixed hyperlipidemia (973521960) Mixed hyperlipidemia (E78.2) Active confirmed Problem Age-related osteoporosis (662028795) Age-related osteoporosis without current pathological fracture (M81.0) Active confirmed Problem Acquired hypothyroidism (265919523) Acquired hypothyroidism (E03.9) Active confirmed Problem Anemia (193770791) Anemia, unspecified type (D64.9) Active confirmed Problem Osteoarthritis of knee (407690881) Primary osteoarthritis of both knees (M17.0) Active confirmed Problem Body mass index 30.00 to 34.99 (858892896580155) BMI 34.0-34.9,adult (Z68.34) Active confirmed Problem Leukopenia (25090057) Leukopenia, unspecified type (D72.819) Active confirmed Problem 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 confirmed Problem Carpal tunnel syndrome (49930684) Carpal tunnel syndrome on both sides (G56.03) Active confirmed Problem Obesity (444078934) Non morbid obesity (E66.9) Active confirmed Vital Signs Heart Rate 99 /min 05/26/2025 Blood pressure diastolic 86 mm Hg 05/26/2025 Height 65.50 in 05/26/2025 Blood pressure systolic 120 mm Hg 05/26/2025 Weight 165.2 lbs 05/26/2025 BMI 27.07 kg/m2 05/26/2025 Encounters Encounter Location Date Provider Diagnosis [place] [address] [facility] [address] [place], [place] [phone] 10/15/2024 Williams [place] Acquired hypothyroid ism E03.9 and Mixed hyperlipidemia E78.2 [facility] [address] [facility] [address] [place], [place] [id number] 04/20/2025 Williams [place] Closed fracture of f irst lumbar vertebra, unspecified fracture morphology, initial encounter S32.019A ; Osteoporosis screening Z13.820 ; Dark urine R82.998 ; Anemia, unspecified type D64.9 and Pancytopenia D61.818 [facility] [address] [facility] [address] [place], [place] [id number] 05/26/2025 Mallorie Crowdy Closed fracture of f irst lumbar vertebra, unspecified fracture morphology, initial encounter S32.019A and Muscle spasm of back M62.830 [facility] [address] [facility] [address] [place], [place] [id number] 04/25/2025 Williams [place] [facility] [address] [facility] [address] [place] [id number] 11/30/2024 Williams [place] [facility] [address] [facility] [address] [place], [place] [id number] 04/11/2025 Williams [place] [facility] [address] [facility] [address] [place], [place] [id number] 04/12/2025 R Kushal Concepcion [facility] [address] [facility] [address] [place] [id number] 05/12/2025 Williams [place] [facility] [address] [facility] [address] [place], [place] [id number] 05/26/2025 Mallorie Crowdy Muscle spasm of back [...] lumbosacral 05/26/2025 Hemoccult- [facility]OBT (in house) 04/20/2025 Insurance Providers Payer Name Payer Address Payer Phone Subscriber Number Group Number Insured Name Patient Relationship to Insured Coverage Start Date Coverage End Date MEDICARE PART B [address] [address] [place] [id number] Marcia Carl Self - patient is the insured [employer] [address] [place] [id number] Marcia Carl Self - patient is the insured Medications Administered Medication Instructions Date of Administration Dosage Notes Depo- Medrol 40 mg/ml 08/03/2014 1 mL Depo- Medrol 40 mg/ml 08/30/2014 1.5 mL Dexamethasone 09/14/2016 1 mL Medical (General) History 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 History ICD Code Graves Disease Allergic Rhinitis HEALTH ASSESSMENT AND TREATMENT TEACHER - Dr. Oliverio Tatum Hiatal Hernia LT ACL tear 2011 Osteoporosis Esophageal reflux kidney stones March 15, 2017 varicose veins Compression fracture, Lumbar 2024 Surgical History Surgery Date(Month/Year) Tubal Ligation 1980 Rectal Hernia Repair 2005 Transvaginal Taping 2005 RT Eye Cataract 11/26/2011 LT Knee Surgery 08/2012 Mole Removal - Dr. Warren x2 03/2016 Hospitalization History Reason Date(Month/Year) URI- [facility] 01/25/2018 Bronchitis, Dehydration- [facility] 09/10/20 Bronchitis- [facility] 09/08/2015 Pneumonia- [facility] 03/26- Knee Pain- [facility] 06/26/2012 Lymph removed from groin
--- OUTSIDE RECORDS SUMMARY | 2025-05-30 12:44 | XMS_ITS | Encounter Summary ---
Author Organization Healthcare Address [address] [place] [address] Care Team Providers Care Typist Name Role Phone Unavailable Primary Care Provider Unavailabl e Encounter Details Date Type Department Care Team (Late st Contact Info) Description 04/07/2025 Orders Only External Location [address] [phone] Provider, External Social History Tobacco Use Types [...]
--- OUTSIDE RECORDS SUMMARY | 2025-05-30 12:44 | XMS_ITS | Encounter Summary ---
Author Organization Healthcare Address [address] [place] [address] Care Team Providers Care Specialist Physicians Name Role Phone Unavailable Primary Care Provider Unavailabl e Encounter Details Date Type Department Care Team (Late st Contact Info) Description 04/07/2025 Orders Only External Location [address] [phone] Provider, External Social History Tobacco Use Types [...]
--- OUTSIDE RECORDS SUMMARY | 2025-05-30 12:44 | XMS_ITS | Encounter Summary ---
Author Organization Healthcare Address [address] 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
[2025-05-30 13:23] LABS: Hematocrit 34.1 % (37.0-47.0); Hemoglobin 10.8 g/dL (12.2-16.2); Immature Granulocytes % 0.9 %; Mean Corpuscular HGB Conc 31.7 g/dL (31.8-35.4); Mean Corpuscular Hemoglobin 28.4 pg (27.0-31.2); Mean Corpuscular Volume 89.7 fl (81-99); Nucleated Red Blood Cells % 0 %; Platelet Count 166 K/mm3 (142-424); Red Blood Count 3.80 M/mm3 (4.20-5.40); Red Cell Distribution Width-SD 63.7 fL; White Blood Count 2.2 K/mm3 (4.8-10.8)
[2025-05-30 14:11] LABS: RBC Morphology Normal; Total Cells Counted 100
== END 2025-05-30 23:59 | disposition home or self-care (01) ==
LOC: LAB 12:42
PROVIDERS: PCP Family Medicine; Visit Provider Internal Medicine Medical Oncology
DX: D72.819 Decreased white blood cell count, unspecified (principal); D64.9 Anemia, unspecified
CPT/HCPCS: 36415; 85007; 85025

== ENCOUNTER 2025-06-17 07:15 | Outpatient (CLI) | payer MEDICARE, BC, SELFPAY ==
--- OUTSIDE RECORDS SUMMARY | 2024-10-15 07:30 | XMS_ITS ---
Author Organization [facility] Address [address] [facility] [address] [place] [phone] Care Team Providers Care Hydrator Name Role Phone Williams Falcon Primary Care [address] [place] [phone] 10/15/2024 Williams Falcon Acquired hypothyroid ism E03.9 [...] * Sierra BROWNOB:1950 ( 75 yo F)Acc No.[id number]:10/15/2024 Progress Notes Patient: Marcia GERARD Provider: Odin Falcon M.D. :1950 A ge:74 Y S ex:Female Date:10/15/2024 Address:[address] [place] [address] , [place], [id number] Subjective: * Chief Complaints: * 1 . 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 * Surgical History: T ubal Ligation 1979, Rectal Hernia Repair 2005, Transvaginal Taping 2005, RT Eye Cataract 11/26/2011, LT Knee Surgery 08/2012, Mole Removal - Dr. Warren x2 03/2016. * Hospitalization/Major Diagno stic Procedure: L ymph removed from groin , Knee Pain- [facility] ER 06/26/2012, Pneumonia- [facility] 03/26-, Bronchitis- [facility] 09/08/2015, Bronchitis, Dehydration- [facility] 09/10/2015, [facility]. * Family History: F ather: . [...] * Images: Billing Information: * Visit Code: 86636 Office Visit, Est Pt., Level 3. * Procedure Codes: G2211 Complex e/m visit add on. 3074F SYST BP LT 130 MM HG. 3078F DIAST BP < 80 MM HG. * Electronic signature of Maria A Falcon MD on 06/17/2025 at 07:18 AM EDT Sign off status: Pending * Provider: Odin Falcon M.D. Date: 0 10/15/2024 Generated for Beatriz espinosa/Shola/Jorgesmitting on: 1 07:18 AM EDT History and Physical Notes * [...]
--- OUTSIDE RECORDS SUMMARY | 2025-04-20 07:15 | XMS_ITS ---
Author Organization [facility] Address [address] [facility] [address] [place] [phone] Care Team Providers Care Engineering Faculty Name Role Phone Williams Falcon Primary Care Provider [phone] Allergies Allergen (clinical drug ingredient) Drug/Non Drug [...] 01:45:21 PM Interpretation:Normal Performing Lab: Notes/Report: CLIA: [id number] Yadiel Elliott MD, [employer] [facility] , [place] [address] Test performed by [facility], [facility] Sodium 139 135-145 mmol/L Potassium 3.8 [...] Status W/U Status Risk Notes Problem Anemia ([id number]) Anemia, unspecified type (D64.9) Active confirmed Vital Signs Blood pressure systolic 114 mm Hg 04/20/20 25 Blood pressure diastolic 70 mm Hg 025 Heart Rate 83 /min 04/20/2025 Height 65.50 in 04/20/2025 Encounters Encounter Location Date [facility] [address] [phone] 04/20/2025 Williams Falcon Closed fracture of f [...] * Sierra BROWNOB:1950 ( 75 yo F)Acc No.[id number]:04/20/2025 Patient: Marcia GERARD Provider: Odin Falcon M.D. :1950 A ge:74 Y S ex:Female Date:04/20/2025 Address:[facility] [address] [place], [place], [id number] Subjective: * Chief Complaints: * 1 . f/u for L1 fracture. * HPI: H PI: 74 year old female presents with c/o Here for follow up on:?04/07/2025 [facility] hospitalization. 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 * Family History: F ather: [...] G 2211 Complex e/[place], [address] CBC WITH AUTO DIFF, 70359 Urinalysis, no micro, 1036F TOBACCO NON-USER, G8783 [...] test results * Images: Drawing:[address] [facility] 2024 Billing Information: * Visit Code: 08548 Office Visit, Est Pt., Level 4. * Procedure Codes: G2211 Complex e/[place]. [address] CBC WITH AUTO DIFF. 26745 Urinalysis, no micro. 1036F TOBACCO NON-USER. G8783 BP SCR PRFRM RCMDD DEFIND SCR INTVL. G8752 MOST RECENT SYSTOLIC BP < 140MM HG. G8754 MOST RECENT DIASTOLIC BP < 90MM HG. G9899 Scrn clifford perf rslts doc. * Electronic signature of Maria A Falcon MD on 06/17/2025 at 07:17 AM EDT Sign off status: Pending * Provider: Odin Falcon M.D. Date: 0 04/20/2025 Generated for Beatriz espinosa/Shola/eTransmitting on: 1 07:17 AM EDT History and Physical Notes * HPI (History of Present Illness) Category Sub-Category Detail Notes Category Not es HPI Here for follow up on: 5 [facility] hospitalization. Pt was taken to er for [...]
--- OUTSIDE RECORDS SUMMARY | 2025-04-22 07:00 | XMS_ITS ---
Author [facility] Address [address] [place] [phone] Care Team Providers Care Boiler Assistant Operator Name Role Phone Williams Falcon Primary Care Provider REASON FOR VISIT f/u for L1 fracture Encounters Encounter Location Date Provider Diagnosis [facility] [address] [place] [phone] 04/22/2025 Williams Falcon Plan Of Treatment No Information Progress Notes * Sierra BROWNOB:1950 ( 75 yo F)Acc No.[id number]:04/22/2025 Progress Notes Patient: Marcia GERARD Provider: Odin Falcon M.D. :1950 A ge:74 Y S ex:Female Date:04/22/2025 Address:[facility] [place] [id number] Subjective: * Chief Complaints: * 1 . f/u for L1 fracture. * 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: Objective: * Vitals: Assessment: Plan: * Treatment: * Images: Billing Information: * Visit Code: * Procedure Codes: * Electronic signature of Maria A Falcon MD on 06/17/2025 at 07:17 AM EDT Sign off status: Pending * Provider: Odin Falcon M.D. Date: 0 04/22/2025 Generated for Printi ng/Faxing/eTransmitting on: 1 07:17 AM EDT
--- OUTSIDE RECORDS SUMMARY | 2025-05-26 09:30 | XMS_ITS ---
Author Organization [facility] Address [address] [place] [phone] Care Team Providers Care Tool Adjuster Name Role Phone Williams [place] Primary Care Provider [phone] Mallorie Kruse Unavailable [phone] Allergies Allergen (clinical drug ingredient) Drug/Non Drug [...] once a day Active Vital Signs Weight 165.2 lbs 05/26/2025 Blood pressure systolic 120 mm Hg 05/26/20 25 Blood pressure diastolic 86 mm Hg 025 Heart Rate 99 /min 05/26/2025 Height 65.50 in 05/26/2025 BMI 27.07 kg/m2 05/26/2025 Encounters Encounter Location Date Provider Diagnosis [place] [address] [facility] [address] [place] [phone] 05/26/2025 Mallorie Kruse Closed fracture of f [...] * Darling BROWNanDOB:1950 ( 75 yo F)Acc No.[id number]:05/26/2025 Progress Notes Patient: Marcia GERARD Provider: SUZANNE Roy :1950 A ge:74 Y S ex:Female Date:05/26/2025 Address:[facility] [address], [place], [id number] Pcp:Williams [place] Subjective: * Chief Complaints: * [...] and sts she then got admitted to [facility] for a kidney stone and sts she [...] 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: G raves Disease, Allergic Rhinitis, 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 * Family History: F ather: [...] * Images: Billing Information: * Visit Code: 66286 Office Visit, Est Pt., Level 3. * Procedure Codes: G2211 Complex e/m visit add on. 1036F TOBACCO NON-USER. 3074F SYST BP LT 130 MM HG. 3079F DIAST BP 80-89 MM HG. G8420 BMI<30 AND >=22 CALC & DOCU. * Electronic signature of SUZANNE Sumner on 06/17/2025 at 07:17 AM EDT Sign off status: Pending * Provider: SUZANNE Roy Date: 0 05/26/2025 Generated for Beatriz espinosa/Shola/Jorgesmitting on: 1 07:17 AM EDT History and [...] and sts she then got admitted to [facility] for a kidney stone and sts she [...]
--- OUTSIDE RECORDS SUMMARY | 2025-06-10 05:20 | XMS_ITS ---
[facility] [address] [facility] [address] [place] [id number] Care Team Providers Care Operations Representative Name Role Phone McloudWilliams canales Primary Care Provider [phone] REASON FOR VISIT Message Encounters Encounter Location Date Provider Diagnosis [place] [address] [facility] [address] [place] [id number] 06/10/2025 Williams Falcon Closed compression fracture of L1 vertebra, initial encounter S32.010A Assessments Encounter Date Diagnosis (ICD Code) Assessment Notes Treatment Notes Treatment Clinical Notes Section Notes 06/10/2025 Closed compression fracture of L1 vertebra, initial encounter (ICD-10 - S32.010A) Plan Of Treatment Pending Test Test Name Order Date MRI : Spine, Lumbosacral, without contra st 06/10/2025 Progress Notes * Darling BROWNDadaOB:1950 ( 75 yo F)Acc No.[id number]:06/10/2025 Patient: Marcia GERARD :1950 A ge:74 Y S ex:Female Address:[facility] [address] [place], [address] Subjective: * Chief Complaints: * M essage * 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: * Surgical History: * Hospitalization/Major Diagno stic Procedure: * Medications: Objective: * Vitals: * Physical Examination: Assessment: * Assessment: 1. C losed compression fracture of L1 vertebra, initial encounter - S32.010A (Primary) ? Plan: * Treatment: * Procedure Codes: * true * Date: Generated for Printi ng/Shola/Latonya on: 1 07:19 AM EDT
[2025-06-17] VITALS (11 sets, daily range): BP systolic 126–167; BP diastolic 71–97; PULSE 61–77; RESP 16–18; TEMP 36.4; O2SAT 95–100; BMI 26.4
--- OUTSIDE RECORDS SUMMARY | 2025-06-17 07:18 | XMS_ITS | Continuity of Care Document ---
Author Organization [place] - [facility] Address [address] [place] [address] Assessment No assessment recorded. Plan of Treatment Reminders Order Date Submit Date Provider Last Modified By Organization Details Last Modified Time Details Appointments OV EST 15 2024 01:15P M Loyda Mcelroy Jr, MD Not available Not available Not available Lab urinalysi s, dipstick 2024 025 [email or web address] [facility], [address] [place] [address], [address], 05/08/2025 13:47:52 Referral None recorded. Procedures None recorded. Surgeries None recorded. Imaging CT, abdomen + pelvis, w/o contrast - Please schedule before patients' appointme nt on 05/25/25. 2024 025 [facility] Centralized Scheduling, [address] [place], [address], 05/23/2025 12:29:11 Medication Orders None recorded. Patient TargetsNo targets recorded. Patient InstructionsNo instructions recorded. Reason for Referral None Reported. Results Created Date Observation Date Name Description Value Unit Range Abnormal Flag Note LastModifiedBy Organization Detail LastModifiedTime 05/06/2005/06/2025 urina lysis , dipst ick Leukocytes (reference range) trace Not Available [address], [address], 05/06/2025 11:56:19 05/06/2005/06/2025 urina lysis , dipst ick Nitrite (reference range:) negati ve Not Available [address], [address], 05/06/2025 11:56:19 05/06/20 25 05/06/2025 urina lysis , dipst ick Urobilinogen (reference range) 2 Not Available [address], [address], 05/06/2025 11:56:19 05/06/20 25 05/06/2025 urina lysis , dipst ick Protein (reference range) 30 Not Available [address], [address], 05/06/2025 11:56:19 05/06/20 25 05/06/2025 urina lysis , dipst ick pH (reference range 5-8.5) 6.5 Not Available [address], [address], 05/06/2025 11:56:19 05/06/20 25 05/06/2025 urina lysis , dipst ick Blood (reference range:) non-He molyze d: Trace Not Available [address], [address], 05/06/2025 11:56:19 05/06/20 25 05/06/2025 urina lysis , dipst ick Specific [place] (reference range) 1.030 Not Available [address], [address], 05/06/2025 11:56:19 05/06/20 25 05/06/2025 urina lysis , dipst ick Ketone (reference range) small Not Available [address], [address], 05/06/2025 11:56:19 05/06/20 25 05/06/2025 urina lysis , dipst ick Bilirubin (reference range) modera te Not Available [facility] Urology [address], [address], 05/06/2025 11:56:19 05/06/20 25 05/06/2025 urina lysis , dipst ick Glucose (reference range) 100 Not Available [facility] Urology [address], [address], 05/06/2025 11:56:19 05/06/20 25 05/06/2025 XR, abdom en, 1 view [facility] [place] [address] Phone: Fax: Name: MARCIA CARL Exam Date: : 9[birth year] Age 74 years Gender : F Access ion: [id number] Physic toya: RIKI MCELROY Facili ty: [facility] Facili ty HSV: Outpat ient Exam: ABD KUB 1V PROCED URE: XR ABDOME N 1 VIEW (KUB), 025 9:09 AM CDT CLINIC AL INDICA TION: kidney stones . COMPAR SKYELR: None TECHNI QUE: Single fronta l projec tion of the abdome n FINDIN GS: No lines or tubes. Mild right greate r than left basila r atelec tasis. Tortuo us descen ding thorac ic aorta. Nonspe cific bowel gas patter n. Mild to modera te stool retent ion to right lower quadra nt and pelvic bowel, correl ate clinic ally for consti pation . Scatte red pelvic calcif ied phlebo liths. No specif ic eviden ce of opacif icatio n to the region s of the bilate ral renal fossa on radiog raph. T12-L1 modera te degene rative change s. L4-5 modera te degene rative change s. Modera te to severe manager flight ior facet hypert rophy and interv ertebr al disc degene rative change s. Modera te bilate ral sacroi liac and mild bilate ral hip degene rative change s. IMPRES FREDRICK: No radiog raphic eviden ce of acute proces s to the abdome n. No radiog raphic ally eviden t calcif icatio n to the bilate ral renal fossa to sugges t calcif ied nephro lithia sis. If there is persis tent concer n, recomm end correl ation with CT. Electr onical ly signed by: Jose naranjo MD 2024 10:45 AM EDT RP Workst ation: [id number] Dictat ed By: JOSE RAMOS Transc ribed By: Transc ribed On: 025 10:09 AM Electr onical ly signed by: JOSE RAMOS 025 Thank you for referr ing MARCIA CARL to [facility] Legall y authen ticate d by RADHA CARTER MD 2024-0 05-06 10:09: 15 CC'ed Logic: Orderi ng Provid er: LILIBETH Castanon CC Provid er: CHRISSIE GUERRERO Attend ing Provid er: LILIBETH Castanon Referr ing Provid er: LILIBETH Castanon Admitt ing Provid er: LILIBETH Castanon [email or web address] [facility] (Radiology) [address] [place], [address], 05/06/2025 14:18:21 05/23/20 25 05/23/2025 CT, abdom en + pelvi s, w/o contr ast [facility] [place] [address] Phone: Fax: Name: MARCIA CARL Exam Date: 05/23/20 : [birth year] Age 74 years Gender : F Access ion: [id number] Physic toya: RIKI MCELROY Facili ty: [facility] Facili ty HSV: Outpat ient Exam: CT ABD/PE LVIS W/O PROCED URE: CT ABDOME N PELVIS WITHOU T IV CONTRA ST dated 05/23/20 8:48 AM CDT INDICA TION: kidney stone' TECHNI QUE: Multip le volume tric CT images of the abdome n and pelvis were obtain ed withou t intrav enous contra st. Axial, veliz l and sagitt al multip lanar reform ats were perfor med. COMPAR SKYLER: None availa ble at time of dictat ion. FINDIN GS: Visual ized chest: Depend ent change s in the bilate ral lung bases. No pleura l effusi ons. Hepato biliar y: The unenha nced hepati c parenc hyma is unrema rkable . No intra or extrah epatic biliar y ductal dilata tion. No calcif ied cholel ithias is or acute gallbl adder inflam mation . Pancre as: Questi onable 0.9 cm hypode nse lesion in the pancre atic tail versus volume averag ing (serie s 2 image 21). Spleen : Normal size. Puncta te calcif ied granul nichole. Ill-de fined hypode nse lesion measur ing 0.7 cm in the spleen (serie s 2 image 21) Adrena l glands : Unrema rkable Kidney s/Uret ers: There is a 0.6 cm exophy tic lesion in the right kidney upper pole (serie s 2 image 19), too small to charac terize . Left parape lvic renal cysts. No renal or ureter al stone. No hydron ephros is. Urinar y bladde r: Disten ded and unrema rkable . No stone Gastro intest inal:S mall slidin g-type hiatal hernia . No bowel obstru ction or free air. Scatte red coloni c divert iculos is withou t divert iculit is. Append ix: Normal withou t eviden ce of acute inflam mation . Pelvis : The uterus and ovarie s are within normal limits for age. Pelvic phlebo liths Vascul ar: No abdomi nal aortic aneury sm. Perito neum/L ymph nodes: No ascite s or fluid collec tions. No lympha denopa thy in the abdome n and pelvis . Muscul oskele meena: Compre ssion fractu re deform ity at L1 with 80% of verteb ral body height loss. Compre ssion fractu re deform ity at L3 with 30% of verteb ral body height loss. IMPRES FREDRICK: 1. No renal, ureter al or bladde r calcul i. No hydron ephros is. 2. Questi onable 0.9 cm hypode nse lesion in the pancre atic tail versus volume averag ing. Recomm end furthe r evalua tion with MRI of the abdome n with and withou t contra st. 3. Ill-de fined hypode nse lesion measur ing 0.7 cm in the spleen . This can be furthe r evalua angy with the above recomm ended MRI. 4. Indete rminat e 0.6 cm right renal lesion which can be better charac terize d with recomm ended MRI. 5. Age-in determ inate fractu re deform ities at L1 and L3. 6. Additi onal findin gs as above. Electr onical ly signed by: Donna herring MD 2024 12:24 PM EDT RP Workst ation: [id number] Dictat ed By: Donna Ochoa Legalpeter y authdae ticalfredito d by BANG COOPER MD 05-23 09:48: 11 Transc ribed By: Transc ribed On: 05/23/20 25 9:48 AM Electr onical ly signed by: Donna Ochoa 05/23/20 25 Thank you for referr MARCIA Layton to [facility] Legall y authen ticate d by BANG COOPER MD 05-23 09:48: 11 CC'ed Logic: Orderi ng Provid er: LILIBETH Castanon CC Provid er: CHRISSIE Finch ing Provid er: LILIBETH Castanon Referr ing Provid er: LILIBETH Castanon Admitt ing Provid er: LLIIBETH Castanon [email or web address] [facility] (Radiology) [address] , [place], [address], 05/30/2025 17:03:38 06/16/20 25 06/15/2025 MRI ABD wow [facility] [address] [place] [address] Phone: Fax: Name: MARCIA CARL Exam Date: : [birth year] Age 75 years Gender : F Access ion: [id number] Physic toya: RIKI MCELROY Facili ty: [facility] Facili ty HSV: Outpat ient Exam: MRI ABD WOW MR ABDOME N WITHOU T THEN WITH IV CONTRA ST, 025 1:30 PM CDT INDICA TION: Disord er of kidney and ureter MR of the abdome n comple angy with and withou t the use of IV contra st. * Compar skyler is made with CT Septem 2024. * Liver is unrema rkable . * No gallst ones or bile duct dilata tion. * No cystic or solid mass is demons trated within the pancre atic tail as sugges angy on the prior exam, no pancre atic duct dilata tion or peripa ncreat ic edema sugges tive of pancre atitis . * Well-d efined T2 hyperi ntense lesion within the lower aspect of the spleen , withou t enhanc ement, this measur es 9 mm axial image 10 series 6, most compat ible with a cyst. Simila r tiny T2 bright lesion within the more inferi or spleen is demons trated on image 12 series 6, too small to charac terize , probab ly a cyst as well. * Adrena l glands and aorta unrema rkable . * Cyst arisin g from the superi or right kidney measur ing 9 mm axial T2 image 9 series 6. Simila r tiny T2 hyperi ntense lesion compat ible with cyst within the lower right kidney , best seen on veliz l T2 image 21 series 3. * Left parape lvic cysts are presen t. * L1 and L3 fractu res, no edema like signal to sugges t the presen ce of acute events . * Scatte red focal areas of fat deposi tion or elizabeth iomas within the thorac ic and lumbar spine. * IMPRES FREDRICK: * No pancre atic soft tissue mass or cyst. * Cyst within the spleen and right kidney when compar ed with Septem 2024 CT . Electr onical ly signed by: Keanu mooney MD 2024 12:51 PM EDT RP Workst ation: [id number] Dictat ed By: Keanu García Transc ribed By: Transc ribed On: 025 2:30 PM Electr onical ly signed by: Keanu García 025 [facility] Legall y authen ticate d by NNAMDI GREEN MD 2024-09 14:30: 04 CC'ed Logic: Orderi ng Provid er: LILIBETH Castanon CC Provid er: CHRISSIE GUERRERO Attend ing Provid er: LILIBETH Castanon Referr ing Provid er: LILIBETH Castanon Admitt ing Provid er: LILIBETH Castanon [facility] (Radiology) [address] [place] [address] [place], [address], 06/16/2025 12:55:34 Result Notes Documentation Provider Name and Address Organization Details Recorded Time Xr, Abdomen, 1 View : [address] [place] [address] Name: MARCIA CARL Exam Date: 05/06/2025 : 1950 Age 74 years Gender: F Physician: LOYDA MCELROY Facility: [facility] Facility HSV: Outpatient Exam: ABD KUB 1V PROCEDURE: XR ABDOMEN 1 VIEW (KUB), 05/06/2025 9:09 AM CDT CLINICAL INDICATION: kidney stones. COMPARISON: None TECHNIQUE: Single frontal projection of the abdomen FINDINGS: No lines or tubes. Mild right greater than left basilar atelectasis. Tortuous descending thoracic aorta. Nonspecific bowel gas pattern. Mild to moderate stool retention to right lower quadrant and pelvic bowel, correlate clinically for constipation. Scattered pelvic calcified phleboliths. No specific evidence of opacification to the regions of the bilateral renal fossa on radiograph. T12-L1 moderate degenerative changes. L4-5 moderate degenerative changes. Moderate to severe posterior facet hypertrophy and intervertebral disc degenerative changes. Moderate bilateral sacroiliac and mild bilateral hip degenerative changes. IMPRESSION: No radiographic evidence of acute process to the abdomen. No radiographically evident calcification to the bilateral renal fossa to suggest calcified nephrolithiasis. If there is persistent concern, recommend correlation with CT. Electronically signed by: Boubacar Herndon MD 05/06/2025 10:45 AM EDT RP Dictated By: BOUBACAR HERNDON Transcribed By: Transcribed On: 05/06/2025 10:09 AM Electronically signed by: BOUBACAR HERNDON 05/06/2025 Thank you for referring MARCIA CARL to [facility]. Legally authenticated by KATRINA DAMON MD 2025-05-06 10:09:15 CC'ed Logic: Ordering Provider: LILIBETH SCALES CC Provider: CHERYL GUERRERO Attending Provider: LILIBETH SCALES Referring Provider: LILIBETH SCALES Admitting Provider: LILIBETH Mcelroy Jr, MD [address] [place] [address], [address], [place], [address] [place] 05/06/2025 14:18:21 Procedures Surgical History Date Name Laterality Status Provider Name and Address Organization Details Recorded Time ligation of fallopian tube completed [facility] [place] 04/06/2025 10:36:51 repair of anterior cruciate ligament of knee joint completed [facility] [place] 04/06/2025 10:36:58 extraction of cataract completed [facility] [place] 04/06/2025 10:37:09 Imaging Results None recorded. Procedure Notes None recorded. Medical Equipment None Reported. Allergies No known drug allergies Medications Name Sig Start Date Stop Date Status Note LastModified by Organization Details LastModified Time levothyroxi ne 175 mcg tablet TAKE 1 TABLET BY MOUTH ONCE DAILY IN THE MORNING ON AN EMPTY STOMACH active Not Available Not Available No t Available hydrocodone 5 mg-acetamin ophen 325 mg tablet TAKE 1 TABLET BY MOUTH EVERY 8 HOURS NEEDED active Not Available Not Available No t [...] and Address Organization Details Last Updated DateTime 05/06/2025 167.64 cm 28.6 kg/m2 96126.85 g [facility] 05/06/2025 11:16:37 Social History None recorded. Functional Status Question Answer Note LastModified by Organization D etails LastModified Time What is your level of alcohol consumption? None [email or web address] Information not available 04/06/2025 Mental Status None recorded. Family History Relationship Description Onset Age of this Age Resolved Age Notes LastModified by Organization Details LastModified Time Mother Alzheimer's disease Deceas ed [email or web address] Not available 04/06/2025 10:36:15 Father Heart disease Deceas ed Not available 04/06/2025 10:36:30 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 Condition Response Kidney Stones Y Gynecological HistoryNo gynecological history recorded. Obstetrics History GPAL:G 0 P 0 0 0 0 Past Encounters Encounter ID Performer Location Encounter Start Date Encounter Closed Date Diagnosis/Indication Diagnosis SNOMED-CT Code Diagnosis ICD10 Code Diagnosis IMO Codes Diagnosis Note [id number] Loyda Mcelroy Jr, MD [facility] Urology [address] [address] 04/06/2025 10:10:32 04/06/2025 10:39:16 Ureteric stone 05397421 N20.1 [id number] 74-year-ol d white female with recent left-sided [...] back in 1 week with a KUB. [id number] Loyda Mcelroy Jr, MD [facility] Urology [address] [address] 05/06/2025 11:14:50 05/06/2025 12:03:22 Ureteric stone [id number] N20.1 [id number] 74-year-ol d white female with recent left-sided flank pain. CT scan revealed a 4 mm stone at the distal portion of the ureter. Patient has suffered a fall and injury to her back since our last visit. KUB today shows a couple of calcificat ions in the region of the distal left ureter. We will follow up [address] scan. Health Concerns Section Related Observation LastModified by Organization Detai ls LastModified Time None Recorded Concern Status LastModified by Organization Details LastModified Time None Recorded Payers Encounter Date Sequence Insurance Name Policy Number Policy Vargas Covered Member ID Vargas Member ID Guarantor Name 05/06/2025 1 [place] Marcia Carl [id number] Marcia Carl 05/06/2025 2 [place] [employer] [place] [id number] Marcia Carl [id number] Marcia Carl Notes Date Note Type Note Provider Name and Address Organization Details Recorded Time 05/06/2025 text/html ROS as noted in the HPI Patient is a 74-year-old white female with recent left-sided flank pain. CT scan at an outside hospital revealed a 4 mm distal left ureteral stone with proximal hydro ureter. I saw the patient on March 07 and trial of passage was agreed upon. We are going to see her back in 1 week but she has had some interval problems with a fall creating a injury to her lower back. She states that she has not sure whether any pain could be from that injury or from the stone. KUB today shows small calcifications in the left side of the bony pelvis. She denies any nausea vomiting fever or chills. Loyda Mcelroy Jr, MD [address] [place] [address], [address], [place], [address], [facility] [place] 05/06/2025 12:38:36 OBGyn Episode No OBEpisode recorded.
--- OUTSIDE RECORDS SUMMARY | 2025-06-17 07:18 | XMS_ITS | Data Portability ---
Author Organization [place] - [facility] [place] Address [address] [place] [address] Assessment No assessment recorded. Plan of Treatment Reminders Order Date Submit Date Provider Last Modified By Organization Details Last Modified Time Details Appointments OV EST 15 2024 01:15P M Loyda Mcelroy Jr, MD Not available Not available Not available Lab urinalysi s, dipstick 2024 025 [email or web address] [facility] [address], [address], 05/08/2025 13:47:52 Referral None recorded. Procedures None recorded. Surgeries None recorded. Imaging CT, abdomen + pelvis, w/o contrast - Please schedule before patients' appointme nt on 05/25/25. 2024 025 [facility] Centralized Scheduling, [address] [place] [address] [place], [address], 05/23/2025 12:29:11 XR, abdomen, 1 view 2024 025 [facility] (Central Scheduling), [address] [place] [address] [place], [address], 05/06/2025 10:49:49 Medication Orders None recorded. Patient TargetsNo targets recorded. Patient InstructionsNo instructions recorded. Reason for Referral None Reported. Results Created Date Observation Date Name Description Value Unit Range Abnormal Flag Note LastModifiedBy Organization Detail LastModifiedTime 05/06/2005/06/2025 urina lysis , dipst ick Leukocytes (reference range) trace Not Available [address], [address], 05/06/2025 11:56:19 05/06/20 25 05/06/2025 urina lysis , dipst ick Nitrite (reference range:) negati ve Not Available [address], [address], 05/06/2025 11:56:19 05/06/20 25 05/06/2025 urina lysis , dipst ick Urobilinogen (reference range) 2 Not Available [address], [address], 05/06/2025 11:56:19 05/06/20 25 05/06/2025 urina lysis , dipst ick Protein (reference range) 30 Not Available [address], [address], 05/06/2025 11:56:19 05/06/20 25 05/06/2025 urina lysis , dipst ick pH (reference range 5-8.5) 6.5 Not Available [address], [address], 05/06/2025 11:56:19 05/06/20 25 05/06/2025 urina lysis , dipst ick Blood (reference range:) non-He molyze d: Trace Not Available [address], [address], 05/06/2025 11:56:19 05/06/20 25 05/06/2025 urina lysis , dipst ick Specific [place] (reference range) 1.030 Not Available [address], [address], 05/06/2025 11:56:19 05/06/20 25 05/06/2025 urina lysis , dipst ick Ketone (reference range) small Not Available [address], [address], 05/06/2025 11:56:19 05/06/20 25 05/06/2025 urina lysis , dipst ick Bilirubin (reference range) modera te Not Available [facility] [address], [address], 05/06/2025 11:56:19 05/06/20 25 05/06/2025 urina lysis , dipst ick Glucose (reference range) 100 Not Available [address], [address], 05/06/2025 11:56:19 05/06/20 25 05/06/2025 XR, abdom en, 1 view [facility] [address] [place] [address] Phone: Fax: Name: MARCIA CARL Exam Date: : 9[birth year] Age 74 years Gender : F Access ion: [id number] Physic toya: RIKI MCELROY Facili ty: [facility] Facili ty HSV: Outpat ient Exam: ABD KUB 1V PROCED URE: XR ABDOME N 1 VIEW (KUB), 9:09 AM CDT CLINIC AL INDICA TION: kidney stones . COMPAR SKYLER: None TECHNI QUE: Single fronta l projec [...] rative change s. 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 Legall y authen ticate d by RADHA CARTER MD 2024-0 05-06 10:09: 15 CC'ed Logic: Orderi ng Provid er: LILIBETH Castanon CC Provid er: CHRISSIE GUERRERO Attend ing Provid er: LIILBETH Castanon Referr ing Provid er: LILIBETH Castanon Admitt ing Provid er: LILIBETH Castanon [email or web address] [facility] (Radiology) [address] [place], [address], 05/06/2025 14:18:21 05/23/20 25 05/23/2025 CT, abdom en + pelvi s, w/o contr ast [facility] [address] [facility] [place] [address] Phone: Fax: Name: MARCIA CARL Exam Date: 05/23/20 : [birth year] Age 74 years Gender : F Access ion: [id number] Physic toya: RIKI MCELROY Facili ty: [facility] Facili ty HSV: Outpat ient Exam: CT [...] 12:24 PM EDT RP Workst ation: [id number] Dictat ed By: Donna Ochoa Legall y authen ticate d by BANG COOPER MD 05-23 09:48: 11 Transc ribed By: Transc ribed On: 05/23/20 9:48 AM Electr onical ly signed by: Donna Ochoa 05/23/20 Thank you for referr [facility] Legall y authen ticate d by BANG COOPER MD 05-23 09:48: 11 CC'ed Logic: Orderi ng Provid er: LILIBETH Castanon CC Provid er: CHRISSIE GUERRERO Attend ing Provid er: LILIBETH Castanon Referr ing Provid er: LILIBETH Castanon Admitt ing Provid er: LILIBETH RIKI Castanon [email or web address] [facility] (Radiology) [address] [place] [address] [place], [address], 05/30/2025 17:03:38 Result Notes Documentation Provider Name and Address Organization Details Recorded Time Xr, Abdomen, 1 View : [address] [place] [address] Name: MARCIA CARL Exam Date: 05/06/2025 : 1950 Age 74 years Gender: F Physician: LOYDA MCELROY Facility: [facility] Facility HSV: Outpatient Exam: ABD KUB 1V [...] Boubacar Herndon MD 05/06/2025 10:45 AM EDT Dictated By: BOUBACAR HERNDON Transcribed By: Transcribed On: 05/06/2025 10:09 AM Electronically signed by: BOUBACAR HERNDON 05/06/2025 Thank you for referring MARCIA CARL to [facility]. Legally authenticated by KATRINA DAMON MD 2025-05-06 10:09:15 CC'ed Logic: Ordering Provider: LILIBETH SCALES CC Provider: CHERYL GUERRERO Attending Provider: LILIBETH SCALES Referring Provider: LILIBETH SCALES Admitting Provider: LILIBETH Mcelroy Jr, MD [address] [place] [address] Drive, [address], [place], [address], [facility] - [facility] & [place] 05/06/2025 14:18:21 Ct, Abdomen + Pelvis, W/o Contrast : [address] [place] [address] Name: MARCIA CARL Exam Date: 05/23/2025 : 1950 Age 74 years Gender: F Physician: LOYDA MCELROY Facility: [facility] Facility HSV: Outpatient Exam: CT ABD/PELVIS W/O PROCEDURE: CT ABDOMEN PELVIS WITHOUT IV CONTRAST dated 05/23/2025 8:48 AM CDT INDICATION: kidney stone' TECHNIQUE: Multiple volumetric CT images of the abdomen and pelvis were obtained without intravenous contrast. Axial, coronal and sagittal multiplanar reformats were performed. COMPARISON: None available at time of dictation. FINDINGS: Visualized chest: Dependent changes in the bilateral lung bases.No pleural effusions. Hepatobiliary: The unenhanced hepatic parenchyma is unremarkable. No intra or extrahepatic biliary ductal dilatation. No calcified cholelithiasis or acute gallbladder inflammation. Pancreas: Questionable 0.9 cm hypodense lesion in the pancreatic tail versus volume averaging (series 2 image 21). Spleen: Normal size. Punctate calcified granuloma. Ill-defined hypodense lesion measuring 0.7 cm in the spleen (series 2 image 21) Adrenal glands: Unremarkable Kidneys/Ureters: There is a 0.6 cm exophytic lesion in the right kidney upper pole (series 2 image 19), too small to characterize. Left parapelvic renal cysts. No renal or ureteral stone. No hydronephrosis. Urinary bladder: Distended and unremarkable. No stone Gastrointestinal:Small sliding-type hiatal hernia. No bowel obstruction or free air. Scattered colonic diverticulosis without diverticulitis. Appendix: Normal without evidence of acute inflammation. Pelvis: The uterus and ovaries are within normal limits for age. Pelvic phleboliths Vascular: No abdominal aortic aneurysm. Peritoneum/Lymph nodes: No ascites or fluid collections.No lymphadenopathy in the abdomen and pelvis. Musculoskeletal: Compression fracture deformity at L1 with 80% of vertebral body height loss. Compression fracture deformity at L3 with 30% of vertebral body height loss. IMPRESSION: 1. No renal, ureteral or bladder calculi. No hydronephrosis. 2. Questionable 0.9 cm hypodense lesion in the pancreatic tail versus volume averaging. Recommend further evaluation with MRI of the abdomen with and without contrast. 3. Ill-defined hypodense lesion measuring 0.7 cm in the spleen. This can be further evaluated with the above recommended MRI. 4. Indeterminate 0.6 cm right renal lesion which can be better characterized with recommended MRI. 5. Age-indeterminate fracture deformities at L1 and L3. 6. Additional findings as above. Electronically signed by: Donna Varela MD 05/23/2025 12:24 PM EDT RP Dictated By: Donna Varela Legally authenticated by ADINA COOPER MD 2025-05-23 09:48:11 Transcribed By: Transcribed On: 05/23/2025 9:48 AM Electronically signed by: Donna Varela 05/23/2025 Thank you for referring MARCIA CARL to [facility]. Legally authenticated by ADINA COOPER MD 2025-05-23 09:48:11 CC'ed Logic: Ordering Provider: LILIBETH SCALES CC Provider: CHERYL GUERRERO Attending Provider: LILIBETH SCALES Referring Provider: LILIBETH SCALES Admitting Provider: LILIBETH Mcelroy Jr, MD [address] [place] [address], [address], [place], [address] [place] & [place] 05/30/2025 17:03:38 Procedures Surgical History Date Name Laterality Status Provider Name and Address Organization Details Recorded Time ligation of fallopian tube completed [facility] [place] 04/06/2025 10:36:51 repair of anterior cruciate ligament of knee joint completed [facility] & [place] 04/06/2025 10:36:58 extraction of cataract completed [facility] & [place] 04/06/2025 10:37:09 Imaging Results None recorded. Procedure [...] Updated DateTime 04/06/2025 167.64 cm 28.6 kg/m2 99223.85 g [facility] & [place] 04/06/2025 10:35:20 Date Recorded Body height Body mass index (BMI) Body weight Provider Name and Address Organization Details Last Updated DateTime 05/06/2025 167.64 cm 28.6 kg/m2 21021.85 g [facility] & [place] 05/06/2025 11:16:37 Date Recorded Body height Body mass index (BMI) Body weight Provider Name and Address Organization Details Last Updated DateTime 05/25/2025 167.64 cm 28.6 kg/m2 03509.85 g [facility] & [place] 05/25/2025 12:55:37 Social History None recorded. Functional Status Question Answer Note LastModified by Organization D etails LastModified Time What is your level of alcohol consumption? None [email or web address] Information not available 04/06/2025 Mental Status None recorded. Family History Relationship Description Onset Age of this Age Resolved Age Notes LastModified by Organization Details LastModified Time Mother Alzheimer's disease Deceas ed [email or web address] Not available 04/06/2025 10:36:15 Father Heart disease Deceas ed Not available 04/06/2025 10:36:30 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 Condition Response Kidney Stones Y Gynecological HistoryNo gynecological history recorded. Obstetrics History GPAL:G 0 P 0 0 0 0 Past Encounters Encounter ID Performer Location Encounter Start Date Encounter Closed Date Diagnosis/Indication Diagnosis SNOMED-CT Code Diagnosis ICD10 Code Diagnosis IMO Codes Diagnosis Note [id number] Loyda Mcelroy Jr, MD [address] [address] 04/06/2025 10:10:32 04/06/2025 10:39:16 Ureteric stone 36352201 N20.1 [id number] 74-year-ol d white female with recent left-sided [...] back in 1 week with a KUB. [id number] Loyda Mcelroy Jr, MD [facility] [address] [address] 05/06/2025 11:14:50 05/06/2025 12:03:22 Ureteric stone 43466728 N20.1 [id number] 74-year-ol d white female with recent left-sided flank pain. CT scan revealed a 4 mm stone at the distal portion of the ureter. Patient has suffered a fall and injury to her back since our last visit. KUB today shows a couple of calcificat ions in the region of the distal left ureter. We will follow up [address] scan. [id number] Loyda Mcelroy Jr, MD [facility] [address] [address] 05/25/2025 12:54:34 05/25/2025 13:18:06 Ureteric stone 78497486 N20.1 [id number] 74-year-ol d white female with recent left-sided flank pain. CT scan revealed a 4 mm stone at the distal portion of the ureter. Patient has suffered a fall and injury to her back since our last visit. KUB today shows a couple of calcificat ions in the region of the distal left ureter. CT scan was performed showing that the 4 mm distal left ureteral stone has passed. She was reassured. Cyst of kidney 136417815 N28.[id number] revealed a 6 mm exophytic lesion in the right kidney for which MRI was recommende d. Disorder of pancreas 385 5007 K86.9 [id number] Patient also with a 9 mm hypodense lesion in the pancreatic tail for which MRI was recommende d. We will proceed with the study and follow up 1 month. Health Concerns Section Related Observation LastModified by Organization Detai ls LastModified Time None Recorded Concern Status LastModified by Organization Details LastModified Time None Recorded Advance Directives Directive None Recorded Payers Insurance Date Sequence Insurance Name Policy Number Policy Vargas Covered Member ID Vargas Member ID Guarantor Name 05/22/2025 2 [place] [employer] [place]IC[place]) [id number] Marcia Carl [id number] Marcia Carl 05/22/2025 1 [place] Marcia Carl [id number] Marcia Carl Notes Date Note Type [...] he has not been straining her urine. Loyda Mcelroy Jr, MD [address] [facility], [address], [place], [address], [facility] & [place] 04/06/2025 11:43:51 05/06/2025 text/html ROS as noted in the [...] fever or chills. Loyda Mcelroy Jr, MD [address] [facility], [address], [place], [address], [facility] - [facility] & [place] 05/06/2025 12:38:36 05/25/2025 text/html ROS as noted in the HPI Patient is a 74-year-old white female with recent history of 4 mm distal left ureteral stone with hydro nephrosis. She returns today having repeated a CT scan. The CT scan shows no evidence of stones but did show a 6 mm exophytic lesion in the right kidney in the upper pole well as left parapelvic renal cyst and a 9 mm hypodense lesion in the pancreatic tail. Radiology recommended further evaluation with MRI with and without contrast. Loyda Mcelroy Jr, MD [address], [address], [place], [address], [facility] & [place] 05/25/2025 13:38:52 OBGyn Episode No OBEpisode recorded.
--- OUTSIDE RECORDS SUMMARY | 2025-06-17 07:18 | XMS_ITS | Clinical Summary ---
Author Organization [facility] Address [address] [place] [address] Care Team Providers Care Systems Project Manager Name Role Phone Williams Falcon MD Primary Care Provider + [phone] Allergies No known active allergies Medications levothyroxine [...] Description 07/04/2025 10:00 AM EDT Office Visit [facility] [address] [place] [address] Gypsy Silva MD [address] [place] [address] Health Maintenance Due Date Last Done Comments DXA SCAN 1950 MAMMOGRAM 1992 COLOGUARD 1997 COLON CANCER SCREENING 5 YEA R SIGMOIDOSCOPY 1997 COLONOSCOPY 1997 COL[address]ECTAL CANCER SCREENING 1997 CT COLONOGRAPHY 1997 FECAL OCCULT BLOOD TEST 1997 FIT Testing (1 year) 1997 ZOSTER VACCINE (1 of 2) 2002 TDAP/TD VACCINES (2 - Tdap) 11/19/2006 11/19/1996 ANNUAL WELLNESS VISIT 04/09/2024 HEPATITIS C SCREENING 04/09/2024 INFLUENZA VACCINE 04/15/2025 07/08/2019, , 09/25/2017 COVID-19 Vaccine ( season) 2025 Pneumococcal Vaccine 50+ Completed 03/01/2021, 10/[address] [place] [address] MEDICARE A & B [facility] Care Teams Systems Project Manager Relationship Specialty Start Date End Date Williams Falcon MD [address] [facility] [address] [place] [address] PCP - General Family Medicine 03/26/24
--- OUTSIDE RECORDS SUMMARY | 2025-06-17 07:18 | XMS_ITS | Clinical Summary ---
Author Organization [facility] Address [address] [place] [address] Care Team Providers Care Quarry Manager Name Role Phone Unavailable Primary Care Provider Unavailabl e Encounters Date Type Department Care Team Description 04/07/2025 Orders Only External Location [address] [place] [address] Provider, External 04/07/2025 Orders Only External Location [address] [place] [address] Provider, External 04/07/2025 Orders Only External Location [address] [place] [address] Provider, External 04/07/2025 Orders Only External Location [address] [place] [address] Provider, External 04/07/2025 Orders Only External Location [address] [place] [phone] Provider, External 04/07/2025 Orders Only External Location [address] [place] [address] Provider, External from Last 3 [...] 1997 [facility]-Zoster Vaccines (1 of 2) 2002 XQC-KIFQC-09 Vaccine (1 - season) 2025 [facility]-Influenza Vaccine [...]
--- OUTSIDE RECORDS SUMMARY | 2025-06-17 07:19 | XMS_ITS | Continuity of Care Document ---
Author Organization [facility] [place] Address [address] [place] [id number] Assessment No assessment recorded. Plan of Treatment Reminders Order Date Submit Date Provider Last Modified By Organization Details Last Modified Time Details Appointments OV EST 15 025 01:15PM Rodrick Mcelroy Jr, MD Not available Not available Not available Lab None record ed. Referral None record ed. Procedures None record ed. Surgeries None record ed. Imaging None record ed. Medication Orders None record ed. Patient TargetsNo targets recorded. Patient InstructionsNo instructions recorded. Reason for Referral None Reported. Results Created Date Observation Date Name Description Value Unit Range Abnormal Flag Note LastModifiedBy Organization Detail LastModifiedTime 05/06/2005/06/2025 urina lysis , dipst ick Leukocytes (reference range) trace Not Available [address], [address], 05/06/2025 11:56:19 05/06/20 25 05/06/2025 urina lysis , dipst ick Nitrite (reference range:) negati ve Not Available [address], [address], 05/06/2025 11:56:19 05/06/20 25 05/06/2025 urina lysis , dipst ick Urobilinogen (reference range) 2 Not Available [address], [address], 05/06/2025 11:56:19 05/06/20 25 05/06/2025 urina lysis , dipst ick Protein (reference range) 30 Not Available [address], [address], 05/06/2025 11:56:19 05/06/20 25 05/06/2025 urina lysis , dipst ick pH (reference range 5-8.5) 6.5 Not Available [address], [address], 05/06/2025 11:56:19 05/06/20 25 05/06/2025 urina lysis , dipst ick Blood (reference range:) non-He molyze d: Trace Not Available [address], [address], 05/06/2025 11:56:19 05/06/20 25 05/06/2025 urina lysis , dipst ick Specific [place] (reference range) 1.030 Not Available [address], [address], 05/06/2025 11:56:19 05/06/20 25 05/06/2025 urina lysis , dipst ick Ketone (reference range) small Not Available [address], [address], 05/06/2025 11:56:19 05/06/20 25 05/06/2025 urina lysis , dipst ick Bilirubin (reference range) modera te Not Available [address], [address], 05/06/2025 11:56:19 05/06/20 25 05/06/2025 urina lysis , dipst ick Glucose (reference range) 100 Not Available [address], [address], 05/06/2025 11:56:19 05/06/20 25 05/06/2025 XR, abdom en, 1 view [facility] [address] [place] [address] Phone: Fax: Name: MARCIA CARL Exam Date: : 9[birth year] Age 74 years Gender : F Access ion: [id number] Physic toya: RIKI MCELROY Facili ty: [facility] Facili ty HSV: Outpat ient Exam: [...] rative change s. 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 Legall y authen ticate d by RADHA CARTER MD 05-06 10:09: 15 CC'ed Logic: Orderi ng Provid er: LILIBETH Castanon CC Provid er: CHRISSIE CASILLAS YOLANDA Attend ing Provid er: LILIBETH Castanon Referr ing Provid er: LILIBETH Castanon Admitt ing Provid er: LILIBETH Castanon [email or web address] [facility] (Radiology) [address] [place] [address] [place], [address], 05/06/2025 14:18:21 05/23/20 25 05/23/2025 CT, abdom en + pelvi s, w/o contr ast [facility] [address] [facility] [place] [address] Phone: Fax: Name: MARCIA CARL Exam Date: 05/23/20 : [birth year] Age 74 years Gender : F Access ion: [id number] Physic toya: RIKI MCELROY Facili ty: [facility] Facili ty HSV: Outpat ient Exam: CT [...] 12:24 PM EDT RP Workst ation: [id number] Dictat ed By: Donna Ochoa Legall y authen ticate d by BANG COOPER MD 05-23 09:48: 11 Transc ribed By: Transc ribed On: 05/23/20 9:48 AM Electr onical ly signed by: Donna Ochoa 05/23/20 Thank you for referr ing TIMMYGAYLA TRENTAN to [facility]. Legall y authen ticate d by BANG COOPER MD 05-23 09:48: 11 CC'ed Logic: Orderi ng Provid er: LILIBETH Castanon CC Provid er: CHRISSIE GUERRERO Attend ing Provid er: LILIBETH Castanon Referr ing Provid er: LILIBETH Castanon Admitt ing Provid er: LILIBETH Castanon [email or web address] [facility] (Radiology) [address] [place], [address], 05/30/2025 17:03:38 06/16/20 25 06/15/2025 [facility] [address] [facility] [place] [address] Phone: Fax: Name: MARCIA CARL Exam Date: 025 : [birth year] Age 75 years Gender : F Access ion: [id number] Physic toya: RIKI MCELROY Facili ty: [facility] Facili ty HSV: Outpat ient Exam: MRI [...] 2024 12:51 PM EDT RP Workst ation: [id number] Dictat ed By: Keanu García Transc ribed By: Transc ribed On: 025 2:30 PM Electr onical ly signed by: Keanu García 025 Thank you for referr MARCIA [place]ton to [facility]. Legall y ruba ticate d by NNAMDI GREEN MD 2024-09 14:30: 04 CC'ed Logic: Orderi ng Provid er: LILIBETH Castanon CC Provid er: CHRISSIE CASILLAS YOLANDA Attend ing Provid er: LILIBETH Castanon Referr ing Provid er: LILIBETH Castanon Admitt ing Provid er: LILIBETH Castanon [facility] (Radiology) [address] , [place], [address], 06/16/2025 12:55:34 Result Notes None recorded. Procedures Surgical History Date Name Laterality Status Provider Name and Address Organization Details Recorded Time ligation of fallopian tube completed [facility] [place] 04/06/2025 10:36:51 repair of anterior cruciate ligament of knee joint completed [facility] [place] 04/06/2025 10:36:58 extraction of cataract completed [facility] [place] 04/06/2025 10:37:09 Imaging Results None recorded. Procedure [...] Updated DateTime 05/25/2025 167.64 cm 28.6 kg/m2 90019.85 g Sun Worrell [facility] [place] 05/25/2025 12:55:37 Social History None recorded. Functional Status Question Answer Note LastModified by Organization D etails LastModified Time What is your level of alcohol consumption? None [email or web address] Information not available 04/06/2025 Mental Status None recorded. Family History Relationship Description Onset Age of this Age Resolved Age Notes LastModified by Organization Details LastModified Time Mother Alzheimer's disease Deceas ed [email or web address] Not available 04/06/2025 10:36:15 Father Heart disease Deceas ed [email or web address] Not available 04/06/2025 10:36:30 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 Condition Response Kidney Stones Y Gynecological HistoryNo gynecological history recorded. Obstetrics History GPAL:G 0 P 0 0 0 0 Past Encounters Encounter ID Performer Location Encounter Start Date Encounter Closed Date Diagnosis/Indication Diagnosis SNOMED-CT Code Diagnosis ICD10 Code Diagnosis IMO Codes Diagnosis Note [id number] Rodrick Mcelroy Jr, MD [facility] [address] [address] 05/06/2025 11:14:50 05/06/2025 12:03:22 Ureteric stone 49082729 N20.1 [id number] 74-year-ol d white female with recent left-sided flank pain. CT scan revealed a 4 mm stone at the distal portion of the ureter. Patient has suffered a fall and injury to her back since our last visit. KUB today shows a couple of calcificat ions in the region of the distal left ureter. We will follow up [address] scan. [id number] Rodrick Mcelroy Jr, MD [facility] [address] [address] 05/25/2025 12:54:34 05/25/2025 13:18:06 Ureteric stone 45662235 N20.1 [id number] 74-year-ol d white female with recent left-sided [...] passed. She was reassured. Cyst of kidney 086362007 N28.[id number] revealed a 6 mm exophytic lesion in the right kidney for which MRI was recommende d. Disorder of pancreas 385 5007 K86.9 [id number] Patient also with a 9 mm hypodense [...] Member ID Vargas Member ID Guarantor Name 05/25/2025 1 [place] Marcia Carl [id number] Marcia Carl 05/25/2025 2 [place] [id number] Marcia Carl [id number] Marcia Carl Notes Date Note Type Note Provider Name and Address Organization Details Recorded Time 05/25/2025 text/html ROS as noted in the [...] evaluation with MRI with and without contrast. Rodrick Mcelroy Jr, MD [address] [place] [address], [address], [place], [address], [facility] [place] [facility] [place] 05/25/2025 13:38:52 OBGyn Episode No OBEpisode recorded.
--- OUTSIDE RECORDS SUMMARY | 2025-06-17 07:19 | XMS_ITS | Patient Health Record ---
[facility] Address [address] [facility] [address] [place] [id number] Care Team Providers Care Retouching Operator Name Role Phone Serina Falconian Primary Care Provider Richard Concepcion Unavailable [phone] Mallorie Kruse Unavailable [phone] Allergies Allergen (clinical drug ingredient) Drug/Non Drug [...] Interpretation:Normal Performing Lab: Notes/Report: Test performed by [email or web address], [address] , [address], [place] [address] Yadiel Elliott MD, Hat And Cap Opener CLIA: [id number] Sodium 139 135-145 mmol/L Potassium 3.8 3.5-5.3 mmol/L Chloride 102 97-108 mmol/L CO2 22 20-32 mmol/L Glucose 103 65-99 mg/dL BUN 16 8-23 mg/dL Creatinine 0.56 0.50-1.00 mg/dL Calcium 9.3 8.6-10.4 mg/dL eGFR by Creatinine 96 >59 mL/min/1.73m2 X ray : Spine, lumbosacral Reviewed date:06/03/2025 09:50:09 AM Interpretation:consider MRI Performing Lab: Notes/Report: consider MRI DEXA Hip and Spine Reviewed date:05/12/2025 08:57:32 AM Interpretation:osteopenia and osteoporosis Performing Lab: Notes/Report: osteopenia and osteoporosis Dexa results osteopenia and osteoporosis H-TSH Reviewed date:11/30/2024 10:12:40 AM Interpretation:Normal Performing [...] Performing Lab: Notes/Report: T4F 1.30 0.78-2.19 ng/dl Mammogram Reviewed date:12/07/2024 12:21:18 PM Interpretation:Negative Performing Lab: Notes/Report: Negative result Negative Reason For Referral No Information Medications Medication [...] Notes Problem Gastro-esophageal reflux disease without esophagitis (002017938) Gastro-esophageal reflux disease without esophagitis (K21.9) Active confirmed Problem Essential hypertension (84428225) Essential hypertension (I10) Active confirmed Problem Pancytopenia (928938514) Pancytopenia (D61.818) Active confirmed Problem Decrease in appetite (finding) (97844491) Decreased appetite (R63.0) Active confirmed Problem Paresthesia (96495375) Paresthesia (R20.2) Active confirmed Problem Mixed hyperlipidemia (538887740) Mixed hyperlipidemia (E78.2) Active confirmed Problem Age-related osteoporosis (077754647) Age-related osteoporosis without current pathological fracture (M81.0) Active confirmed Problem Acquired hypothyroidism (079477249) Acquired hypothyroidism (E03.9) Active confirmed Problem Anemia (510321661) Anemia, unspecified type (D64.9) Active confirmed Problem Osteoarthritis of knee (453821816) Primary osteoarthritis of both knees (M17.0) Active confirmed Problem Body mass index 30.00 to 34.99 (617179539788758) BMI 34.0-34.9,adult (Z68.34) Active confirmed Problem Leukopenia (94219148) Leukopenia, unspecified type (D72.819) Active confirmed Problem 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 Problem Carpal tunnel syndrome (63128932) Carpal tunnel syndrome on both sides (G56.03) Active confirmed Problem Obesity (715168019) Non morbid obesity (E66.9) Active confirmed Vital Signs Heart Rate 99 /min 05/26/2025 Blood pressure diastolic 86 mm Hg 05/26/2025 Height 65.50 in 05/26/2025 Blood pressure systolic 120 mm Hg 05/26/2025 Weight 165.2 lbs 05/26/2025 BMI 27.07 kg/m2 05/26/2025 Encounters Encounter Location Date Provider Diagnosis [facility] [address] [place], [place] [id number] 10/15/2024 [place] Acquired hypothyroid ism E03.9 and Mixed hyperlipidemia E78.2 [facility] [address] [place], [place] [id number] 04/20/2025 [place] Closed fracture of f irst lumbar vertebra, unspecified fracture morphology, initial encounter S32.019A ; Osteoporosis screening Z13.820 ; Dark urine R82.998 ; Anemia, unspecified type D64.9 and Pancytopenia D61.818 [facility] [address] [place], [place] [id number] 05/26/2025 Mallorie Crowdy Closed fracture of f irst lumbar vertebra, unspecified fracture morphology, initial encounter S32.019A ; Muscle spasm of back M62.830 and BMI 27.0-27.9,adult Z68.27 [facility] [address] [place], [place] [id number] 11/30/2024 [place] [facility] [address] [place], [place] [id number] 04/11/2025 [place] [facility] [address] [place], [place] [id number] 04/12/2025 R Kushal Concepcion [facility] [address] [place], [place] [id number] 04/25/2025 [place] [facility] [address] [place], [place] [id number] 05/12/2025 [place] [facility] [address] [place], [place] [id number] 05/26/2025 Mallorie Crowdy Muscle spasm of back M62.830 [facility] [address] [place], [place] [id number] 06/03/2025 Mallorie Crowdy [facility] [address] [place], [place] [id number] 06/10/2025 [place] Closed compression fracture of L1 vertebra, initial encounter S32.010A Assessments Encounter Date Diagnosis (ICD Code) Assessment Notes Treatment Notes Treatment Clinical Notes Section Notes 10/15/2024 Mixed hyperlipidemia (ICD-10 - E78.2) 10/15/2024 Acquired hypothyroidism (ICD-10 - E03.9) 06/10/2025 Closed compression fracture of L1 vertebra, initial encounter (ICD-10 - S32.010A) 05/26/2025 Muscle spasm of back (ICD-10 - M62.830) 05/26/2025 Muscle spasm of back (ICD-10 - M62.830) 05/26/2025 Closed fracture of first lumbar vertebra, unspecified fracture morphology, initial encounter (ICD-10 - S32.019A) 04/20/2025 Osteoporosis screening (ICD-10 - Z13.820) 04/20/2025 Closed fracture of first lumbar vertebra, unspecified fracture morphology, initial encounter (ICD-10 - S32.019A) 04/20/2025 Dark urine (ICD-10 - R82.998) 05/26/2025 BMI 27.0-27.9,adult (ICD-10 - Z68.27) 04/20/2025 Anemia, unspecified type (ICD-10 - D64.9) 04/20/2025 Pancytopenia (ICD-10 - D61.818) Plan Of Treatment Pending Test Test Name Order Date MRI : Spine, Lumbosacral, without contra st 06/10/2025 MRI : spine, lumbosacral with and withou t contrast 06/10/2025 Hemoccult- [facility]OBT (in house) 04/20/2025 Insurance Providers Payer Name Payer Address Payer Phone Subscriber Number Group Number Insured Name Patient Relationship to Insured Coverage Start Date Coverage End Date MEDICARE PART B [address] [address] [place] [id number] [phone] [id number] Marcia Carl Self - patient is the insured [employer] [address] [place] [address] [id number] Marcia Carl Self - patient is the insured Medications Administered Medication Instructions Date of Administration Dosage Notes Depo- Medrol 40 mg/ml 08/03/2014 1 mL Depo- Medrol 40 mg/ml 08/30/2014 1.5 mL Dexamethasone 09/14/2016 1 mL Medical (General) History 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 History ICD Code Graves Disease Allergic Rhinitis 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 Warren x2 03/2016 Hospitalization History Reason Date(Month/Year) URI- [facility] UTC 01/25/2018 Bronchitis, Dehydration- [facility] ER 09/10/20 15 Bronchitis- [facility] ER 09/08/2015 Pneumonia- [facility] ER 03/26- Knee Pain- [facility] ER 06/26/2012 Lymph removed from groin
[2025-06-17] MEDS: LACTATED RINGERS 1000ML 1,000 ML 50 ML IV (08:02)
[2025-06-17 08:23] LABS: Hematocrit 32.3 % (37.0-47.0); Hemoglobin 10.4 g/dL (12.2-16.2); Immature Granulocytes % 1.1 %; Mean Corpuscular HGB Conc 32.2 g/dL (31.8-35.4); Mean Corpuscular Hemoglobin 28.7 pg (27.0-31.2); Mean Corpuscular Volume 89.2 fl (81-99); Nucleated Red Blood Cells % 0 %; Platelet Count 157 K/mm3 (142-424); Red Blood Count 3.62 M/mm3 (4.20-5.40); Red Cell Distribution Width-SD 65.1 fL
[2025-06-17 08:24] LABS: White Blood Count 1.8 K/mm3 (4.8-10.8)
[2025-06-17 08:30] LABS: INR 1.03 (0.9-1.1); Prothrombin Time 11.4 seconds (10.1-12.5)
--- NOTE | 2025-06-17 08:30 | CT_ITS ---
FINAL REPORT CLINICAL HISTORY: .ct guided bone marrow biopsy for leukopenia FINDINGS: CT GUIDED BONE MARROW BIOPSY. HISTORY: leukopenia. ATTENDING PHYSICIAN: Dr. 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 Utilizing local anesthesia and sterile technique with a bone marrow biopsy system, access to the marrow was obtained. And marrow aspirate and core samples were obtained. The patient received mild procedural sedation. The patient tolerated the procedure well and left the department in good condition. IMPRESSION: Status post CT guided biopsy of the bone marrow without immediate complication. PROCEDURAL SEDATION: 2mg of IV Versed and 50 mcg of Fentanyl were administered. Continuous vital sign monitoring was used. An RN was present during the sedation process. Overall sedation time was 30 minutes. Reviewed, Interpreted and Dictated by Ravi Mcelroy MD Transcribed by SUZANNE Jones Authenticated and [facility]
[2025-06-17 09:01] LABS: Total Cells Counted 100
[2025-06-17 09:02] LABS: RBC Morphology Normal
[2025-06-17] MEDS: HEPARIN SODIUM 5,000 UNIT/ML VIAL 5000 UNIT (09:20)
[2025-06-17] MEDS: LIDOCAINE 1% 20ML MDV 20 ML (09:20)
== END 2025-06-17 11:26 ==
LOC: RAD 07:16
PROVIDERS: PCP Family Medicine; Visit Provider Internal Medicine Medical Oncology
DX: Z01.818 Encounter for other preprocedural examination (principal); D72.819 Decreased white blood cell count, unspecified; I80.9 Phlebitis and thrombophlebitis of unspecified site; S32.010A Wedge compression fracture of first lumbar vertebra, initial encounter for closed fracture
CPT/HCPCS: 38221; 77012; 85007; 85025; 85610; 99152; J1644; J2003; J2250; J3010; J7120

== ENCOUNTER 2025-06-20 16:05 | Emergency (ER) | payer MEDICARE, BC, SELFPAY ==
--- OUTSIDE RECORDS SUMMARY | 2024-10-15 07:30 | XMS_ITS ---
Author Organization [facility] Address [address] [facility] [address] [place] [phone] Care Team Providers Care Stem Sizer Name Role Phone Williams Falcon Primary Care [address] [place] [id number] 10/15/2024 Williams Falcon Acquired hypothyroid ism E03.9 [...] * Sierra BROWNOB:1950 ( 75 yo F)Acc No.[id number]:10/15/2024 Progress Notes Patient: Marcia GERARD Provider: Odin Falcon M.D. :1950 A ge:74 Y S ex:Female Date:10/15/2024 Address:[address] [place] [address] , [place], [id number] Subjective: * Chief Complaints: * 1 . 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 * Surgical History: T ubal Ligation 1979, Rectal Hernia Repair 2005, Transvaginal Taping 2005, RT Eye Cataract 11/26/2011, LT Knee Surgery 08/2012, Mole Removal - Dr. Warren x2 03/2016. * Hospitalization/Major Diagno stic Procedure: L ymph removed from groin , Knee Pain- [facility] ER 06/26/2012, Pneumonia- [facility] ER 03/26-, Bronchitis- [facility] ER 09/08/2015, Bronchitis, Dehydration- [facility] 09/10/2015, [facility]. * Family History: F ather: [...] * Images: Billing Information: * Visit Code: 02730 Office Visit, Est Pt., Level 3. * Procedure Codes: G2211 Complex e/m visit add on. 3074F SYST BP LT 130 MM HG. 3078F DIAST BP < 80 MM HG. * Electronic signature of Maria A Falcon MD on 06/20/2025 at 04:33 PM EDT Sign off status: Pending * Provider: Odin Falcon M.D. Date: 0 10/15/2024 Generated for Beatriz espinosa/Shola/Franklinransmitting on: 1 04:33 PM EDT History and Physical Notes * [...]
--- OUTSIDE RECORDS SUMMARY | 2025-04-20 07:15 | XMS_ITS ---
Author Organization [facility] Address [address] [facility] [address] [place] [phone] Care Team Providers Care Casting Plug Assembler Name Role Phone Williams Falcon Primary Care [...] 01:45:21 PM Interpretation:Normal Performing Lab: Notes/Report: CLIA: [id number] Yadiel Elliott MD, Coach Wirer [facility] , [place] [address] Test performed by [employer], [facility] Sodium 139 135-145 mmol/L Potassium 3.8 3.5-5.3 [...] Status W/U Status Risk Notes Problem Anemia (259049600) Anemia, unspecified type (D64.9) Active confirmed Vital Signs Blood pressure systolic 114 mm Hg 04/20/20 25 Blood pressure diastolic 70 mm Hg 025 Heart Rate 83 /min 04/20/2025 Height 65.50 in 04/20/2025 Encounters Encounter Location Date [facility] [address] [phone] 04/20/2025 Williams Falcon Closed fracture of f [...] * Sierra BROWNOB:1950 ( 75 yo F)Acc No.[id number]:04/20/2025 Patient: Marcia GERARD Provider: Odin Falcon M.D. :1950 A ge:74 Y S ex:Female Date:04/20/2025 Address:[facility] [address], [place], [id number] Subjective: * Chief Complaints: * 1 . f/u for L1 fracture. * HPI: H PI: 74 year old female presents with c/o Here for follow up on:?04/07/2025 [facility] hospitalization. 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 * Family History: F [...] G 2211 Complex e/[place], [address] CBC WITH AUTO DIFF, 86772 Urinalysis, no micro, 1036F TOBACCO NON-USER, G8783 [...] results * Images: Drawing:[address] [facility] 2024 Billing Information: * Visit Code: 70158 Office Visit, Est Pt., Level 4. * Procedure Codes: G2211 Complex e/[place]. [address] CBC WITH AUTO DIFF. 35997 Urinalysis, no micro. 1036F TOBACCO NON-USER. G8783 [...] 04/20/2025 Generated for Beatriz espinosa/Shola/eTransmitting on: 1 04:33 PM EDT History and Physical Notes * HPI (History of Present Illness) Category Sub-Category Detail Notes Category Not es HPI Here for follow up on: 5 [facility] hospitalization. Pt was taken to er [...]
--- OUTSIDE RECORDS SUMMARY | 2025-04-22 07:00 | XMS_ITS ---
Author [facility] Address [address] [place] [phone] Care Team Providers Care It Support Specialist Name Role Phone Williams Falcon Primary Care Provider REASON FOR VISIT f/u for L1 fracture Encounters Encounter Location Date Provider Diagnosis [facility] [address] [place] [id number] 04/22/2025 Williams Falcon Plan Of Treatment No Information Progress Notes * Sierra BROWNOB:1950 ( 75 yo F)Acc No.[id number]:04/22/2025 Progress Notes Patient: Marcia GERARD Provider: Odin Falcon M.D. :1950 A ge:74 Y S ex:Female Date:04/22/2025 Address:[facility] [id number] Subjective: * Chief Complaints: * 1 . f/u for L1 fracture. * 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: Objective: * Vitals: Assessment: Plan: * Treatment: * Images: Billing Information: * Visit Code: * Procedure Codes: * Electronic signature of Maria A Falcon MD on 06/20/2025 at 04:33 PM EDT Sign off status: Pending * Provider: Odin Falcon M.D. Date: 0 04/22/2025 Generated for Printi ng/Faxing/eTransmitting on: 1 04:33 PM EDT
--- OUTSIDE RECORDS SUMMARY | 2025-05-26 09:30 | XMS_ITS ---
Author Organization [facility] Address [address] [place] [id number] Care Team Providers Care Inspector Health Care Facilities Name Role Phone Williams Falcon Primary Care Provider Mallorie Kruse [phone] Allergies Allergen (clinical drug ingredient) Drug/Non Drug [...] Provider Diagnosis Georges [address] [facility] [address] [place] [id number] 05/26/2025 Mallorie Kruse Closed fracture of f [...] * Darling BROWNanDOB:1950 ( 75 yo F)Acc No.[id number]:05/26/2025 Progress Notes Patient: Marcia GERARD Provider: SUZANNE Roy :1950 A ge:74 Y S ex:Female Date:05/26/2025 Address:[facility] [address], [place], [id number] Pcp:Williams Falcon Subjective: * Chief Complaints: * [...] and sts she then got admitted to [facility] for a kidney stone and sts she [...] 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: G raves Disease, Allergic Rhinitis, 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 * Family History: F ather: . [...] * Images: Billing Information: * Visit Code: 07700 Office Visit, Est Pt., Level 3. * Procedure Codes: G2211 Complex e/m visit add on. 1036F TOBACCO NON-USER. 3074F SYST BP LT 130 MM HG. 3079F DIAST BP 80-89 MM HG. G8420 BMI<30 AND >=22 CALC & DOCU. * Electronic signature of SUZANNE Sumner on 06/20/2025 at 04:33 PM EDT Sign off status: Pending * Provider: SUZANNE Roy Date: 0 05/26/2025 Generated for Beatriz espinosa/Shola/Jorgesmitting on: 1 04:33 PM EDT History and [...] and sts she then got admitted to [facility] for a kidney stone and sts she [...]
--- OUTSIDE RECORDS SUMMARY | 2025-06-10 05:20 | XMS_ITS ---
Author [facility] [address] [facility] [address] [place] [phone] Care Team Providers Care Data Modeler Name Role Phone WestWilliams canales Primary Care Provider REASON FOR VISIT Message Encounters Encounter Location Date Provider Diagnosis [place] [address] [facility] [address] [place] [id number] 06/10/2025 Williams Falcon Closed compression fracture of [...] * Darling BROWNDadaOB:1950 ( 75 yo F)Acc No.[id number]:06/10/2025 Patient: Marcia GERARD :1950 A ge:74 Y S ex:Female Address:[facility] [address] [place], [address] Subjective: * Chief Complaints: * M essage * 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: * Surgical History: * Hospitalization/Major Diagno stic Procedure: * Medications: Objective: * Vitals: * Physical Examination: Assessment: * Assessment: 1. C losed compression fracture of L1 vertebra, initial encounter - S32.010A (Primary) ? Plan: * Treatment: * Procedure Codes: * true * Date: Generated for Printi ng/Shola/Latonya on: 1 04:34 PM EDT
[2025-06-20 16:07] VITALS: BP 134/91; PULSE 98; RESP 16; TEMP 37.1; O2SAT 97; BMI 25.4
[2025-06-20 16:13] VITALS: BP 137/86; PULSE 90; RESP 16; TEMP 37.1; O2SAT 96
--- NOTE | 2025-06-20 16:19 | ED_ITS ---
<Statement entered by Reginald Vergara MD - 06/20/25 19:25> I was consulted by the CAROLE, and we discussed the complexity of the problems being addressed. I approve the treatment and management plan for this patient's care in the emergency department, thus performing a substantive portion of the medical decision making. Reginald Vergara MD Discharge Plan Disposition Patient Disposition: Home, Self-Care Condition: Good Prescriptions Prescriptions: New doxycycline hyclate 100 mg capsule 100 mg PO BID 5 Days Qty: 10 0RF No Action levothyroxine 175 mcg tablet 175 mcg PO DAILY Patient Comments: TAKE 1 TABLET BY MOUTH ONCE DAILY IN THE MORNING ON AN EMPTY STOMACH FOR 30 DAYS methocarbamol 500 mg tablet 500 mg PO QID Referrals Follow up/Referrals: Williams Falcon MD [Primary Care Provider, Medical] - See instructions Oliverio Lowery MD [Staff Physician, Oncology] - See instructions Activity Restrictions/Add. Instructions Additional Instructions/Restrictions: Please return to the emergency department with any worsening signs or symptoms. Please take your antibiotic medication as prescribed with food. Please follow- up with your PCP and Dr. Lowery in the upcoming days/weeks. Clinical Impressions Clinical Impression: Fever and chills Instructions Patient Instructions: DI for Fever (Symptom) in Adults, DI for Atypical Pneumonia Print Language Print Language: Palestinian Discharge ED Provider: Reginald Vergara General Adult HPI General Chief complaint: Fever Stated complaint: fever of 100 Time Seen by Provider: 06/20/25 16:15 Mode of Arrival: Ambulatory Source of Information: Patient Description of Symptoms (Recalled from ER Triage Doc. by RN): patient presents to the ED for a fever at home that started today. Patient had a bone marrow biopsy on friday. History of Present Illness HPI narrative: 75-year-old female presents the emergency department concern for fever , patient states that she has had some worsening fatigue and malaise over the last several days, she had a Tmax of 100 ?F , with oral thermometer recorded today, this prompted emergency department visit. Patient is status post 2 days bone marrow biopsy of her lower lumbar spine, which was ordered by her hematology oncologist physician who she follows with for anemia and leukopenia. Patient admits to subjective fever chills, denies any chest pain cough congestion, sore throat, no shortness of breath, no nausea no vomiting no constipation no diarrhea, no urinary symptomatology, patient is current everyday smoker, denies any alcohol or other drug use, patient denies any pain from her incision site, no drainage, no redness or swelling around the incision site. Other past medical history is consistent with traumatic compression fractures of her thoracic and lumbar regions, hypothyroidism due to surgically removed thyroid. Initial triage vitals are unremarkable, afebrile here in the emergency department. Also of note, I reviewed the patient's hematology oncology note, she has had leukopenia which is chronic for her since August 2021, essentially negative workup with no splenomegaly and lymphadenopathy per hematology oncology. With the exception of March of this year there is now been some anemia and at times thrombocytopenia that accompanies her leukopenia. Please note that above description of symptoms, in this electronic medical record under categorization of recalled from ER triage doctor by RN are reflective of an initial nursing assessment, however, is not reflective of my full history and physical exam that was personally taken and clarified. Consequentially, this preceding description of symptoms, which may include the patient's categorized chief complaint in the EMR, do not reflect my personal clinical impression, and the ultimate description of history of present illness and patient stated complaints should be deferred to this section of the note. Unless stated otherwise or congruent with this section of the note, additional signs, symptoms, or incongruence should be interpreted as inaccurate with my clinical impression. Onset (ago): hour(s) Related Data Home Medications ?Medication ?Instructions ?Recorded ?Confirmed levothyroxine 175 mcg tablet 175 mcg PO DAILY 02/24/24 06/17/25 methocarbamol 500 mg tablet 500 mg PO QID 05/27/2512/07 Previous Rx's ?Medication ?Instructions ?Recorded doxycycline hyclate 100 mg capsule 100 mg PO BID 5 day s #10 caps 06/20/25 Allergies Allergy/AdvReac Type Severity Reaction Status Date / Time codeine (CODEINE) Allergy Mild NA-NAUSEA/V Verified 06/17/25 07:48 OMITING [facility] Disclaimer: The information contained in this section may have been updated after the patient was seen, as this information can be updated by other users. 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 Thyroid disease History of anemia Urinary tract infection Kidney stone History of gastroesophageal reflux (GERD) Surgical History History of repair of ACL History of tubal ligation Family History Other No significant family history Social History Smoking Status: Never smoker second hand exposure: No alcohol intake: current alcohol intake frequency: holidays/special occasions only substance use type: denies use current occupational status: retired Travel in the last 8 weeks?: None household members: spouse housing: house current occupational exposures/hazards: No caffeine: Yes Have you lived/traveled outside US in past 30 days?: No Contact w/someone who lives/traveled outside US past 30 days?: No Exposure to someone with infectious disease in past 14 days?: No Do you have a fever (greater than 100.4 F or 38 C)?: No Have you tested positive for COVID-19?: No Exposed to someone with COVID-19 in past 14 days?: No Do you have a sore throat?: No Do you have a cough?: No Do you have any weakness?: No Do you have any diarrhea?: No Are you experiencing any unusual bleeding?: No Do you have any muscle aches/pain?: No Do you have any abdominal pain?: No Are you experiencing loss of taste or smell?: No Other 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 Have you received the Flu Vaccine for this season: No Have you received the Pneumonia Vaccine: No ROS Obtained: Yes All systems reviewed & no additional complaints except as documented Physical Exam General General appearance: alert and in no apparent distress Head Head exam: atraumatic and normocephalic Eye Eye exam: Present PERRL and EOMI ENT ENT exam: Present mucous membranes moist Neck Neck exam: Present normal inspection Chest Chest inspection: Present normal inspection and symmetric chest wall rise Respiratory Respiratory exam: Present normal lung sounds bilaterally; Absent respiratory distress Cardiovascular Cardiovascular exam: Present regular rate and normal rhythm Abdominal Exam Abdominal exam: Present soft; Absent tenderness, guarding or rebound Extremities Exam Extremities exam: Present normal inspection Neurological Exam Neurological exam: Present alert and oriented X3 Psychiatric Psychiatric exam: Present normal affect Skin Skin exam: Present warm and dry Medical Decision Making Medical Records Medical records reviewed: Yes I reviewed the patient's medical records. Screening: Per USPSTF and CDC recommendations, given the prevalence of disease in our region, it is our hospital?s policy to screen for HIV and viral Hepatitis for all patients aged 18 and over and those with ongoing risk factors. Ambrose Inquiry Pt receiving controlled substance: No Vital Signs: 06/20/25 16:07 06/20/25 16:13 06/20/25 16:22 Temperature 98.7 F 98.7 F Temperature Source Oral Oral Temporal Artery Scan Pulse Rate 90 Pulse Rate [Right Radial] 98 H Respiratory Rate 16 16 Blood Pressure 137/86 Blood Pressure [Right Arm] 134/91 H Blood Pressure Mean Blood Pressure Mean [Right Arm] 105 Blood Pressure Source Automatic Cuff Blood Pressure Source [Right Arm] Automatic Cuff Blood Pressure Position Sitting Blood Pressure Position [Right Arm] Sitting 02 Sat by Pulse Oximetry 97 96 Oxygen Delivery Method Room Air Room Air 06/20/25 16:31 Temperature Temperature Source Pulse Rate 101 H Pulse Rate [Right Radial] Respiratory Rate Blood Pressure 121/94 H Blood Pressure [Right Arm] Blood Pressure Mean 103 Blood Pressure Mean [Right Arm] Blood Pressure Source Blood Pressure Source [Right Arm] Blood Pressure Position Blood Pressure Position [Right Arm] 02 Sat by Pulse Oximetry 98 Oxygen Delivery Method Lab Data Lab results reviewed: Yes I reviewed the patient's lab results. Lab Results 06/20/25 17:04: WBC 2.5 L, RBC 3.95 L, Hgb 11.3 L, Hct 35.5 L, MCV 89.9, MCH 28.6, MCHC 31.8, RDW 19.8 H, Plt Count 189, MPV 9.3, Neut % (Auto) 32.0 L, Lymph % (Auto) 49.2, Erath % (Auto) 14.0 H, Eos % (Auto) 0.0 L, Baso % (Auto) 0.4, Neut # (Auto) 0.8 L*, Lymph # (Auto) 1.2, Erath # (Auto) 0.4, Eos # (Auto) 0.0, Baso # (Auto) 0.0, Sodium 142, Potassium 3.3 L, Chloride 105, Carbon Dioxide 25, Anion Gap 15.3 H, BUN 13, Creatinine 0.80, Estimated Creat Clear 57, Estimated GFR 70, Est GFR ( Amer) 85, Glucose 103 H, Lactate 0.7, Calcium 9.5, Total Bilirubin 0.9, AST 20, ALT 10 L, Alkaline Phosphatase 103, Total Protein 7.0, Albumin 4.3, Globulin 2.7, Albumin/Globulin Ratio 1.6, Urine Color Yellow, Urine Appearance Clear, Urine pH 6.5, Ur Specific Lamar 1.020, Urine Protein Negative, Urine Glucose (UA) Negative, Urine Ketones Negative, Urine Blood Negative, Urine Nitrate Negative, Urine Bilirubin Negative, Urine Urobilinogen 2.0, Ur Leukocyte Esterase Negative, Urine RBC None, Urine WBC Occasional, Ur Squamous Epith Cells 3-5, Calcium Oxalate Crystal Trace, Amorphous Sediment 1+, Urine Bacteria 1+ 06/20/25 17:04 06/20/25 17:04 Orders (Tests/Meds): ED MEDICATIONS Discontinued Medications Generic Name Dose Route Start Last Admin Trade Name Freq PRN Reason Stop Dose Admin Potassium Chloride 40 meq 06/20/25 17:53 06/20/25 18:10 Potassium Chloride 20meq Tab PO 06/20/25 17:54 40 meq ONCE ONE Administration ORDERS Category Date Time Status XR chest portable Stat Exams 06/20/25 16:32 Completed Complete Blood Count Auto Diff Stat Lab 06/20/25 17:04 Results Comprehensive Metabolic Panel Stat Lab 06/20/25 17:04 Completed Lactic Acid Stat Lab 06/20/25 17:04 Completed Urinalysis and Microscopic Stat Lab 06/20/25 17:04 Completed Medical Decision Narrative: 75-year-old female presents the emergency department with concern for fever, see HPI for detailed past medical history, differential diagnose include but not limited to pneumonia, acute UTI, electrolyte disturbance, URI, among others. I discussed this patient's case with the attending physician Dr. Vergara Will obtain basic laboratory studies, chest x-ray and UA. CMP is notable for mild hypokalemia at 3.3, lactic acidosis within normal limits, otherwise unremarkable CMP. Will replace hypokalemia with 40 mEq p.o. potassium chloride. CBC is notable for leukopenia at 2.5, erythrocyte opinion at 3.95, hemoglobin hematocrit 11.3/35.5 respectively, platelets within normal limits, neutrophil number is 0.8, which appears to be the patient's baseline. UA is unremarkable negative nitrites negative leukocyte esterase. No RBCs, WBCs, 35 squamous epithelials 1+ bacteria, I reviewed the patient's chest x-ray along the corresponding radiologic report, bibasilar opacities partially silhouette the diaphragm. Represent commendation of atelectasis pleural effusion/consolidation. I discussed the results with the patient at bedside, patient resting comfortably, has remained hemodynamically stable without her time in the emergency department, will prophylactically treat the patient for atypical pneumonia in the setting of neutropenia, and new findings on chest x-ray. Will treat the patient with doxycycline 100 mg p.o. twice daily for 5 days, will give first dose here in the emergency department. Patient was given strict ED return precautions. Patient voiced understanding and agreed with the current treatment plan/discharge plan. Patient follow-up with PCP and hematology oncology in the upcoming days/weeks. Critical Care Critical Care Time Critical Care Time: No
[2025-06-20 16:31] VITALS: BP 121/94; PULSE 101; O2SAT 98
--- NOTE | 2025-06-20 16:32 | XR_ITS ---
PROCEDURE INFORMATION: Exam: XR Chest Exam date and time: 06/20/2025 5:12 PM Age: 75 years old Clinical indication: Fever; Additional info: Fever of 100 ???f TECHNIQUE: Imaging protocol: Radiologic exam of the chest. Views: 1 view. COMPARISON: CR XR CHEST PORTABLE 04/07/2025 1:34 PM FINDINGS: Lungs: Bibasilar opacities partially silhouette the diaphragm are favored to represent combination of atelectasis/pleural effusion/consolidation. There are moderate centrilobular emphysematous changes of the lungs with an apical gradient. Pleural spaces: See Lungs finding. Heart/Mediastinum: Unremarkable. No cardiomegaly. Bones/joints: Unremarkable. IMPRESSION: Bibasilar opacities partially silhouette the diaphragm are favored to represent combination of atelectasis/pleural effusion/consolidation.
--- OUTSIDE RECORDS SUMMARY | 2025-06-20 16:33 | XMS_ITS | Clinical Summary ---
Author Organization [facility] Address [address] [place] [address] Care Team Providers Care Attending Ambulatory Care Name Role Phone Williams Falcon MD Primary Care Provider + [phone] Allergies No known active allergies Medications levothyroxine [...] Description 07/04/2025 10:00 AM EDT Office Visit [facility] [address] [id number] Gypsy Silva MD [address] [place] [address] Health Maintenance Due Date Last Done Comments [...] Completed 03/01/2021, 10/[address] [place] [address] MEDIC[address] & B [facility] Care Teams Attending Ambulatory Care Relationship Specialty Start Date End Date Williams Falcon MD [address] [facility] [address] [facility] [address] [place] [address] PCP - General Family Medicine 03/26/24
--- OUTSIDE RECORDS SUMMARY | 2025-06-20 16:33 | XMS_ITS | Clinical Summary ---
Author Organization [facility] Address [address] [place] [address] Care Team Providers Care Dopeman Name Role Phone Unavailable Primary Care Provider Unavailabl e Encounters Date Type Department Care Team Description 04/07/2025 Orders Only External Location [address] [place] [id number] Provider, External 04/07/2025 Orders Only External Location [address] [place] [phone] Provider, External 04/07/2025 Orders Only External Location [address] [place] [address] Provider, External 04/07/2025 Orders Only External Location [address] [place] [address] Provider, External 04/07/2025 Orders Only External Location [address] [place] [id number] Provider, External 04/07/2025 Orders Only External Location [address] [place] [address] Provider, External from Last 3 [...] 1997 [facility]-Zoster Vaccines (1 of 2) 2002 GYS-QUADO-59 Vaccine (1 - season) 2025 [facility]-Influenza Vaccine [...]
--- OUTSIDE RECORDS SUMMARY | 2025-06-20 16:34 | XMS_ITS | Patient Health Record ---
Author Organization [facility] Address [address] [facility] [address] [place] [id number] Care Team Providers Care Ambulance Assistant Name Role Phone Serina Falconian Primary Care Provider Richard Concepcion Unavailable [phone] Mallorie Kruse Unavailable [phone] Allergies Allergen (clinical drug ingredient) Drug/Non Drug [...] Interpretation:Normal Performing Lab: Notes/Report: Test performed by [facility], [address] , [address], [place] [address] Yadiel Elliott MD, Domain Architect CLIA: [id number] Sodium 139 135-145 mmol/L Potassium 3.8 3.5-5.3 [...] and osteoporosis Dexa results osteopenia and osteoporosis H-T4 free Reviewed date:11/30/2024 10:12:40 AM Interpretation:Normal Performing Lab: Notes/Report: T4F 1.30 0.78-2.19 ng/dl H-CMP Reviewed date:11/30/2024 10:12:40 AM Interpretation:cl 109, [...] AGRATIO 1.7 1.1-1.8 ALP 81 38-126 U/L H-Lipid Panel Reviewed date:11/30/2024 10:12:40 AM Interpretation:chol 228, dldl 98.3, hdl 92 Performing Lab: Notes/Report: Patient Fasting? Y TRIG 62 30-150 mg/dl CHOL 228 140-200 mg/dl DLDL 98.30 100-129 mg/dL VLDL 12 0-40 mg/dL HDL 92 40-60 mg/dl CHLHDL 2.5 1-3.5 H-TSH Reviewed date:11/30/2024 10:12:40 AM Interpretation:Normal Performing Lab: Notes/Report: TSH 1.14 0.465-4.68 uIU/mL Mammogram Reviewed date:12/07/2024 12:21:18 PM Interpretation:Negative Performing [...] Notes Problem Gastro-esophageal reflux disease without esophagitis (254058825) Gastro-esophageal reflux disease without esophagitis (K21.9) Active confirmed Problem Essential hypertension (35649042) Essential hypertension (I10) Active confirmed Problem Pancytopenia (346782833) Pancytopenia (D61.818) Active confirmed Problem Decrease in appetite (finding) (53023865) Decreased appetite (R63.0) Active confirmed Problem Paresthesia (41187911) Paresthesia (R20.2) Active confirmed Problem Mixed hyperlipidemia (868815830) Mixed hyperlipidemia (E78.2) Active confirmed Problem Age-related osteoporosis (935227045) Age-related osteoporosis without current pathological fracture (M81.0) Active confirmed Problem Acquired hypothyroidism (747379207) Acquired hypothyroidism (E03.9) Active confirmed Problem Anemia (522556171) Anemia, unspecified type (D64.9) Active confirmed Problem Osteoarthritis of knee (684894166) Primary osteoarthritis of both knees (M17.0) Active confirmed Problem Body mass index 30.00 to 34.99 (843069090735857) BMI 34.0-34.9,adult (Z68.34) Active confirmed Problem Leukopenia (39288336) Leukopenia, unspecified type (D72.819) Active confirmed Problem 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 Problem Carpal tunnel syndrome (99659668) Carpal tunnel syndrome on both sides (G56.03) Active confirmed Problem Obesity (606419094) Non morbid obesity (E66.9) Active confirmed Vital Signs Heart Rate 99 /min 05/26/2025 Blood pressure diastolic 86 mm Hg 05/26/2025 Height 65.50 in 05/26/2025 Blood pressure systolic 120 mm Hg 05/26/2025 Weight 165.2 lbs 05/26/2025 BMI 27.07 kg/m2 05/26/2025 Encounters Encounter Location Date Provider Diagnosis [facility] [address] [place], [place] [id number] 10/15/2024 Williams [place] Acquired hypothyroid ism E03.9 and Mixed hyperlipidemia E78.2 [facility] [address] [place], [place] [id number] 04/20/2025 Williams [place] Closed fracture of f irst lumbar vertebra, unspecified fracture morphology, initial encounter S32.019A ; Osteoporosis screening Z13.820 ; Dark urine R82.998 ; Anemia, unspecified type D64.9 and Pancytopenia D61.818 [facility] [address] [place], [place] [id number] 05/26/2025 Mallorie Crowdy Closed fracture of f irst lumbar vertebra, unspecified fracture morphology, initial encounter S32.019A ; Muscle spasm of back M62.830 and BMI 27.0-27.9,adult Z68.27 [facility] [address] [place], [place] [id number] 11/30/2024 Williams [place] [facility] [address] [place] [id number] 04/11/2025 Williams [place] [facility] [address] [place], [place] [id number] 04/12/2025 R Kushal Concepcion [facility] [address] [place], [place] [id number] 04/25/2025 Williams [place] [facility] [address] [place] [id number] 05/12/2025 Williams [place] [facility] [address] [place] [id number] 05/26/2025 Mallorie Crowdy Muscle spasm of back M62.830 [facility] [address] [place] [id number] 06/03/2025 Mallorie Crowdy [facility] [address] [place], [place] [id number] 06/10/2025 Williams [place] Closed compression fracture of L1 vertebra, initial encounter S32.010A Assessments Encounter Date Diagnosis (ICD Code) Assessment Notes Treatment Notes Treatment Clinical Notes Section Notes 10/15/2024 Mixed hyperlipidemia (ICD-10 - E78.2) 10/15/2024 Acquired hypothyroidism (ICD-10 - E03.9) 04/20/2025 Osteoporosis screening (ICD-10 - Z13.820) 05/26/2025 Muscle spasm of back (ICD-10 - M62.830) 05/26/2025 Closed fracture of first lumbar vertebra, unspecified fracture morphology, initial encounter (ICD-10 - S32.019A) 05/26/2025 Muscle spasm of back (ICD-10 - M62.830) 06/10/2025 Closed compression fracture of L1 vertebra, initial encounter (ICD-10 - S32.010A) 04/20/2025 Closed fracture of first lumbar vertebra, unspecified fracture morphology, initial encounter (ICD-10 - S32.019A) 05/26/2025 BMI 27.0-27.9,adult (ICD-10 - Z68.27) 04/20/2025 Dark urine (ICD-10 - R82.998) 04/20/2025 [...] Date MEDICARE PART B [address] [address] [place] [id number] Marcia Carl Self - patient is the insured [employer] [address] [place] [address] [id number] Marcia Carl Self - patient is the insured Medications Administered Medication Instructions Date of Administration Dosage Notes Depo- Medrol 40 mg/ml 08/03/2014 1 mL Depo- Medrol 40 mg/ml 08/30/2014 1.5 mL Dexamethasone 09/14/2016 1 mL Medical (General) History 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 History ICD Code Graves Disease Allergic Rhinitis MEDICAL RECEPTION - Dr. Oliverio Tatum Hiatal Hernia LT ACL tear 2011 Osteoporosis Esophageal reflux kidney stones March 15, 2017 varicose veins Compression fracture, Lumbar 2024 Surgical History Surgery Date(Month/Year) Tubal Ligation 1979 Rectal Hernia Repair 2005 Transvaginal Taping 2005 RT Eye Cataract 11/26/2011 LT Knee Surgery 08/2012 Mole Removal - Dr. Warren x2 03/2016 Hospitalization History Reason Date(Month/Year) URI- [facility] UTC 01/25/2018 Bronchitis, Dehydration- [facility] ER 09/10/20 15 Bronchitis- [facility] ER 09/08/2015 Pneumonia- [facility] ER 03/26- Knee Pain- [facility] ER 06/26/2012 Lymph removed from groin
[2025-06-20 17:30] LABS: Microscopic, Urine URINE MICROSCOPIC (MICROSCOPIC)
[2025-06-20 17:31] LABS: Hematocrit 35.5 % (37.0-47.0); Hemoglobin 11.3 g/dL (12.2-16.2); Immature Granulocytes % 4.4 %; Mean Corpuscular HGB Conc 31.8 g/dL (31.8-35.4); Mean Corpuscular Hemoglobin 28.6 pg (27.0-31.2); Mean Corpuscular Volume 89.9 fl (81-99); Nucleated Red Blood Cells % 0 %; Platelet Count 189 K/mm3 (142-424); Red Blood Count 3.95 M/mm3 (4.20-5.40); Red Cell Distribution Width-SD 64.0 fL; White Blood Count 2.5 K/mm3 (4.8-10.8)
[2025-06-20 17:38] LABS: Bilirubin,Urine Negative (Negative); Color,Urine YELLOW (Yellow); Glucose,Urine (UA) Negative (Negative); Ketones,Urine Negative (Negative); Leukocyte Esterase,Urine Negative (Negative); PH,Urine 6.5 (5.0-8.5); Protein,Urine Negative (Negative); Specific Gravity, Urine 1.020 (1.005-1.030); Urobilinogen,Urine 2.0 EU/dl (0.2)
[2025-06-20 17:41] LABS: Alanine Aminotransferase 10 U/L (12-78); Albumin Level 4.3 g/dl (3.5-5.0); Albumin/Globulin Ratio 1.6 (1.1-1.8); Alkaline Phosphatase 103 U/L (38-126); Anion Gap 15.3 mEq/L (5-15); Aspartate Amino Transferase 20 U/L (14-36); Bilirubin,Total 0.9 mg/dl (0.2-1.3); Blood Urea Nitrogen 13 mg/dl (7-17); Calcium 9.5 mg/dl (8.4-10.2); Carbon Dioxide 25 mmol/L (22.0-30.0); Chloride 105 mmol/L (98-107); Creatinine Clearance Estimated 57 mL/min (50-200); Creatinine,Serum 0.80 mg/dl (0.52-1.04); Estimated Glomerular Filt Rate 70 ml/min (>60); GFR (African American) 85 ML/MIN (>60); Globulin 2.7 g/dL (1.3-3.2); Glucose 103 mg/dl (74-100); Potassium 3.3 mmoL/L (3.5-5.1); Sodium 142 mmol/L (136-145); Total Protein,Serum 7.0 g/dl (6.3-8.2)
[2025-06-20] MEDS: POTASSIUM CHLORIDE 20MEQ TAB 40 MEQ PO (18:10)
[2025-06-20 18:41] LABS: WBC,Urine Occasional #/hpf (0-3)
[2025-06-20 18:42] LABS: Amorphous Sediment,Urine 1+ /lpf; Bacteria,Urine 1+ /lpf; Calcium Oxalate Crystals,Urine Trace /lpf
[2025-06-20] MEDS: DOXYCYCLINE HYCL 100 MG TABLET PO (19:15)
[2025-06-20 19:20] VITALS: BP 146/86; PULSE 81; RESP 16; TEMP 36.9; O2SAT 100
[2025-06-20 19:47] LABS: Total Cells Counted 100
[2025-06-20 19:48] LABS: Anisocytosis 1+; Ovalocytes 1+
== END 2025-06-20 19:22 | disposition home or self-care (01) ==
PROVIDERS: Physician Assistant; Emergency Provider Student in an Organized Health Care Education/Training Program; PCP Family Medicine
DX: D70.9 Neutropenia, unspecified (principal); E87.6 Hypokalemia; R50.9 Fever, unspecified
CPT/HCPCS: 71045; 80053; 81001; 83605; 85007; 85025; 99284

== ENCOUNTER 2025-06-28 15:43 | Outpatient (CLI) | payer MEDICARE, BC, SELFPAY ==
--- OUTSIDE RECORDS SUMMARY | 2024-10-15 07:30 | XMS_ITS ---
Author Organization [facility] Address [address] [facility] [address] [place] [phone] Care Team Providers Care Manager Cardiovascular Name Role Phone Williams Falcon Primary Care Provider [phone] Allergies Allergen (clinical drug ingredient) Drug/Non Drug [...] orally once a day Active Vital Signs Blood pressure systolic 110 mm Hg 10/15/19 25 Blood pressure diastolic 70 mm Hg 025 Heart Rate 78 /min 10/15/2024 Height 65.50 in 10/15/2024 Weight 180.2 lbs 10/15/2024 BMI 29.53 kg/m2 10/15/2024 Encounters Encounter Location Date Provider Diagnosis [facility] [address] [place] [id number] 10/15/2024 Williams Falcon Acquired hypothyroid ism E03.9 [...] Reason: Progress Notes * Sierra BROWNOB:1950 ( 75 yo F)Acc No.[id number]:10/15/2024 Progress Notes Patient: Marcia GERARD Provider: Odin Falcon M.D. :1950 A ge:74 Y S ex:Female Date:10/15/2024 Address:[address] [place] [address] , [place], [id number] Subjective: * Chief Complaints: * 1 . 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 * Surgical History: T ubal Ligation 1979, Rectal Hernia Repair 2005, Transvaginal Taping 2005, RT Eye Cataract 11/26/2011, LT Knee Surgery 08/2012, Mole Removal - Dr. Warren x2 03/2016. * Hospitalization/Major Diagno stic Procedure: L ymph removed from groin , Knee Pain- [facility] ER 06/26/2012, Pneumonia- [facility] ER 03/26-, Bronchitis- [facility] ER 09/08/2015, Bronchitis, Dehydration- [facility] 09/10/2015, [facility] * Family History: F ather: . [...] * Images: Billing Information: * Visit Code: 86184 Office Visit, Est Pt., Level 3. * Procedure Codes: G2211 Complex e/m visit add on. 3074F SYST BP LT 130 MM HG. 3078F DIAST BP < 80 MM HG. * Electronic signature of Maria A Falcon MD on 06/28/2025 at 03:47 PM EDT Sign off status: Pending * Provider: Odin Falcon M.D. Date: 0 10/15/2024 Generated for Beatriz espinosa/Shola/Franklinransmitting on: 1 03:47 PM EDT History and Physical Notes * [...]
--- OUTSIDE RECORDS SUMMARY | 2025-04-20 07:15 | XMS_ITS ---
Author Organization [facility] Address [address] [facility] [address] [place] [id number] Care Team Providers Care Customer Solutions Architect Name Role Phone Williams Falcon Primary Care [...] date:05/02/2025 01:45:21 PM Interpretation:Normal Performing Lab: Notes/Report: CLIA: [id number] Yadiel Elliott MD, Project Finance Analyst [facility] , [place] [address] Test performed by [employer], [facility] Sodium 139 135-145 mmol/L Potassium 3.8 3.5-5.3 [...] Status W/U Status Risk Notes Problem Anemia ([id number]) Anemia, unspecified type (D64.9) Active confirmed Vital Signs Blood pressure systolic 114 mm Hg 04/20/20 25 Blood pressure diastolic 70 mm Hg 025 Heart Rate 83 /min 04/20/2025 Height 65.50 in 04/20/2025 Encounters Encounter [facility] Date [facility] [address] [phone] 04/20/2025 Williams Falcon Closed fracture of f [...] * Sierra BROWNOB:1950 ( 75 yo F)Acc No.[id number]:04/20/2025 Patient: Marcia GERARD Provider: Odin Falcon M.D. :1950 A ge:74 Y S ex:Female Date:04/20/2025 Address:[facility] [address], [place], [id number] Subjective: * Chief Complaints: * 1 . f/u for L1 fracture. * HPI: H PI: 74 year old female presents with c/o Here for follow up on:?04/07/2025 [facility] hospitalization. 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 * Family History: F ather: [...] by Creatinine 96 >59 - mL/min/1.73m2 * TerrieWilliams Leighann 04/21/2025 1 2:38:48 PM EDT >Lab results are satisfactory, sent to to inform.DevikaJanis 05/02/2025 01:44:29 PM EDT > pt informed. [...] G 2211 Complex e/[place], [address] CBC WITH AUTO DIFF, 90385 Urinalysis, no micro, 1036F TOBACCO NON-USER, G8783 [...] report test results * Images: Drawing:[address] [facility] 2024 Billing Information: * Visit Code: 24054 Office Visit, Est Pt., Level 4. * Procedure Codes: G2211 Complex e/[place]. [address] CBC WITH AUTO DIFF. 12035 Urinalysis, no micro. 1036F TOBACCO NON-USER. G8783 BP SCR PRFRM RCMDD DEFIND SCR INTVL. G8752 MOST RECENT SYSTOLIC BP < 140MM HG. G8754 MOST RECENT DIASTOLIC BP < 90MM HG. G9899 Scrn clifford perf rslts doc. * Electronic signature of Maria A Falcon MD on 06/28/2025 at 03:48 PM EDT Sign off status: Pending * Provider: Odin Falcon M.D. Date: 0 04/20/2025 Generated for Beatriz espinosa/Shola/eTransmitting on: 1 03:48 PM EDT History and Physical Notes * HPI (History of Present Illness) Category Sub-Category Detail Notes Category Not es HPI Here for follow up on: 5 [facility] hospitalization. Pt was taken to er for [...]
--- OUTSIDE RECORDS SUMMARY | 2025-04-22 07:00 | XMS_ITS ---
Author [facility] Address [address] [place] [phone] Care Team Providers Care Hogshead Head Matcher Name Role Phone Williams Falcon Primary Care Provider REASON FOR VISIT f/u for L1 fracture Encounters Encounter Location Date Provider Diagnosis [facility] [address] [place] [phone] 04/22/2025 Williams Falcon Plan Of Treatment No Information Progress Notes * Sierra BROWNOB:1950 ( 75 yo F)Acc No.[id number]:04/22/2025 Progress Notes Patient: Marcia GERARD Provider: Odin Falcon M.D. :1950 A ge:74 Y S ex:Female Date:04/22/2025 Address:[facility] [address] [id number] Subjective: * Chief Complaints: * 1 . f/u for L1 fracture. * 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: Objective: * Vitals: Assessment: Plan: * Treatment: * Images: Billing Information: * Visit Code: * Procedure Codes: * Electronic signature of Maria A Falcon MD on 06/28/2025 at 03:47 PM EDT Sign off status: Pending * Provider: Odin Falcon M.D. Date: 0 04/22/2025 Generated for Printi ng/Faxing/eTransmitting on: 1 03:47 PM EDT
--- OUTSIDE RECORDS SUMMARY | 2025-05-26 09:30 | XMS_ITS ---
Author Organization [facility] Address [address] [place] [id number] Care Team Providers Care Wildlife Control Agent Name Role Phone Williams Falcon Primary Care Provider Mallorie Kruse [phone] Allergies Allergen (clinical drug ingredient) Drug/Non Drug Allergy documented on EMR Reaction Allergy Type Onset Date Status codeine Codeine vomiting Drug Allergy Active Results Component Value Reference Range Notes X ray : Spine, lumbosacral Reviewed date:06/03/2025 09:50:09 AM Interpretation:consider MRI Performing Lab: Notes/Report: consider MRI REASON FOR VISIT fell, hurt back Medications Medication SIG (Take, Route, Frequency, Duration) Notes Start Date End Date Status Calcium Citrate 250 MG 1 tab(s) orally 2 times a day 07/22/2011 Not-Taking Metaxalone 800 MG 1 tablet Orally at night, prn 05/26/2025 Active Levothyroxine Sodium 175 MCG 1 tablet in the morning on an empty stomach Orally Once a day; Duration: 90 days Active Centrum Silver - 1 tab(s) orally once a day Active Vital Signs Blood pressure systolic 120 mm Hg 05/26/20 25 Blood pressure diastolic 86 mm Hg 025 Heart Rate 99 /min 05/26/2025 Height 65.50 in 05/26/2025 Weight 165.2 lbs 05/26/2025 BMI 27.07 kg/m2 05/26/2025 Encounters Encounter Location Date Provider Diagnosis [place] [address] [facility] [address] [place] [phone] 05/26/2025 Mallorie Kruse Closed fracture of f irst lumbar vertebra, unspecified fracture morphology, initial encounter S32.019A ; Muscle spasm of back M62.830 and BMI 27.0-27.9,adult Z68.27 Assessments Encounter Date Diagnosis (ICD Code) Assessment Notes Treatment Notes Treatment Clinical Notes Section Notes 05/26/2025 Closed fracture of first lumbar vertebra, unspecified fracture morphology, initial encounter (ICD-10 - S32.019A) 05/26/2025 Muscle spasm of back (ICD-10 - M62.830) 05/26/2025 BMI 27.0-27.9,adult (ICD-10 - Z68.27) Plan Of Treatment Medication Medication Name Sig Start Date Stop Date Notes Metaxalone 800 MG 1 tablet Orally at night, prn 05/26/2025 Next Appt Details Follow Up: via phone to repo rt test results, Reason: Progress Notes * Darling BROWNanDOB:1950 ( 75 yo F)Acc No.[id number]:05/26/2025 Progress Notes Patient: Marcia GERARD Provider: SUZANNE Roy :1950 A ge:74 Y S ex:Female Date:05/26/2025 Address:[facility] [address], [place], [id number] Pcp:Williams [place] Subjective: * Chief Complaints: * 1 . Fell, hurt back. * HPI: L ower back: 74 year old female presents with c/o Low Back Pain P t is here today for c/o having a fall and hurting her back. Pt sts this is on the lt side, Pt sts she was going to have surgery on her rt leg and sts she then got admitted to [facility] for a kidney stone and sts she was unable to have the surgery and then sts she fell and broke her L1 vertebrae. Pt sts when she was in the hospital they had her in a brace. Pt sts she would like an xray done to see if the fracture is healing as she still has pain.. * ROS: D ERMATOLOGY: no R dylan. n o H cuca. G ASTROENTEROLOGY: no N ausea. n o V omiting. U ROLOGY: no D ifficulty urinating. n o B lood in urine. 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 * Family History: F ather: . [...] , Determination:, rare. * Medications: T aking Centrum Silver - Tablet 1 tab(s) orally once a day , Taking Levothyroxine Sodium 175 MCG Tablet 1 tablet in the morning on an empty stomach Orally Once a day , Not-Taking Calcium Citrate 250 MG Tablet 1 tab(s) orally 2 times a day , Medication List reviewed and reconciled with the patient * Allergies: C odeine: vomiting. Objective: * Vitals: W t: 165.2, Temp: 98.2, BP: 120/86, HR: 99, Nurse: carli, Ht: 65.50, BMI:27.07. * Examination: G eneral Examination: General Appearance: N AD. C hest: n ormal shape and expansion. H eart: R SR. L ungs: c lear to auscultation. B ack: t tp along the lumbar spine and paraspinal muscles, pain with flexion and extension. Assessment: * Assessment: 1. C losed fracture of first lumbar vertebra, unspecified fracture morphology, initial encounter - S32.019A (Primary) 2 . M uscle spasm of back - M62.830 3 .?BMI 27.0-27.9,adult - Z68.27 Plan: * Treatment: 2.?Muscle spasm of back? Start Metaxalone Tablet, 800 MG, 1 tablet, Orally, at night, prn, 30, Refills 0.?? * Procedure Codes: G 2211 Complex e/m visit add on, 1036F TOBACCO NON-USER, 3074F SYST BP LT 130 MM HG, 3079F DIAST BP 80-89 MM HG, G8420 BMI<30 AND >=22 CALC & DOCU * Follow Up: v ia phone to report test results * Images: Billing Information: * Visit Code: 31134 Office Visit, Est Pt., Level 3. * Procedure Codes: G2211 Complex e/m visit add on. 1036F TOBACCO NON-USER. 3074F SYST BP LT 130 MM HG. 3079F DIAST BP 80-89 MM HG. G8420 BMI<30 AND >=22 CALC & DOCU. * Electronic signature of SUZANNE Sumner on 06/28/2025 at 03:48 PM EDT Sign off status: Pending * Provider: SUZANNE Roy Date: 0 05/26/2025 Generated for Beatriz espinosa/Shola/Jorgesmitting on: 1 03:48 PM EDT History and Physical Notes * HPI (History of Present Illness) Category Sub-Category Detail Notes Category Not es Lower back Low Back Pain Pt is here today for c/o having a fall and hurting her back. Pt sts this is on the lt side, Pt sts she was going to have surgery on her rt leg and sts she then got admitted to [facility] for a kidney stone and sts she was unable to have the surgery and then sts she fell and broke her L1 vertebrae. Pt sts when she was in the hospital they had her in a brace. Pt sts she would like an xray done to see if the fracture is healing as she still has pain. Examination Category Sub-Category Detail Notes Category Not es General Examination Heart: RSR Lungs: clear to auscultatio n General Appearance: NAD Back: ttp along the lumbar spine and paraspinal muscles, pain with flexion and extension Chest: normal shape and exp ansion
--- OUTSIDE RECORDS SUMMARY | 2025-06-10 05:20 | XMS_ITS ---
[facility] [address] [facility] [address] [place] [id number] Care Team Providers Care Pulp Cooker Name Role Phone WyacondaWilliams canales Primary Care Provider REASON FOR VISIT Message Encounters Encounter Location Date Provider Diagnosis [place] [address] [facility] [address] [place] [id number] 06/10/2025 Williams Falcon Closed compression fracture of [...] * Darling BROWNDadaOB:1950 ( 75 yo F)Acc No.[id number]:06/10/2025 Patient: Marcia GERARD :1950 A ge:74 Y S ex:Female Address:[facility] [address] [place], [address] Subjective: * Chief Complaints: * M essage * 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: * Surgical History: * Hospitalization/Major Diagno stic Procedure: * Medications: Objective: * Vitals: * Physical Examination: Assessment: * Assessment: 1. C losed compression fracture of L1 vertebra, initial encounter - S32.010A (Primary) ? Plan: * Treatment: * Procedure Codes: * true * Date: Generated for Printi ng/Shola/Latonya on: 1 03:48 PM EDT
--- NOTE | 2025-06-28 15:46 | MR_ITS ---
PROCEDURE INFORMATION: Exam: MR Lumbar Spine Without and With Contrast Exam date and time: 06/28/2025 3:55 PM Age: 75 years old Clinical indication: Low back pain; Recent fall , lower back pain; Additional info: Abnml xray lumbar spine TECHNIQUE: Imaging protocol: Magnetic resonance imaging of the lumbar spine without and with contrast. Contrast material: PROHANCE; Contrast volume: 14 ml; Contrast route: IV; COMPARISON: CT LUMBAR SPINE WO [facility] 04/07/2025 1:30 PM FINDINGS: Bones/joints: Multilevel vertebral body height loss without obvious edema most pronounced at L1 level with near anterior vertebral plana. 0.5 cm bony retropulsion. Lesser degrees of vertebral body height loss at L3 and L4 levels. No bony retropulsion. Osteopenia. Spinal cord: Visualized cord, conus medullaris and cauda equina are unremarkable without compression. T12-L1: Bony retropulsion./ligamentum flavum hypertrophy. Facet/ligamentum flavum hypertrophy. Moderate central canal. Moderately severe right neural foraminal narrowing. Moderate to moderately severe left neural foraminal narrowing. L1-L2: Mild degenerative broad-based disc/osteophyte complex. Facet/ligamentum flavum hypertrophy. No central canal narrowing. Moderate bilateral neural foraminal narrowing. L2-L3: Mild degenerative broad-based disc/osteophyte complex. %/Ligamentum flavum hypertrophy. Moderate right neural foraminal narrowing. Zoye-of-ocwwjzzb left neural foraminal narrowing. L3-L4: No significant disc bulge or herniation. Facet/ligamentum flavum hypertrophy. No central canal narrowing. Moderate bilateral neural foraminal narrowing. L4-L5: No significant disc bulge or herniation. Preserved/ligamentum flavum hypertrophy. Mild central canal narrowing. Moderate to moderately severe bilateral neural foraminal narrowing. L5-S1: Mild degenerative broad-based disc/osteophyte complex. No central canal narrowing. Moderately severe bilateral neural foraminal narrowing. Soft tissues: Unremarkable. IMPRESSION: 1. No acute findings identified. 2. Increased interval L1 vertebral body height loss with bony retropulsion although not acute. Lesser degrees of nonacute vertebral body height loss involving L3 and L4 levels. 3. Multilevel central canal and neural foraminal narrowing from combination of degenerative facet/ligamentum flavum hypertrophy, disc/osteophyte complex, and, at T12/L1 level, also contributed from bony retropulsion.
--- OUTSIDE RECORDS SUMMARY | 2025-06-28 15:47 | XMS_ITS | Clinical Summary ---
Author Organization [facility] Address [address] [place] [address] Care Team Providers Care Public Health Advisor Name Role Phone Williams Falcon MD Primary Care Provider + [phone] Allergies No known active allergies Medications levothyroxine [...] [facility] [address] [id number] Gypsy Silva MD [address] [place] [id number] Health Maintenance Due Date Last Done Comments [...] 2025 Pneumococcal Vaccine 50+ Completed 03/01/2021, 10/2017 Procedures Procedure Name Priority Date/Time Associated Diagnosis Comments SCANNED - LABS 04/20/2025 from Last 3 Months Results * LABS SCANNED (04/20/2025) Gypsy Silva MD LAB BLOOD ORDERABLES Final R esult from Last 3 Months Insurance MEDICARE A & B Care Teams Public Health Advisor Relationship Specialty Start Date End Date Williams Falcon MD [address] [facility] [address] [facility] [address] [place] [id number] PCP - General Family Medicine 03/26/24
--- OUTSIDE RECORDS SUMMARY | 2025-06-28 15:48 | XMS_ITS | Clinical Summary ---
Author Organization [facility] Address [address] [place] [address] Care Team Providers Care Timing Adjuster Name Role Phone Unavailable Primary Care Provider Unavailabl e Encounters Date Type Department Care Team Description 04/07/2025 Orders Only External Location [address] [place] [id number] Provider, External 04/07/2025 Orders Only External Location [address] [place] [phone] Provider, External 04/07/2025 Orders Only External Location [address] [place] [address] Provider, External 04/07/2025 Orders Only External Location [address] [place] [address] Provider, External 04/07/2025 Orders Only External Location [address] [place] [id number] Provider, External 04/07/2025 Orders Only External Location [address] [place] [address] Provider, External from Last 3 [...] 1997 [facility]-Zoster Vaccines (1 of 2) 2002 [id number] Vaccine (1 - season) 2025 [facility]-Influenza Vaccine [...]
--- OUTSIDE RECORDS SUMMARY | 2025-06-28 15:48 | XMS_ITS | Patient Health Record ---
[facility] Address [address] [facility] [address] [place] [id number] Care Team Providers Care Nocturnist Name Role Phone Serina Falconian Primary Care Provider Richard Concepcion Unavailable [phone] Mallorie Kruse Unavailable [phone] Allergies Allergen (clinical drug ingredient) Drug/Non Drug [...] Interpretation:Normal Performing Lab: Notes/Report: Test performed by [facility], [address] , [address], [place] [address] Yadiel Elliott MD, [employer] CLIA: [id number] Sodium 139 135-145 mmol/L Potassium 3.8 3.5-5.3 [...] Notes Problem Gastro-esophageal reflux disease without esophagitis (697964650) Gastro-esophageal reflux disease without esophagitis (K21.9) Active confirmed Problem Essential hypertension (63530190) Essential hypertension (I10) Active confirmed Problem Pancytopenia (457961391) Pancytopenia (D61.818) Active confirmed Problem Decrease in appetite (finding) (09251096) Decreased appetite (R63.0) Active confirmed Problem Paresthesia (35668064) Paresthesia (R20.2) Active confirmed Problem Mixed hyperlipidemia (258363330) Mixed hyperlipidemia (E78.2) Active confirmed Problem Age-related osteoporosis (624113032) Age-related osteoporosis without current pathological fracture (M81.0) Active confirmed Problem Acquired hypothyroidism (869209175) Acquired hypothyroidism (E03.9) Active confirmed Problem Anemia (116117398) Anemia, unspecified type (D64.9) Active confirmed Problem Osteoarthritis of knee (099647631) Primary osteoarthritis of both knees (M17.0) Active confirmed Problem Body mass index 30.00 to 34.99 (226342500047786) BMI 34.0-34.9,adult (Z68.34) Active confirmed Problem Leukopenia (00342797) Leukopenia, unspecified type (D72.819) Active confirmed Problem Congenital anomaly of aortic arch (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 confirmed Problem Carpal tunnel syndrome (79699581) Carpal tunnel syndrome on both sides (G56.03) Active confirmed Problem Obesity (793323659) Non morbid obesity (E66.9) Active confirmed Vital Signs Heart Rate 99 /min 05/26/2025 Blood pressure diastolic 86 mm Hg 05/26/2025 Height 65.50 in 05/26/2025 Blood pressure systolic 120 mm Hg 05/26/2025 Weight 165.2 lbs 05/26/2025 BMI 27.07 kg/m2 05/26/2025 Encounters Encounter Location Date Provider Diagnosis [facility] [address] [place], [place] [id number] 10/15/2024 Williams Liverpool Acquired hypothyroid ism E03.9 and Mixed hyperlipidemia E78.2 [facility] [address] [place], [place] [id number] 04/20/2025 Williams Liverpool Closed fracture of f irst lumbar vertebra, unspecified fracture morphology, initial encounter S32.019A ; Osteoporosis screening Z13.820 ; Dark urine R82.998 ; Anemia, unspecified type D64.9 and Pancytopenia D61.818 [facility] [address] [place], [place] [id number] 05/26/2025 Mallorie Crowdy Closed fracture of f irst lumbar vertebra, unspecified fracture morphology, initial encounter S32.019A ; Muscle spasm of back M62.830 and BMI 27.0-27.9,adult Z68.27 [facility] [address] [place], [place] [id number] 11/30/2024 Williams Liverpool [facility] [address] [place], [place] [id number] 04/11/2025 Williams Liverpool [facility] [address] [place], [place] [id number] 04/12/2025 R Kushal Concepcion [facility] [address] [place], [place] [id number] 04/25/2025 Williams Liverpool [facility] [address] [place], [place] [id number] 05/12/2025 Williams Liverpool [facility] [address] [place], [place] [id number] 05/26/2025 Mallorie Crowdy Muscle spasm of back M62.830 [facility] [address] [place], [place] [id number] 06/03/2025 Mallorie Crowdy [facility] [address] [place], [place] [id number] 06/10/2025 Williams Liverpool Closed compression fracture of L1 vertebra, initial encounter S32.010A Assessments Encounter Date Diagnosis (ICD Code) Assessment Notes Treatment Notes Treatment Clinical Notes Section Notes 10/15/2024 Mixed hyperlipidemia (ICD-10 - E78.2) 10/15/2024 Acquired hypothyroidism (ICD-10 - E03.9) 04/20/2025 Closed fracture of first lumbar vertebra, [...] Z13.820) 04/20/2025 Dark urine (ICD-10 - R82.998) 05/26/2025 [...] Date MEDICARE PART B [address] [address] [place] [id number] [phone] [id number] Marcia Carl Self - patient is the insured [employer] [address] [place] [address] [id number] Marcia Carl Self - patient is the insured Medications Administered Medication Instructions Date of Administration Dosage Notes Depo- Medrol 40 mg/ml 08/03/2014 1 mL Depo- Medrol 40 mg/ml 08/30/2014 1.5 mL Dexamethasone 09/14/2016 1 mL Medical (General) History 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 History ICD Code Graves Disease Allergic Rhinitis RETAIL OFFICE ASSOCIATE - Dr. Oliverio Tatum Hiatal Hernia LT ACL tear 2011 Osteoporosis Esophageal reflux kidney stones March 15, 2017 varicose veins Compression fracture, Lumbar 2024 Surgical History Surgery Date(Month/Year) Tubal Ligation 1979 Rectal Hernia Repair 2005 Transvaginal Taping 2005 RT Eye Cataract 11/26/2011 LT Knee Surgery 08/2012 Mole Removal - Dr. Warren x2 03/2016 Hospitalization History Reason Date(Month/Year) URI- [facility] UTC 01/25/2018 Bronchitis, Dehydration- [facility] ER 09/10/20 15 Bronchitis- [facility] ER 09/08/2015 Pneumonia- [facility] ER 03/26- Knee Pain- [facility] ER 06/26/2012 Lymph removed from groin
[2025-06-28] MEDS: SODIUM CHLORIDE 0.9% 10ML SYR (RAD ONLY) 10 ML IV (16:41)
[2025-06-28] MEDS: GADOTERIDOL INJ 20ML SYRINGE 14 ML IV (16:42)
== END 2025-06-28 23:59 | disposition home or self-care (01) ==
LOC: RAD 15:44
PROVIDERS: PCP Family Medicine; Visit Provider Physician Assistant
DX: M47.816 Spondylosis without myelopathy or radiculopathy, lumbar region (principal); M25.78 Osteophyte, vertebrae; M48.061 Spinal stenosis, lumbar region without neurogenic claudication; M99.73 Connective tissue and disc stenosis of intervertebral foramina of lumbar region; M53.85 Other specified dorsopathies, thoracolumbar region; M53.86 Other specified dorsopathies, lumbar region
CPT/HCPCS: 72158; A9576